=== PATIENT | male | born 1960 | race Caucasian/White ===

== ENCOUNTER 2020-10-27 13:10 | Emergency (ER) | payer MEDICARE, MEDICAID, SELFPAY ==
[2020-10-27] VITALS (7 sets, daily range): BP systolic 107–154; BP diastolic 59–86; PULSE 113–128; RESP 12–21; TEMP 36.8–36.9; O2SAT 94–100; BMI 19.8
--- NOTE | 2020-10-27 | ECG_ITS ---
Test Reason : TACHY Blood Pressure : / mmHG Vent. Rate : 118 BPM Atrial Rate : 131 BPM P-R Int : 000 ms QRS Dur : 072 ms QT Int : 348 ms P-R-T Axes : 000 048 054 degrees QTc Int : 487 ms Atrial fibrillation with rapid ventricular response Abnormal ECG When compared with ECG of 25-AUG-2018 20:55, Atrial fibrillation has replaced Sinus rhythm Referred By: Ebenezer Pierce Electronically Signed By:JEROD ALLISON
--- NOTE | ~2020-10-27 | XR_ITS ---
EXAMINATION: XR HUMERUS, RIGHT CLINICAL INFORMATION: Fall COMPARISON: None TECHNIQUE: AP and lateral views of the right humerus. FINDINGS: The bones and soft tissues are normal. No fracture. Imaged portions of the shoulder and elbow are unremarkable. XR/XR humerus RT IMPRESSION: Unremarkable right humerus.
--- NOTE | ~2020-10-27 | CT_ITS ---
EXAMINATION: CT BRAIN, CT FACIAL BONES AND CT CERVICAL SPINE WITHOUT CONTRAST. CLINICAL INFORMATION: Fall. COMPARISON: Cervical spine 08/25/2018 TECHNIQUE: Axial 5 mm thin and reformatted 2 mm thin sagittal and coronal images of brain were obtained. Axial 3 mm thin and reformatted 1.5 mm thin sagittal and coronal images of facial bones were obtained. Lastly axial 3 mm thin and reformatted 2 mm thin sagittal and coronal images of cervical spine were obtained. DLP [id number]. FINDINGS: Brain: There is no acute intra-axial, extra-axial bleed, masses, collection or midline shift. There is no acute infarction evolution. Both lateral ventricles are symmetrical in size and configuration with mild enlargement. There is diffuse periarticular hypodensity suggestive of chronic small vessel ischemic changes without mass effect. Bone windows reveal no calvarial abnormality. Facial bones: There is mild displaced left nasal bone fracture with soft tissue swelling. Visualized bilateral maxillofacial bones are normal. Bilateral TM joints are normal. The mandible is intact. The bony orbits are intact. Bilateral optic globe, optic nerves and periorbital soft tissues are normal. The nasal septum is slightly deviated to the left with a small bony spur. The turbinates are asymmetrical. The bony sinus sánchez are intact. There is mild mucoperiosteal thickening left frontal sinus. Bilateral ostiomeatal complex and frontoethmoidal recesses are widely patent. The anterior maxillary spine is intact. The mastoid sinuses are clear. The prevertebral and paravertebral soft tissues are normal. Cervical spine: There is maintained cervical lordosis. The vertebral heights and alignment is normal. There is loss of C5-C6 and C6-C7 disc heights. There is an impacted C2 comminuted fracture which appear stable to previous study. Also visualized is a small posterior inferior oblique C3 vertebral body fracture. There is healed C3 nondisplaced fracture involving the left intra-articular facets, lamina and the spinous process. There are no new fractures. The prevertebral and paravertebral soft tissues are normal. The craniovertebral junction and the C1-C2 alignment is normal. The prevertebral and paravertebral soft tissues are normal. There is atherosclerotic calcification of bilateral carotid arteries. The lung apices are clear except for mild centrilobular emphysema . CT/CT cervical spine wo con IMPRESSION: No acute intracranial process seen. Mildly displaced left nasal bone fracture with minimal soft tissue swelling. Chronic left frontal sinus inflammatory changes. No additional fractures seen in the maxillofacial bones. Old healed left C2 vertebral body, left healed C3 posterior body, lamina and spinous process fractures extending to the facet joint Healed left C4 facet joint fracture. There is no acute fracture seen in the cervical spine. Centrilobular emphysema without acute process.
--- NOTE | ~2020-10-27 | XR_ITS ---
EXAMINATION: XR HIP, RIGHT CLINICAL INFORMATION: Hip pain after fall COMPARISON: Left femur and hip 09/18/2017 TECHNIQUE: Single view pelvis with 2 additional views of the right hip. FINDINGS: Alignment is normal at the hips, pubic symphysis and sacroiliac joints. No acute fractures in the pelvis or proximal femurs. Joint space of each hip is maintained. Old, healed fractures of right pubic rami. The 2 views of the right hip show the femoral head to be well positioned within the acetabulum. The partially visualized left femoral intramedullary nail and femoral neck screw are intact. No hardware loosening (within the examined [id number]). There is coxa profunda of the left hip (with chronic acetabular overcoverage of the femoral head). Atherosclerotic calcification of the aorta and iliofemoral arteries. XR/XR hip RT w [id number] IMPRESSION: No evidence of acute osseous injury. Old, healed fractures of right pubic rami.
--- NOTE | 2020-10-27 13:19 | ED.FALL ---
HPI - Fall General Chief Complaint: Fall Stated Complaint: FALL T-1ARM AND BACK PAIN Time Seen by Provider: 10/27/20 13:19 Source: patient and EMS Mode of arrival: EMS Limitations: no limitations History of Present Illness MD complaint: fall Onset (ago): hour(s) (2am in the morning) Fall from: standing Fall witnessed: no Place fall occurred: home Loss of consciousness: none Prolonged down time: no Symptoms prior to fall: none Context: tripped/slipped Location of injury: head and face Location of injury - extremities: right: arm Severity: moderate Quality: dull Associated symptoms (after fall): denies Related Data Previous Rx's Medication Instructions Recorded morphine 15 mg immediate release 15 mg PO Q6H PRN 3 Days #12 tab 10/27/20 tablet Allergies Allergy/AdvReac Type Severity Reaction Status Date / Time acetaminophen [From TYLENOL] Allergy Unknown NAUSEA Verified 10/27/20 13:33 ibuprofen [From MOTRIN] Allergy Unknown GI Verified 10/27/20 13:33 BLEEDING, stomach bleed Review of Systems Review of Systems: Constitutional : No Fever, No Chills ENT/Mouth : No Ear Pain, No Hoarseness, No sore throat Eyes: No Eye Pain, No Swelling, No Redness, No Foreign Body Cardiovascular : No Chest Pain, No SOB Respiratory : No Cough, No Dyspnea Gastrointestinal : No Nausea, No Vomiting, No Diarrhea, No abdominal Pain Genitourinary : No Dysuria, No Hematuria Musculoskeletal : positive joint pain, No Myalgias, No Joint Swelling Skin : pos Skin lacerations, No rash Neuro : No Weakness, No Numbness, No Loss of Consciousness, No Dizziness, No Headache Psych : No Anxiety/Panic, No Depression Heme/Lymph: no easy bruising, no Lymphadenopathy Endocrine : No Polyuria, No Polydipsia All other systems reviewed and are negative PMFSH Past Medical History Attestation statement: The following information was validated with the patient. Medical History (Updated 10/27/20 @ 16:31 by Cydney Dodge DO) Asbestosis Atrial fibrillation COPD (chronic obstructive pulmonary disease) Falls Social History Social History (Updated 10/27/20 @ 13:55 by Cydney Dodge DO) Alcohol intake: current Alcohol intake frequency: a few times a week Patient Tobacco Use Status: Current everyday Tobacco user Use of substances other than those prescribed or required for medical reasons: No Advance Directives: No Advance Directives Information Provided: No Physical Exam Vital Signs: Vital Signs: Last Vital Signs Temp 98.3 F 10/27/20 15:46 Pulse 117 H 10/27/20 15:46 Resp 20 10/27/20 15:46 BP 123/71 10/27/20 15:46 Pulse Ox 94 10/27/20 15:46 Body Mass Index 19.8 Appearance: Alert. Oriented X3. No acute distress. Eyes: Pupils equal, round and reactive to light. ENT: Pharynx normal. contusion to bridge of nose, abrasion and ecchymosis to left cheek EOMi, no nasal septal hematoma Neck: Normal inspection. Neck supple. CVS: Normal heart rate and rhythm. Pulses normal. Respiratory: No respiratory distress. Breath sounds normal. Abdomen: Soft and nontender. Skin: Skin warm and dry. Normal skin color. Normal skin turgor. Extremities: No lower extremity edema. no pain with movement of hips, R upper inner bicep area full ROM but superficial 6cm laceration, distal NV intact Neuro: Oriented X 3. No motor deficit. No sensory deficit. Course Course Course Narrative: patient reports that HR is normally 110 after review of images radiology states all fractures from 2019 not new no new fractures but his neck did not heal no neuro deficits will instruct him to follow up with his spine doctor Procedures Laceration Laceration 1: Site: upper extremity Side (If applicable): right Size (cm): 6 Description: linear and flap Depth: simple, single layer Local Anesthetic: other anesthetic (LET ) Amount of anesthesia used (mL): 3 Pre-repair: wound explored, irrigated extensively and deep structures intact Skin layer closed with: other (6 jesse) MDM - Fall MDM Narrative Medical decision making narrative: 60 yo male no AC therapy, hx of pain issues here with mechanical fall due to fridge door getting stuck - at this time CT head/facial bones/cervical spine, R humerus - PO pain medications will need wound closure, discussed possible rehab for falls but he was vague with wanting that Discharge Plan Discharge Clinical Impression: Laceration, At high risk for falls Contusion Qualifiers: Encounter type: initial encounter Contusion area: head Contusion of head detail: orbital tissues Laterality: left Qualified Code(s): S05.12XA - Contusion of eyeball and orbital tissues, left eye, initial encounter Closed fracture nasal bone Qualifiers: Encounter type: initial encounter Qualified Code(s): S02.2XXA - Fracture of nasal bones, initial encounter for closed fracture Patient Disposition: Home, Self-Care Instructions: Nasal Fracture (ED), Laceration (ED), Fall Prevention (ED) Additional Instructions: return to ED for any worsening symptoms or concerns some of your neck fractures never healed - you need to follow up with your spine doctor okay to shower with jesse, keep clean and dry afterwards do not get wet for 48 hours monitor for redness, fevers, yellow drainage jesse come out in 10 days Prescriptions: New morphine 15 mg tablet 15 mg PO Q6H PRN (Reason: pain) 3 Days Qty: 12 RF: 0
[2020-10-27] MEDS: Morphine Sulfate Immed Release 15 MG TABLET PO (13:51)
[2020-10-27] MEDS: Lidocaine/Epineph/Tetracaine 3 ML GEL.PF.APP TOPICAL (13:51)
--- NOTE | 2020-10-27 18:21 | PC.NURSE ---
Pt c/o of increasing right hip pain, attempted to ambulate pt and pt unable to bear weight. Plan for xray of hip
--- NOTE | 2020-10-27 20:12 | PC.NURSE ---
This RN at bedside, pt aaox4, resting on stretcher c/o R arm pain and L hip pain. Pt requesting PO. While this RN at bedside, this rn notes pt to be in what appears to be afib with rvr on bedside monitor. This rn obtains EKG with HR in 120s, EKG presented to Dr Pierce who was made aware of rate up to 160. Pt does not take any meds for his afib at home stating I don't know what to tell you, I'm against it. 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 Per Dr Pierce, pt OK for PO. PO provided to pt. Stretcher remains in low locked position, rails raised, call shaffer within reach. Pt with red fall prevention socks and red wrist band. Pt awaiting dispo pending XR results.
== END 2020-10-27 22:19 | disposition home or self-care (01) ==
PROVIDERS: Emergency Provider Emergency Medicine Emergency Medical Services; PCP Family Medicine
DX: S41.111A Laceration without foreign body of right upper arm, initial encounter (principal); S02.2XXA Fracture of nasal bones, initial encounter for closed fracture; G44.309 Post-traumatic headache, unspecified, not intractable; M54.2 Cervicalgia; M25.551 Pain in right hip; W01.0XXA Fall on same level from slipping, tripping and stumbling without subsequent striking against object, initial encounter; Y93.9 Activity, unspecified; Y92.009 Unspecified place in unspecified non-institutional (private) residence as the place of occurrence of the external cause; Y99.9 Unspecified external cause status; Z79.899 Other long term (current) drug therapy; F17.200 Nicotine dependence, unspecified, uncomplicated; Z71.6 Tobacco abuse counseling
CPT/HCPCS: 70450; 70486; 72125; 73060; 73502; 93005; 99284; 99285

== ENCOUNTER 2021-05-21 14:03 | Inpatient (IN) | payer MEDICARE, MEDICAID, SELFPAY ==
[2021-05-21] VITALS (9 sets, daily range): BP systolic 93–130; BP diastolic 59–78; PULSE 106–179; RESP 14–20; TEMP 36.8–37.1; O2SAT 95–100; BMI 18.8
--- NOTE | 2021-05-21 | ECG_ITS ---
Test Reason : tachycardia Blood Pressure : / mmHG Vent. Rate : 110 BPM Atrial Rate : 110 BPM P-R Int : 156 ms QRS Dur : 078 ms QT Int : 356 ms P-R-T Axes : 069 008 047 degrees QTc Int : 481 ms Sinus tachycardia Otherwise normal ECG When compared with ECG of 21-MAY-2021 15:38, Sinus rhythm has replaced Atrial fibrillation Referred By: Wilberto Liao Electronically Signed By:Mina Morales
--- NOTE | 2021-05-21 | ECG_ITS ---
Test Reason : irregular heartrate Blood Pressure : / mmHG Vent. Rate : 114 BPM Atrial Rate : 114 BPM P-R Int : 148 ms QRS Dur : 076 ms QT Int : 340 ms P-R-T Axes : 071 018 061 degrees QTc Int : 468 ms Sinus tachycardia Low voltage QRS Septal infarct , age undetermined Abnormal ECG When compared with ECG of 21-MAY-2021 18:27, Septal infarct is now Present Referred By: Christian Gr Electronically Signed By:Mina Morales
--- NOTE | ~2021-05-21 | XR_ITS ---
EXAMINATION: XR KNEE, RIGHT CLINICAL INFORMATION: Pain COMPARISON: None TECHNIQUE: Frontal and lateral of the right knee. FINDINGS: Bones and soft tissues are normal. No fracture or joint effusion. Alignment is anatomic. Joint spaces are well maintained. No abnormal soft tissue calcification. There are vascular calcification. XR/XR knee RT 2V IMPRESSION: No acute osseous changes to explain patient's pain symptoms. There are vascular calcifications.
--- NOTE | ~2021-05-21 | CT_ITS ---
EXAMINATION: CT KNEE WITHOUT CONTRAST, RIGHT CLINICAL INFORMATION: Evaluate knee effusion. Septic knee versus bursitis. COMPARISON: X-ray 05/21/2021 TECHNIQUE: Axial imaging. Sagittal and coronal reconstructions. This CT examination was performed using dose optimization techniques as appropriate, variously including the following: *Automated exposure control *Adjustment of mA and/or kV according to patient size (this includes techniques or standardized protocols for targeted exams where dose is matched to indication/reason for exam; i.e. extremities or head) *Use of iterative reconstruction technique DLP: 269 mGy-cm FINDINGS: There is a prominent soft tissue swelling in the anterior and lateral aspect of the knee, including overlying the patella and the proximal patellar tendon, and to a lesser degree along the medial side, with subcutaneous edema/fluid. Low-attenuation subcutaneous tissues suggestive of edema/fluid. Evaluation for loculated or organized fluid collections is limited in the absence of intravenous contrast. Bones are diffusely osteopenic, limiting sensitivity. No acute fracture is seen of the distal femur and proximal tibia.. There is a subtle linear lucency in the proximal fibular head, for example image 6:49, which could represent a subtle undisplaced fracture of indeterminate age. Mild medial and lateral compartment degenerative changes. There is small joint fluid. There are fatty changes in the medial gastrocnemius muscle. CT/CT knee RT wo con IMPRESSION: Prominent soft tissue swelling along the anterior aspect of the knee, more prominent anteriorly and laterally, overlying the patella and the patellar tendon. There is subcutaneous edema/fluid present. Evaluation for organized fluid collection is limited in the absence of intravenous contrast. Follow-up contrast study or MRI could be obtained for further evaluation as clinically warranted. Osteopenia limits evaluation of the osseous structures. Question subtle undisplaced fracture of the proximal fibula, of indeterminate age. No other discrete fracture is identified. Small joint effusion.
--- NOTE | 2021-05-21 14:12 | ECG_ITS ---
Test Reason : TACARDIA Blood Pressure : / mmHG Vent. Rate : 130 BPM Atrial Rate : 000 BPM P-R Int : 000 ms QRS Dur : 072 ms QT Int : 320 ms P-R-T Axes : 000 004 057 degrees QTc Int : 470 ms Atrial fibrillation with rapid ventricular response Abnormal ECG When compared with ECG of 27-OCT-2020 20:05, No significant change was found Referred By: Leanna Lowery Electronically Signed By:Mina Morales
--- NOTE | 2021-05-21 14:22 | ED.GENADULT ---
HPI - General Adult General Chief complaint: General Medical Stated complaint: R KNEE PAIN/SWELLING SINCE SATURDAY, NO INJURY Time Seen by Provider: 05/21/21 14:07 Source: patient and EMS Mode of arrival: EMS Limitations: no limitations History of Present Illness HPI narrative: 60 yo male with history of afib not on AC or ASA, COPD here with complaints of right knee swelling, redness, warmth since Saturday. Patient denies injury or trauma. No chills, fever. Related Data Home Medications Medication Instructions Recorded Confirmed albuterol sulfate 90 mcg/actuation 2 puff PO Q4H PRN 05/21/21 05/21/21 aerosol inhaler (Ventolin HFA) cyclobenzaprine 10 mg tablet 1 tab PO TID PRN 05/21/21 05/21/21 digoxin 250 mcg (0.25 mg) tablet 1 tab PO DAILY 05/21/21 05/21/21 metoprolol tartrate 25 mg tablet 1 tab PO BID 05/21/21 05/21/21 nicotine (polacrilex) 4 mg gum 1 - 2 ea PO Q2H PRN 05/21/21 05/21/21 Allergies Allergy/AdvReac Type Severity Reaction Status Date / Time acetaminophen [From TYLENOL] Allergy Unknown NAUSEA Verified 10/27/20 13:33 ibuprofen [From MOTRIN] Allergy Unknown GI Verified 10/27/20 13:33 BLEEDING, stomach bleed Review of Systems Review of Systems: Yes all other systems are reviewed and are negative Constitutional: Constitutional: Reports no additional constitutional complaints, Denies body ache(s), Denies chills, Denies fever(s), Denies headache(s) and Denies weakness Eyes: Eyes: Reports no additional eye complaints and Denies change in vision ENT: Reports system reviewed and no additional complaints, except as documented, Denies dizziness, Denies headache(s), Denies nasal congestion, Denies nasal discharge and Denies neck pain Cardiovascular: Cardiovascular: Reports no additional cardiovascular complaints, Denies chest pain, Denies leg edema and Denies dyspnea Respiratory: Respiratory: Reports no additional respiratory complaints, Denies cough and Denies dyspnea Gastrointestinal: Gastrointestinal: Reports no additional gastrointestinal complaints, Denies abdominal pain, Denies diarrhea, Denies nausea and Denies vomiting Genitourinary: Genitourinary: Denies urinary incontinence Musculoskeletal: Musculoskeletal: Reports no additional musculoskeletal complaints, Denies back pain, Reports arthralgias, Reports joint swelling, Denies neck pain, Denies numbness and Denies tingling Integumentary/Breasts: Skin/Breast: Reports system reviewed and no additional complaints, except as docu, Reports swelling, Reports erythema and Denies rash Neurologic: Reports system reviewed and no additional complaints, except as documented, Denies dizziness, Denies headache(s), Denies numbness, Denies tingling and Denies weakness [facility] Past Medical History Attestation statement: The following information was validated with the patient. Source: old records reviewed and nursing notes reviewed Medical History Anxiety Asbestosis Atrial fibrillation COPD (chronic obstructive pulmonary disease) Depression Falls Multiple sclerosis Social History Social History Alcohol intake: current Alcohol intake frequency: 0-2 drinks per day Alcohol type: wine Patient Tobacco Use Status: Former Tobacco user Use of substances other than those prescribed or required for medical reasons: Yes Substance Use Type: Marijuana Advance Directives: No Advance Directives Information Provided: No Physical Exam ED Vital Signs: Vital Signs - 24 hr 05/21/21 14:10 05/21/21 15:49 05/21/21 16:11 Temperature 98.8 F 98.4 F 98.3 F Pulse Rate 122 H 112 H 174 H Respiratory Rate 17 16 18 Blood Pressure 116/70 130/71 103/72 Pulse Oximetry 100 96 98 05/21/21 17:05 Temperature Pulse Rate 106 H Respiratory Rate 14 Blood Pressure 121/71 Pulse Oximetry 95 BMI result Body Mass Index 18.8 Const General: cooperative Orientation/consciousness: patient oriented x3 Limitations: no limitations [facility] Head: Yes normal to inspection Ears: hearing grossly normal bilaterally General nose exam: Normal external nose present Face and sinus: Yes normal facial exam Mouth: Normal oral and palatal mucosa present Teeth and gingiva: dentition normal Throat: Yes posterior oropharynx normal, Yes tonsils normal and Yes uvula midline Eyes General: appearance normal, both eyes and all related structures Pupils: Equal, round and reactive pupils present Neck Neck: Yes normal visual inspection, Yes full ROM and Yes no lymphadenopathy Chest Chest palpation & inspection: normal inspection of the chest Resp Effort & Inspection: normal respiratory effort Auscultation: clear to auscultation bilaterally Cardio Rate: tachycardic Rhythm: regular rhythm Peripheral pulses: Peripheral pulses 2+ throughout GI Inspection: Yes normal to inspection Palpation (GI): Soft to palpation and nontender General: Yes no CVA tenderness Back/Spine/Pelvis Back: no CVA tenderness Thoracic/Lumbar Spine: thoracic and lumbar spine normal to inspection Skin General skin exam: no rashes or lesions noted Neuro General: patient oriented x3 and moves all extremities Cranial nerves: Yes Equal, round and reactive pupils present Extrem Other: Patient has his leg held in partial flexion and is unable to extend the leg due to pain. There is streaking up the right thigh. The anterior knee is fluctuant with tenderness. Course Course Course Narrative: 60-year-old male here with right knee swelling, tenderness, warmth, redness since Saturday with no known injury or trauma. On exam the patient has what looks like a cellulitis with concern for septic joint. Anticipate patient will require an arthrocentesis, IV antibiotics and admission to the hospital. The patient is mildly tachycardic and per EMS the patient has underlying history of AFib not on anticoagulation with heart rate variable 110-150 during transport. Will obtain EKG, troponin. No chest pain or shortness of breath. Reevaluation(s) Reevaluation #1: Patient HR 130-180 afib. Patient did not take his morning medications of metoprolol, digoxin. Nor has he taken them for a few days. Ordered morning doses of his medications. Will give 5mg metoprolol IV. BP 103 systolic. Will give 500ml NS. Time: 16:00 Reevaluation #2: Heart rate now 106. On exam the patient has what appears to be an infected bursa which was aspirated by Dr Casiano at the bedside. Wound culture sent. X-ray shows no joint effusion. Discussed the patient with mounika Casiano who saw him at the bedside. Decision made not to perform arthrocentesis due to concern of further infection into the joint space with introduction of needle. I did discuss the patient with Marily from orthopedics. Will see as consult. Antibiotics are infusing. Plan to admit to medicine. Time: 17:00 Reevaluation #3: D/w with Dr Liao who accepted admission Time: 17:30 Medical Decision Making Medical Records Medical records reviewed: Yes I reviewed the patient's medical records. Lab Data Lab results reviewed: Yes I reviewed the patient's lab results. Result diagrams: 05/21/21 14:46 05/21/21 14:46 Labs: Lab Results 05/21/21 05/21/21 05/21/21 Range/Units 14:46 14:46 14:46 WBC 11.5 H (4.8-10.8) X10*3/uL RBC 3.18 L (4.60-5.80) X10*6/uL Hgb 10.9 L (14.0-18.0) g/dl Hct 32.1 L (42.0-52.0) % MCV 100.9 H (80.0-98.0) fL MCH 34.3 H (27.0-33.0) pg MCHC 34.0 (31.0-36.0) g/dl RDW 20.2 H (11.0-16.0) % Plt Count 132 L (160-400) X10*3/uL MPV 11.1 (9.4-12.4) fL Immature Gran % (Auto) 1.0 H (0.0-0.4) % Neut % (Auto) 82.5 H (45-73) % Lymph % (Auto) 12.0 L (20-40) % [place] % (Auto) 4.1 (2-11) % Eos % (Auto) 0.2 (0-4) % Baso % (Auto) 0.2 (0-2) % Lymph # (Auto) 1.4 (1.2-4.9) X10*3/uL [place] # (Auto) 0.5 (0.1-1.2) X10*3/uL Eos # (Auto) 0.0 (0.0-0.4) X10*3/uL Baso # (Auto) 0.0 (0.0-0.2) X10*3/uL Abs Immat Gran (auto) 0.11 H (0.00-0.03) X10*3/uL Absolute Neuts (auto) 9.5 H (2.0-8.3) x10*3/uL Absolute Nucleated RBC 0.000 (0.0-0.012) X10*3/uL Nucleated RBC % (auto) 0.0 (0.0-0.2) /100WBC PT 11.2 (9.9-13.0) SEC INR 1.0 (0.9-1.1) Sodium 134 L (135-145) mmol/L Potassium 3.5 (3.3-5.1) mmol/L Chloride 93 L (96-108) mmol/L Carbon Dioxide 28 (22-29) mmol/L Anion Gap 17 (12-20) BUN 11 (9-16) mg/dL Creatinine 0.80 (0.5-1.4) mg/dL Estim Creat Clear Calc 82.9 Estimated GFR > 60 Random Glucose 134 H (60-115) mg/dL Lactic Acid (0.5-2.0) mmol/L Calcium 9.3 (8.4-10.2) mg/dL Magnesium 1.8 (1.6-2.6) mg/dL Total Bilirubin 1.8 H (0.0-1.0) mg/dL Direct Bilirubin 0.9 H (0.0-0.5) mg/dL AST 21 (5-37) U/L ALT 15 (0-40) U/L Alkaline Phosphatase 96 (39-117) U/L Troponin I High Sens (<3.5-35.0) ng/L Total Protein 7.4 (6.5-8.0) g/dL Albumin 4.1 (3.5-5.0) g/dL COVID-19 (HEYDI) (Negative) COVID-19 Clin Com 05/21/21 05/21/21 05/21/21 Range/Units 14:46 14:46 14:46 WBC (4.8-10.8) X10*3/uL RBC (4.60-5.80) X10*6/uL Hgb (14.0-18.0) g/dl Hct (42.0-52.0) % MCV (80.0-98.0) fL MCH (27.0-33.0) pg MCHC (31.0-36.0) g/dl RDW (11.0-16.0) % Plt Count (160-400) X10*3/uL MPV (9.4-12.4) fL Immature Gran % (Auto) (0.0-0.4) % Neut % (Auto) (45-73) % Lymph % (Auto) (20-40) % [place] % (Auto) (2-11) % Eos % (Auto) (0-4) % Baso % (Auto) (0-2) % Lymph # (Auto) (1.2-4.9) X10*3/uL [place] # (Auto) (0.1-1.2) X10*3/uL Eos # (Auto) (0.0-0.4) X10*3/uL Baso # (Auto) (0.0-0.2) X10*3/uL Abs Immat Gran (auto) (0.00-0.03) X10*3/uL Absolute Neuts (auto) (2.0-8.3) x10*3/uL Absolute Nucleated RBC (0.0-0.012) X10*3/uL Nucleated RBC % (auto) (0.0-0.2) /100WBC PT (9.9-13.0) SEC INR (0.9-1.1) Sodium (135-145) mmol/L Potassium (3.3-5.1) mmol/L Chloride (96-108) mmol/L Carbon Dioxide (22-29) mmol/L Anion Gap (12-20) BUN (9-16) mg/dL Creatinine (0.5-1.4) mg/dL Estim Creat Clear Calc Estimated GFR Random Glucose (60-115) mg/dL Lactic Acid 1.4 (0.5-2.0) mmol/L Calcium (8.4-10.2) mg/dL Magnesium (1.6-2.6) mg/dL Total Bilirubin (0.0-1.0) mg/dL Direct Bilirubin (0.0-0.5) mg/dL AST (5-37) U/L ALT (0-40) U/L Alkaline Phosphatase (39-117) U/L Troponin I High Sens 4.2 (<3.5-35.0) ng/L Total Protein (6.5-8.0) g/dL Albumin (3.5-5.0) g/dL COVID-19 (HEYDI) Negative (Negative) COVID-19 Clin Com See Note Imaging Data knee xray: Attestation: I personally reviewed and interpreted this imaging study as follows: Radiologist's impression: FINDINGS: Bones and soft tissues are normal. No fracture or joint effusion. Alignment is anatomic. Joint spaces are well maintained. No abnormal soft tissue calcification. There are vascular calcification. XR/XR knee RT 2V IMPRESSION: No acute osseous changes to explain patient's pain symptoms. ? There are vascular calcifications. ECG Data Attestation: I personally reviewed and interpreted this ECG as follows: Interpretation: AFIB with RVR with rate 130, normal qrs, normal qt Discharge Plan Discharge Clinical Impression: Cellulitis of knee, right, A-fib Patient Disposition: Admitted As Inpatient
[2021-05-21] MEDS: 0.9 % Sodium Chloride 1,000 ML 999 ML IV (14:52)
[2021-05-21] MEDS: Morphine Sulfate 4 MG/ML CARTRIDGE IVPUSH ×2 (14:52→20:46)
[2021-05-21 14:54] LABS: MANUAL DIFF FLAG NO
[2021-05-21 14:55] LABS: Basophils Percent Auto 0.2 % (0-2); Eosinophils Percent Auto 0.2 % (0-4); Hematocrit 32.1 % (42.0-52.0); Hemoglobin 10.9 g/dl (14.0-18.0); Imm Gran Abs Auto 0.11 X10*3/uL (0.00-0.03); Lymphocytes Absolute Auto 1.4 X10*3/uL (1.2-4.9); Mean Corpuscular Hemoglobin 34.3 pg (27.0-33.0); Mean Corpuscular Volume 100.9 fL (80.0-98.0); Mean Platelet Volume 11.1 fL (9.4-12.4); Monocytes Absolute Auto 0.5 X10*3/uL (0.1-1.2); Monocytes Percent Auto 4.1 % (2-11); Neutrophils Absolute Auto 9.5 x10*3/uL (2.0-8.3); Neutrophils Percent Auto 82.5 % (45-73); Platelet Count 132 X10*3/uL (160-400); Red Blood Count 3.18 X10*6/uL (4.60-5.80); Red Cell Distribution Width 20.2 % (11.0-16.0); White Blood Count 11.5 X10*3/uL (4.8-10.8)
[2021-05-21 15:00] LABS: Prothrombin Time 11.2 SEC (9.9-13.0)
[2021-05-21 15:08] LABS: Lactic Acid 1.4 mmol/L (0.5-2.0)
[2021-05-21 15:12] LABS: Alanine Aminotransferase 15 U/L (0-40); Albumin Level 4.1 g/dL (3.5-5.0); Alkaline Phosphatase 96 U/L (39-117); Anion Gap 17 (12-20); Aspartate Amino Transferase 21 U/L (5-37); Bilirubin Direct 0.9 mg/dL (0.0-0.5); Bilirubin Total 1.8 mg/dL (0.0-1.0); Blood Urea Nitrogen 11 mg/dL (9-16); COVID-19 Test Negative (Negative); Calcium 9.3 mg/dL (8.4-10.2); Carbon Dioxide 28 mmol/L (22-29); Chloride 93 mmol/L (96-108); Creatinine Clr Calc Pharmacy 82.9; Estimated Glomerular Filt Rate > 60; Glucose Random 134 mg/dL (60-115); Magnesium 1.8 mg/dL (1.6-2.6); Potassium 3.5 mmol/L (3.3-5.1); Sodium 134 mmol/L (135-145); Total Protein 7.4 g/dL (6.5-8.0)
[2021-05-21 15:14] LABS: Troponin-I High Sensitivity 4.2 ng/L (<3.5-35.0)
--- NOTE | 2021-05-21 15:18 | PHA.MEDREC ---
Pharmacy Consult ? Medication Reconciliation Pharmacy has completed the medication reconciliation. Patient not sure what medications he takes, he seems noncompliant as he stated he takes medications sometimes and some medications cause hallucinations.
[2021-05-21] MEDS: Metoprolol Tartrate 5 MG/5 ML VIAL IVPUSH ×2 (16:03→23:09)
[2021-05-21] MEDS: Metoprolol Tartrate 25 MG TABLET PO ×2 (16:04→21:01)
[2021-05-21] MEDS: Piperacillin Sodium/Tazobactam 3.375 GM in 0.9 % Sodium Chloride 50 ML IV ×2 (16:07→22:01)
[2021-05-21] MEDS: 0.9 % Sodium Chloride 500 ML 999 ML IV (16:07)
[2021-05-21] MEDS: Digoxin 0.25 MG TABLET PO (16:09)
--- NOTE | 2021-05-21 16:10 | PC.NURSE ---
pt hr increased to 160s-180s, afib on monitor, ekg performed, pt stated he didnt take his normal medications this morning, pt also admitted to drinking ETOH this morning- a couple nips, pt speaking in full sentences, denies chest pain/sob, call shaffer within reach, will continue to monitor.
[2021-05-21] MEDS: Lidocaine HCl 1 % 20 ML VIAL 10 ML SUBCUT (16:41)
--- NOTE | 2021-05-21 16:42 | PC.NURSE ---
providers at bedside performing aspiration of rt knee
[2021-05-21] MEDS: Morphine Sulfate 2 MG/ML CARTRIDGE IVPUSH (17:05)
[2021-05-21] MEDS: vancomycin HCL 1,000 MG in 0.9 % Sodium Chloride 250 ML 270 MG IV (17:39)
--- NOTE | 2021-05-21 17:51 | PC.NURSE ---
patient a&ox3, iv antibiotics running per order, pt rn cardiac intact, call shaffer within reach, will continue to monitor.
--- NOTE | 2021-05-21 18:00 | PM.IMHP ---
History of Present Illness Date of Service: 05/21/21 Chief Complaint: Knee pain, leg swelling A 60 years old male with PMH of AFib not on AC, COPD who presents to the hospital complaining of right knee swelling, pain and redness for the last 4 days. The patient denies any injury to the knee but reporting noticed a small bump on Saturday morning that swollen quickly and became painful she was unable to move around or even take his pills. He reports palpitation as well and was noted to have AFib with RVR at time of presentation to the emergency. Reporting chills and subjective fever but no chest pain, shortness of breath, change in bowel habit or urinary symptoms. An x-ray of the knee did not show any fusion. Are thoracentesis was done in the emergency to the bursa area removing what looked like pus. Sent for culture. Atrial fibrillation was treated with oral medications and a dose of IV metoprolol with good response as the patient converted back to sinus rhythm. Admitted for further evaluation and treatment. Review of Systems Review of Systems: Reporting fever, chills and weakness No chest pain, palpitation No shortness of breath or coughing No abdominal pain, nausea or vomiting No urinary symptoms Complaining of right knee swelling, pain and erythema PMFSH Medical History Anxiety Asbestosis Atrial fibrillation COPD (chronic obstructive pulmonary disease) Depression Falls Multiple sclerosis Social History Alcohol intake: current Alcohol intake frequency: 0-2 drinks per day Alcohol type: wine Patient Tobacco Use Status: Former Tobacco user Use of substances other than those prescribed or required for medical reasons: Yes Substance Use Type: Marijuana Advance Directives: No Advance Directives Information Provided: No Meds Allergies Allergy/AdvReac Type Severity Reaction Status Date / Time acetaminophen [From TYLENOL] Allergy Unknown NAUSEA Verified 10/27/20 13:33 ibuprofen [From MOTRIN] Allergy Unknown GI Verified 10/27/20 13:33 BLEEDING, stomach bleed Active Medications: Current Medications Vancomycin HCl 1,000 mg/ (Sodium Chloride) 270 mls @ 270 mls/hr IV ONCE ONE Stop: 05/21/21 18:08 Last Admin: 05/21/21 17:39 Dose: 270 mls/hr Documented by: Pharmacy Consult (Consult Rx Perform Med Rec) 1 each MISCELLANE ONCE PRN PRN Reason: Consult order Pharmacy Consult (Consult Rx Vancomycin Dosing) 1 each MISCELLANE DAILY PRN PRN Reason: Consult order Home Medications Medication Instructions Recorded Confirmed Last Taken Type albuterol sulfate 90 mcg/actuation 2 puff PO Q4H PRN 05/21/21 05/21/21 Unknown History aerosol inhaler (Ventolin HFA) cyclobenzaprine 10 mg tablet 1 tab PO TID PRN 05/21/21 05/21/21 05/21/21 History digoxin 250 mcg (0.25 mg) tablet 1 tab PO DAILY 05/21/21 05/21/21 Unknown History metoprolol tartrate 25 mg tablet 1 tab PO BID 05/21/21 05/21/21 Unknown History nicotine (polacrilex) 4 mg gum 1 - 2 ea PO Q2H PRN 05/21/21 05/21/21 05/21/21 History Physical Exam Vital Signs and Narrative: Vital Signs: Last Vital Signs Temp 98.3 F 05/21/21 16:11 Pulse 106 H 05/21/21 17:05 Resp 14 05/21/21 17:05 BP 121/71 05/21/21 17:05 Pulse Ox 95 05/21/21 17:05 BMI result Body Mass Index 18.8 Const: Other: Constitutional : Alert, oriented, not in distress Neck : Normal inspection, Supple Cardiovascular : RRR, no JVP, no lower extremity edema Respiratory : fair bilateral air entry, no crackles, wheezes or rhonchi Gastrointestinal: soft, lax, Normal bowel sounds, Non tender Skin : Warm, Dry Neurological : Alert & oriented x3, No focal deficit , CN 2-12 within normal Results Labs CBC and Chem 7: 05/21/21 14:46 05/21/21 14:46 Labs: Laboratory Results - last 24 hr 05/21/21 05/21/21 05/21/21 14:46 14:46 14:46 MCV 100.9 H MCH 34.3 H MCHC 34.0 RDW 20.2 H Plt Count 132 L MPV 11.1 Immature Gran % (Auto) 1.0 H Neut % (Auto) 82.5 H Lymph % (Auto) 12.0 L [place] % (Auto) 4.1 Eos % (Auto) 0.2 Baso % (Auto) 0.2 Lymph # (Auto) 1.4 [place] # (Auto) 0.5 Eos # (Auto) 0.0 Baso # (Auto) 0.0 Abs Immat Gran (auto) 0.11 H Absolute Neuts (auto) 9.5 H Absolute Nucleated RBC 0.000 Nucleated RBC % (auto) 0.0 PT 11.2 INR 1.0 Anion Gap 17 Estim Creat Clear Calc 82.9 Estimated GFR > 60 Random Glucose 134 H Lactic Acid Calcium 9.3 Magnesium 1.8 Total Bilirubin 1.8 H Direct Bilirubin 0.9 H AST 21 ALT 15 Alkaline Phosphatase 96 Troponin I High Sens Total Protein 7.4 Albumin 4.1 COVID-19 (HEYDI) COVID-19 Clin Com 05/21/21 05/21/21 05/21/21 14:46 14:46 14:46 MCV MCH MCHC RDW Plt Count MPV Immature Gran % (Auto) Neut % (Auto) Lymph % (Auto) [place] % (Auto) Eos % (Auto) Baso % (Auto) Lymph # (Auto) [place] # (Auto) Eos # (Auto) Baso # (Auto) Abs Immat Gran (auto) Absolute Neuts (auto) Absolute Nucleated RBC Nucleated RBC % (auto) PT INR Anion Gap Estim Creat Clear Calc Estimated GFR Random Glucose Lactic Acid 1.4 Calcium Magnesium Total Bilirubin Direct Bilirubin AST ALT Alkaline Phosphatase Troponin I High Sens 4.2 Total Protein Albumin COVID-19 (HEYDI) Negative COVID-19 Clin Com See Note Imaging Radiologist's Impressions: Impressions Knee X-Ray 05/21/21 14:30 IMPRESSION: No acute osseous changes to explain patient's pain symptoms. There are vascular calcifications. Assessment and Plan (1) Cellulitis of knee, right: Status: Acute (2) Atrial fibrillation with rapid ventricular response: Status: Acute (3) Bursitis: Status: Acute Plan A 60 years old male with PMH of AFib not on AC, COPD who presents to the hospital complaining of right knee swelling, pain and redness for the last 4 days. Sepsis 2/2 Right lower extremity cellulitis 2/2 Right knee swelling from possible bursitis, or joint infection To do a CT scan to rule out any joint involvement Arthrocentesis done with removal of 10 cc Of pus from likely infected bursa Pending drainage and blood culture Start vancomycin and Zosyn Get orthopedic evaluation Atrial fibrillation with RVR Converted back to sinus rhythm with IV metoprolol Not on anticoagulation continue home medication of metoprolol and digoxin Check digoxin level DVT PPX Lovenox Quality Stroke Does the patient have a stroke diagnosis?: No VTE Prior VTE?: No VTE Risk Level:: Medical - moderate - high VTE Device Contraindication: Treatment Not Indicated VTE Drug Contraindication: N/A - Med Ordered
--- NOTE | 2021-05-21 18:33 | PC.NURSE ---
lab called about pts digoxin level- they stated that the provider needs to order the level as a new lab not add on, Dr. Liao was notified via tiger text to order the level. will obtain level when available.
[2021-05-21] MEDS: Heparin Sodium,Porcine 5,000 UNIT/ML VIAL 5000 UNIT SUBCUT (18:39)
[2021-05-21 19:59] LABS: Digoxin < 0.3 ng/mL (0.8-2.0)
--- NOTE | 2021-05-21 21:18 | PC.NURSE ---
patient a&ox3, school bus monitor intact- pt currently sinus tach low 100s, pts bp was running 115/57, contacted Dr. jenkins due to BP med ordered to see if she would like it held since he had gotten two doses in the ED due to the patients rapid HR, per hospitalist pt was medicated as ordered. pt also medicated for o10/10 rt knee pain, awaiting flexeral from pharmacy to medicate the patient with that as well, call shaffer within reach, pt to be NPO afer midnight, will continue to monitor.
--- NOTE | 2021-05-21 22:13 | PC.NURSE ---
it was noted on the security monitor that the patients hr [id number], upon entering the patients room patient was watching tv, denied chest pain/sob or discomfort, pt did however have hiccups, this nurse felt his pulse which was rapid and irregular, performed a vagal maneuver with the patient and broke the rapid hr, pt continues to be irregular in the low 100s, Dr. Gr was notified, ekg being performed, will continue to monitor.
[2021-05-21] MEDS: Cyclobenzaprine HCl 10 MG TABLET PO (22:22)
--- NOTE | 2021-05-21 22:37 | PC.NURSE ---
ETOH as previously mentioned in this nurses earlier note the patient had admitted to drinking ETOH prior to coming to the ED, at that time the provider was notified. This evening the patient now admits to drinking daily and stated when asked It depends on my day some days I drink more than others
--- NOTE | 2021-05-21 23:22 | PC.NURSE ---
patients hr again went to 170s, vagal maneuvers attempted without relief, Dr. Gr was notified, pt medicated with lopressor ivp per order, pt hr then decreased to 93/59 pts hr is now 111 sinus tach.
--- NOTE | 2021-05-21 23:39 | PC.NURSE ---
patient brought back to ed due to meds pt needs to be given, that the overflow nurses on nights are unable to administer if needed.
--- NOTE | 2021-05-21 23:42 | PC.NURSE ---
Assumed care of pt Pt states that drinks daily for pain control of RT knee. Per pt, when pain gets like this, I drink a few shots a day. Per pt, drank only 1 small shot today. Denies any n/v/headache No tremors noted
[2021-05-22] VITALS (18 sets, daily range): BP systolic 92–136; BP diastolic 48–80; PULSE 95–178; RESP 12–22; TEMP 36.7–37.6; O2SAT 94–99
--- NOTE | 2021-05-22 | ECG_ITS ---
Test Reason : rhythm changes Blood Pressure : / mmHG Vent. Rate : 101 BPM Atrial Rate : 101 BPM P-R Int : 148 ms QRS Dur : 080 ms QT Int : 364 ms P-R-T Axes : 051 012 066 degrees QTc Int : 471 ms Sinus tachycardia Possible Left atrial enlargement Low voltage QRS Septal infarct (cited on or before 21-MAY-2021) Abnormal ECG When compared with ECG of 21-MAY-2021 22:11, No significant change was found Referred By: Wilberto Liao Electronically Signed By:Mina Morales
[2021-05-22] MEDS: Morphine Sulfate 4 MG/ML CARTRIDGE IVPUSH ×4 (00:37→21:58)
[2021-05-22] MEDS: 0.9 % Sodium Chloride Flush 3 ML SYRINGE IVFLUSH ×4 (00:38→19:31)
[2021-05-22] MEDS: Metoprolol Tartrate 5 MG/5 ML VIAL IVPUSH ×3 (02:54→11:07)
--- NOTE | 2021-05-22 03:00 | PC.NURSE ---
Pt's HR up to 150s and 170s. Dr. Gr made aware Pt medicated per order Pt tolerated Lopressor Will continue to monitor
--- NOTE | 2021-05-22 03:32 | PC.NURSE ---
PATIENT WAS INCONTINENT OF URINE ,CARE WAS GIVEN PATIENT REQUESTED A PULLUP BRIEF ,PATIENT REPOSITION WITH PILLOWS IN BED .
[2021-05-22] MEDS: Heparin Sodium,Porcine 5,000 UNIT/ML VIAL 5000 UNIT SUBCUT ×2 (04:25→11:14)
[2021-05-22] MEDS: vancomycin HCL 750 MG in 0.9 % Sodium Chloride 250 ML 265 MG IV (05:42)
--- NOTE | 2021-05-22 06:52 | PM.EVENT ---
Event Note Date of Service: 05/22/21 Event Note: patient had multiple runs of tachycardia with heart rate reaching 180. sinus versus AFib although last few minutes and resolves. At some point patient did require IV pushes of Lopressor. Patient also admitted to daily drinking, started home on Ativan protocol but patient refused Ativan given his history of reaction to the medication. Spoke to pharmacy will start him on phenobarb pills for possible alcohol withdrawal
[2021-05-22 07:09] LABS: Hematocrit 26.6 % (42.0-52.0); Hemoglobin 8.9 g/dl (14.0-18.0); Mean Corpuscular HGB Conc 33.5 g/dl (31.0-36.0); Mean Corpuscular Hemoglobin 34.2 pg (27.0-33.0); Mean Corpuscular Volume 102.3 fL (80.0-98.0); Mean Platelet Volume 11.8 fL (9.4-12.4); NRBC Pct Auto 0.2 /100WBC (0.0-0.2); Platelet Count 122 X10*3/uL (160-400); Red Cell Distribution Width 20.6 % (11.0-16.0); White Blood Count 9.2 X10*3/uL (4.8-10.8)
[2021-05-22 07:40] LABS: Anion Gap 14 (12-20); Blood Urea Nitrogen 9 mg/dL (9-16); Calcium 8.3 mg/dL (8.4-10.2); Carbon Dioxide 26 mmol/L (22-29); Chloride 100 mmol/L (96-108); Creatinine Clr Calc Pharmacy 100.5; Estimated Glomerular Filt Rate > 60; Glucose Random 114 mg/dL (60-115); Potassium 2.7 mmol/L (3.3-5.1); Sodium 135 mmol/L (135-145)
--- NOTE | 2021-05-22 08:39 | P.CDIC_ITS ---
CDI Concurrent Query Documentation Clarification: PHYSICIAN'S DOCUMENTATION REQUEST Date of Query: 05/22/21 0839 Patient Name: Cheko Baltazar Admit Date: 05/21/21 Dear Doctor, A review of the medical record indicates additional documentation may be needed. Please review below and update the documentation accordingly. Clinical Indicators: The following diagnoses or signs and symptoms were noted in the patient record: Lab Tests: Risk Factors/Clinical Indicators/Treatments LAB FINDINGS: potassium 2.7 L Based on the above, could you clarify in the Progress Notes the appropriate diagnosis, if significant, that supports the above abnormalities and additional evaluation, monitoring, and/or treatment rendered: * Hypokalemia or other etiology of lab findings * Labs indicate a diagnosis of (please specify) * Other (please specify) * Unable to determine Use of terms such as suspected, likely, concern for, or probable (associated with a specific diagnosis that is being evaluated, monitored, or treated as if it exists) are acceptable and can be coded in the inpatient setting, when documented at the time of discharge. Thank you, Jojo Simon [facility], CDIS Extension: [phone] Please use your independent medical judgment in providing your response. THIS QUERY IS PART OF THE PERMANENT MEDICAL RECORD Provider Response: Other Other Diagnosis: Hypokalemia
--- NOTE | 2021-05-22 08:58 | PHA.PROG ---
Admission Date/Time: May 21, 2021 17:56 Indication: Weight in k.235 kg Adjusted body weight in Kg: Reading body weight in Kg: Obesity Dosing Indication % IBW: Serum Creatinine - Last 168 Hours 05/21/21 05/22/21 14:46 06:50 Creatinine 0.80 0.66 Estimated CrCl and GFR - Last 168 Hours 05/21/21 05/22/21 14:46 06:50 Estim Creat Clear Calc 82.9 100.5 Estimated GFR > 60 > 60 Vancomycin Loading Dose: 1000 MG X1 Current Vancomycin Dosing Regimen: INCREASING DOSE TO 1000 MG Q12H Vancomycin Monitoring using AUC goal of 400 - 600 range with trough as surrogate marker: MODEL PREDICTS A AUC OF 510 AND A TROUGH OF 15.1. Date and Time for next Vancomycin Level to be drawn: 05/23 @ 0500. Pharmacist Comments on Vancomycin Plan: Vancomycin dosing will take advantage of [employer] as a clinical decision support tool that uses Bayesian modeling to calculate individual patient's pharmacokinetic parameters and forecast the patient's drug concentration time course with the target goal AUC 24 range of 400 - 600 mg/L/hr.
[2021-05-22] MEDS: Metoprolol Tartrate 25 MG TABLET PO ×2 (09:15→19:31)
[2021-05-22] MEDS: Digoxin 0.25 MG TABLET PO (11:04)
--- NOTE | 2021-05-22 12:25 | PM.EVENT ---
Event Note Date of Service: 05/22/21 Event Note: Right knee septic prepatellar bursitis Does not appear to be any joint involvement He can initiate range of motion of the right knee although it is uncomfortable. There is no effusion in the knee. Recommend continue IV antibiotics and compression. No surgical intervention at this time.
[2021-05-22] MEDS: Potassium Chloride Packet 20 MEQ PACKET 40 MEQ PO ×2 (12:34→17:46)
[2021-05-22] MEDS: Magnesium Sulfate/H2O 2 GM/50 ML PIGGYBACK IV (12:35)
[2021-05-22 12:37] LABS: Magnesium 1.4 mg/dL (1.6-2.6)
[2021-05-22] MEDS: Potassium Chloride/H20 10 MEQ/100 ML PIGGYBACK 100 MEQ IV (12:47)
--- NOTE | 2021-05-22 12:59 | P.PNIM_ITS ---
Subjective Subjective Date of Service: 05/22/21 Interval History: the patient was seen and evaluated this morning Laying in bed, feels mild improvement but still in severe pain in his right knee Still having episodes of tachycardia responding to IV medications Potassium dropped to 2.7 Denies any fever, chills or shortness of breath No reported other overnight events. Review of Systems Reporting fever, chills and weakness No chest pain, palpitation No shortness of breath or coughing No abdominal pain, nausea or vomiting No urinary symptoms Complaining of right knee swelling, pain and erythema Physical Exam Vital Signs: Vital Signs: Last Vital Signs Temp 98.5 F 05/22/21 08:37 Pulse 104 H 05/22/21 12:29 Resp 14 05/22/21 12:29 BP 99/52 L 05/22/21 12:29 Pulse Ox 97 05/22/21 12:29 BMI result Body Mass Index 18.8 Const: Other: Constitutional : Alert, oriented, not in distress Neck : Normal inspection, Supple Cardiovascular : RRR, no JVP, no lower extremity edema Respiratory : fair bilateral air entry, no crackles, wheezes or rhonchi Gastrointestinal: soft, lax, Normal bowel sounds, Non tender Skin : Warm, Dry, right knee swelling improved overnight with Ramon wrap in place and no drainage noted. Neurological : Alert & oriented x3, No focal deficit , CN 2-12 within normal Objective Data Active Medications Acetaminophen (Acetaminophen 325 Mg Tablet) 650 mg PO Q6H PRN PRN Reason: Pain, Mild (Pain Scale 1-3) Albuterol Sulfate (Albuterol Sulfate 90 Mcg 8 Gm Inhaler) 2 puff INHALE Q4H PRN PRN Reason: wheezing Cyclobenzaprine HCl (Cyclobenzaprine Hcl 10 Mg Tablet) 10 mg PO TID PRN PRN Reason: muscle spasm Last Admin: 05/21/21 22:22 Dose: 10 mg Documented by: DAYANA Digoxin (Digoxin 0.25 Mg Tablet) 0.25 mg PO DAILY [facility] Last Admin: 05/22/21 11:04 Dose: 0.25 mg Documented by: DEWAYNE Comments: Medication was not available earlier Heparin Sodium (Porcine) (Heparin Sodium,Porcine 5,000 Unit/Ml Vial) 5,000 unit SUBCUT Q8H [facility] Stop: 05/22/21 18:59 Last Admin: 05/22/21 11:14 Dose: 5,000 unit Documented by: DEWAYNE Vancomycin HCl 1,000 mg/ (Sodium Chloride) 270 mls @ 270 mls/hr IV Q12H [facility] Magnesium Sulfate (Magnesium Sulfate/H2o) 2 gm in 50 mls @ 25 mls/hr IV ONCE ONE Stop: 05/22/21 13:47 Metoprolol Tartrate (Metoprolol Tartrate 25 Mg Tablet) 25 mg PO QID OLAF; Protocol Morphine Sulfate (Morphine Sulfate 4 Mg/Ml Cartridge) 4 mg IVPUSH Q4H PRN; Protocol PRN Reason: Pain, Severe (Pain Scale 7-10) Last Admin: 05/22/21 09:17 Dose: 4 mg Documented by: DEWAYNE Ondansetron HCl (Ondansetron Hcl 4 Mg/2 Ml Vial) 4 mg IVPUSH Q8H PRN PRN Reason: Nausea and Vomiting Pharmacy Consult (Consult Rx Perform Med Rec) 1 each MISCELLANE ONCE PRN PRN Reason: Consult order Pharmacy Consult (Consult Rx Vancomycin Dosing) 1 each MISCELLANE DAILY PRN PRN Reason: Consult order Pharmacy Consult (Consult Rx Etoh Phenob Po Dose) 1 each MISCELLANE ONCE PRN; P rotocol PRN Reason: Consult order Phenobarbital 100 mg/Phenobarbital 60 mg/Phenobarbital 15 mg 175 mg PO 1100,1400 [facility] Stop: 05/22/21 14:01 Phenobarbital (Phenobarbital 15 Mg Tablet) 45 mg PO BID [facility] Stop: 05/24/21 09:01 Phenobarbital (Phenobarbital 15 Mg Tablet) 15 mg PO BID [facility] Stop: 05/26/21 09:01 Phenobarbital (Phenobarbital 15 Mg Tablet) 15 mg PO DAILY [facility] Stop: 05/28/21 09:01 Potassium Chloride (Potassium Chloride Packet 20 Meq Packet) 40 meq PO Q4H [facility] Stop: 05/22/21 16:01 Sodium Chloride (0.9 % Sodium Chloride Flush 3 Ml Syringe) 3 ml IVFLUSH QSHIFT [facility] Last Admin: 05/22/21 09:18 Dose: 3 ml Documented by: DEWAYNE Labs CBC & Chem 7: 05/22/21 06:50 05/22/21 06:50 Labs: Laboratory Results - last 24 hr 05/21/21 05/21/21 05/21/21 14:46 14:46 14:46 MCV 100.9 H MCH 34.3 H MCHC 34.0 RDW 20.2 H Plt Count 132 L MPV 11.1 Immature Gran % (Auto) 1.0 H Neut % (Auto) 82.5 H Lymph % (Auto) 12.0 L [place] % (Auto) 4.1 Eos % (Auto) 0.2 Baso % (Auto) 0.2 Lymph # (Auto) 1.4 [place] # (Auto) 0.5 Eos # (Auto) 0.0 Baso # (Auto) 0.0 Abs Immat Gran (auto) 0.11 H Absolute Neuts (auto) 9.5 H Absolute Nucleated RBC 0.000 Nucleated RBC % (auto) 0.0 PT 11.2 INR 1.0 Anion Gap 17 Estim Creat Clear Calc 82.9 Estimated GFR > 60 Random Glucose 134 H Lactic Acid Calcium 9.3 Magnesium 1.8 Total Bilirubin 1.8 H Direct Bilirubin 0.9 H AST 21 ALT 15 Alkaline Phosphatase 96 Troponin I High Sens Total Protein 7.4 Albumin 4.1 Digoxin COVID-19 ([facility]YDI) COVID-Adknowledge 05/21/21 05/21/21 05/21/21 14:46 14:46 14:46 MCV MCH MCHC RDW Plt Count MPV Immature Gran % (Auto) Neut % (Auto) Lymph % (Auto) [place] % (Auto) Eos % (Auto) Baso % (Auto) Lymph # (Auto) [place] # (Auto) Eos # (Auto) Baso # (Auto) Abs Immat Gran (auto) Absolute Neuts (auto) Absolute Nucleated RBC Nucleated RBC % (auto) PT INR Anion Gap Estim Creat Clear Calc Estimated GFR Random Glucose Lactic Acid 1.4 Calcium Magnesium Total Bilirubin Direct Bilirubin AST ALT Alkaline Phosphatase Troponin I High Sens 4.2 Total Protein Albumin Digoxin COVID-19 (HEYDI) Negative COVID-Adknowledge See Note 05/21/21 05/22/21 05/22/21 19:10 06:50 06:50 MCV 102.3 H MCH 34.2 H MCHC 33.5 RDW 20.6 H Plt Count 122 L MPV 11.8 Immature Gran % (Auto) Neut % (Auto) Lymph % (Auto) [place] % (Auto) Eos % (Auto) Baso % (Auto) Lymph # (Auto) [place] # (Auto) Eos # (Auto) Baso # (Auto) Abs Immat Gran (auto) Absolute Neuts (auto) Absolute Nucleated RBC 0.020 H Nucleated RBC % (auto) 0.2 PT INR Anion Gap 14 Estim Creat Clear Calc 100.5 Estimated GFR > 60 Random Glucose 114 Lactic Acid Calcium 8.3 L D Magnesium 1.4 L* Total Bilirubin Direct Bilirubin AST ALT Alkaline Phosphatase Troponin I High Sens Total Protein Albumin Digoxin < 0.3 L COVID-19 (HEYDI) COVID-19 Clin Com Microbiology Microbiology Results: Microbiology 05/21/21 16:50 Gram Stain - Final Knee - Right Routine Culture - Preliminary Gram negative bere Assessment and Plan (1) Bursitis: Status: Acute (2) Atrial fibrillation with rapid ventricular response: Status: Acute (3) Cellulitis of knee, right: Status: Acute Plan A 60 years old male with PMH of AFib not on AC, COPD who presents to the hospital complaining of right knee swelling, pain and redness for the last 4 days. Sepsis 2/2 Right lower extremity cellulitis 2/2 Right knee swelling from possible bursitis, or joint infection CT scan t did not show any joint involvement Pending blood culture Wound culture growing gram-negative rods Continue vancomycin and Zosyn orthopedic evaluation appreciated, no intervention needs at this point Atrial fibrillation with RVR Converted back to sinus rhythm with IV metoprolol Not on anticoagulation continue home medication of metoprolol and digoxin Check digoxin level Sinus tachycardia Likely related to pain, infection Control underlying infection and use as needed metoprolol to control the rate Hypokalemia Potassium of 2.7 Replacement given Repeat BMP Hypomagnesemia Magnesium of 1.4 to give replacement and repeat DVT PPX Lovenox Quality Stroke Does the patient have a stroke diagnosis?: No VTE Prior VTE?: No VTE Risk Level:: Medical - moderate - high VTE Device Contraindication: Treatment Not Indicated VTE Drug Contraindication: N/A - Med Ordered
--- NOTE | 2021-05-22 13:16 | PC.NURSE ---
Patient's blood pressure 92/57, Dr Liao aware, ok to hold Phenobarbital at this time. Will monitor.
--- NOTE | 2021-05-22 14:24 | MHC.CM.PN ---
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
--- NOTE | 2021-05-22 14:37 | PC.NURSE ---
Attempted to call report to [facility] [place], will try again.
--- NOTE | 2021-05-22 15:05 | PC.NURSE ---
Phenobarbital and Metoprolol 25 mg PO held as per Dr Liao due to low blood pressure, 94/48. CIWA 0. Will monitor.
--- NOTE | 2021-05-22 15:16 | PC.NURSE ---
Report given to BRITTNEY Yang on [facility]
[2021-05-22] MEDS: Lactated Ringers 1,000 ML 999 ML IV (15:20)
--- NOTE | 2021-05-22 15:42 | PC.NURSE ---
Patient en route to [facility], portable tele monitor in place. Belongings at bedside.
[2021-05-22] MEDS: Metoprolol Tartrate 5 MG in 0.9 % Sodium Chloride 50 ML 220 MG IV (17:44)
[2021-05-22] MEDS: vancomycin HCL 1,000 MG in 0.9 % Sodium Chloride 250 ML 270 MG IV (19:30)
[2021-05-23] VITALS (11 sets, daily range): BP systolic 100–139; BP diastolic 65–90; PULSE 89–150; RESP 18–20; TEMP 36.2–37.5; O2SAT 92–99; BMI 18.8
--- NOTE | 2021-05-23 00:45 | PM.EVENT ---
Event Note Date of Service: 05/23/21 Event Note: Afib with RVR: pt asymptomatic; BP stable. c/w Home Metoprolol 25mg BID; IV metoprolol 5mg IV q4h prn
[2021-05-23] MEDS: Metoprolol Tartrate 5 MG/5 ML VIAL IVPUSH ×2 (01:04→06:12)
[2021-05-23] MEDS: Cyclobenzaprine HCl 10 MG TABLET PO ×2 (01:06→16:33)
[2021-05-23] MEDS: Morphine Sulfate 4 MG/ML CARTRIDGE IVPUSH ×4 (05:05→20:35)
[2021-05-23 06:50] LABS: Hematocrit 27.8 % (42.0-52.0); Hemoglobin 9.2 g/dl (14.0-18.0); Mean Corpuscular HGB Conc 33.1 g/dl (31.0-36.0); Mean Corpuscular Hemoglobin 33.9 pg (27.0-33.0); Mean Corpuscular Volume 102.6 fL (80.0-98.0); Mean Platelet Volume 10.9 fL (9.4-12.4); NRBC Pct Auto 0.3 /100WBC (0.0-0.2); Platelet Count 164 X10*3/uL (160-400); Red Blood Count 2.71 X10*6/uL (4.60-5.80); Red Cell Distribution Width 20.5 % (11.0-16.0); White Blood Count 7.4 X10*3/uL (4.8-10.8)
[2021-05-23 07:10] LABS: Vancomycin Trough 9.3 mcg/mL (10.0-20.0)
[2021-05-23 07:18] LABS: Anion Gap 11 (12-20); Blood Urea Nitrogen 7 mg/dL (9-16); Calcium 8.7 mg/dL (8.4-10.2); Carbon Dioxide 25 mmol/L (22-29); Chloride 101 mmol/L (96-108); Creatinine Clr Calc Pharmacy 96.1; Estimated Glomerular Filt Rate > 60; Glucose Random 184 mg/dL (60-115); Magnesium 1.8 mg/dL (1.6-2.6); Potassium 3.6 mmol/L (3.3-5.1); Sodium 134 mmol/L (135-145)
[2021-05-23] MEDS: Metoprolol Tartrate 25 MG TABLET PO ×4 (08:47→19:56)
[2021-05-23] MEDS: PHENobarbitaL 15 MG TABLET 45 MG PO ×2 (08:48→19:57)
[2021-05-23] MEDS: Digoxin 0.25 MG TABLET PO (08:48)
[2021-05-23] MEDS: 0.9 % Sodium Chloride Flush 3 ML SYRINGE IVFLUSH ×3 (08:49→19:57)
[2021-05-23] MEDS: levoFLOXacin/D5W 750 MG/150 ML PIGGYBACK 100 MG IV (08:50)
[2021-05-23] MEDS: vancomycin HCL 1,000 MG in 0.9 % Sodium Chloride 250 ML 270 MG IV ×2 (10:45→16:35)
--- NOTE | 2021-05-23 11:03 | HE.PHANOTE ---
RE VANCOMYCIN BRITTNEY MUELLER HAD COMPUTER ISSUES. GAVE VANCO DOSE AT 0730 ON 05/23 BUT WAS NOT ABLE TO DOCUMENT UNTIL 1045. CONTACTED IT TO RESOLVE ISSUE Thanks Nayan
--- NOTE | 2021-05-23 11:04 | HE.PHANOTE ---
RE Tamara Last trough was 9.3. Per insight, 1g q12 h still will provide auc 482, trough 13.8 once steady state. Next trough scheduled for 05/24 @1600
--- NOTE | 2021-05-23 11:49 | MHC.CLN ---
PT TRIGGERED FOR WT LOSS 24-33# ON NURSING ADMISSION ASSESSMENT PREVIOUS WT HX REVEALS 64.4KG (10/27/20) 5% NONSIGNIFICANT LOSS X 7 MONTHS PT ALSO NOTED 135# (08/2018) WT REMAINS WITHIN UBW RANGE AT THIS TIME PT IS UNDER WT FOR HT WITHOUT S/S MALNUTRITION SEE CLINICAL NUTRITION RISK ASSESSMENT
--- NOTE | 2021-05-23 13:28 | HO.PM.IMPN ---
Subjective Subjective Date of Service: 05/23/21 Interval History: the patient was seen and evaluated this morning Laying in bed, feels mild improvement but still in severe pain in his right knee Improved episodes of tachycardia Potassium improved Denies any fever, chills or shortness of breath No reported other overnight events. Review of Systems Reporting fever, chills and weakness No chest pain, palpitation No shortness of breath or coughing No abdominal pain, nausea or vomiting No urinary symptoms Complaining of right knee swelling, pain and erythema Physical Exam Vital Signs: Vital Signs: Last Vital Signs Temp 97.2 F 05/23/21 11:28 Pulse 106 H 05/23/21 11:28 Resp 20 05/23/21 11:28 BP 136/90 H 05/23/21 11:28 Pulse Ox 97 05/23/21 11:28 BMI result Body Mass Index 18.8 Const: Other: Constitutional : Alert, oriented, not in distress Neck : Normal inspection, Supple Cardiovascular : RRR, no JVP, no lower extremity edema Respiratory : fair bilateral air entry, no crackles, wheezes or rhonchi Gastrointestinal: soft, lax, Normal bowel sounds, Non tender Skin : Warm, Dry, right knee swelling improved overnight with Ramon wrap in place and no drainage noted. Neurological : Alert & oriented x3, No focal deficit , CN 2-12 within normal Objective Data Active Medications Acetaminophen (Acetaminophen 325 Mg Tablet) 650 mg PO Q6H PRN PRN Reason: Pain, Mild (Pain Scale 1-3) Albuterol Sulfate (Albuterol Sulfate 90 Mcg 8 Gm Inhaler) 2 puff INHALE Q4H PRN PRN Reason: wheezing Cyclobenzaprine HCl (Cyclobenzaprine Hcl 10 Mg Tablet) 10 mg PO TID PRN PRN Reason: muscle spasm Last Admin: 05/23/21 01:06 Dose: 10 mg Documented by: CORNELIUS Digoxin (Digoxin 0.25 Mg Tablet) 0.25 mg PO DAILY [facility] Last Admin: 05/23/21 08:48 Dose: 0.25 mg Documented by: LANA Vancomycin HCl 1,000 mg/ (Sodium Chloride) 270 mls @ 270 mls/hr IV Q12H [facility] Last Infusion: 05/23/21 11:48 Dose: 0 mls/hr Documented by: LANA Levofloxacin (Levaquin) 750 mg in 150 mls @ 100 mls/hr IV Q24H [facility] Last Infusion: 05/23/21 10:47 Dose: 0 mls/hr Documented by: LANA Metoprolol Tartrate (Metoprolol Tartrate 25 Mg Tablet) 25 mg PO QID [facility]; Protocol Last Admin: 05/23/21 08:47 Dose: 25 mg Documented by: LANA Metoprolol Tartrate (Metoprolol Tartrate 5 Mg/5 Ml Vial) 5 mg IVPUSH Q4H PRN PRN Reason: HR>125 Last Admin: 05/23/21 06:12 Dose: 5 mg Documented by: CORNELIUS Morphine Sulfate (Morphine Sulfate 4 Mg/Ml Cartridge) 4 mg IVPUSH Q4H PRN; Protocol PRN Reason: Pain, Severe (Pain Scale 7-10) Last Admin: 05/23/21 10:56 Dose: 4 mg Documented by: LANA Ondansetron HCl (Ondansetron Hcl 4 Mg/2 Ml Vial) 4 mg IVPUSH Q8H PRN PRN Reason: Nausea and Vomiting Pharmacy Consult (Consult Rx Perform Med Rec) 1 each MISCELLANE ONCE PRN PRN Reason: Consult order Pharmacy Consult (Consult Rx Vancomycin Dosing) 1 each MISCELLANE DAILY PRN PRN Reason: Consult order Pharmacy Consult (Consult Rx Etoh Phenob Po Dose) 1 each MISCELLANE ONCE PRN; Protocol PRN Reason: Consult order Phenobarbital (Phenobarbital 15 Mg Tablet) 45 mg PO BID [facility] Stop: 05/24/21 09:01 Last Admin: 05/23/21 08:48 Dose: 45 mg Documented by: LANA Phenobarbital (Phenobarbital 15 Mg Tablet) 15 mg PO BID [facility] Stop: 05/26/21 09:01 Phenobarbital (Phenobarbital 15 Mg Tablet) 15 mg PO DAILY [facility] Stop: 05/28/21 09:01 Sodium Chloride (0.9 % Sodium Chloride Flush 3 Ml Syringe) 3 ml IVFLUSH QSHIFT [facility] Last Admin: 05/23/21 08:49 Dose: 3 ml Documented by: LANA Labs CBC & Chem 7: 05/23/21 06:32 05/23/21 06:32 Labs: Laboratory Results - last 24 hr 05/23/21 05/23/21 05/23/21 06:32 06:32 06:32 MCV 102.6 H MCH 33.9 H MCHC 33.1 RDW 20.5 H Plt Count 164 D MPV 10.9 Absolute Nucleated RBC 0.020 H Nucleated RBC % (auto) 0.3 H Anion Gap Estim Creat Clear Calc Estimated GFR Random Glucose Calcium Magnesium Cancelled Vancomycin Trough 9.3 L 05/23/21 06:32 MCV MCH MCHC RDW Plt Count MPV Absolute Nucleated RBC Nucleated RBC % (auto) Anion Gap 11 L Estim Creat Clear Calc 96.1 Estimated GFR > 60 Random Glucose 184 H D Calcium 8.7 Magnesium 1.8 Vancomycin Trough Microbiology Microbiology Results: Microbiology 05/21/21 16:50 Gram Stain - Final Knee - Right Routine Culture - Final Klebsiella pneumoniae 05/21/21 15:31 Blood Culture - Preliminary Blood - Venous No growth after 24 hours. 05/21/21 14:46 Blood Culture - Preliminary Blood - Venous No growth after 24 hours. Assessment and Plan (1) Atrial fibrillation with rapid ventricular response: Status: Acute (2) Infection of prepatellar bursa: Status: Acute (3) Cellulitis of knee, right: Status: Acute Plan A 60 years old male with PMH of AFib not on AC, COPD who presents to the hospital complaining of right knee swelling, pain and redness for the last 4 days. Sepsis , resolved 2/2 Right lower extremity cellulitis, prepatellar bursa infection CT scan t did not show any joint involvement Negative blood culture Wound culture growing Klebsiella Discontinue Zosyn Continue with vancomycin and Levaquin orthopedic evaluation appreciated, no intervention needs at this point Atrial fibrillation with RVR Converted back to sinus rhythm with IV metoprolol but keeps flaring between sinus and AFib Not on anticoagulation continue home medication of metoprolol and digoxin Low digoxin level Sinus tachycardia Likely related to pain, infection Control underlying infection and use as needed metoprolol to control the rate Hypokalemia Potassium improved after replacement Repeat BMP Hypomagnesemia Magnesium improved to 1.8 To give extra dose to Keep mg above 2 DVT PPX Lovenox Quality Stroke Does the patient have a stroke diagnosis?: No VTE Prior VTE?: No VTE Risk Level:: Medical - moderate - high VTE Device Contraindication: Treatment Not Indicated VTE Drug Contraindication: N/A - Med Ordered
[2021-05-23] MEDS: Magnesium Sulfate/H2O 2 GM/50 ML PIGGYBACK IV (13:45)
[2021-05-24] VITALS (7 sets, daily range): BP systolic 96–145; BP diastolic 53–104; PULSE 85–148; RESP 16–22; TEMP 36.1–37.9; O2SAT 94–98
--- NOTE | 2021-05-24 | ECG_ITS ---
Test Reason : RHYTHM CHECK Blood Pressure : / mmHG Vent. Rate : 145 BPM Atrial Rate : 000 BPM P-R Int : 000 ms QRS Dur : 070 ms QT Int : 288 ms P-R-T Axes : 000 013 015 degrees QTc Int : 447 ms Atrial fibrillation with rapid ventricular response with premature ventricular or aberrantly conducted complexes Abnormal ECG When compared with ECG of 22-MAY-2021 12:01, Atrial fibrillation has replaced Sinus rhythm Criteria for Septal infarct are no longer Present Nonspecific T wave abnormality now evident in Inferior leads Referred By: Wilberto Liao Electronically Signed By:Mina Morales
[2021-05-24] MEDS: vancomycin HCL 1,000 MG in 0.9 % Sodium Chloride 250 ML 270 MG IV (05:14)
[2021-05-24 06:33] LABS: Hematocrit 26.6 % (42.0-52.0); Mean Corpuscular HGB Conc 33.8 g/dl (31.0-36.0); Mean Corpuscular Hemoglobin 34.2 pg (27.0-33.0); Mean Corpuscular Volume 101.1 fL (80.0-98.0); Mean Platelet Volume 11.1 fL (9.4-12.4); Platelet Count 205 X10*3/uL (160-400); Red Blood Count 2.63 X10*6/uL (4.60-5.80); Red Cell Distribution Width 20.1 % (11.0-16.0); White Blood Count 7.6 X10*3/uL (4.8-10.8)
[2021-05-24 06:48] LABS: Anion Gap 11 (12-20); Blood Urea Nitrogen 8 mg/dL (9-16); Calcium 8.6 mg/dL (8.4-10.2); Carbon Dioxide 25 mmol/L (22-29); Chloride 99 mmol/L (96-108); Creatinine Clr Calc Pharmacy 94.7; Estimated Glomerular Filt Rate > 60; Glucose Random 136 mg/dL (60-115); Potassium 3.8 mmol/L (3.3-5.1); Sodium 131 mmol/L (135-145)
--- NOTE | 2021-05-24 07:42 | HE.PHANOTE ---
Addendum entered by Maranda Maharaj RPh 05/25/21 07:51: SCr Today was 0.74. Continue current regimen. Next trough scheduled 05/25 @0500 Addendum entered by Elif Pierre RP 05/24/21 16:58: Trough came back at 18.6. Decreased regimen to 750 mg Q12H. The model predicts a AUC of 414 and a trough of 12.8. Next trough scheduled for 05/26 @ 0500. Original Note: RE EMMANUEL Continue current regimen. SCR stable, next trough 05/24@1600
[2021-05-24 08:44] LABS: Osmolality, Serum 269 mosm/kg (281-305)
[2021-05-24] MEDS: 0.9 % Sodium Chloride Flush 3 ML SYRINGE IVFLUSH ×3 (08:55→22:32)
[2021-05-24] MEDS: Morphine Sulfate 4 MG/ML CARTRIDGE IVPUSH ×4 (08:55→21:18)
[2021-05-24] MEDS: Digoxin 0.25 MG TABLET PO (08:56)
[2021-05-24] MEDS: Metoprolol Tartrate 25 MG TABLET PO ×4 (08:56→21:19)
[2021-05-24] MEDS: PHENobarbitaL 15 MG TABLET 45 MG PO (08:56)
[2021-05-24] MEDS: levoFLOXacin/D5W 750 MG/150 ML PIGGYBACK 100 MG IV (09:00)
[2021-05-24] MEDS: dilTIAZem HCL 125 MG in 0.9 % Sodium Chloride 100 ML 10 MG IVCONT (11:48)
[2021-05-24] MEDS: Cyclobenzaprine HCl 10 MG TABLET PO ×2 (12:50→17:07)
--- NOTE | 2021-05-24 13:44 | MHC.CM.PN ---
EMR REVIEWED, PT CONT'S TO C/O SEVER KNEE PAIN, AFIB INTERMITTENTLY AND ELEVATED HR, NO PLAN FOR D/C TODAY, ANTIC D/C 1-2 DAYS HOME W/POSSIBLE NEW VNA.
--- NOTE | 2021-05-24 13:58 | P.PNIM_ITS ---
Subjective Subjective Date of Service: 05/24/21 Interval History: the patient was seen and evaluated this morning Setting in bed, feels mild improvement but still in severe pain in his right knee In AFib with RVR since last night Denies any fever, chills or shortness of breath No reported other overnight events. Review of Systems Reporting fever, chills and weakness No chest pain, denies feeling palpitation No shortness of breath or coughing No abdominal pain, nausea or vomiting No urinary symptoms Complaining of right knee swelling, pain and erythema Physical Exam Vital Signs: Vital Signs: Last Vital Signs Temp 97.8 F 05/24/21 11:06 Pulse 123 H 05/24/21 11:06 Resp 22 H 05/24/21 11:06 BP 120/63 05/24/21 11:06 Pulse Ox 98 05/24/21 11:06 BMI result Body Mass Index 18.8 Const: Other: Constitutional : Alert, oriented, not in distress Neck : Normal inspection, Supple Cardiovascular : Irregular irregular, tachycardia, no JVP, no lower extremity edema Respiratory : fair bilateral air entry, no crackles, wheezes or rhonchi Gastrointestinal: soft, lax, Normal bowel sounds, Non tender Skin : Warm, Dry, right knee swelling improved overnight with Ramon wrap in place and no drainage noted. Neurological : Alert & oriented x3, No focal deficit , CN 2-12 within normal Objective Data Active Medications Acetaminophen (Acetaminophen 325 Mg Tablet) 650 mg PO Q6H PRN PRN Reason: Pain, Mild (Pain Scale 1-3) Albuterol Sulfate (Albuterol Sulfate 90 Mcg 8 Gm Inhaler) 2 puff INHALE Q4H PRN PRN Reason: wheezing Cyclobenzaprine HCl (Cyclobenzaprine Hcl 10 Mg Tablet) 10 mg PO TID PRN PRN Reason: muscle spasm Last Admin: 05/24/21 12:50 Dose: 10 mg Documented by: COLIN Digoxin (Digoxin 0.25 Mg Tablet) 0.25 mg PO DAILY [facility] Last Admin: 05/24/21 08:56 Dose: 0.25 mg Documented by: COLIN Vancomycin HCl 1,000 mg/ (Sodium Chloride) 270 mls @ 270 mls/hr IV Q12H [facility] Last Infusion: 05/24/21 07:16 Dose: 0 mls/hr Documented by: CORNELIUS Levofloxacin (Levaquin) 750 mg in 150 mls @ 100 mls/hr IV Q24H [facility] Last Infusion: 05/24/21 11:00 Dose: 0 mls/hr Documented by: COLIN Diltiazem HCl 125 mg/ Sodium (Chloride) 125 mls @ 0 mls/hr IVCONT .Q0M [facility]; Protocol Last Titration: 05/24/21 12:47 Dose: 15 mg/hr, 15 mls/hr Documented by: COLIN Metoprolol Tartrate (Metoprolol Tartrate 25 Mg Tablet) 25 mg PO QID [facility]; Protocol Last Admin: 05/24/21 12:46 Dose: 25 mg Documented by: COLIN Metoprolol Tartrate (Metoprolol Tartrate 5 Mg/5 Ml Vial) 5 mg IVPUSH Q4H PRN PRN Reason: HR>125 Last Admin: 05/23/21 06:12 Dose: 5 mg Documented by: CORNELIUS Morphine Sulfate (Morphine Sulfate 4 Mg/Ml Cartridge) 4 mg IVPUSH Q4H PRN; Protocol PRN Reason: Pain, Severe (Pain Scale 7-10) Last Admin: 05/24/21 12:50 Dose: 4 mg Documented by: COLIN Ondansetron HCl (Ondansetron Hcl 4 Mg/2 Ml Vial) 4 mg IVPUSH Q8H PRN PRN Reason: Nausea and Vomiting Pharmacy Consult (Consult Rx Perform Med Rec) 1 each MISCELLANE ONCE PRN PRN Reason: Consult order Pharmacy Consult (Consult Rx Vancomycin Dosing) 1 each MISCELLANE DAILY PRN PRN Reason: Consult order Pharmacy Consult (Consult Rx Etoh Phenob Po Dose) 1 each MISCELLANE ONCE PRN; Protocol PRN Reason: Consult order Phenobarbital (Phenobarbital 15 Mg Tablet) 15 mg PO BID [facility] Stop: 05/26/21 09:01 Phenobarbital (Phenobarbital 15 Mg Tablet) 15 mg PO DAILY [facility] Stop: 05/28/21 09:01 Sodium Chloride (0.9 % Sodium Chloride Flush 3 Ml Syringe) 3 ml IVFLUSH QSHIFT [facility] Last Admin: 05/24/21 08:55 Dose: 3 ml Documented by: COLIN Labs CBC & Chem 7: 05/24/21 06:06 05/24/21 06:06 Labs: Laboratory Results - last 24 hr 05/24/21 05/24/21 05/24/21 06:06 06:06 06:06 MCV 101.1 H MCH 34.2 H MCHC 33.8 RDW 20.1 H Plt Count 205 MPV 11.1 Absolute Nucleated RBC 0.000 Nucleated RBC % (auto) 0.0 Anion Gap 11 L Estim Creat Clear Calc 94.7 Estimated GFR > 60 Random Glucose 136 H Osmolality 269 L Calcium 8.6 Microbiology Microbiology Results: Microbiology 05/21/21 15:31 Blood Culture - Preliminary Blood - Venous No growth after 48 hours. 05/21/21 14:46 Blood Culture - Preliminary Blood - Venous No growth after 48 hours. Assessment and Plan (1) Infection of prepatellar bursa: Status: Acute (2) Sepsis: Status: Acute (3) Atrial fibrillation with rapid ventricular response: Status: Acute (4) Hyponatremia: Status: Acute Plan A 60 years old male with PMH of AFib not on AC, COPD who presents to the hospital complaining of right knee swelling, pain and redness for the last 4 days. Sepsis , resolved 2/2 Right lower extremity cellulitis, prepatellar bursa infection CT scan t did not show any joint involvement Negative blood culture Wound culture growing Klebsiella Discontinue Zosyn Continue with vancomycin and Levaquin orthopedic evaluation appreciated, no intervention needs at this point Atrial fibrillation with RVR Converted more than once but keep going back to AFib with RVR Not on anticoagulation Low digoxin level as he reports noncompliance continue home medication of metoprolol and digoxin To start Cardizem drip today and monitor Hyponatremia Sodium dropped to 131 this morning Secondary decreased oral intake Serum osmolarity low, pending urine studies Encouraged to add more salt to the diet and will monitor response Hypokalemia Potassium improved after replacement Repeat BMP Hypomagnesemia Magnesium improved after 2 doses of IV DVT PPX Lovenox Quality Stroke Does the patient have a stroke diagnosis?: No VTE Prior VTE?: No VTE Risk Level:: Medical - moderate - high VTE Device Contraindication: Treatment Not Indicated VTE Drug Contraindication: N/A - Med Ordered
[2021-05-24 16:33] LABS: Vancomycin Trough 18.6 mcg/mL (10.0-20.0)
[2021-05-24] MEDS: Nicotine Polacrilex 2 MG GUM BUCCAL ×3 (17:05→22:30)
[2021-05-24] MEDS: vancomycin HCL 750 MG in 0.9 % Sodium Chloride 250 ML 265 MG IV (17:55)
[2021-05-24] MEDS: PHENobarbitaL 15 MG TABLET PO (19:58)
[2021-05-25] VITALS (10 sets, daily range): BP systolic 90–118; BP diastolic 49–71; PULSE 78–133; RESP 16–20; TEMP 36–37.4; O2SAT 90–97
--- NOTE | 2021-05-25 02:37 | PC.NURSE ---
Pt was on SR on the 80s at start of the shift, at 2018 pt went to AF on the 90s to low 100s, pt is asymptomatic, SBP on the 90s, encouraged pt increased po fluids as tolerated, needs attended, pain med given as needed, Dr. Castillo was updated, later around 2200 pt was going back and forth AF and SR , then later went to SR on the 90s around 2300, slept fairly after.
[2021-05-25] MEDS: Morphine Sulfate 4 MG/ML CARTRIDGE IVPUSH ×4 (04:00→18:32)
[2021-05-25] MEDS: Nicotine Polacrilex 2 MG GUM BUCCAL ×6 (04:00→22:50)
[2021-05-25] MEDS: Cyclobenzaprine HCl 10 MG TABLET PO ×2 (04:04→22:50)
[2021-05-25] MEDS: Metoprolol Tartrate 5 MG/5 ML VIAL IVPUSH (04:24)
--- NOTE | 2021-05-25 05:06 | PC.NURSE ---
Pt seen at 1926, on going Vancomycin to the left FA ivline was beeping as done, so was about to flush the Ivline when noted a tourniquet still wrap around the upper arm, left arm was felt slightly cold and slightly sharri, +PP, tourniquet removed, arm to be monitored and reassured pt. the first hour of the shift pt was on SR on the 80s, around 2018 pt went to AF from 90s-low 100s, BP 96/53, pt is asymptomatic, due meds given, at 2300 pt went back to SR, slept fairly, had burst oF RVR to the 160s at 0230 for few sec while asleep and abated back to SR. At 0420 pt woke up and HR went to RVR as high as 150s, prn pain med given but no effect on the HR, prn Metoprolol given by [facility] RN, HR only went down to 120s-130s, Sr, Jonathan was updated at 0459 and said to give another dose of Metoprolol 5 mg IV, was about to go and give med when noted pt converted back to SR on the 90s, pt cont to be asymptomatic, will cont to monitor.
[2021-05-25] MEDS: vancomycin HCL 750 MG in 0.9 % Sodium Chloride 250 ML 265 MG IV ×2 (05:30→18:23)
[2021-05-25 06:22] LABS: Hematocrit 27.4 % (42.0-52.0); Hemoglobin 8.9 g/dl (14.0-18.0); Mean Corpuscular HGB Conc 32.5 g/dl (31.0-36.0); Mean Corpuscular Hemoglobin 33.3 pg (27.0-33.0); Mean Corpuscular Volume 102.6 fL (80.0-98.0); Mean Platelet Volume 10.4 fL (9.4-12.4); Platelet Count 273 X10*3/uL (160-400); Red Blood Count 2.67 X10*6/uL (4.60-5.80); Red Cell Distribution Width 20.2 % (11.0-16.0); White Blood Count 6.6 X10*3/uL (4.8-10.8)
[2021-05-25 06:37] LABS: Anion Gap 12 (12-20); Blood Urea Nitrogen 10 mg/dL (9-16); Calcium 8.6 mg/dL (8.4-10.2); Carbon Dioxide 27 mmol/L (22-29); Chloride 99 mmol/L (96-108); Creatinine Clr Calc Pharmacy 89.6; Estimated Glomerular Filt Rate > 60; Glucose Random 126 mg/dL (60-115); Potassium 4.1 mmol/L (3.3-5.1); Sodium 134 mmol/L (135-145)
[2021-05-25 06:40] LABS: Magnesium 1.6 mg/dL (1.6-2.6)
[2021-05-25] MEDS: levoFLOXacin/D5W 750 MG/150 ML PIGGYBACK 150 MG IV (09:08)
[2021-05-25] MEDS: 0.9 % Sodium Chloride Flush 3 ML SYRINGE IVFLUSH ×2 (09:08→20:47)
[2021-05-25] MEDS: Metoprolol Tartrate 25 MG TABLET PO ×4 (09:08→20:44)
[2021-05-25] MEDS: Digoxin 0.25 MG TABLET PO (09:08)
[2021-05-25] MEDS: PHENobarbitaL 15 MG TABLET PO (09:09)
[2021-05-25] MEDS: dilTIAZem HCL 125 MG in 0.9 % Sodium Chloride 100 ML 10 MG IVCONT ×2 (09:56→22:31)
--- NOTE | 2021-05-25 11:21 | PM.CNCAR ---
History of Present Illness History of Present Illness Date of Service: 05/25/21 Requesting physician: Wilberto Liao Chief complaint: Afib with RVR Narrative: 60-year-old gentleman with background history of atrial fibrillation for which she has been on chronic digoxin who is presenting for infection of prepatellar bursa. He had drainage of pus which has led to some improvement. He was noted to be in AFib with RVR. He is saying that he had AFib for long time. He does not get palpitations. Has not had any cardiomyopathy in the past. He does drink alcohol and is saying that due to pain in his knee he has been drinking heavily. He is on Cardizem drip right now. Heart rates are well controlled. No other issues right now. [facility] Past Medical History Medical History Anxiety Asbestosis Atrial fibrillation COPD (chronic obstructive pulmonary disease) Depression Falls Multiple sclerosis Social History Social History Household Members: None Housing: Apartment Do you presently have visiting nurse or other home services: Yes Alcohol intake: current Alcohol intake frequency: 0-2 drinks per day Alcohol type: wine Patient Tobacco Use Status: Former Tobacco user Substance Use Type: Marijuana service: No Current occupational status: disabled Meds Allergies Allergy/AdvReac Type Severity Reaction Status Date / Time acetaminophen [From TYLENOL] Allergy Unknown NAUSEA Verified 10/27/20 13:33 ibuprofen [From MOTRIN] Allergy Unknown GI Verified 10/27/20 13:33 BLEEDING, stomach bleed Active Medications: Current Medications Acetaminophen (Acetaminophen 325 Mg Tablet) 650 mg PO Q6H PRN PRN Reason: Pain, Mild (Pain Scale 1-3) Albuterol Sulfate (Albuterol Sulfate 90 Mcg 8 Gm Inhaler) 2 puff INHALE Q4H PRN PRN Reason: wheezing Cyclobenzaprine HCl (Cyclobenzaprine Hcl 10 Mg Tablet) 10 mg PO TID PRN PRN Reason: muscle spasm Last Admin: 05/25/21 04:04 Dose: 10 mg Documented by: Digoxin (Digoxin 0.25 Mg Tablet) 0.25 mg PO DAILY [facility] Last Admin: 05/25/21 09:08 Dose: 0.25 mg Documented by: Levofloxacin (Levaquin) 750 mg in 150 mls @ 100 mls/hr IV Q24H [facility] Last Admin: 05/25/21 09:08 Dose: 150 mls/hr Documented by: Diltiazem HCl 125 mg/ Sodium (Chloride) 125 mls @ 0 mls/hr IVCONT .Q0M [facility]; Protocol Last Admin: 05/25/21 09:56 Dose: 10 mg/hr, 10 mls/hr Documented by: Vancomycin HCl 750 mg/ Sodium (Chloride) 265 mls @ 265 mls/hr IV Q12H [facility] Last Infusion: 05/25/21 06:44 Dose: Infused Documented by: Metoprolol Tartrate (Metoprolol Tartrate 25 Mg Tablet) 25 mg PO QID [facility]; Protocol Last Admin: 05/25/21 09:08 Dose: 25 mg Documented by: Metoprolol Tartrate (Metoprolol Tartrate 5 Mg/5 Ml Vial) 5 mg IVPUSH Q4H PRN PRN Reason: HR>125 Last Admin: 05/25/21 04:24 Dose: 5 mg Documented by: Morphine Sulfate (Morphine Sulfate 4 Mg/Ml Cartridge) 4 mg IVPUSH Q4H PRN; Protocol PRN Reason: Pain, Severe (Pain Scale 7-10) Last Admin: 05/25/21 09:09 Dose: 4 mg Documented by: Nicotine Polacrilex (Nicotine Polacrilex 2 Mg Gum) 2 mg BUCCAL Q2H PRN PRN Reason: Nicotine Cravings Last Admin: 05/25/21 09:09 Dose: 2 mg Documented by: Ondansetron HCl (Ondansetron Hcl 4 Mg/2 Ml Vial) 4 mg IVPUSH Q8H PRN PRN Reason: Nausea and Vomiting Pharmacy Consult (Consult Rx Perform Med Rec) 1 each MISCELLANE ONCE PRN PRN Reason: Consult order Pharmacy Consult (Consult Rx Vancomycin Dosing) 1 each MISCELLANE DAILY PRN PRN Reason: Consult order Pharmacy Consult (Consult Rx Etoh Phenob Po Dose) 1 each MISCELLANE ONCE PRN; Protocol PRN Reason: Consult order Phenobarbital (Phenobarbital 15 Mg Tablet) 15 mg PO BID [facility] Stop: 05/26/21 09:01 Last Admin: 05/25/21 09:09 Dose: 15 mg Documented by: Phenobarbital (Phenobarbital 15 Mg Tablet) 15 mg PO DAILY [facility] Stop: 05/28/21 09:01 Sodium Chloride (0.9 % Sodium Chloride Flush 3 Ml Syringe) 3 ml IVFLUSH QSHIFT [facility] Last Admin: 05/25/21 09:08 Dose: 3 ml Documented by: Home Medications Medication Instructions Recorded Confirmed Last Taken Type albuterol sulfate 90 mcg/actuation 2 puff PO Q4H PRN 05/21/21 05/21/21 Unknown History aerosol inhaler (Ventolin HFA) cyclobenzaprine 10 mg tablet 1 tab PO TID PRN 05/21/21 05/21/21 05/21/21 History digoxin 250 mcg (0.25 mg) tablet 1 tab PO DAILY 05/21/21 05/21/21 Unknown History metoprolol tartrate 25 mg tablet 1 tab PO BID 05/21/21 05/21/21 Unknown History nicotine (polacrilex) 4 mg gum 1 - 2 ea PO Q2H PRN 05/21/21 05/21/21 05/21/21 History Physical Exam Vital Signs: Vital Signs: Last Vital Signs Temp 98.7 F 05/25/21 07:20 Pulse 97 05/25/21 07:20 Resp 20 05/25/21 07:20 BP 107/55 L 05/25/21 07:20 Pulse Ox 94 05/25/21 07:20 BMI result Body Mass Index 18.8 GENERAL APPEARANCE: in no acute distress, pleasant. NECK: no carotid bruit, no jugular venous distention. SKIN: no suspicious lesions, warm and dry. HEART: no murmurs, irregular rate and rhythm. LUNGS: clear to auscultation bilaterally. ABDOMEN: soft, nontender. EXTREMITIES: Right knee is dressed currently. PERIPHERAL PULSES: equal. NEUROLOGIC: No gross deficits, AAO X 3 Objective Labs and Meds Result diagrams: 05/25/21 06:07 05/25/21 06:07 Lab results: Laboratory Results - last 24 hr 05/24/21 05/25/21 05/25/21 16:02 06:07 06:07 WBC 6.6 RBC 2.67 L Hgb 8.9 L Hct 27.4 L MCV 102.6 H MCH 33.3 H MCHC 32.5 RDW 20.2 H Plt Count 273 D MPV 10.4 Absolute Nucleated RBC 0.000 Nucleated RBC % (auto) 0.0 Sodium 134 L Potassium 4.1 Chloride 99 Carbon Dioxide 27 Anion Gap 12 BUN 10 Creatinine 0.74 Estim Creat Clear Calc 89.6 Estimated GFR > 60 Random Glucose 126 H Calcium 8.6 Magnesium Vancomycin Trough 18.6 05/25/21 06:07 WBC RBC Hgb Hct MCV MCH MCHC RDW Plt Count MPV Absolute Nucleated RBC Nucleated RBC % (auto) Sodium Potassium Chloride Carbon Dioxide Anion Gap BUN Creatinine Estim Creat Clear Calc Estimated GFR Random Glucose Calcium Magnesium 1.6 Vancomycin Trough Assessment and Plan (1) Atrial fibrillation with rapid ventricular response: Status: Acute Plan 60-year-old gentleman who is presenting for prepatellar bursitis and AFib with RVR. He has had atrial fibrillation by his report for long time and has been on digoxin. Currently rate controlled with diltiazem drip. Not in heart failure. Does not have any palpitations. He does not need anticoagulation currently. I think he can be transitioned to oral Cardizem starting at 120 mg of Cardizem CD along with his digoxin. Please check a digoxin level before continuing digoxin and if his digoxin level is more than 1 then it should be discontinued. Thank you for allowing me to participate in the care of your patient. Please feel free to contact me if you have any questions. Procedures Date of Service Date of Service: 05/25/21
[2021-05-25] MEDS: Sennosides/Docusate Sodium TABLET 1 TAB PO (14:43)
--- NOTE | 2021-05-25 14:47 | P.PNIM_ITS ---
Subjective Subjective Date of Service: 05/26/21 Interval History: seen and examined this morning denies sob, palpitations, chest pain reports that pain and redness and ROM of right knee is improving slowly shortly after seeing, pt went into rapid afib Review of Systems Review of Systems: Yes all other systems are reviewed and are negative Constitutional Constitutional: Denies chills and Denies fever(s) Cardiovascular Cardiovascular: Denies chest pain, Denies palpitations and Denies dyspnea Respiratory Respiratory: Denies cough and Denies dyspnea Gastrointestinal Gastrointestinal: Denies abdominal pain Endocrine Endocrine: Denies palpitations Physical Exam Vital Signs: Vital Signs: Last Vital Signs Temp 98.1 F 05/25/21 11:30 Pulse 85 05/25/21 13:42 Resp 20 05/25/21 11:30 BP 104/56 L 05/25/21 13:42 Pulse Ox 96 05/25/21 11:30 BMI result Body Mass Index 18.8 Const: General: cooperative, comfortable, alert and awake Nutritional Appearance: thin Orientation/consciousness: patient oriented x3 Resp: Effort & Inspection: normal respiratory effort and able to speak in complete sentences Cardio: Rhythm: abnormal rhythm (irregular) GI: Palpation (GI): Soft to palpation and nontender Neuro: General: patient oriented x3 Extrem: Other: Objective Data Active Medications Acetaminophen (Acetaminophen 325 Mg Tablet) 650 mg PO Q6H PRN PRN Reason: Pain, Mild (Pain Scale 1-3) Albuterol Sulfate (Albuterol Sulfate 90 Mcg 8 Gm Inhaler) 2 puff INHALE Q4H PRN PRN Reason: wheezing Cyclobenzaprine HCl (Cyclobenzaprine Hcl 10 Mg Tablet) 10 mg PO TID PRN PRN Reason: muscle spasm Last Admin: 05/25/21 04:04 Dose: 10 mg Documented by: CASTILGovind Digoxin (Digoxin 0.25 Mg Tablet) 0.25 mg PO DAILY [facility] Last Admin: 05/25/21 09:08 Dose: 0.25 mg Documented by: KEVIN Levofloxacin (Levaquin) 750 mg in 150 mls @ 100 mls/hr IV Q24H [facility] Last Infusion: 05/25/21 10:30 Dose: 0 mls/hr Documented by: KEVIN Diltiazem HCl 125 mg/ Sodium (Chloride) 125 mls @ 0 mls/hr IVCONT .Q0M [facility]; Protocol Last Admin: 05/25/21 09:56 Dose: 10 mg/hr, 10 mls/hr Documented by: KEVIN Vancomycin HCl 750 mg/ Sodium (Chloride) 265 mls @ 265 mls/hr IV Q12H [facility] Last Infusion: 05/25/21 06:44 Dose: 0 mls/hr Documented by: CASTILM Metoprolol Tartrate (Metoprolol Tartrate 25 Mg Tablet) 25 mg PO QID [facility]; Protocol Last Admin: 05/25/21 13:43 Dose: 25 mg Documented by: KEVIN Metoprolol Tartrate (Metoprolol Tartrate 5 Mg/5 Ml Vial) 5 mg IVPUSH Q4H PRN PRN Reason: HR>125 Last Admin: 05/25/21 04:24 Dose: 5 mg Documented by: ANTONIO Morphine Sulfate (Morphine Sulfate 4 Mg/Ml Cartridge) 4 mg IVPUSH Q4H PRN; Protocol PRN Reason: Pain, Severe (Pain Scale 7-10) Last Admin: 05/25/21 13:43 Dose: 4 mg Documented by: KEVIN Nicotine Polacrilex (Nicotine Polacrilex 2 Mg Gum) 2 mg BUCCAL Q2H PRN PRN Reason: Nicotine Cravings Last Admin: 05/25/21 13:51 Dose: 2 mg Documented by: KEVIN Ondansetron HCl (Ondansetron Hcl 4 Mg/2 Ml Vial) 4 mg IVPUSH Q8H PRN PRN Reason: Nausea and Vomiting Pharmacy Consult (Consult Rx Perform Med Rec) 1 each MISCELLANE ONCE PRN PRN Reason: Consult order Pharmacy Consult (Consult Rx Vancomycin Dosing) 1 each MISCELLANE DAILY PRN PRN Reason: Consult order Pharmacy Consult (Consult Rx Etoh Phenob Po Dose) 1 each MISCELLANE ONCE PRN; Protocol PRN Reason: Consult order Phenobarbital (Phenobarbital 15 Mg Tablet) 15 mg PO BID [facility] Stop: 05/26/21 09:01 Last Admin: 05/25/21 09:09 Dose: 15 mg Documented by: KEVIN Phenobarbital (Phenobarbital 15 Mg Tablet) 15 mg PO DAILY [facility] Stop: 05/28/21 09:01 Polyethylene Glycol (Polyethylene Glycol 3350 17 Gm Powd.Pack) 17 gm PO DAILY PRN PRN Reason: Constipation Senna/Docusate Sodium (Sennosides/Docusate Sodium Tablet) 1 tab PO DAILY [facility] Last Admin: 05/25/21 14:43 Dose: 1 tab Documented by: KEVIN Sodium Chloride (0.9 % Sodium Chloride Flush 3 Ml Syringe) 3 ml IVFLUSH QSHIFT [facility] Last Admin: 05/25/21 09:08 Dose: 3 ml Documented by: KEVIN Labs CBC & Chem 7: 05/25/21 06:07 05/26/21 05:52 Labs: Laboratory Results - last 24 hr 05/24/21 05/25/21 05/25/21 16:02 06:07 06:07 MCV 102.6 H MCH 33.3 H MCHC 32.5 RDW 20.2 H Plt Count 273 D MPV 10.4 Absolute Nucleated RBC 0.000 Nucleated RBC % (auto) 0.0 Anion Gap 12 Estim Creat Clear Calc 89.6 Estimated GFR > 60 Random Glucose 126 H Calcium 8.6 Magnesium Vancomycin Trough 18.6 05/25/21 06:07 MCV MCH MCHC RDW Plt Count MPV Absolute Nucleated RBC Nucleated RBC % (auto) Anion Gap Estim Creat Clear Calc Estimated GFR Random Glucose Calcium Magnesium 1.6 Vancomycin Trough Assessment and Plan (1) Infection of prepatellar bursa: Status: Acute Plan A 60 years old male with PMH of AFib not on AC, COPD who presents to the hospital complaining of right knee swelling, pain and redness for the last 4 days. Sepsis, resolved 2/2 Right lower extremity cellulitis, septic prepatellar bursitis CT scan did not show any joint involvement Negative blood culture Wound culture growing Klebsiella Discontinue Zosyn Continue with vancomycin and Levaquin orthopedic evaluation appreciated, no intervention needs at this point pain control ID consult pending Atrial fibrillation with RVR Converted more than once but keep going back to AFib with RVR Not on anticoagulation Low digoxin level as he reports noncompliance continue home medication of metoprolol and digoxin Resume Cardizem drip today and monitor seen by cardiology, resc appreciated Acute macrocytic anemia no evidence of blood loss check b12, folate Hyponatremia Sodium 134 this morning Serum osmolarity low, pending urine studies Encouraged to add more salt to the diet and will monitor response Hypokalemia Potassium improved after replacement Repeat BMP Hypomagnesemia Magnesium improved after 2 doses of IV DVT PPX - lovenox attending: dr. mcfadden needs ongoing hospitalization due to afib rvr and prepatellar bursitis requiring iv abx Quality Stroke Does the patient have a stroke diagnosis?: No VTE Prior VTE?: No VTE Risk Level:: Medical - moderate - high VTE Device Contraindication: Treatment Not Indicated VTE Drug Contraindication: N/A - Med Ordered
[2021-05-25] MEDS: Enoxaparin Sodium 40 MG/0.4 ML SYRINGE SUBCUT (15:38)
[2021-05-26] MEDS: Morphine Sulfate 4 MG/ML CARTRIDGE IVPUSH ×3 (02:44→15:27)
[2021-05-26] MEDS: Nicotine Polacrilex 2 MG GUM BUCCAL ×6 (02:47→21:54)
[2021-05-26 03:26] VITALS: BP 119/63; PULSE 83; RESP 16; TEMP 36.9; O2SAT 95
[2021-05-26] MEDS: vancomycin HCL 750 MG in 0.9 % Sodium Chloride 250 ML 265 MG IV ×2 (06:06→19:08)
[2021-05-26 06:30] LABS: Anion Gap 13 (12-20); Blood Urea Nitrogen 10 mg/dL (9-16); Calcium 8.8 mg/dL (8.4-10.2); Carbon Dioxide 25 mmol/L (22-29); Chloride 100 mmol/L (96-108); Creatinine Clr Calc Pharmacy 86.1; Estimated Glomerular Filt Rate > 60; Glucose Random 112 mg/dL (60-115); Magnesium 1.7 mg/dL (1.6-2.6); Potassium 4.6 mmol/L (3.3-5.1); Sodium 133 mmol/L (135-145)
[2021-05-26 06:35] LABS: Vancomycin Trough 11.9 mcg/mL (10.0-20.0)
[2021-05-26 06:43] LABS: Digoxin 0.9 ng/mL (0.8-2.0)
[2021-05-26 07:16] VITALS: BP 130/68; PULSE 94; RESP 20; TEMP 36.2; O2SAT 96
[2021-05-26 08:06] LABS: Folate 7.6 ng/mL (> or = 4.0); Vitamin B12 237 pg/mL (200-900)
[2021-05-26] MEDS: levoFLOXacin/D5W 750 MG/150 ML PIGGYBACK 150 MG IV (09:46)
[2021-05-26] MEDS: PHENobarbitaL 15 MG TABLET PO (09:55)
[2021-05-26] MEDS: Digoxin 0.25 MG TABLET PO (09:55)
[2021-05-26] MEDS: Metoprolol Tartrate 25 MG TABLET PO ×4 (09:56→21:54)
[2021-05-26] MEDS: Sennosides/Docusate Sodium TABLET 1 TAB PO (09:56)
[2021-05-26] MEDS: 0.9 % Sodium Chloride Flush 3 ML SYRINGE IVFLUSH ×2 (09:56→15:34)
[2021-05-26] MEDS: dilTIAZem HCL CD 120 MG CAP.ER.DEG PO (10:02)
[2021-05-26 11:24] VITALS: BP 119/50; PULSE 81; RESP 20; TEMP 36.6; O2SAT 94
--- NOTE | 2021-05-26 12:48 | HO.PM.IMPN ---
Subjective Subjective Date of Service: 05/26/21 Interval History: seen and examined this morning Follow-up for right septic prepatellar bursitis, atrial fibrillation with rapid ventricular response has continued to go in and out of rapid AFib- no chest pain, sob, dizziness; some still having right knee pain Review of Systems Review of Systems: Yes all other systems are reviewed and are negative Constitutional Constitutional: Denies chills and Denies fever(s) Cardiovascular Cardiovascular: Denies chest pain, Denies palpitations and Denies dyspnea Respiratory Respiratory: Denies cough and Denies dyspnea Gastrointestinal Gastrointestinal: Denies abdominal pain, Reports constipation, Denies nausea and Denies vomiting Endocrine Endocrine: Denies palpitations Physical Exam Vital Signs: Vital Signs: Last Vital Signs Temp 97.8 F 05/26/21 11:24 Pulse 81 05/26/21 11:24 Resp 20 05/26/21 11:24 BP 119/50 L 05/26/21 11:24 Pulse Ox 94 05/26/21 11:24 BMI result Body Mass Index 18.8 Const: General: cooperative, comfortable, alert and awake Nutritional Appearance: thin Orientation/consciousness: patient oriented x3 Resp: Effort & Inspection: normal respiratory effort and able to speak in complete sentences Cardio: Rhythm: abnormal rhythm (irregular) GI: Palpation (GI): Soft to palpation and nontender Neuro: General: patient oriented x3 Extrem: Other: right knee with decreased swelling and erythema, slight improvement in ROM Objective Data Active Medications Acetaminophen (Acetaminophen 325 Mg Tablet) 650 mg PO Q6H PRN PRN Reason: Pain, Mild (Pain Scale 1-3) Albuterol Sulfate (Albuterol Sulfate 90 Mcg 8 Gm Inhaler) 2 puff INHALE Q4H PRN PRN Reason: wheezing Cyclobenzaprine HCl (Cyclobenzaprine Hcl 10 Mg Tablet) 10 mg PO TID PRN PRN Reason: muscle spasm Last Admin: 05/25/21 22:50 Dose: 10 mg Documented by: ANTONIO Digoxin (Digoxin 0.25 Mg Tablet) 0.25 mg PO DAILY [facility] Last Admin: 05/26/21 09:55 Dose: 0.25 mg Documented by: COLIN Diltiazem HCl (Diltiazem Hcl Cd 120 Mg Cap.Er.Deg) 120 mg PO DAILY [facility]; Protocol Last Admin: 05/26/21 10:02 Dose: 120 mg Documented by: COLIN Enoxaparin Sodium (Enoxaparin Sodium 40 Mg/0.4 Ml Syringe) 40 mg SUBCUT Q24H [facility] Last Admin: 05/25/21 15:38 Dose: 40 mg Documented by: KEVIN Levofloxacin (Levaquin) 750 mg in 150 mls @ 100 mls/hr IV Q24H [facility] Last Infusion: 05/26/21 10:51 Dose: 0 mls/hr Documented by: COLIN Diltiazem HCl 125 mg/ Sodium (Chloride) 125 mls @ 0 mls/hr IVCONT .Q0M [facility]; Protocol Last Titration: 05/26/21 02:54 Dose: 0 mg/hr, 0 mls/hr Documented by: ANTONIO Vancomycin HCl 750 mg/ Sodium (Chloride) 265 mls @ 265 mls/hr IV Q12H [facility] Last Infusion: 05/26/21 07:41 Dose: 0 mls/hr Documented by: COLIN Metoprolol Tartrate (Metoprolol Tartrate 25 Mg Tablet) 25 mg PO QID [facility]; Protocol Last Admin: 05/26/21 09:56 Dose: 25 mg Documented by: COLIN Morphine Sulfate (Morphine Sulfate 4 Mg/Ml Cartridge) 4 mg IVPUSH Q4H PRN; Protocol PRN Reason: Pain, Severe (Pain Scale 7-10) Last Admin: 05/26/21 09:56 Dose: 4 mg Documented by: COLIN Nicotine Polacrilex (Nicotine Polacrilex 2 Mg Gum) 2 mg BUCCAL Q2H PRN PRN Reason: Nicotine Cravings Last Admin: 05/26/21 09:55 Dose: 2 mg Documented by: COLIN Ondansetron HCl (Ondansetron Hcl 4 Mg/2 Ml Vial) 4 mg IVPUSH Q8H PRN PRN Reason: Nausea and Vomiting Pharmacy Consult (Consult Rx Perform Med Rec) 1 each MISCELLANE ONCE PRN PRN Reason: Consult order Pharmacy Consult (Consult Rx Vancomycin Dosing) 1 each MISCELLANE DAILY PRN PRN Reason: Consult order Pharmacy Consult (Consult Rx Etoh Phenob Po Dose) 1 each MISCELLANE ONCE PRN; Protocol PRN Reason: Consult order Phenobarbital (Phenobarbital 15 Mg Tablet) 15 mg PO DAILY [facility] Stop: 05/28/21 09:01 Polyethylene Glycol (Polyethylene Glycol 3350 17 Gm Powd.Pack) 17 gm PO DAILY PRN PRN Reason: Constipation Senna/Docusate Sodium (Sennosides/Docusate Sodium Tablet) 1 tab PO DAILY [facility] Last Admin: 05/26/21 09:56 Dose: 1 tab Documented by: COLIN Sodium Chloride (0.9 % Sodium Chloride Flush 3 Ml Syringe) 3 ml IVFLUSH QSHIFT [facility] Last Admin: 05/26/21 09:56 Dose: 3 ml Documented by: COLIN Labs CBC & Chem 7: 05/25/21 06:07 05/26/21 05:52 Labs: Laboratory Results - last 24 hr 05/26/21 05/26/21 05/26/21 05:52 05:52 05:52 Anion Gap 13 Estim Creat Clear Calc 86.1 Estimated GFR > 60 Random Glucose 112 Calcium 8.8 Magnesium 1.7 Vitamin B12 237 Folate 7.6 Vancomycin Trough 11.9 Digoxin 05/26/21 05:52 Anion Gap Estim Creat Clear Calc Estimated GFR Random Glucose Calcium Magnesium Vitamin B12 Folate Vancomycin Trough Digoxin 0.9 Assessment and Plan (1) Sepsis: Status: Acute (2) Infection of prepatellar bursa: Status: Acute (3) Atrial fibrillation with rapid ventricular response: Status: Acute Plan A 60 years old male with PMH of AFib not on AC, COPD who presents to the hospital complaining of right knee swelling, pain and redness for the last 4 days. Atrial fibrillation with RVR Converted more than once but keeps going back to AFib with RVR Not on anticoagulation Initially low digoxin level as he reports noncompliance continue home medication of metoprolol and digoxin, repeat digoxin level 0.9 treated with cardizem drip, will transition to po cardizem seen by cardiology, recs appreciated Sepsis, resolved 2/2 Right lower extremity cellulitis, septic prepatellar bursitis CT scan did not show any joint involvement Negative blood culture Wound culture growing Klebsiella Discontinue Zosyn; Continue with vancomycin and Levaquin for now orthopedic evaluation appreciated, no intervention required at this point (re-eval again today 05/26 and still agrees with no intervention) pain control ID consult pending Will need PT eval when HR under better control Alcohol withdrawal currently scoring 0 on CIWA continue phenobarbitol protocol thiamine, folate supplementation care team eval prior to d/c Acute macrocytic anemia no evidence of acute blood loss b12, folate wnl will check iron studies Hyponatremia Sodium 134 this morning Follow BNP Hypokalemia Potassium improved after replacement Repeat BMP Hypomagnesemia Magnesium improved after 2 doses of IV DVT PPX - lovenox attending: dr. Montoya needs ongoing hospitalization due to afib rvr and prepatellar bursitis requiring iv abx Quality Stroke Does the patient have a stroke diagnosis?: No VTE Prior VTE?: No VTE Risk Level:: Medical - moderate - high VTE Device Contraindication: Treatment Not Indicated VTE Drug Contraindication: N/A - Med Ordered
--- NOTE | 2021-05-26 14:48 | MHC.CM.PN ---
EMR REVIEWED, PT CONT'S TO HAVE MULTIPLE EPISODES OF AFIB W/RVR, PT REMAINS ON CARDIZEM DRIP SINCE 05/25/21. ANTIC PT WILL NEED PT EVAL TO DETERMINE DISPO, CM WILL CONT TO FOLLOW D/C NEEDS.
[2021-05-26] MEDS: Lactulose 20 GM/30 ML SOLUTION PO (15:27)
[2021-05-26] MEDS: Enoxaparin Sodium 40 MG/0.4 ML SYRINGE SUBCUT (15:27)
[2021-05-26] MEDS: Cyclobenzaprine HCl 10 MG TABLET PO (15:28)
[2021-05-26] MEDS: polyethylene glycoL 3350 17 GM POWD.PACK PO (15:28)
[2021-05-26 15:38] VITALS: BP 111/62; PULSE 84; RESP 19; TEMP 36.4; O2SAT 96
[2021-05-26 19:46] VITALS: BP 129/68; PULSE 116; RESP 18; TEMP 37; O2SAT 97
[2021-05-26] MEDS: oxyCODONE HCl Immed Release 5 MG TABLET PO (21:54)
[2021-05-26 23:25] VITALS: BP 119/70; PULSE 94; RESP 19; TEMP 36.9; O2SAT 97
[2021-05-27] VITALS (9 sets, daily range): BP systolic 92–129; BP diastolic 44–68; PULSE 75–110; RESP 16–19; TEMP 36.2–36.9; O2SAT 95–98
[2021-05-27] MEDS: Nicotine Polacrilex 2 MG GUM BUCCAL ×5 (00:06→21:11)
[2021-05-27] MEDS: 0.9 % Sodium Chloride Flush 3 ML SYRINGE IVFLUSH ×3 (02:36→17:52)
[2021-05-27] MEDS: vancomycin HCL 750 MG in 0.9 % Sodium Chloride 250 ML 265 MG IV ×2 (06:32→17:46)
[2021-05-27 06:51] LABS: Anion Gap 15 (12-20); Blood Urea Nitrogen 9 mg/dL (9-16); Calcium 9.1 mg/dL (8.4-10.2); Carbon Dioxide 24 mmol/L (22-29); Chloride 99 mmol/L (96-108); Creatinine Clr Calc Pharmacy 87.2; Estimated Glomerular Filt Rate > 60; Glucose Random 120 mg/dL (60-115); Iron 13 mcg/dL (45-160); Magnesium 1.5 mg/dL (1.6-2.6); Percent Iron Saturation 6 % (15-50); Potassium 4.7 mmol/L (3.3-5.1); Sodium 133 mmol/L (135-145); Total Iron Binding Capacity 217 mcg/dL (228-428); Unsaturated Iron Binding 204 ug/dL
[2021-05-27] MEDS: Folic Acid 1 MG TABLET PO (09:18)
[2021-05-27] MEDS: PHENobarbitaL 15 MG TABLET PO (09:18)
[2021-05-27] MEDS: levoFLOXacin/D5W 750 MG/150 ML PIGGYBACK 150 MG IV (09:18)
[2021-05-27] MEDS: Sennosides/Docusate Sodium TABLET 1 TAB PO (09:19)
[2021-05-27] MEDS: Ferrous Sulfate 324 MG TABLET.DR 325 MG PO (09:20)
[2021-05-27] MEDS: Digoxin 0.25 MG TABLET PO (09:20)
[2021-05-27] MEDS: Metoprolol Tartrate 25 MG TABLET PO ×3 (09:21→17:46)
[2021-05-27] MEDS: Thiamine HCL 100 MG TABLET PO (09:21)
[2021-05-27] MEDS: dilTIAZem HCL CD 120 MG CAP.ER.DEG PO (09:21)
[2021-05-27] MEDS: Cyclobenzaprine HCl 10 MG TABLET PO (09:28)
--- NOTE | 2021-05-27 10:22 | P.PNIM_ITS ---
Subjective Subjective Date of Service: 05/27/21 <Bri Caal NP - Last Filed: 05/27/21 10:32> 07/06/21 <Merrill Haynes MD - Last Filed: 07/06/21 15:16> Review of Systems Follow up afib rvr, prepatellar bursitis Sleeping denied pain <Bri Caal NP - Last Filed: 05/27/21 10:32> Physical Exam Vital Signs: Vital Signs: Last Vital Signs Temp 98.1 F 05/27/21 07:38 Pulse 110 H 05/27/21 07:38 Resp 18 05/27/21 07:38 BP 127/67 05/27/21 07:38 Pulse Ox 95 05/27/21 07:38 BMI result Body Mass Index 18.8 <Bri Caal NP - Last Filed: 05/27/21 10:32> Appearing in no acute distress lung sounds are clear to auscultation heart regular rate rhythm, clear S1, S2 positive bowel sounds, abdomen is soft, nontender neuro patient is alert x3, no focal deficits <Bri Caal NP - Last Filed: 05/27/21 10:32> Objective Data Active Medications Acetaminophen (Acetaminophen 325 Mg Tablet) 650 mg PO Q6H PRN PRN Reason: Pain, Mild (Pain Scale 1-3) Albuterol Sulfate (Albuterol Sulfate 90 Mcg 8 Gm Inhaler) 2 puff INHALE Q4H PRN PRN Reason: wheezing Cyclobenzaprine HCl (Cyclobenzaprine Hcl 10 Mg Tablet) 10 mg PO TID PRN PRN Reason: muscle spasm Last Admin: 05/27/21 09:28 Dose: 10 mg Documented by: JOSE Digoxin (Digoxin 0.25 Mg Tablet) 0.25 mg PO DAILY [facility] Last Admin: 05/27/21 09:20 Dose: 0.25 mg Documented by: JOSE Diltiazem HCl (Diltiazem Hcl Cd 120 Mg Cap.Er.Deg) 120 mg PO DAILY [facility]; Protocol Last Admin: 05/27/21 09:21 Dose: 120 mg Documented by: JOSE Enoxaparin Sodium (Enoxaparin Sodium 40 Mg/0.4 Ml Syringe) 40 mg SUBCUT Q24H [facility] Last Admin: 05/26/21 15:27 Dose: 40 mg Documented by: COLIN Ferrous Sulfate (Ferrous Sulfate 324 Mg Tablet.Dr) 325 mg PO DAILY [facility] Last Admin: 05/27/21 09:20 Dose: 325 mg Documented by: JOSE Folic Acid (Folic Acid 1 Mg Tablet) 1 mg PO DAILY [facility] Last Admin: 05/27/21 09:18 Dose: 1 mg Documented by: JOSE Levofloxacin (Levaquin) 750 mg in 150 mls @ 100 mls/hr IV Q24H [facility] Last Admin: 05/27/21 09:18 Dose: 150 mls/hr Documented by: JOSE Diltiazem HCl 125 mg/ Sodium (Chloride) 125 mls @ 0 mls/hr IVCONT .Q0M [facility]; Protocol Last Titration: 05/26/21 02:54 Dose: 0 mg/hr, 0 mls/hr Documented by: ANTONIO Vancomycin HCl 750 mg/ Sodium (Chloride) 265 mls @ 265 mls/hr IV Q12H [facility] Last Infusion: 05/27/21 09:46 Dose: 0 mls/hr Documented by: JOSE Magnesium Sulfate (Magnesium Sulfate/H2o) 2 gm in 50 mls @ 25 mls/hr IV ONCE ONE Stop: 05/27/21 10:23 Last Admin: 05/27/21 09:18 Dose: Not Given Documented by: JOSE Non-Admin Reason: not given Metoprolol Tartrate (Metoprolol Tartrate 25 Mg Tablet) 25 mg PO QID [facility]; Protocol Last Admin: 05/27/21 09:21 Dose: 25 mg Documented by: JOSE Nicotine Polacrilex (Nicotine Polacrilex 2 Mg Gum) 2 mg BUCCAL Q2H PRN PRN Reason: Nicotine Cravings Last Admin: 05/27/21 09:28 Dose: 2 mg Documented by: JOSE Ondansetron HCl (Ondansetron Hcl 4 Mg/2 Ml Vial) 4 mg IVPUSH Q8H PRN PRN Reason: Nausea and Vomiting Pharmacy Consult (Consult Rx Perform Med Rec) 1 each MISCELLANE ONCE PRN PRN Reason: Consult order Pharmacy Consult (Consult Rx Vancomycin Dosing) 1 each MISCELLANE DAILY PRN PRN Reason: Consult order Pharmacy Consult (Consult Rx Etoh Phenob Po Dose) 1 each MISCELLANE ONCE PRN; Protocol PRN Reason: Consult order Phenobarbital (Phenobarbital 15 Mg Tablet) 15 mg PO DAILY [facility] Stop: 05/28/21 09:01 Last Admin: 05/27/21 09:18 Dose: 15 mg Documented by: JOSE Polyethylene Glycol (Polyethylene Glycol 3350 17 Gm Powd.Pack) 17 gm PO DAILY PRN PRN Reason: Constipation Last Admin: 05/26/21 15:28 Dose: 17 gm Documented by: COLIN Senna/Docusate Sodium (Sennosides/Docusate Sodium Tablet) 1 tab PO DAILY [facility] Last Admin: 05/27/21 09:19 Dose: 1 tab Documented by: JOSE Sodium Chloride (0.9 % Sodium Chloride Flush 3 Ml Syringe) 3 ml IVFLUSH QSHIFT [facility] Last Admin: 05/27/21 09:17 Dose: 3 ml Documented by: JOSE Thiamine HCl (Thiamine Hcl 100 Mg Tablet) 100 mg PO DAILY [facility] Last Admin: 05/27/21 09:21 Dose: 100 mg Documented by: JOSE <Bri Caal NP - Last Filed: 05/27/21 10:32> Labs CBC & Chem 7: : 05/25/21 06:07 05/28/21 04:55 <Bri Caal NP - Last Filed: 05/27/21 10:32> Labs: Laboratory Results - last 24 hr 05/27/21 06:08 Anion Gap 15 Estim Creat Clear Calc 87.2 Estimated GFR > 60 Random Glucose 120 H Calcium 9.1 Magnesium 1.5 L Iron 13 L TIBC 217 L % Saturation 6 L Unsat Iron Binding 204 <Bri Caal NP - Last Filed: 05/27/21 10:32> Microbiology Microbiology Results: Microbiology 05/21/21 15:31 Blood Culture - Final Blood - Venous No growth after 5 days. 05/21/21 14:46 Blood Culture - Final Blood - Venous No growth after 5 days. <Bri Caal NP - Last Filed: 05/27/21 10:32> Assessment and Plan (1) Sepsis: Status: Resolved <Bri Caal NP - Last Filed: 05/27/21 10:32> (2) Infection of prepatellar bursa: (3) Atrial fibrillation with rapid ventricular response: Status: Resolved <Bri Caal NP - Last Filed: 05/27/21 10:32> Plan A 60 years old male with PMH of AFib not on AC, COPD who presents to the hospital complaining of right knee swelling, pain and redness for the last 4 days. Atrial fibrillation with RVR Converted more than once but keeps going back to AFib with RVR Not on anticoagulation Initially low digoxin level as he reports noncompliance continue home medication of metoprolol and digoxin, repeat digoxin level 0.9 treated with cardizem drip, will transition to po cardizem seen by cardiology, recs appreciated Sepsis, resolved 2/2 Right lower extremity cellulitis, septic prepatellar bursitis CT scan did not show any joint involvement Negative blood culture Wound culture growing Klebsiella Discontinue Zosyn; Continue with vancomycin and Levaquin for now orthopedic evaluation appreciated, no intervention required at this point (re- eval again today 05/26 and still agrees with no intervention) pain control ID consult pending Will need PT eval when HR under better control Alcohol withdrawal currently scoring 0 on CIWA continue phenobarbitol protocol thiamine, folate supplementation care team eval prior to d/c Acute macrocytic anemia no evidence of acute blood loss b12, folate wnl iron 13/TIBC 217 add iron supplement Hyponatremia stable follow BMP Hypokalemia Potassium improved after replacement Repeat BMP Hypomagnesemia repleted DVT PPX - lovenox attending: Dr. Haynes needs ongoing hospitalization due to afib rvr and prepatellar bursitis requiring iv abx <Bri Caal NP - Last Filed: 05/27/21 10:32> Quality Stroke Does the patient have a stroke diagnosis?: No <Bri Caal NP - Last Filed: 05/27/21 10:32> VTE Prior VTE?: No <Bri Caal NP - Last Filed: 05/27/21 10:32> VTE Risk Level:: Medical - moderate - high <Bri Caal NP - Last Filed: 05/27/21 10:32> VTE Device Contraindication: Treatment Not Indicated <Bri Caal NP - Last Filed: 05/27/21 10:32> VTE Drug Contraindication: N/A - Med Ordered <Bri Caal NP - Last Filed: 05/27/21 10:32>
[2021-05-27] MEDS: oxyCODONE HCl Immed Release 5 MG TABLET PO ×2 (14:11→17:53)
[2021-05-27] MEDS: Enoxaparin Sodium 40 MG/0.4 ML SYRINGE SUBCUT (14:13)
--- NOTE | 2021-05-27 14:58 | MHC.RECOVSUP ---
Recovery Support note: Patient is a 60 year old Belarusian speaking male who presented to [facility] ED due to knee swelling. This process description writer met with patient in to discuss his alcohol use and recovery supports. Patient reports he does not drink alcohol regularly and that a nasty rumor has been started about him. Patient reports occasionally having a drink or two once a week or so however would not specify exact use. Patient stated I don't have enough money to drink every day. Patient became agitated and expressed frustration, stating that his primary care doctor has been spreading lies about him and misdiagnosed him. Patient reports he did not fall and continues to express that he does not have a drinking problem yet he feels he is being treated like an outcast. Reassured patient that myself and hospital staff just want to provide the best care we can and that we appreciate him being honest with us. Encouraged patient to inform staff if he needs anything. This process description writer available as needed.
[2021-05-27] MEDS: Morphine Sulfate 2 MG/ML CARTRIDGE IVPUSH ×2 (19:01→23:59)
--- NOTE | 2021-05-27 22:44 | W.PM.IDCN ---
History of Present Illness Data of Consult Service Date: 05/26/21 Requesting physician: Maria Isabel Anthony Primary Care Provider: Unknown Physician HPI Reason for consult: right septic prepatella bursitis He presents with one week swelling and pain right bursal area. He has some chills and fever. He has culture area plus 4 polys, gram negative rods and Klebsiella. Per surgery no further intervention. COUNTS INCLUDE 234 BEDS AT THE [facility] Past Medical History Medical History Anxiety Asbestosis Atrial fibrillation COPD (chronic obstructive pulmonary disease) Depression Falls Multiple sclerosis Family History Family history: reviewed and not pertinent Social History Social History Household Members: None Housing: Apartment Do you presently have visiting nurse or other home services: Yes Alcohol intake: current Alcohol intake frequency: 0-2 drinks per day Alcohol type: wine Patient Tobacco Use Status: Former Tobacco user Substance Use Type: Marijuana service: No Current occupational status: disabled Meds Allergies Allergy/AdvReac Type Severity Reaction Status Date / Time acetaminophen [From TYLENOL] Allergy Unknown NAUSEA Verified 10/27/20 13:33 ibuprofen [From MOTRIN] Allergy Unknown GI Verified 10/27/20 13:33 BLEEDING, stomach bleed Active Medications: Current Medications Acetaminophen (Acetaminophen 325 Mg Tablet) 650 mg PO Q6H PRN PRN Reason: Pain, Mild (Pain Scale 1-3) Albuterol Sulfate (Albuterol Sulfate 90 Mcg 8 Gm Inhaler) 2 puff INHALE Q4H PRN PRN Reason: wheezing Cyclobenzaprine HCl (Cyclobenzaprine Hcl 10 Mg Tablet) 10 mg PO TID PRN PRN Reason: muscle spasm Last Admin: 05/27/21 09:28 Dose: 10 mg Documented by: Digoxin (Digoxin 0.25 Mg Tablet) 0.25 mg PO DAILY [facility] Last Admin: 05/27/21 09:20 Dose: 0.25 mg Documented by: Diltiazem HCl (Diltiazem Hcl Cd 120 Mg Cap.Er.Deg) 120 mg PO DAILY [facility]; Protocol Last Admin: 05/27/21 09:21 Dose: 120 mg Documented by: Enoxaparin Sodium (Enoxaparin Sodium 40 Mg/0.4 Ml Syringe) 40 mg SUBCUT Q24H [facility] Last Admin: 05/27/21 14:13 Dose: 40 mg Documented by: Ferrous Sulfate (Ferrous Sulfate 324 Mg Tablet.Dr) 325 mg PO DAILY [facility] Last Admin: 05/27/21 09:20 Dose: 325 mg Documented by: Folic Acid (Folic Acid 1 Mg Tablet) 1 mg PO DAILY [facility] Last Admin: 05/27/21 09:18 Dose: 1 mg Documented by: Levofloxacin (Levaquin) 750 mg in 150 mls @ 100 mls/hr IV Q24H [facility] Last Infusion: 05/27/21 10:24 Dose: Infused Documented by: Diltiazem HCl 125 mg/ Sodium (Chloride) 125 mls @ 0 mls/hr IVCONT .Q0M [facility]; Protocol Last Titration: 05/26/21 02:54 Dose: 0 mg/hr, 0 mls/hr Documented by: Metoprolol Tartrate (Metoprolol Tartrate 25 Mg Tablet) 25 mg PO QID [facility]; Protocol Last Admin: 05/27/21 21:13 Dose: Not Given Documented by: Morphine Sulfate (Morphine Sulfate 2 Mg/Ml Cartridge) 2 mg IVPUSH Q4H PRN; Protocol PRN Reason: Pain, Severe (Pain Scale 7-10) Last Admin: 05/27/21 19:01 Dose: 2 mg Documented by: Nicotine Polacrilex (Nicotine Polacrilex 2 Mg Gum) 2 mg BUCCAL Q2H PRN PRN Reason: Nicotine Cravings Last Admin: 05/27/21 21:11 Dose: 2 mg Documented by: Ondansetron HCl (Ondansetron Hcl 4 Mg/2 Ml Vial) 4 mg IVPUSH Q8H PRN PRN Reason: Nausea and Vomiting Oxycodone HCl (Oxycodone Hcl Immed Release 5 Mg Tablet) 5 mg PO Q4H PRN PRN Reason: Pain, Mild (Pain Scale 1-3) Last Admin: 05/27/21 17:53 Dose: 5 mg Documented by: Pharmacy Consult (Consult Rx Perform Med Rec) 1 each MISCELLANE ONCE PRN PRN Reason: Consult order Pharmacy Consult (Consult Rx Vancomycin Dosing) 1 each MISCELLANE DAILY PRN PRN Reason: Consult order Pharmacy Consult (Consult Rx Etoh Phenob Po Dose) 1 each MISCELLANE ONCE PRN; Protocol PRN Reason: Consult order Phenobarbital (Phenobarbital 15 Mg Tablet) 15 mg PO DAILY [facility] Stop: 05/28/21 09:01 Last Admin: 05/27/21 09:18 Dose: 15 mg Documented by: Polyethylene Glycol (Polyethylene Glycol 3350 17 Gm Powd.Pack) 17 gm PO DAILY PRN PRN Reason: Constipation Last Admin: 05/26/21 15:28 Dose: 17 gm Documented by: Senna/Docusate Sodium (Sennosides/Docusate Sodium Tablet) 1 tab PO DAILY [facility] Last Admin: 05/27/21 09:19 Dose: 1 tab Documented by: Sodium Chloride (0.9 % Sodium Chloride Flush 3 Ml Syringe) 3 ml IVFLUSH QSHIFT [facility] Last Admin: 05/27/21 17:52 Dose: 3 ml Documented by: Thiamine HCl (Thiamine Hcl 100 Mg Tablet) 100 mg PO DAILY [facility] Last Admin: 05/27/21 09:21 Dose: 100 mg Documented by: Home Medications Medication Instructions Recorded Confirmed Last Taken Type albuterol sulfate 90 mcg/actuation 2 puff PO Q4H PRN 05/21/21 05/21/21 Unknown History aerosol inhaler (Ventolin HFA) cyclobenzaprine 10 mg tablet 1 tab PO TID PRN 05/21/21 05/21/21 05/21/21 History nicotine (polacrilex) 4 mg gum 1 - 2 ea PO Q2H PRN 05/21/21 05/21/21 05/21/21 History Physical Exam Vital Signs: Vital Signs: Last Vital Signs Temp 97.4 F 05/27/21 19:27 Pulse 87 05/27/21 21:04 Resp 17 05/27/21 19:27 BP 92/44 L 05/27/21 21:04 Pulse Ox 97 05/27/21 19:27 BMI result Body Mass Index 18.8 Const: General: cooperative HEENT: Head: Yes normal to inspection Mouth: Normal oral and palatal mucosa present Resp: Effort & Inspection: normal respiratory effort Cardio: Palpation: normal PMI Rate: regular rate Rhythm: regular rhythm GI: Palpation (GI): Soft to palpation and nontender Extrem: Other: right knee superficialsweling,no purulence Results Labs CBC & Chem 7: 05/25/21 06:07 05/28/21 04:55 Labs: BMP 05/27/21 06:08 Sodium 133 L Potassium 4.7 Chloride 99 Carbon Dioxide 24 BUN 9 Creatinine 0.76 Calcium 9.1 Microbiology Microbiology Results: Microbiology 05/21/21 15:31 Blood - Venous Blood Culture - Final No growth after 5 days. 05/21/21 14:46 Blood - Venous Blood Culture - Final No growth after 5 days. 05/21/21 16:50 Knee - Right Gram Stain - Final 05/21/21 16:50 Knee - Right Routine Culture - Final Klebsiella pneumoniae Assessment and Plan (1) Infection of prepatellar bursa: He has Klebsiella prepatellar bursitis Plan 14 d Levaquin,can change to po on discharge. Stop Vancomycin ,can give po.
[2021-05-28] VITALS (8 sets, daily range): BP systolic 94–124; BP diastolic 47–65; PULSE 68–89; RESP 16–22; TEMP 36.4–37; O2SAT 92–95
[2021-05-28] MEDS: Nicotine Polacrilex 2 MG GUM BUCCAL ×7 (00:06→21:52)
[2021-05-28] MEDS: Morphine Sulfate 2 MG/ML CARTRIDGE IVPUSH ×5 (04:22→23:13)
[2021-05-28 06:21] LABS: Magnesium 2.1 mg/dL (1.6-2.6)
[2021-05-28 06:27] LABS: Anion Gap 14 (12-20); Blood Urea Nitrogen 12 mg/dL (9-16); Calcium 8.9 mg/dL (8.4-10.2); Carbon Dioxide 24 mmol/L (22-29); Chloride 99 mmol/L (96-108); Estimated Glomerular Filt Rate > 60; Glucose Random 131 mg/dL (60-115); Potassium 4.3 mmol/L (3.3-5.1); Sodium 133 mmol/L (135-145)
[2021-05-28] MEDS: Thiamine HCL 100 MG TABLET PO (08:28)
[2021-05-28] MEDS: Metoprolol Tartrate 25 MG TABLET PO ×4 (08:28→21:52)
[2021-05-28] MEDS: dilTIAZem HCL CD 120 MG CAP.ER.DEG PO (08:28)
[2021-05-28] MEDS: Folic Acid 1 MG TABLET PO (08:29)
[2021-05-28] MEDS: 0.9 % Sodium Chloride Flush 3 ML SYRINGE IVFLUSH ×2 (08:29→16:04)
[2021-05-28] MEDS: Sennosides/Docusate Sodium TABLET 1 TAB PO (08:29)
[2021-05-28] MEDS: Digoxin 0.25 MG TABLET PO (08:29)
[2021-05-28] MEDS: PHENobarbitaL 15 MG TABLET PO (08:29)
[2021-05-28] MEDS: Ferrous Sulfate 324 MG TABLET.DR PO (08:29)
[2021-05-28] MEDS: levoFLOXacin/D5W 750 MG/150 ML PIGGYBACK 150 MG IV (08:30)
--- NOTE | 2021-05-28 10:16 | P.PNIM_ITS ---
Subjective Subjective Date of Service: 05/28/21 Review of Systems Follow up afib rvr Knee pain is better appetite good Physical Exam Vital Signs: Vital Signs: Last Vital Signs Temp 97.5 F 05/28/21 07:38 Pulse 88 05/28/21 07:38 Resp 17 05/28/21 07:38 BP 106/65 05/28/21 07:38 Pulse Ox 92 05/28/21 07:38 BMI result Body Mass Index 18.8 Appearing in no acute distress lung sounds are clear to auscultation heart regular rate rhythm, clear S1, S2 positive bowel sounds, abdomen is soft, nontender neuro patient is alert x3, no focal deficits Right knee erythema and edema, no drainage Objective Data Active Medications Acetaminophen (Acetaminophen 325 Mg Tablet) 650 mg PO Q6H PRN PRN Reason: Pain, Mild (Pain Scale 1-3) Albuterol Sulfate (Albuterol Sulfate 90 Mcg 8 Gm Inhaler) 2 puff INHALE Q4H PRN PRN Reason: wheezing Cyclobenzaprine HCl (Cyclobenzaprine Hcl 10 Mg Tablet) 10 mg PO TID PRN PRN Reason: muscle spasm Last Admin: 05/27/21 09:28 Dose: 10 mg Documented by: JOSE Digoxin (Digoxin 0.25 Mg Tablet) 0.25 mg PO DAILY [facility] Last Admin: 05/28/21 08:29 Dose: 0.25 mg Documented by: LANA Diltiazem HCl (Diltiazem Hcl Cd 120 Mg Cap.Er.Deg) 120 mg PO DAILY [facility]; Protocol Last Admin: 05/28/21 08:28 Dose: 120 mg Documented by: LANA Enoxaparin Sodium (Enoxaparin Sodium 40 Mg/0.4 Ml Syringe) 40 mg SUBCUT Q24H [facility] Last Admin: 05/27/21 14:13 Dose: 40 mg Documented by: JOSE Ferrous Sulfate (Ferrous Sulfate 324 Mg Tablet.Dr) 324 mg PO DAILY [facility] Last Admin: 05/28/21 08:29 Dose: 324 mg Documented by: LANA Folic Acid (Folic Acid 1 Mg Tablet) 1 mg PO DAILY [facility] Last Admin: 05/28/21 08:29 Dose: 1 mg Documented by: LANA Levofloxacin (Levaquin) 750 mg in 150 mls @ 100 mls/hr IV Q24H [facility] Last Infusion: 05/28/21 10:09 Dose: 0 mls/hr Documented by: LANA Diltiazem HCl 125 mg/ Sodium (Chloride) 125 mls @ 0 mls/hr IVCONT .Q0M [facility]; Protocol Last Titration: 05/26/21 02:54 Dose: 0 mg/hr, 0 mls/hr Documented by: ANTONIO Metoprolol Tartrate (Metoprolol Tartrate 25 Mg Tablet) 25 mg PO QID [facility]; Protocol Last Admin: 05/28/21 08:28 Dose: 25 mg Documented by: LANA Morphine Sulfate (Morphine Sulfate 2 Mg/Ml Cartridge) 2 mg IVPUSH Q4H PRN; Pro tocol PRN Reason: Pain, Severe (Pain Scale 7-10) Last Admin: 05/28/21 08:47 Dose: 2 mg Documented by: LANA Nicotine Polacrilex (Nicotine Polacrilex 2 Mg Gum) 2 mg BUCCAL Q2H PRN PRN Reason: Nicotine Cravings Last Admin: 05/28/21 08:48 Dose: 2 mg Documented by: LANA Ondansetron HCl (Ondansetron Hcl 4 Mg/2 Ml Vial) 4 mg IVPUSH Q8H PRN PRN Reason: Nausea and Vomiting Oxycodone HCl (Oxycodone Hcl Immed Release 5 Mg Tablet) 5 mg PO Q4H PRN PRN Reason: Pain, Mild (Pain Scale 1-3) Last Admin: 05/27/21 17:53 Dose: 5 mg Documented by: ASHLEY Pharmacy Consult (Consult Rx Perform Med Rec) 1 each MISCELLANE ONCE PRN PRN Reason: Consult order Pharmacy Consult (Consult Rx Vancomycin Dosing) 1 each MISCELLANE DAILY PRN PRN Reason: Consult order Pharmacy Consult (Consult Rx Etoh Phenob Po Dose) 1 each MISCELLANE ONCE PRN; Protocol PRN Reason: Consult order Polyethylene Glycol (Polyethylene Glycol 3350 17 Gm Powd.Pack) 17 gm PO DAILY PRN PRN Reason: Constipation Last Admin: 05/26/21 15:28 Dose: 17 gm Documented by: COLIN Senna/Docusate Sodium (Sennosides/Docusate Sodium Tablet) 1 tab PO DAILY [facility] Last Admin: 05/28/21 08:29 Dose: 1 tab Documented by: LANA Sodium Chloride (0.9 % Sodium Chloride Flush 3 Ml Syringe) 3 ml IVFLUSH QSHIFT [facility] Last Admin: 05/28/21 08:29 Dose: 3 ml Documented by: LANA Thiamine HCl (Thiamine Hcl 100 Mg Tablet) 100 mg PO DAILY [facility] Last Admin: 05/28/21 08:28 Dose: 100 mg Documented by: LANA Labs CBC & Chem 7: 05/25/21 06:07 05/28/21 04:55 Labs: Laboratory Results - last 24 hr 05/27/21 05/28/21 05/28/21 16:07 04:55 04:55 Anion Gap 14 Estim Creat Clear Calc 78.0 Estimated GFR > 60 Random Glucose 131 H Calcium 8.9 Magnesium 2.1 Vancomycin Trough 13.0 Assessment and Plan (1) Sepsis: Status: Acute (2) Infection of prepatellar bursa: Status: Acute (3) Atrial fibrillation with rapid ventricular response: Status: Acute Plan A 60 years old male with PMH of AFib not on AC, COPD who presents to the hospital complaining of right knee swelling, pain and redness for the last 4 days. Atrial fibrillation with RVR. Better control Converted more than once but keeps going back to AFib with RVR Not on anticoagulation Initially low digoxin level as he reports noncompliance continue home medication of metoprolol and digoxin, repeat digoxin level 0.9 treated with cardizem drip, transitioned to po cardizem seen by cardiology Sepsis, resolved 2/2 Right lower extremity cellulitis, septic prepatellar bursitis CT scan did not show any joint involvement Negative blood culture Wound culture growing Klebsiella Discontinued Zosyn and vancomyci. continue Levaquin for 14 days as per ID orthopedic evaluation appreciated, no intervention required at this point (re- eval again today 05/26 and still agrees with no intervention) pain control PT evaluation Alcohol withdrawal currently scoring 0 on CIWA continue phenobarbitol protocol thiamine, folate supplementation care team eval prior to d/c Acute macrocytic anemia no evidence of acute blood loss b12, folate wnl iron 13/TIBC 217 add iron supplement Hyponatremia stable follow BMP Hypokalemia Potassium improved after replacement Repeat BMP Hypomagnesemia repleted DVT PPX - lovenox attending: Dr. Haynes needs ongoing hospitalization due to afib rvr and prepatellar bursitis requiring iv abx and pending physical therapy evaluation Quality Stroke Does the patient have a stroke diagnosis?: No VTE Prior VTE?: No VTE Risk Level:: Medical - moderate - high VTE Device Contraindication: Treatment Not Indicated VTE Drug Contraindication: N/A - Med Ordered
--- NOTE | 2021-05-28 11:42 | P.PNCA_ITS ---
Subjective Subjective Date of Service: 05/28/21 Interval history: Doing better. Was able to walk today. AFib control is good. He was started on digoxin 250 mcg and is disc level is 0.9. Physical Exam Vital Signs: Last Vital Signs Temp 97.5 F 05/28/21 07:38 Pulse 88 05/28/21 07:38 Resp 17 05/28/21 07:38 BP 106/65 05/28/21 07:38 Pulse Ox 92 05/28/21 07:38 BMI result Body Mass Index 18.8 GENERAL APPEARANCE: in no acute distress, pleasant. NECK: no carotid bruit, no jugular venous distention. SKIN: no suspicious lesions, warm and dry. HEART: no murmurs, irregular rate and rhythm. LUNGS: clear to auscultation bilaterally. ABDOMEN: soft, nontender. EXTREMITIES: no edema. PERIPHERAL PULSES: equal. NEUROLOGIC: No gross deficits, AAO X 3 Objective Labs and Meds Result diagrams: 05/25/21 06:07 05/28/21 04:55 Lab results: Laboratory Results - last 24 hr 05/27/21 05/28/21 05/28/21 16:07 04:55 04:55 Sodium 133 L Potassium 4.3 Chloride 99 Carbon Dioxide 24 Anion Gap 14 BUN 12 Creatinine 0.85 Estim Creat Clear Calc 78.0 Estimated GFR > 60 Random Glucose 131 H Calcium 8.9 Magnesium 2.1 Vancomycin Trough 13.0 Progress Note: A&P Assessment and plan (1) PAF (paroxysmal atrial fibrillation): Status: Acute Plan Pleasant 60-year-old gentleman who presented with prepatellar bursitis and AFib with RVR. His infection is improving. He has been in and out of atrial fibrillation. He was on digoxin at home. Digoxin is not the best drug to use in sinus rhythm because it has Pro rhythmic tendency specially atrial tachycardia. Also his dig level is 0.9 which is high and for same at risk of arrhythmia. I have decided to stop the digoxin. Continue Cardizem 120 mg and change the metoprolol to Toprol-XL 75 mg once a day. Does not need anticoagulation right now. Thank you for allowing me to participate in the care of your patient. Please feel free to contact me if you have any questions. Fall Risk Details Current Medications: Current Medications Acetaminophen (Acetaminophen 325 Mg Tablet) 650 mg PO Q6H PRN PRN Reason: Pain, Mild (Pain Scale 1-3) Albuterol Sulfate (Albuterol Sulfate 90 Mcg 8 Gm Inhaler) 2 puff INHALE Q4H PRN PRN Reason: wheezing Cyclobenzaprine HCl (Cyclobenzaprine Hcl 10 Mg Tablet) 10 mg PO TID PRN PRN Reason: muscle spasm Last Admin: 05/27/21 09:28 Dose: 10 mg Documented by: Diltiazem HCl (Diltiazem Hcl Cd 120 Mg Cap.Er.Deg) 120 mg PO DAILY [facility]; Protocol Last Admin: 05/28/21 08:28 Dose: 120 mg Documented by: Enoxaparin Sodium (Enoxaparin Sodium 40 Mg/0.4 Ml Syringe) 40 mg SUBCUT Q24H [facility] Last Admin: 05/27/21 14:13 Dose: 40 mg Documented by: Ferrous Sulfate (Ferrous Sulfate 324 Mg Tablet.Dr) 324 mg PO DAILY [facility] Last Admin: 05/28/21 08:29 Dose: 324 mg Documented by: Folic Acid (Folic Acid 1 Mg Tablet) 1 mg PO DAILY [facility] Last Admin: 05/28/21 08:29 Dose: 1 mg Documented by: Levofloxacin (Levaquin) 750 mg in 150 mls @ 100 mls/hr IV Q24H [facility] Last Infusion: 05/28/21 10:09 Dose: Infused Documented by: Metoprolol Tartrate (Metoprolol Tartrate 25 Mg Tablet) 25 mg PO QID [facility]; Protocol Last Admin: 05/28/21 08:28 Dose: 25 mg Documented by: Morphine Sulfate (Morphine Sulfate 2 Mg/Ml Cartridge) 2 mg IVPUSH Q4H PRN; P rotocol PRN Reason: Pain, Severe (Pain Scale 7-10) Last Admin: 05/28/21 08:47 Dose: 2 mg Documented by: Nicotine Polacrilex (Nicotine Polacrilex 2 Mg Gum) 2 mg BUCCAL Q2H PRN PRN Reason: Nicotine Cravings Last Admin: 05/28/21 11:34 Dose: 2 mg Documented by: Ondansetron HCl (Ondansetron Hcl 4 Mg/2 Ml Vial) 4 mg IVPUSH Q8H PRN PRN Reason: Nausea and Vomiting Oxycodone HCl (Oxycodone Hcl Immed Release 5 Mg Tablet) 5 mg PO Q4H PRN PRN Reason: Pain, Mild (Pain Scale 1-3) Last Admin: 05/27/21 17:53 Dose: 5 mg Documented by: Pharmacy Consult (Consult Rx Perform Med Rec) 1 each MISCELLANE ONCE PRN PRN Reason: Consult order Pharmacy Consult (Consult Rx Vancomycin Dosing) 1 each MISCELLANE DAILY PRN PRN Reason: Consult order Pharmacy Consult (Consult Rx Etoh Phenob Po Dose) 1 each MISCELLANE ONCE PRN; Protocol PRN Reason: Consult order Polyethylene Glycol (Polyethylene Glycol 3350 17 Gm Powd.Pack) 17 gm PO DAILY PRN PRN Reason: Constipation Last Admin: 05/26/21 15:28 Dose: 17 gm Documented by: Senna/Docusate Sodium (Sennosides/Docusate Sodium Tablet) 1 tab PO DAILY [facility] Last Admin: 05/28/21 08:29 Dose: 1 tab Documented by: Sodium Chloride (0.9 % Sodium Chloride Flush 3 Ml [facility]) [facility] Admin: 05/28/21 08:29 Dose: 3 ml Documented by: Thiamine HCl (Thiamine Hcl 100 Mg Tablet) 100 mg PO DAILY [facility] Last Admin: 05/28/21 08:28 Dose: 100 mg Documented by: Time Spent With Patient Time: Total time spent is greater than 50% in coordination of care (as documented) at patient's floor/unit and/or counseling patient: Progress Note: Quality Stroke Does the patient have a stroke diagnosis?: No Procedures Date of Service Date of Service: 05/28/21
[2021-05-28] MEDS: Enoxaparin Sodium 40 MG/0.4 ML SYRINGE SUBCUT (16:04)
[2021-05-29] VITALS: BP 136/48; PULSE 71; RESP 18; TEMP 36.4; O2SAT 98
[2021-05-29] MEDS: Nicotine Polacrilex 2 MG GUM BUCCAL ×3 (00:12→08:17)
[2021-05-29 02:52] LABS: Vancomycin Trough 4.9 mcg/mL (10.0-20.0)
[2021-05-29 03:34] VITALS: RESP 18
[2021-05-29] MEDS: Morphine Sulfate 2 MG/ML CARTRIDGE IVPUSH ×2 (03:34→08:04)
[2021-05-29] MEDS: 0.9 % Sodium Chloride Flush 3 ML SYRINGE IVFLUSH ×2 (03:35→08:04)
[2021-05-29 04:00] VITALS: BP 119/65; PULSE 80; RESP 15; TEMP 36.2; O2SAT 98
[2021-05-29 07:26] VITALS: BP 132/59; PULSE 85; RESP 16; TEMP 37; O2SAT 93
[2021-05-29] MEDS: levoFLOXacin/D5W 750 MG/150 ML PIGGYBACK 150 MG IV (08:03)
[2021-05-29 08:04] VITALS: RESP 18
[2021-05-29] MEDS: Thiamine HCL 100 MG TABLET PO (08:04)
[2021-05-29] MEDS: Ferrous Sulfate 324 MG TABLET.DR PO (08:04)
[2021-05-29] MEDS: Folic Acid 1 MG TABLET PO (08:04)
[2021-05-29] MEDS: polyethylene glycoL 3350 17 GM POWD.PACK PO (08:04)
[2021-05-29] MEDS: dilTIAZem HCL CD 120 MG CAP.ER.DEG PO (08:04)
[2021-05-29] MEDS: Sennosides/Docusate Sodium TABLET 1 TAB PO (08:04)
[2021-05-29] MEDS: Metoprolol Tartrate 25 MG TABLET PO ×2 (08:04→12:44)
--- NOTE | 2021-05-29 10:12 | P.DS_ITS ---
DS: Providers Provider Date of Service: 05/29/21 Date of admission: 05/21/21 17:56 Primary care physician: Unknown Physician Consults: 05/21/21 17:32 Consult to Orthopedics Stat Consulting Provider: Marily Soares Reason for consultation: right knee infection 05/25/21 08:16 Consult to Cardiology Routine Consulting Provider: Mina Morales Reason for consultation: afib rvr Has provider been notified: No 05/25/21 15:05 Consult to Infectious Diseases Routine Consulting Provider: Twyla Montano Reason for consultation: cellulitis, septic prepaellar bursitis Has provider been notified: No 05/26/21 14:09 Consult to Care Team Routine Comment: Reason for consultation: etoh use Attending physician on discharge: [facility] Discharging clinician: Bri Caal DS: Diagnosis Discharge Diagnosis (1) PAF (paroxysmal atrial fibrillation): Status: Acute DS: Summary Hospital Course Hospital Course: HP as per admitting provider 60 years old male with PMH of AFib not on AC, COPD who presents to the hospital complaining of right knee swelling, pain and redness for the last 4 days.? The patient denies any injury to the knee but reporting noticed a small bump on Saturday morning that swollen quickly and became painful she was unable to move around or even take his pills.? He reports palpitation as well and was noted to have AFib with RVR at time of presentation to the emergency.? Reporting chills and subjective fever but no chest pain, shortness of breath, change in bowel habit or urinary symptoms.?An x-ray of the knee did not show any fusion.? Are thoracentesis was done in the emergency to the bursa area removing what looked like pus.? Sent for culture.?Atrial fibrillation was treated with oral medications and a dose of IV metoprolol with good response as the patient converted back to sinus rhythm.?Admitted for [facility] er evaluation and treatment . Atrial fibrillation with RVR. Better control treated with cardizem drip, started on metoprolol and cardizem po which he will continue at home had been on digoxin but cardio rec to stop Not on anticoagulation Sepsis, resolved secondary to Right lower extremity cellulitis, septic prepatellar bursitis CT scan did not show any joint involvement Negative blood culture Wound culture growing Klebsiella Discontinued Zosyn and vancomycin. continue Levaquin for 14 days as per ID orthopedic evaluation appreciated, no intervention required at this point (re- eval again today 05/26 and still agrees with no intervention) Alcohol withdrawal currently scoring 0 on CIWA continue phenobarbitol protocol thiamine, folate supplementation Acute macrocytic anemia no evidence of acute blood loss b12, folate wnl iron 13/TIBC 217 iron supplement Hyponatremia. Resolved Hypokalemia Hypomagnesemia Time Spent with Patient Time attestation: Total time spent providing and/or coordinating discharge services: Discharge coordination time: Greater than 30 minutes Quality: Safe Use of Opioids Does Pt have an Active Cancer Diagnosis on the Problem List?: No Quality: Stroke Does the patient have a stroke diagnosis?: No Physical Exam 2 Vital Signs: Vital Signs: Last Vital Signs Temp 98.6 F 05/29/21 07:26 Pulse 85 05/29/21 07:26 Resp 18 05/29/21 08:04 BP 132/59 L 05/29/21 07:26 Pulse Ox 93 05/29/21 07:26 BMI result Body Mass Index 18.8 Appearing in no acute distress head is normocephalic atraumatic eyes pupils are PERRLA sclera is anicteric mouth throat mucous membranes are intact and moist neck is supple no lymphadenopathy, no JVD noted lung sounds are clear to auscultation heart regular rate rhythm, clear S1, S2 positive bowel sounds, abdomen is soft, nontender neuro patient is alert x3, no focal deficits Right knee, some erythema, no drainage DS: Data Data Completed and Pending Labs on day of discharge: Laboratory Results - last 24 hr 05/29/21 02:10 Vancomycin Trough 4.9 L Discharge Plan Discharge Anticipated Discharge Date/Time: 05/29/21 09:56 Patient Disposition: Home, Self-Care Discharge Diagnosis: Afib RVR Septic prepatellar bursitis Alcohol withdrawal Discharge Medications: New diltiazem HCl [Cardizem CD] 120 mg Capsule,Extended Release 24hr 120 mg PO DAILY Qty: 30 0RF Protocol: Hold for SBP/HR < HOLD for SBP < : 90 HOLD for HR < : 60 levofloxacin 500 mg tablet 500 mg PO DAILY Qty: 7 0RF metoprolol succinate 50 mg tablet extended release 24 hr 75 mg PO DAILY Qty: 60 0RF Continued cyclobenzaprine 10 mg tablet 1 tab PO TID PRN (Reason: muscle spasm) 0RF albuterol sulfate [Ventolin HFA] 90 mcg/actuation HFA aerosol inhaler 2 puff PO Q4H PRN (Reason: wheezing) 0RF nicotine (polacrilex) 4 mg gum 1 - 2 ea PO Q2H PRN (Reason: Nicotine Cravings) 0RF Discontinued digoxin 250 mcg (0.25 mg) tablet 1 tab PO DAILY 0RF metoprolol tartrate 25 mg tablet 1 tab PO BID 0RF Diet: advance to usual diet Activity on Discharge: As tolerated Stand Alone Forms: Patient Portal Discharge page Care Plan Goals: Resolution of symptoms Health Concerns: Afib RVR Septic prepatellar bursitis Alcohol withdrawal Plan of Treatment: Follow up with your primary care provider as needed Take all medications as prescribed Assessment: See discharged summary
[2021-05-29 11:50] VITALS: BP 107/58; PULSE 85; RESP 16; TEMP 36.4; O2SAT 96
--- NOTE | 2021-05-29 16:10 | MHC.CM.PN ---
Met with pt to review d/c plans: Pt has been accepted by [facility] for skilled RN and PT visits. MD aware and will complete a F2F which will be uploaded with the D/C summary as soon as they are ready. Pt states he will call his friend for transportation home via his personal cell. CM to follow
--- NOTE | 2021-05-29 16:25 | P.F2F_ITS ---
Service Date Service Date: 05/29/21 Encounter Date of encounter: 05/29/21 Reasons for Services Signs and symptoms assessed: knee bursitis Reason for physical therapy: home safety and mobility and therapeutic exercises Homebound: Leaving the home is medically contraindicated at this time without the asist of a device and/or another person due th the listed conditions above and below. Reason homebound: unsteady gait / fall risk and pain with transfers Certification: Based on the above findings, I certify that this patient is confined to the home and needs intermittent residential care, physical therapy and/or speech therapy, or continues to need occupational therapy. The patient is under my care, and I have initiated the establishment of the plan of care. The patient will be followed by a physician who will periodically review the plan of care.
== END 2021-05-29 16:15 | disposition home or self-care (01) | DRG 872 ==
LOC: HO.ED 17:21 → HO.EDOVER 18:41 → HO.IMC 05-22 14:06
PROVIDERS: Nurse Practitioner Family; Physician Assistant Medical; Admitting Provider Student in an Organized Health Care Education/Training Program; Emergency Provider Emergency Medicine; PCP Internal Medicine; Visit Provider Nurse Practitioner Acute Care
DX: A41.9 Sepsis, unspecified organism (principal); L03.115 Cellulitis of right lower limb; E87.1 Hypo-osmolality and hyponatremia; F10.939 Alcohol use, unspecified with withdrawal, unspecified; G35 Multiple sclerosis; E87.6 Hypokalemia; B96.1 Klebsiella pneumoniae [K. pneumoniae] as the cause of diseases classified elsewhere; M71.161 Other infective bursitis, right knee; I48.0 Paroxysmal atrial fibrillation; R00.0 Tachycardia, unspecified; E83.42 Hypomagnesemia; Z91.14 Patient's other noncompliance with medication regimen; F32.A Depression, unspecified; Z20.822 Contact with and (suspected) exposure to COVID-19; Z87.891 Personal history of nicotine dependence; Z88.6 Allergy status to analgesic agent; Z79.899 Other long term (current) drug therapy
CPT/HCPCS: 36415; 73560; 73700; 80048; 80076; 80162; 80202; 82607; 82746; 83540; 83605; 83735; 83930; 84484; 85025; 85027; 85610; 87040; 87071; 87077; 87186; 87205; 87635; 93005; 96361; 96365; 96375; 96376; 99285; J1650; J1956; J2270; J2543; J3370; J3475

== ENCOUNTER 2022-10-30 19:01 | Inpatient (IN) | payer MEDICARE, MEDICAID, SELFPAY ==
[2022-10-30] VITALS (11 sets, daily range): BP systolic 84–156; BP diastolic 46–92; PULSE 88–135; RESP 18–22; TEMP 36–36.3; O2SAT 98–100; BMI 23.3
--- NOTE | 2022-10-30 | ECG_ITS ---
Test Reason : TACHYCARDIA Blood Pressure : / mmHG Vent. Rate : 111 BPM Atrial Rate : 111 BPM P-R Int : 156 ms QRS Dur : 078 ms QT Int : 352 ms P-R-T Axes : 069 017 056 degrees QTc Int : 478 ms Sinus tachycardia Possible Left atrial enlargement Borderline ECG When compared with ECG of 24-MAY-2021 10:41, Sinus rhythm has replaced Atrial fibrillation Nonspecific T wave abnormality no longer evident in Inferior leads Referred By: Omar Zayas Electronically Signed By:JEROD ALLISON
--- NOTE | ~2022-10-30 | XR_ITS ---
EXAMINATION: XR CHEST CLINICAL INFORMATION: Weakness. COMPARISON: 07/11/2017. TECHNIQUE: Frontal view of the chest was obtained. FINDINGS: The lung volumes are low. The cardiomediastinal silhouette is stable. There appears to be atelectatic change or scarring at the lung bases. The lungs are otherwise clear. The bony structures and soft tissues are unremarkable. XR/XR chest 1V IMPRESSION: Low lung volume limits evaluation. There does appear to be minimal atelectatic change or scarring at the lung bases. No other significant abnormality seen.
--- NOTE | ~2022-10-30 | CT_ITS ---
EXAMINATION: CT HEAD WITHOUT CONTRAST CLINICAL INFORMATION: Seizure. COMPARISON: 10/27/2020 TECHNIQUE: Contiguous axial imaging was performed from the skull base to vertex without intravenous administration of contrast. This CT examination was performed using dose optimization techniques as appropriate, variously including the following: *Automated exposure control *Adjustment of mA and/or kV according to patient size (this includes techniques or standardized protocols for targeted exams where dose is matched to indication/reason for exam; i.e. extremities or head) *Use of iterative reconstruction technique DLP: 691 mGy-cm FINDINGS: Patient motion limits evaluation. There is mild cerebral volume loss with prominence of the lateral and the third ventricles. The cortical sulci are widened appropriately. The fourth ventricle and basal cisterns are normally outlined. There is mild to moderate bilateral periventricular and central white matter image attenuation. There is no acute territorial defect, hemorrhage or midline shift. The extra-axial spaces are unremarkable. Calvarium: Intact. Maxillofacial sinuses and mastoids: Clear as visualized. CT/CT head/brain wo IV con IMPRESSION: Motion degraded images limits evaluation. No evidence for acute intracranial pathology.
--- NOTE | ~2022-10-30 | XR_ITS ---
EXAMINATION: XR RIBS, RIGHT CLINICAL INFORMATION: Constant pain, evaluate for rib fracture COMPARISON: Chest film dated 10/30/2022, also 07/12/2027 TECHNIQUE: 3 views of the right ribs were obtained. FINDINGS: Bilateral basilar opacities. Findings suggest effusions and adjacent atelectasis or infiltrate. There are rib fractures on left. Summary old and some are age indeterminate. Some probable rib fractures on right. Age-indeterminate lower. The mid-upper lung zones are grossly clear. The cardiac silhouette is within normal limits. The hilar regions are comparable. Detailed imaging of the right ribs demonstrates again some rib deformities of the lower ribs with the palpable marker is placed. Acute fracture superimposed on chronic injury cannot be excluded. XR/XR ribs RT min 3V w [id number] IMPRESSION: Bilateral lower lobe opacities most consistent with small effusions and/or adjacent atelectasis or infiltrate. Rib fractures on the left which may be chronic but several are age indeterminate here. There are also some fractures on the right lower which again may be chronic but superimposed acute fracture cannot be excluded. No pneumothorax
[2022-10-30] MEDS: levETIRAcetam in NaCl (iso-os) 1,500 MG/100 ML PIGGYBACK 400 MG IV (19:14)
--- NOTE | 2022-10-30 19:17 | ED_ITS ---
HPI - General Adult General Chief complaint: Seizure Stated complaint: SEIZURE HOUR AGO Time Seen by Provider: 10/30/22 19:03 Source: patient, EMS, RN notes reviewed and old records reviewed Mode of arrival: EMS Limitations: altered mental status History of Present Illness HPI narrative: 62-year-old male past medical history significant for atrial fibrillation, alcohol abuse presents for evaluation of seizures EMS was called by the patient's girlfriend reported the patient had a seizure Per EMS the patient was postictal on their arrival He was somewhat agitated and was refusing transport However he then had a 2nd seizure witnessed by EMS that lasted about 1 minute and was described as ?tensing up and a little bit of shaking. ? The for the patient was brought to the hospital for evaluation. EN route to the hospital the patient had a 3rd seizure lasted about 30 seconds This seizure psis and about 5 minutes prior to arrival Per EMS, they were about to give Versed 2 mg but withheld as the patient is seizing stop. He has not received any antiepileptic medications. Family does not have any known history of seizures Related Data Home Medications Medication Instructions Recorded Confirmed albuterol sulfate 90 mcg/actuation 2 puff PO Q4H PRN wheezing 05/21/21 05/21/21 aerosol inhaler (Ventolin HFA) cyclobenzaprine 10 mg tablet 1 tab PO TID PRN muscle spasm 05/21/21 05/21/21 nicotine (polacrilex) 4 mg gum 1 - 2 ea PO Q2H PRN Nicotine 05/21/21 05/21/21 Cravings Previous Rx's Medication Instructions Recorded diltiazem HCl 120 mg 120 mg PO DAILY #30 caps 05/29/21 capsule,extended release 24 hr (Cardizem CD) metoprolol succinate 50 mg 75 mg (1.5 x 50 mg) PO DAILY #60 05/29/21 tablet,extended release 24 hr tabs Allergies Allergy/AdvReac Type Severity Reaction Status Date / Time acetaminophen [From TYLENOL] Allergy Unknown NAUSEA Verified 10/27/20 13:33 ibuprofen [From MOTRIN] Allergy Unknown GI Verified 10/27/20 13:33 BLEEDING, stomach bleed Review of Systems 2 Review of Systems: Limited secondary to the patient's altered mental status Constitutional: Constitutional: Denies chills and Denies fever(s) Neurologic: Reports convulsions and Reports seizure-like activity [facility] Past Medical History Medical History PAF (paroxysmal atrial fibrillation) Infection of prepatellar bursa Bursitis A-fib Anxiety Depression Multiple sclerosis Falls Asbestosis COPD (chronic obstructive pulmonary disease) Atrial fibrillation Social History Social History Household Members: None Housing: Apartment Do you presently have visiting nurse or other home services: Yes Alcohol intake: current Alcohol intake frequency: 0-2 drinks per day Alcohol type: wine Patient Tobacco Use Status: Former Tobacco user Substance Use Type: Marijuana Advance Directives: No Advance Directives Information Provided: No service: No Current occupational status: disabled Physical Exam ED Vital Signs: Vital Signs - 24 hr 10/30/22 19:17 10/30/22 21:56 Temperature 96.8 F 97.3 F Pulse Rate 124 H 113 H Respiratory Rate 18 22 H Blood Pressure 156/88 H 125/65 Pulse Oximetry 98 100 Oxygen Delivery Method Room Air Room Air BMI result Body Mass Index 23.3 Const General: healthy appearing, comfortable and no acute distress Nutritional Appearance: well nourished [facility] Head: Yes normocephalic and Yes atraumatic Throat: Yes posterior oropharynx normal Eyes Eyelids: Yes eyelids normal Conjunctivae: conjunctivae normal Sclerae: sclerae normal Corneas: corneas normal Pupils: Equal, round and reactive pupils present EOM: EOMs intact bilaterally Resp Effort & Inspection: normal respiratory effort, able to speak in complete sentences and not labored Cardio Rate: regular rate Rhythm: regular rhythm GI Inspection: No distended Palpation (GI): Soft to palpation, not firm, nontender, no guarding and not rigid Auscultation: normoactive bowel sounds Skin General skin exam: no rashes or lesions noted and elasticity normal Neuro Cranial nerves: Yes Equal, round and reactive pupils present and Yes Bilaterally intact EOM present Extrem Other: Moving all extremities well without any obvious deformities Course Reevaluation(s) Reevaluation #1: Patient had a a 4th seizure that was witnessed by ER staff. This was a tonic- clonic seizure, lasted between 30 and 60 seconds. Patient was given Ativan 2 mg Time: 19:27 Reevaluation #2: Patient's lactic acid came back elevated to 15.9 any has an anion gap of 31. Will get an ABG, draw blood cultures. The patient given IV fluids as his sodium was 134. I was holding aggressive IV fluid hydration as the patient has a history of alcohol abuse and hyponatremia. There is some concern for volatile of consumption given the elevated anion gap. I attempted to call the patient's home phone to see if I could speak to anybody for more information or the patient's significantly, to reset and both numbers listed in chart were not answered. Time: 20:42 Reevaluation #3: Patient's ABG shows a compensated respiratory acidosis. Given the pH is normal is less likely to be a volatile consumption and what looks to be alcohol withdrawal. The patient was able time that he drinks daily but was unable to tell me when his last drink was. Patient significant other, Janina called and I was able to speak with her, but she did not have much more history to give. She denies will only consumed any involved Tylenol but also was unaware that he was drinking alcohol which he admits to. Her call back number is [phone] Time: 22:05 Medications Administered Discontinued Medications Generic Name Dose Route Start Last Admin Trade Name Carloq PRN Reason Stop Dose Admin Levetiracetam 1,500 mg in 100 mls @ 400 mls/hr 10/30/22 19:07 10/30/22 19:35 Keppra IV 10/30/22 19:21 Infused ONCE ONE Infusion Sodium Chloride 1,000 mls @ 999 mls/hr 10/30/22 20:45 10/30/22 21:00 Ns IV 10/30/22 21:45 999 mls/hr .Q1H1M OLAF Administration Sodium Chloride 1,000 mls @ 999 mls/hr 10/30/22 20:45 10/30/22 21:00 Ns IV 10/30/22 21:45 999 mls/hr .Q1H1M OLAF Administration Thiamine HCl 100 mg/ Sodium 101 mls @ 202 mls/hr 10/30/22 21:30 10/30/22 22:11 Chloride IV 10/30/22 21:59 202 mls/hr ONCE ONE Administration Lorazepam 2 mg 10/30/22 20:01 10/30/22 20:07 Lorazepam 2 Mg/Ml Vial IVPUSH 10/30/22 20:02 2 mg STAT STA Administration Olanzapine 10 mg 10/30/22 21:14 10/30/22 21:20 Olanzapine 10 Mg Vial IM 10/30/22 21:15 10 mg STAT STA Administration Phenobarbital Sodium 256.1 mg 10/30/22 21:30 10/30/22 22:17 Phenobarbital Sodium 130 Mg/Ml Im Once IM 10/30/22 21:31 256.1 mg ONCE ONE Administration Protocol Medical Decision Making Medical Decision Making [facility] Narrative: 62-year-old male presents for evaluation of seizure-like activity. He had 3 witnessed seizures prior to arrival to the ER. At the time of my evaluation, the patient is somnolent. Reportedly has no history of seizures but based on his history of alcohol abuse, alcoholic draws 5 differential. Plan for workup including EKG, labs, drug screen brain. Patient will be given a dose of Keppra 1500 mg as a bolus. There are no signs of trauma the patient Differential Diagnosis Differential Diagnoses: The differential diagnosis associated with the presentation includes Epileptic seizure Pseudo-seizure Alcohol withdrawal seizure Metabolic derangement Brain mass Admission/Observation Consideration of admission/observation: Escalation of care including admission/observation considered Consult Healthcare Provider Management of the patient was discussed with: Hospitalist Lab Data [facility] Lab Attestation statement: I reviewed the patient's lab results. (Patient has a mild anemia which is actually improved his baseline but may be related to some degree of dehydration. Will mild electrolyte abnormalities with a sodium of 134 just below normal for potassium of 3.2. Patient's chloride was low at 95, CO2 of 11. Normal renal function.) High anion gap acidosis with a lactate of 15.9 10/30/22 19:56 10/30/22 19:56 Labs: Lab Results 10/30/22 10/30/22 10/30/22 Range/Units 19:55 19:56 20:47 WBC 6.9 (4.8-10.8) X10*3/uL RBC 3.16 L (4.60-5.80) X10*6/uL Hgb 12.0 L D (14.0-18.0) g/dl Hct 34.5 L D (42.0-52.0) % MCV 109.2 H (80.0-98.0) fL MCH 38.0 H (27.0-33.0) pg MCHC 34.8 (31.0-36.0) g/dl RDW 13.4 (11.0-16.0) % Plt Count 222 (160-400) X10*3/uL MPV 10.5 (9.4-12.4) fL Immature Gran % (Auto) 0.4 (0.0-0.4) % Neut % (Auto) 69.6 (45-73) % Lymph % (Auto) 19.4 L (20-40) % [place] % (Auto) 7.7 (2-11) % Eos % (Auto) 2.2 (0-4) % Baso % (Auto) 0.7 (0-2) % Lymph # (Auto) 1.3 (1.2-4.9) X10*3/uL [place] # (Auto) 0.5 (0.1-1.2) X10*3/uL Eos # (Auto) 0.2 (0.0-0.4) X10*3/uL Baso # (Auto) 0.1 (0.0-0.2) X10*3/uL Abs Immat Gran (auto) 0.03 (0.00-0.03) X10*3/uL Absolute Neuts (auto) 4.8 (2.0-8.3) x10*3/uL Absolute Nucleated RBC 0.000 (0.0-0.012) X10*3/uL Nucleated RBC % (auto) 0.0 (0.0-0.2) /100WBC PT 10.4 L (11.1-13.3) SEC INR 0.9 (0.9-1.1) APTT 22.2 L (26.0-36.4) SEC O2 Saturation % ABG pH at Pt Temp (7.35-7.45) ABG pCO2 at Pt Temp (32-45) mmHg ABG pO2 at Pt Temp (83-108) mmHg ABG HCO3 (22-26) mmol/L ABG Base Excess (Actual) mmol/L Sodium 134 L (135-145) mmol/L Potassium 3.2 L D (3.3-5.1) mmol/L Chloride 95 L (96-108) mmol/L Carbon Dioxide 11 L (22-29) mmol/L Anion Gap 31 H (12-20) BUN 11 (9-16) mg/dL Creatinine 0.97 (0.5-1.4) mg/dL Estim Creat Clear Calc 69.4 Estimated GFR > 60 Random Glucose 141 H (60-115) mg/dL Lactic Acid 15.9 H* (0.5-2.0) mmol/L Calcium 9.1 (8.4-10.2) mg/dL Magnesium 1.6 (1.6-2.6) mg/dL Total Bilirubin 0.4 (0.0-1.0) mg/dL AST 47 H (5-37) U/L ALT 21 (0-40) U/L Alkaline Phosphatase 90 (39-117) U/L Troponin I High Sens < 2.7 (<3.5-35.0) ng/L Total Protein 6.9 (6.5-8.0) g/dL Albumin 4.1 (3.5-5.0) g/dL Lipase 54 (8-78) U/L Urine Color Urine Appearance Urine pH (5.0-9.0) Ur Specific [place] (1.005-1.025) Urine Protein (Neg-Trace) mg/dL Urine Glucose (UA) (Negative) mg/dL Urine Ketones (Negative) mg/dL Urine Blood (Negative) Urine Nitrite (Negative) Ur Leukocyte Esterase (Negative) Urine RBC (0-2) /HPF Urine WBC (0-5) /HPF Urine WBC Clumps Ur Squamous Epith Cells (0-2) /HPF Ur Transition Epith Cell Ur Renal Epithelial Cell Calcium Oxalate Crystal Leucine Crystals Cystine Crystals Tyrosine Crystals Other Crystals Urine Bacteria (None Seen) Urine Parasites Bilirubin Casts Epithelial Casts Fatty Casts Hyaline Casts (0-2) /LPF Granular Casts Waxy Casts Broad Casts RBC Casts WBC Casts Other Casts Urine Trichomonas Urine Yeast Urine Opiates Screen (Not Detect) Urine Fentanyl Screen (Not Detect) Ur Barbiturates Screen (Not Detect) Ur Phencyclidine Scrn (Not Detect) Ur Amphetamines Screen (Not Detect) U Benzodiazepines Scrn (Not Detect) Urine Cocaine Screen (Not Detect) U Marijuana (THC) Screen (Not Detect) Ethyl Alcohol < 10 mg/dL 10/30/22 10/30/22 10/30/22 Range/Units 20:57 21:13 21:13 WBC (4.8-10.8) X10*3/uL RBC (4.60-5.80) X10*6/uL Hgb (14.0-18.0) g/dl Hct (42.0-52.0) % MCV (80.0-98.0) fL MCH (27.0-33.0) pg MCHC (31.0-36.0) g/dl RDW (11.0-16.0) % Plt Count (160-400) X10*3/uL MPV (9.4-12.4) fL Immature Gran % (Auto) (0.0-0.4) % Neut % (Auto) (45-73) % Lymph % (Auto) (20-40) % [place] % (Auto) (2-11) % Eos % (Auto) (0-4) % Baso % (Auto) (0-2) % Lymph # (Auto) (1.2-4.9) X10*3/uL [place] # (Auto) (0.1-1.2) X10*3/uL Eos # (Auto) (0.0-0.4) X10*3/uL Baso # (Auto) (0.0-0.2) X10*3/uL Abs Immat Gran (auto) (0.00-0.03) X10*3/uL Absolute Neuts (auto) (2.0-8.3) x10*3/uL Absolute Nucleated RBC (0.0-0.012) X10*3/uL Nucleated RBC % (auto) (0.0-0.2) /100WBC PT (11.1-13.3) SEC INR (0.9-1.1) APTT (26.0-36.4) SEC O2 Saturation 93.0 % ABG pH at Pt Temp 7.42 (7.35-7.45) ABG pCO2 at Pt Temp 23 L (32-45) mmHg ABG pO2 at Pt Temp 65 L (83-108) mmHg ABG HCO3 15 L (22-26) mmol/L ABG Base Excess (Actual) -7.4 mmol/L Sodium (135-145) mmol/L Potassium (3.3-5.1) mmol/L Chloride (96-108) mmol/L Carbon Dioxide (22-29) mmol/L Anion Gap (12-20) BUN (9-16) mg/dL Creatinine (0.5-1.4) mg/dL Estim Creat Clear Calc Estimated GFR Random Glucose (60-115) mg/dL Lactic Acid (0.5-2.0) mmol/L Calcium (8.4-10.2) mg/dL Magnesium (1.6-2.6) mg/dL Total Bilirubin (0.0-1.0) mg/dL AST (5-37) U/L ALT (0-40) U/L Alkaline Phosphatase (39-117) U/L Troponin I High Sens (<3.5-35.0) ng/L Total Protein (6.5-8.0) g/dL Albumin (3.5-5.0) g/dL Lipase (8-78) U/L Urine Color Yellow Cancelled Urine Appearance Clear Urine pH (5.0-9.0) Ur Specific [place] (1.005-1.025) Urine Protein (Neg-Trace) mg/dL Urine Glucose (UA) (Negative) mg/dL Urine Ketones (Negative) mg/dL Urine Blood (Negative) Urine Nitrite (Negative) Ur Leukocyte Esterase (Negative) Urine RBC (0-2) /HPF Urine WBC (0-5) /HPF Urine WBC Clumps Ur Squamous Epith Cells (0-2) /HPF Ur Transition Epith Cell Ur Renal Epithelial Cell Calcium Oxalate Crystal Leucine Crystals Cystine Crystals Tyrosine Crystals Other Crystals Urine Bacteria (None Seen) Urine Parasites Bilirubin Casts Epithelial Casts Fatty Casts Hyaline Casts (0-2) /LPF Granular Casts Waxy Casts Broad Casts RBC Casts WBC Casts Other Casts Urine Trichomonas Urine Yeast Urine Opiates Screen (Not Detect) Urine Fentanyl Screen (Not Detect) Ur Barbiturates Screen (Not Detect) Ur Phencyclidine Scrn (Not Detect) Ur Amphetamines Screen (Not Detect) U Benzodiazepines Scrn (Not Detect) Urine Cocaine Screen (Not Detect) U Marijuana (THC) Screen (Not Detect) Ethyl Alcohol mg/dL 10/30/22 10/30/22 10/30/22 Range/Units 21:13 21:13 21:13 WBC (4.8-10.8) X10*3/uL RBC (4.60-5.80) X10*6/uL Hgb (14.0-18.0) g/dl Hct (42.0-52.0) % MCV (80.0-98.0) fL MCH (27.0-33.0) pg MCHC (31.0-36.0) g/dl RDW (11.0-16.0) % Plt Count (160-400) X10*3/uL MPV (9.4-12.4) fL Immature Gran % (Auto) (0.0-0.4) % Neut % (Auto) (45-73) % Lymph % (Auto) (20-40) % [place] % (Auto) (2-11) % Eos % (Auto) (0-4) % Baso % (Auto) (0-2) % Lymph # (Auto) (1.2-4.9) X10*3/uL [place] # (Auto) (0.1-1.2) X10*3/uL Eos # (Auto) (0.0-0.4) X10*3/uL Baso # (Auto) (0.0-0.2) X10*3/uL Abs Immat Gran (auto) (0.00-0.03) X10*3/uL Absolute Neuts (auto) (2.0-8.3) x10*3/uL Absolute Nucleated RBC (0.0-0.012) X10*3/uL Nucleated RBC % (auto) (0.0-0.2) /100WBC PT (11.1-13.3) SEC INR (0.9-1.1) APTT (26.0-36.4) SEC O2 Saturation % ABG pH at Pt Temp (7.35-7.45) ABG pCO2 at Pt Temp (32-45) mmHg ABG pO2 at Pt Temp (83-108) mmHg ABG HCO3 (22-26) mmol/L ABG Base Excess (Actual) mmol/L Sodium (135-145) mmol/L Potassium (3.3-5.1) mmol/L Chloride (96-108) mmol/L Carbon Dioxide (22-29) mmol/L Anion Gap (12-20) BUN (9-16) mg/dL Creatinine (0.5-1.4) mg/dL Estim Creat Clear Calc Estimated GFR Random Glucose (60-115) mg/dL Lactic Acid (0.5-2.0) mmol/L Calcium (8.4-10.2) mg/dL Magnesium (1.6-2.6) mg/dL Total Bilirubin (0.0-1.0) mg/dL AST (5-37) U/L ALT (0-40) U/L Alkaline Phosphatase (39-117) U/L Troponin I High Sens (<3.5-35.0) ng/L Total Protein (6.5-8.0) g/dL Albumin (3.5-5.0) g/dL Lipase (8-78) U/L Urine Color Urine Appearance Cancelled Urine pH 5.5 Cancelled (5.0-9.0) Ur Specific [place] 1.020 Cancelled (1.005-1.025) Urine Protein 30 (1+) H (Neg-Trace) mg/dL Urine Glucose (UA) (Negative) mg/dL Urine Ketones (Negative) mg/dL Urine Blood (Negative) Urine Nitrite (Negative) Ur Leukocyte Esterase (Negative) Urine RBC (0-2) /HPF Urine WBC (0-5) /HPF Urine WBC Clumps Ur Squamous Epith Cells (0-2) /HPF Ur Transition Epith Cell Ur Renal Epithelial Cell Calcium Oxalate Crystal Leucine Crystals Cystine Crystals Tyrosine Crystals Other Crystals Urine Bacteria (None Seen) Urine Parasites Bilirubin Casts Epithelial Casts Fatty Casts Hyaline Casts (0-2) /LPF Granular Casts Waxy Casts Broad Casts RBC Casts WBC Casts Other Casts Urine Trichomonas Urine Yeast Urine Opiates Screen (Not Detect) Urine Fentanyl Screen (Not Detect) Ur Barbiturates Screen (Not Detect) Ur Phencyclidine Scrn (Not Detect) Ur Amphetamines Screen (Not Detect) U Benzodiazepines Scrn (Not Detect) Urine Cocaine Screen (Not Detect) U Marijuana (THC) Screen (Not Detect) Ethyl Alcohol mg/dL 10/30/22 10/30/22 10/30/22 Range/Units 21:13 21:13 21:13 WBC (4.8-10.8) X10*3/uL RBC (4.60-5.80) X10*6/uL Hgb (14.0-18.0) g/dl Hct (42.0-52.0) % MCV (80.0-98.0) fL MCH (27.0-33.0) pg MCHC (31.0-36.0) g/dl RDW (11.0-16.0) % Plt Count (160-400) X10*3/uL MPV (9.4-12.4) fL Immature Gran % (Auto) (0.0-0.4) % Neut % (Auto) (45-73) % Lymph % (Auto) (20-40) % [place] % (Auto) (2-11) % Eos % (Auto) (0-4) % Baso % (Auto) (0-2) % Lymph # (Auto) (1.2-4.9) X10*3/uL [place] # (Auto) (0.1-1.2) X10*3/uL Eos # (Auto) (0.0-0.4) X10*3/uL Baso # (Auto) (0.0-0.2) X10*3/uL Abs Immat Gran (auto) (0.00-0.03) X10*3/uL Absolute Neuts (auto) (2.0-8.3) x10*3/uL Absolute Nucleated RBC (0.0-0.012) X10*3/uL Nucleated RBC % (auto) (0.0-0.2) /100WBC PT (11.1-13.3) SEC INR (0.9-1.1) APTT (26.0-36.4) SEC O2 Saturation % ABG pH at Pt Temp (7.35-7.45) ABG pCO2 at Pt Temp (32-45) mmHg ABG pO2 at Pt Temp (83-108) mmHg ABG HCO3 (22-26) mmol/L ABG Base Excess (Actual) mmol/L Sodium (135-145) mmol/L Potassium (3.3-5.1) mmol/L Chloride (96-108) mmol/L Carbon Dioxide (22-29) mmol/L Anion Gap (12-20) BUN (9-16) mg/dL Creatinine (0.5-1.4) mg/dL Estim Creat Clear Calc Estimated GFR Random Glucose (60-115) mg/dL Lactic Acid (0.5-2.0) mmol/L Calcium (8.4-10.2) mg/dL Magnesium (1.6-2.6) mg/dL Total Bilirubin (0.0-1.0) mg/dL AST (5-37) U/L ALT (0-40) U/L Alkaline Phosphatase (39-117) U/L Troponin I High Sens (<3.5-35.0) ng/L Total Protein (6.5-8.0) g/dL Albumin (3.5-5.0) g/dL Lipase (8-78) U/L Urine Color Urine Appearance Urine pH (5.0-9.0) Ur Specific [place] (1.005-1.025) Urine Protein Cancelled (Neg-Trace) mg/dL Urine Glucose (UA) Negative Cancelled (Negative) mg/dL Urine Ketones 15 Cancelled (Negative) mg/dL Urine Blood Trace H (Negative) Urine Nitrite (Negative) Ur Leukocyte Esterase (Negative) Urine RBC (0-2) /HPF Urine WBC (0-5) /HPF Urine WBC Clumps Ur Squamous Epith Cells (0-2) /HPF Ur Transition Epith Cell Ur Renal Epithelial Cell Calcium Oxalate Crystal Leucine Crystals Cystine Crystals Tyrosine Crystals Other Crystals Urine Bacteria (None Seen) Urine Parasites Bilirubin Casts Epithelial Casts Fatty Casts Hyaline Casts (0-2) /LPF Granular Casts Waxy Casts Broad Casts RBC Casts WBC Casts Other Casts Urine Trichomonas Urine Yeast Urine Opiates Screen (Not Detect) Urine Fentanyl Screen (Not Detect) Ur Barbiturates Screen (Not Detect) Ur Phencyclidine Scrn (Not Detect) Ur Amphetamines Screen (Not Detect) U Benzodiazepines Scrn (Not Detect) Urine Cocaine Screen (Not Detect) U Marijuana (THC) Screen (Not Detect) Ethyl Alcohol mg/dL 10/30/22 10/30/22 10/30/22 Range/Units 21:13 21:13 21:13 WBC (4.8-10.8) X10*3/uL RBC (4.60-5.80) X10*6/uL Hgb (14.0-18.0) g/dl Hct (42.0-52.0) % MCV (80.0-98.0) fL MCH (27.0-33.0) pg MCHC (31.0-36.0) g/dl RDW (11.0-16.0) % Plt Count (160-400) X10*3/uL MPV (9.4-12.4) fL Immature Gran % (Auto) (0.0-0.4) % Neut % (Auto) (45-73) % Lymph % (Auto) (20-40) % [place] % (Auto) (2-11) % Eos % (Auto) (0-4) % Baso % (Auto) (0-2) % Lymph # (Auto) (1.2-4.9) X10*3/uL [place] # (Auto) (0.1-1.2) X10*3/uL Eos # (Auto) (0.0-0.4) X10*3/uL Baso # (Auto) (0.0-0.2) X10*3/uL Abs Immat Gran (auto) (0.00-0.03) X10*3/uL Absolute Neuts (auto) (2.0-8.3) x10*3/uL Absolute Nucleated RBC (0.0-0.012) X10*3/uL Nucleated RBC % (auto) (0.0-0.2) /100WBC PT (11.1-13.3) SEC INR (0.9-1.1) APTT (26.0-36.4) SEC O2 Saturation % ABG pH at Pt Temp (7.35-7.45) ABG pCO2 at Pt Temp (32-45) mmHg ABG pO2 at Pt Temp (83-108) mmHg ABG HCO3 (22-26) mmol/L ABG Base Excess (Actual) mmol/L Sodium (135-145) mmol/L Potassium (3.3-5.1) mmol/L Chloride (96-108) mmol/L Carbon Dioxide (22-29) mmol/L Anion Gap (12-20) BUN (9-16) mg/dL Creatinine (0.5-1.4) mg/dL Estim Creat Clear Calc Estimated GFR Random Glucose (60-115) mg/dL Lactic Acid (0.5-2.0) mmol/L Calcium (8.4-10.2) mg/dL Magnesium (1.6-2.6) mg/dL Total Bilirubin (0.0-1.0) mg/dL AST (5-37) U/L ALT (0-40) U/L Alkaline Phosphatase (39-117) U/L Troponin I High Sens (<3.5-35.0) ng/L Total Protein (6.5-8.0) g/dL Albumin (3.5-5.0) g/dL Lipase (8-78) U/L Urine Color Urine Appearance Urine pH (5.0-9.0) Ur Specific [place] (1.005-1.025) Urine Protein (Neg-Trace) mg/dL Urine Glucose (UA) (Negative) mg/dL Urine Ketones (Negative) mg/dL Urine Blood Cancelled (Negative) Urine Nitrite Negative Cancelled (Negative) Ur Leukocyte Esterase Negative Cancelled (Negative) Urine RBC 0-2 (0-2) /HPF Urine WBC (0-5) /HPF Urine WBC Clumps Ur Squamous Epith Cells (0-2) /HPF Ur Transition Epith Cell Ur Renal Epithelial Cell Calcium Oxalate Crystal Leucine Crystals Cystine Crystals Tyrosine Crystals Other Crystals Urine Bacteria (None Seen) Urine Parasites Bilirubin Casts Epithelial Casts Fatty Casts Hyaline Casts (0-2) /LPF Granular Casts Waxy Casts Broad Casts RBC Casts WBC Casts Other Casts Urine Trichomonas Urine Yeast Urine Opiates Screen (Not Detect) Urine Fentanyl Screen (Not Detect) Ur Barbiturates Screen (Not Detect) Ur Phencyclidine Scrn (Not Detect) Ur Amphetamines Screen (Not Detect) U Benzodiazepines Scrn (Not Detect) Urine Cocaine Screen (Not Detect) U Marijuana (THC) Screen (Not Detect) Ethyl Alcohol mg/dL 10/30/22 10/30/22 10/30/22 Range/Units 21:13 21:13 21:13 WBC (4.8-10.8) X10*3/uL RBC (4.60-5.80) X10*6/uL Hgb (14.0-18.0) g/dl Hct (42.0-52.0) % MCV (80.0-98.0) fL MCH (27.0-33.0) pg MCHC (31.0-36.0) g/dl RDW (11.0-16.0) % Plt Count (160-400) X10*3/uL MPV (9.4-12.4) fL Immature Gran % (Auto) (0.0-0.4) % Neut % (Auto) (45-73) % Lymph % (Auto) (20-40) % [place] % (Auto) (2-11) % Eos % (Auto) (0-4) % Baso % (Auto) (0-2) % Lymph # (Auto) (1.2-4.9) X10*3/uL [place] # (Auto) (0.1-1.2) X10*3/uL Eos # (Auto) (0.0-0.4) X10*3/uL Baso # (Auto) (0.0-0.2) X10*3/uL Abs Immat Gran (auto) (0.00-0.03) X10*3/uL Absolute Neuts (auto) (2.0-8.3) x10*3/uL Absolute Nucleated RBC (0.0-0.012) X10*3/uL Nucleated RBC % (auto) (0.0-0.2) /100WBC PT (11.1-13.3) SEC INR (0.9-1.1) APTT (26.0-36.4) SEC O2 Saturation % ABG pH at Pt Temp (7.35-7.45) ABG pCO2 at Pt Temp (32-45) mmHg ABG pO2 at Pt Temp (83-108) mmHg ABG HCO3 (22-26) mmol/L ABG Base Excess (Actual) mmol/L Sodium (135-145) mmol/L Potassium (3.3-5.1) mmol/L Chloride (96-108) mmol/L Carbon Dioxide (22-29) mmol/L Anion Gap (12-20) BUN (9-16) mg/dL Creatinine (0.5-1.4) mg/dL Estim Creat Clear Calc Estimated GFR Random Glucose (60-115) mg/dL Lactic Acid (0.5-2.0) mmol/L Calcium (8.4-10.2) mg/dL Magnesium (1.6-2.6) mg/dL Total Bilirubin (0.0-1.0) mg/dL AST (5-37) U/L ALT (0-40) U/L Alkaline Phosphatase (39-117) U/L Troponin I High Sens (<3.5-35.0) ng/L Total Protein (6.5-8.0) g/dL Albumin (3.5-5.0) g/dL Lipase (8-78) U/L Urine Color Urine Appearance Urine pH (5.0-9.0) Ur Specific [place] (1.005-1.025) Urine Protein (Neg-Trace) mg/dL Urine Glucose (UA) (Negative) mg/dL Urine Ketones (Negative) mg/dL Urine Blood (Negative) Urine Nitrite (Negative) Ur Leukocyte Esterase (Negative) Urine RBC Cancelled (0-2) /HPF Urine WBC 6-10 H Cancelled (0-5) /HPF Urine WBC Clumps Cancelled Ur Squamous Epith Cells 0-2 Cancelled (0-2) /HPF Ur Transition Epith Cell Cancelled Ur Renal Epithelial Cell Cancelled Calcium Oxalate Crystal Cancelled Leucine Crystals Cancelled Cystine Crystals Cancelled Tyrosine Crystals Cancelled Other Crystals Cancelled Urine Bacteria None Seen (None Seen) Urine Parasites Bilirubin Casts Epithelial Casts Fatty Casts Hyaline Casts (0-2) /LPF Granular Casts Waxy Casts Broad Casts RBC Casts WBC Casts Other Casts Urine Trichomonas Urine Yeast Urine Opiates Screen (Not Detect) Urine Fentanyl Screen (Not Detect) Ur Barbiturates Screen (Not Detect) Ur Phencyclidine Scrn (Not Detect) Ur Amphetamines Screen (Not Detect) U Benzodiazepines Scrn (Not Detect) Urine Cocaine Screen (Not Detect) U Marijuana (THC) Screen (Not Detect) Ethyl Alcohol mg/dL 10/30/22 10/30/22 Range/Units 21:13 21:13 WBC (4.8-10.8) X10*3/uL RBC (4.60-5.80) X10*6/uL Hgb (14.0-18.0) g/dl Hct (42.0-52.0) % MCV (80.0-98.0) fL MCH (27.0-33.0) pg MCHC (31.0-36.0) g/dl RDW (11.0-16.0) % Plt Count (160-400) X10*3/uL MPV (9.4-12.4) fL Immature Gran % (Auto) (0.0-0.4) % Neut % (Auto) (45-73) % Lymph % (Auto) (20-40) % [place] % (Auto) (2-11) % Eos % (Auto) (0-4) % Baso % (Auto) (0-2) % Lymph # (Auto) (1.2-4.9) X10*3/uL [place] # (Auto) (0.1-1.2) X10*3/uL Eos # (Auto) (0.0-0.4) X10*3/uL Baso # (Auto) (0.0-0.2) X10*3/uL Abs Immat Gran (auto) (0.00-0.03) X10*3/uL Absolute Neuts (auto) (2.0-8.3) x10*3/uL Absolute Nucleated RBC (0.0-0.012) X10*3/uL Nucleated RBC % (auto) (0.0-0.2) /100WBC PT (11.1-13.3) SEC INR (0.9-1.1) APTT (26.0-36.4) SEC O2 Saturation % ABG pH at Pt Temp (7.35-7.45) ABG pCO2 at Pt Temp (32-45) mmHg ABG pO2 at Pt Temp (83-108) mmHg ABG HCO3 (22-26) mmol/L ABG Base Excess (Actual) mmol/L Sodium (135-145) mmol/L Potassium (3.3-5.1) mmol/L Chloride (96-108) mmol/L Carbon Dioxide (22-29) mmol/L Anion Gap (12-20) BUN (9-16) mg/dL Creatinine (0.5-1.4) mg/dL Estim Creat Clear Calc Estimated GFR Random Glucose (60-115) mg/dL Lactic Acid (0.5-2.0) mmol/L Calcium (8.4-10.2) mg/dL Magnesium (1.6-2.6) mg/dL Total Bilirubin (0.0-1.0) mg/dL AST (5-37) U/L ALT (0-40) U/L Alkaline Phosphatase (39-117) U/L Troponin I High Sens (<3.5-35.0) ng/L Total Protein (6.5-8.0) g/dL Albumin (3.5-5.0) g/dL Lipase (8-78) U/L Urine Color Urine Appearance Urine pH (5.0-9.0) Ur Specific [place] (1.005-1.025) Urine Protein (Neg-Trace) mg/dL Urine Glucose (UA) (Negative) mg/dL Urine Ketones (Negative) mg/dL Urine Blood (Negative) Urine Nitrite (Negative) Ur Leukocyte Esterase (Negative) Urine RBC (0-2) /HPF Urine WBC (0-5) /HPF Urine WBC Clumps Ur Squamous Epith Cells (0-2) /HPF Ur Transition Epith Cell Ur Renal Epithelial Cell Calcium Oxalate Crystal Leucine Crystals Cystine Crystals Tyrosine Crystals Other Crystals Urine Bacteria Cancelled (None Seen) Urine Parasites Cancelled Bilirubin Casts Cancelled Epithelial Casts Cancelled Fatty Casts Cancelled Hyaline Casts 3-5 Cancelled (0-2) /LPF Granular Casts Cancelled Waxy Casts Cancelled Broad Casts Cancelled RBC Casts Cancelled WBC Casts Cancelled Other Casts Cancelled Urine Trichomonas Cancelled Urine Yeast Cancelled Urine Opiates Screen Not Detected (Not Detect) Urine Fentanyl Screen Not Detected (Not Detect) Ur Barbiturates Screen Not Detected (Not Detect) Ur Phencyclidine Scrn Not Detected (Not Detect) Ur Amphetamines Screen Not Detected (Not Detect) U Benzodiazepines Scrn Not Detected (Not Detect) Urine Cocaine Screen Not Detected (Not Detect) U Marijuana (THC) Screen Not Detected (Not Detect) Ethyl Alcohol mg/dL ABG Data Attestation ABG: I personally reviewed and interpreted this ABG as follows: Interpretation: ABG is consistent with metabolic acidosis with respiratory compensation. Independent Interpretation I performed an independent interpretation of an: EKG (Sinus tachycardia with a rate of 111 beats per minute.), Plain X-Ray (Low lung volumes but no focal infiltrate) and CT Scan (Motion artifact without obvious intracranial hemorrhage) Radiology Impression Discussion of test interpretation with radiology: I have reviewed the radiologist's reading. Radiologist Impression: For acute intracranial pathology Independent Historian Clinical information obtained from an independent historian. History obtained from or confirmed by: EMS and Other (Significant other, Janina) External Record Review External record reviewed: Inpatient record Critical Care Time Critical Care Time Critical Care Time: Yes Total Critical Care Time: 40 Attestation: Hypotensive, altered with multiple seizures high anion gap acidosis, concern for severe and potentially life-threatening causes. Significant workup was ordered. Multiple calls were made to attempt to discuss with family Discharge Plan Discharge Clinical Impression: Seizure Patient Disposition: Admitted As Inpatient Prescriptions: No Action cyclobenzaprine 10 mg tablet 1 tab PO TID PRN (Reason: muscle spasm) albuterol sulfate [Ventolin HFA] 90 mcg/actuation HFA aerosol inhaler 2 puff PO Q4H PRN (Reason: wheezing) nicotine (polacrilex) 4 mg gum 1 - 2 ea PO Q2H PRN (Reason: Nicotine Cravings) diltiazem HCl [Cardizem CD] 120 mg Capsule,Extended Release 24hr 120 mg PO DAILY Qty: 30 0RF Protocol: Hold for SBP/HR < HOLD for SBP < : 90 HOLD for HR < : 60 metoprolol succinate 50 mg tablet extended release 24 hr 75 mg PO DAILY Qty: 60 0RF
--- NOTE | 2022-10-30 19:43 | PC.NURSE ---
pt arrived to ED postictal per EMS 3 seizures, last seizure on arrival to ED lasting ~ 30 sec, EKG done by silvia, sofy started per APR, seizure precautions initiated. pt had a 4th seizure lasting ~ 45 sec w tonic clonic movement. 2mg ativan given IV per provider verbal order. pt incontinent of urine, changed over and repositioned in bed, condom cath applied. tech at bedside obtaining labs.
[2022-10-30 20:00] LABS: MANUAL DIFF FLAG NO
[2022-10-30 20:02] LABS: Basophils Absolute Auto 0.1 X10*3/uL (0.0-0.2); Basophils Percent Auto 0.7 % (0-2); Eosinophils Absolute Auto 0.2 X10*3/uL (0.0-0.4); Eosinophils Percent Auto 2.2 % (0-4); Hematocrit 34.5 % (42.0-52.0); Imm Gran Abs Auto 0.03 X10*3/uL (0.00-0.03); Imm Gran Pct Auto 0.4 % (0.0-0.4); Lymphocytes Absolute Auto 1.3 X10*3/uL (1.2-4.9); Lymphocytes Percent Auto 19.4 % (20-40); Mean Corpuscular HGB Conc 34.8 g/dl (31.0-36.0); Mean Corpuscular Volume 109.2 fL (80.0-98.0); Mean Platelet Volume 10.5 fL (9.4-12.4); Monocytes Absolute Auto 0.5 X10*3/uL (0.1-1.2); Monocytes Percent Auto 7.7 % (2-11); Neutrophils Absolute Auto 4.8 x10*3/uL (2.0-8.3); Neutrophils Percent Auto 69.6 % (45-73); Platelet Count 222 X10*3/uL (160-400); Red Blood Count 3.16 X10*6/uL (4.60-5.80); Red Cell Distribution Width 13.4 % (11.0-16.0); White Blood Count 6.9 X10*3/uL (4.8-10.8)
[2022-10-30] MEDS: LORazepam 2 MG/ML VIAL IVPUSH (20:07)
[2022-10-30 20:29] LABS: Alanine Aminotransferase 21 U/L (0-40); Albumin Level 4.1 g/dL (3.5-5.0); Alkaline Phosphatase 90 U/L (39-117); Anion Gap 31 (12-20); Aspartate Amino Transferase 47 U/L (5-37); Bilirubin Total 0.4 mg/dL (0.0-1.0); Blood Urea Nitrogen 11 mg/dL (9-16); Calcium 9.1 mg/dL (8.4-10.2); Carbon Dioxide 11 mmol/L (22-29); Chloride 95 mmol/L (96-108); Creatinine Clr Calc Pharmacy 69.4; Estimated Glomerular Filt Rate > 60; Ethanol < 10 mg/dL; Glucose Random 141 mg/dL (60-115); Lipase 54 U/L (8-78); Magnesium 1.6 mg/dL (1.6-2.6); Potassium 3.2 mmol/L (3.3-5.1); Sodium 134 mmol/L (135-145); Total Protein 6.9 g/dL (6.5-8.0)
[2022-10-30 20:31] LABS: Lactic Acid 15.9 mmol/L (0.5-2.0)
[2022-10-30 20:33] LABS: Troponin-I High Sensitivity < 2.7 ng/L (<3.5-35.0)
[2022-10-30] MEDS: 0.9 % Sodium Chloride 1,000 ML 999 ML IV ×3 (21:00→23:15)
[2022-10-30 21:03] LABS: INTERNATIONAL NORM RATIO 0.9 (0.9-1.1); Prothrombin Time 10.4 SEC (11.1-13.3)
[2022-10-30 21:03] LABS: ABG Base Excess -7.4 mmol/L; ABG HCO3 15 mmol/L (22-26); ABG pCO2 23 mmHg (32-45); ABG pH 7.42 (7.35-7.45); ABG pO2 65 mmHg (83-108)
[2022-10-30 21:07] LABS: ABG Refer to POC result
[2022-10-30 21:07] LABS: Partial Thromboplastin Time 22.2 SEC (26.0-36.4)
[2022-10-30] MEDS: OLANZapine 10 MG VIAL IM (21:20)
[2022-10-30 21:22] LABS: Appearance Urine Clear; Color Urine Yellow; Glucose Urine UA Negative (Negative); Leukocyte Esterase Urine Negative (Negative); Nitrite Urine Negative (Negative); PH 5.5 (5.0-9.0); UMIC TRIGGER UACC YES; Urine Blood Trace (Negative); Urine Ketones 15 mg/dL (Negative); Urine Protein 30 (1+) mg/dL (Neg-Trace)
[2022-10-30 21:25] LABS: Bacteria Urine None Seen (None Seen); RBC Urine 0-2 /HPF (0-2); Squamous Epithelial Cell Urine 0-2 /HPF (0-2); UACC Culture Trigger YES
[2022-10-30 21:49] LABS: Amphetamine Screen Urine Not Detected (Not Detect); Barbiturates, Urine Not Detected (Not Detect); Benzodiazepines Screen Urine Not Detected (Not Detect); Cannabinoid Screen Urine Not Detected (Not Detect); Cocaine Screen Urine Not Detected (Not Detect); Fentanyl, urine Not Detected (Not Detect); Opiate Screen Urine Not Detected (Not Detect); Phencyclidine Screen Urine Not Detected (Not Detect)
--- NOTE | 2022-10-30 21:55 | P.HPHOSP_ITS ---
History of Present Illness Date of Service: 10/30/22 Attending physician on admission: Tricia Correa Chief Complaint: seizure 62-year-old male with history of paroxysmal atrial fibrillation on anticoagulation, anxiety depression, multiple sclerosis, asbestosis, COPD, and alcohol dependence with history of multiple falls presented to the ED via EMS for evaluation of seizures. The patient has no known seizure history or family history of seizures per ED provider. The patient is not able to give history secondary to postictal state as well as Zyprexa administration due to agitation. Per ED provider, the patient's girlfriend reported the patient had a seizure was subsequently confused and EMS was called. He then had a 2nd witnessed seizure by EMS lasting about 1 minute described as tensing and some shaking. EN route to the hospital, patient had a 3rd seizure lasting about 30 seconds about 5 minutes prior to arrival. Once in the ED, patient had a 4th seizure noted to be tonic-clonic lasting between 30-60 seconds while Keppra 1500 mg IV was being hung and the patient was given 2 mg of IV Ativan. In the ED, patient tachycardic to 124, vitals otherwise stable. Hematology studies unremarkable. Renal function normal. Mild hyponatremia 134, hypokalemia 3.2, chloride 95, CO2 11, anion gap 31. Initial lactic acid 15.9, repeat pending. ABG showed pH 7.42, pCO2 23, PO2 65, bicarb 15. Troponin below detectable limits. Urinalysis unremarkable. Urine tox screen negative, ethyl alcohol level below detectable limits. CXR and head CT are pending. While patient is unable to give much history, he does endorse regular alcohol consumption raising concern for alcohol withdrawal seizure. In addition to the Keppra, he was also started on phenobarbital per protocol. Review of Systems 2 Review of Systems: Yes Unobtainable due to mental status [facility] Medical History PAF (paroxysmal atrial fibrillation) Infection of prepatellar bursa Bursitis A-fib Anxiety Depression Multiple sclerosis Falls Asbestosis COPD (chronic obstructive pulmonary disease) Atrial fibrillation Social History Household Members: None Housing: Apartment Do you presently have visiting nurse or other home services: Yes Alcohol intake: current Alcohol intake frequency: 0-2 drinks per day Alcohol type: wine Patient Tobacco Use Status: Former Tobacco user Substance Use Type: Marijuana service: No Current occupational status: disabled Meds Allergies Allergy/AdvReac Type Severity Reaction Status Date / Time acetaminophen [From TYLENOL] Allergy Unknown NAUSEA Verified 10/27/20 13:33 ibuprofen [From MOTRIN] Allergy Unknown GI Verified 10/27/20 13:33 BLEEDING, stomach bleed Active Medications: Current Medications Acetaminophen (Acetaminophen 325 Mg Tablet) 650 mg PO Q6H PRN PRN Reason: Pain, Mild (Pain Scale 1-3) Folic Acid (Folic Acid 1 Mg Tablet) 1 mg PO DAILY [facility] Thiamine HCl 100 mg/ Sodium (Chloride) 101 mls @ 202 mls/hr IV ONCE ONE Stop: 10/30/22 21:59 Potassium Chloride (Potassium Chloride/H20) 10 meq in 100 mls @ 100 mls/hr IV Q1H OLA[facility] Stop: 10/31/22 01:29 Melatonin (Melatonin 3 Mg Tablet) 6 mg PO BEDTIME PRN PRN Reason: Insomnia Ondansetron HCl (Ondansetron Hcl 4 Mg/2 Ml Vial) 4 mg IVPUSH Q8H PRN PRN Reason: Nausea and Vomiting Pharmacy Consult (Consult Rx Etoh Phenob Im/Po) 0 each MISCELLANE ONCE PRN; Protocol PRN Reason: Consult order Phenobarbital (Phenobarbital 15 Mg Tablet) 45 mg PO BID [facility]; Protocol Stop: 11/01/22 21:01 Phenobarbital (Phenobarbital 15 Mg Tablet) 15 mg PO BID OLA[facility]; Protocol Stop: 11/03/22 21:01 Phenobarbital (Phenobarbital 15 Mg Tablet) 15 mg PO DAILY [facility]; Protocol Stop: 11/05/22 09:01 Phenobarbital Sodium (Phenobarbital Sodium 130 Mg/Ml Vial Im Q3hx2) 191.1 mg IM Q3H OLA[facility]; Protocol Stop: 10/31/22 03:31 Sodium Chloride (0.9 % Sodium Chloride Flush 3 Ml Syringe) 3 ml IVFLUSH QSHIFT [facility] Thiamine HCl (Thiamine Hcl 100 Mg Tablet) 100 mg PO DAILY [facility] Home Medications Medication Instructions Recorded Confirmed Last Taken Type albuterol sulfate 90 mcg/actuation 2 puff PO Q4H PRN wheezing 05/21/21 05/21/21 Unknown History aerosol inhaler (Ventolin HFA) cyclobenzaprine 10 mg tablet 1 tab PO TID PRN muscle spasm 05/21/21 05/21/21 05/21/21 History nicotine (polacrilex) 4 mg gum 1 - 2 ea PO Q2H PRN Nicotine 05/21/21 05/21/21 05/21/21 History Cravings Physical Exam 2 Vital Signs and Narrative: Vital Signs: Last Vital Signs Temp 96.8 F 10/30/22 19:17 Pulse 124 H 10/30/22 19:17 Resp 18 10/30/22 19:17 BP 156/88 H 10/30/22 19:17 Pulse Ox 98 10/30/22 19:17 O2 Del Method Room Air 10/30/22 19:17 BMI result Body Mass Index 23.3 Constitutional - somnolent but arousable, No apparent distress Eyes - PERRLA, EOMI Cardiovascular - S1S2, RRR, No edema Respiratory - Normal lung expansion, Normal respiratory effort, No respiratory distress, CTA bilaterally Gastrointestinal - NT / ND; +BS; No rebound or guarding Extremities - no calf tenderness bilaterally, no swelling Skin - Warm/Dry. Venous stasis dermatitis bilateral lower legs Neurological - somnolent but arousable, mumbling nonsensically when asked questions. PERRLA, unable to participate in further neuro exam Results Labs 10/30/22 19:56 10/30/22 19:56 Labs: Laboratory Results - last 24 hr 10/30/22 10/30/22 10/30/22 19:55 19:56 20:47 MCV 109.2 H MCH 38.0 H MCHC 34.8 RDW 13.4 Plt Count 222 MPV 10.5 Immature Gran % (Auto) 0.4 Neut % (Auto) 69.6 Lymph % (Auto) 19.4 L [place] % (Auto) 7.7 Eos % (Auto) 2.2 Baso % (Auto) 0.7 Lymph # (Auto) 1.3 [place] # (Auto) 0.5 Eos # (Auto) 0.2 Baso # (Auto) 0.1 Abs Immat Gran (auto) 0.03 Absolute Neuts (auto) 4.8 Absolute Nucleated RBC 0.000 Nucleated RBC % (auto) 0.0 PT 10.4 L INR 0.9 APTT 22.2 L O2 Saturation ABG pH at Pt Temp ABG pCO2 at Pt Temp ABG pO2 at Pt Temp ABG HCO3 ABG Base Excess (Actual) Anion Gap 31 H Estim Creat Clear Calc 69.4 Estimated GFR > 60 Random Glucose 141 H Lactic Acid 15.9 H* Calcium 9.1 Magnesium 1.6 Total Bilirubin 0.4 AST 47 H ALT 21 Alkaline Phosphatase 90 Total Protein 6.9 Albumin 4.1 Lipase 54 Urine Color Urine Appearance Urine pH Ur Specific [place] Urine Protein Urine Glucose (UA) Urine Ketones Urine Blood Urine Nitrite Ur Leukocyte Esterase Urine RBC Urine WBC Urine WBC Clumps Ur Squamous Epith Cells Ur Transition Epith Cell Ur Renal Epithelial Cell Calcium Oxalate Crystal Leucine Crystals Cystine Crystals Tyrosine Crystals Other Crystals Urine Bacteria Urine Parasites Bilirubin Casts Epithelial Casts Fatty Casts Hyaline Casts Granular Casts Waxy Casts Broad Casts RBC Casts WBC Casts Other Casts Urine Trichomonas Urine Yeast Urine Opiates Screen Urine Fentanyl Screen Ur Barbiturates Screen Ur Phencyclidine Scrn Ur Amphetamines Screen U Benzodiazepines Scrn Urine Cocaine Screen U Marijuana (THC) Screen Ethyl Alcohol < 10 10/30/22 10/30/22 10/30/22 20:57 21:13 21:13 MCV MCH MCHC RDW Plt Count MPV Immature Gran % (Auto) Neut % (Auto) Lymph % (Auto) [place] % (Auto) Eos % (Auto) Baso % (Auto) Lymph # (Auto) [place] # (Auto) Eos # (Auto) Baso # (Auto) Abs Immat Gran (auto) Absolute Neuts (auto) Absolute Nucleated RBC Nucleated RBC % (auto) PT INR APTT O2 Saturation 93.0 ABG pH at Pt Temp 7.42 ABG pCO2 at Pt Temp 23 L ABG pO2 at Pt Temp 65 L ABG HCO3 15 L ABG Base Excess (Actual) -7.4 Anion Gap Estim Creat Clear Calc Estimated GFR Random Glucose Lactic Acid Calcium Magnesium Total Bilirubin AST ALT Alkaline Phosphatase Total Protein Albumin Lipase Urine Color Yellow Cancelled Urine Appearance Clear Urine pH Ur Specific [place] Urine Protein Urine Glucose (UA) Urine Ketones Urine Blood Urine Nitrite Ur Leukocyte Esterase Urine RBC Urine WBC Urine WBC Clumps Ur Squamous Epith Cells Ur Transition Epith Cell Ur Renal Epithelial Cell Calcium Oxalate Crystal Leucine Crystals Cystine Crystals Tyrosine Crystals Other Crystals Urine Bacteria Urine Parasites Bilirubin Casts Epithelial Casts Fatty Casts Hyaline Casts Granular Casts Waxy Casts Broad Casts RBC Casts WBC Casts Other Casts Urine Trichomonas Urine Yeast Urine Opiates Screen Urine Fentanyl Screen Ur Barbiturates Screen Ur Phencyclidine Scrn Ur Amphetamines Screen U Benzodiazepines Scrn Urine Cocaine Screen U Marijuana (THC) Screen Ethyl Alcohol 10/30/22 10/30/22 10/30/22 21:13 21:13 21:13 MCV MCH MCHC RDW Plt Count MPV Immature Gran % (Auto) Neut % (Auto) Lymph % (Auto) [place] % (Auto) Eos % (Auto) Baso % (Auto) Lymph # (Auto) [place] # (Auto) Eos # (Auto) Baso # (Auto) Abs Immat Gran (auto) Absolute Neuts (auto) Absolute Nucleated RBC Nucleated RBC % (auto) PT INR APTT O2 Saturation ABG pH at Pt Temp ABG pCO2 at Pt Temp ABG pO2 at Pt Temp ABG HCO3 ABG Base Excess (Actual) Anion Gap Estim Creat Clear Calc Estimated GFR Random Glucose Lactic Acid Calcium Magnesium Total Bilirubin AST ALT Alkaline Phosphatase Total Protein Albumin Lipase Urine Color Urine Appearance Cancelled Urine pH 5.5 Cancelled Ur Specific [place] 1.020 Cancelled Urine Protein 30 (1+) H Urine Glucose (UA) Urine Ketones Urine Blood Urine Nitrite Ur Leukocyte Esterase Urine RBC Urine WBC Urine WBC Clumps Ur Squamous Epith Cells Ur Transition Epith Cell Ur Renal Epithelial Cell Calcium Oxalate Crystal Leucine Crystals Cystine Crystals Tyrosine Crystals Other Crystals Urine Bacteria Urine Parasites Bilirubin Casts Epithelial Casts Fatty Casts Hyaline Casts Granular Casts Waxy Casts Broad Casts RBC Casts WBC Casts Other Casts Urine Trichomonas Urine Yeast Urine Opiates Screen Urine Fentanyl Screen Ur Barbiturates Screen Ur Phencyclidine Scrn Ur Amphetamines Screen U Benzodiazepines Scrn Urine Cocaine Screen U Marijuana (THC) Screen Ethyl Alcohol 10/30/22 10/30/22 10/30/22 21:13 21:13 21:13 MCV MCH MCHC RDW Plt Count MPV Immature Gran % (Auto) Neut % (Auto) Lymph % (Auto) [place] % (Auto) Eos % (Auto) Baso % (Auto) Lymph # (Auto) [place] # (Auto) Eos # (Auto) Baso # (Auto) Abs Immat Gran (auto) Absolute Neuts (auto) Absolute Nucleated RBC Nucleated RBC % (auto) PT INR APTT O2 Saturation ABG pH at Pt Temp ABG pCO2 at Pt Temp ABG pO2 at Pt Temp ABG HCO3 ABG Base Excess (Actual) Anion Gap Estim Creat Clear Calc Estimated GFR Random Glucose Lactic Acid Calcium Magnesium Total Bilirubin AST ALT Alkaline Phosphatase Total Protein Albumin Lipase Urine Color Urine Appearance Urine pH Ur Specific [place] Urine Protein Cancelled Urine Glucose (UA) Negative Cancelled Urine Ketones 15 Cancelled Urine Blood Trace H Urine Nitrite Ur Leukocyte Esterase Urine RBC Urine WBC Urine WBC Clumps Ur Squamous Epith Cells Ur Transition Epith Cell Ur Renal Epithelial Cell Calcium Oxalate Crystal Leucine Crystals Cystine Crystals Tyrosine Crystals Other Crystals Urine Bacteria Urine Parasites Bilirubin Casts Epithelial Casts Fatty Casts Hyaline Casts Granular Casts Waxy Casts Broad Casts RBC Casts WBC Casts Other Casts Urine Trichomonas Urine Yeast Urine Opiates Screen Urine Fentanyl Screen Ur Barbiturates Screen Ur Phencyclidine Scrn Ur Amphetamines Screen U Benzodiazepines Scrn Urine Cocaine Screen U Marijuana (THC) Screen Ethyl Alcohol 10/30/22 10/30/22 10/30/22 21:13 21:13 21:13 MCV MCH MCHC RDW Plt Count MPV Immature Gran % (Auto) Neut % (Auto) Lymph % (Auto) [place] % (Auto) Eos % (Auto) Baso % (Auto) Lymph # (Auto) [place] # (Auto) Eos # (Auto) Baso # (Auto) Abs Immat Gran (auto) Absolute Neuts (auto) Absolute Nucleated RBC Nucleated RBC % (auto) PT INR APTT O2 Saturation ABG pH at Pt Temp ABG pCO2 at Pt Temp ABG pO2 at Pt Temp ABG HCO3 ABG Base Excess (Actual) Anion Gap Estim Creat Clear Calc Estimated GFR Random Glucose Lactic Acid Calcium Magnesium Total Bilirubin AST ALT Alkaline Phosphatase Total Protein Albumin Lipase Urine Color Urine Appearance Urine pH Ur Specific [place] Urine Protein Urine Glucose (UA) Urine Ketones Urine Blood Cancelled Urine Nitrite Negative Cancelled Ur Leukocyte Esterase Negative Cancelled Urine RBC 0-2 Urine WBC Urine WBC Clumps Ur Squamous Epith Cells Ur Transition Epith Cell Ur Renal Epithelial Cell Calcium Oxalate Crystal Leucine Crystals Cystine Crystals Tyrosine Crystals Other Crystals Urine Bacteria Urine Parasites Bilirubin Casts Epithelial Casts Fatty Casts Hyaline Casts Granular Casts Waxy Casts Broad Casts RBC Casts WBC Casts Other Casts Urine Trichomonas Urine Yeast Urine Opiates Screen Urine Fentanyl Screen Ur Barbiturates Screen Ur Phencyclidine Scrn Ur Amphetamines Screen U Benzodiazepines Scrn Urine Cocaine Screen U Marijuana (THC) Screen Ethyl Alcohol 0910/30/22 10/30/22 21:13 21:13 21:13 MCV MCH MCHC RDW Plt Count MPV Immature Gran % (Auto) Neut % (Auto) Lymph % (Auto) [place] % (Auto) Eos % (Auto) Baso % (Auto) Lymph # (Auto) [place] # (Auto) Eos # (Auto) Baso # (Auto) Abs Immat Gran (auto) Absolute Neuts (auto) Absolute Nucleated RBC Nucleated RBC % (auto) PT INR APTT O2 Saturation ABG pH at Pt Temp ABG pCO2 at Pt Temp ABG pO2 at Pt Temp ABG HCO3 ABG Base Excess (Actual) Anion Gap Estim Creat Clear Calc Estimated GFR Random Glucose Lactic Acid Calcium Magnesium Total Bilirubin AST ALT Alkaline Phosphatase Total Protein Albumin Lipase Urine Color Urine Appearance Urine pH Ur Specific [place] Urine Protein Urine Glucose (UA) Urine Ketones Urine Blood Urine Nitrite Ur Leukocyte Esterase Urine RBC Cancelled Urine WBC 6-10 H Cancelled Urine WBC Clumps Cancelled Ur Squamous Epith Cells 0-2 Cancelled Ur Transition Epith Cell Cancelled Ur Renal Epithelial Cell Cancelled Calcium Oxalate Crystal Cancelled Leucine Crystals Cancelled Cystine Crystals Cancelled Tyrosine Crystals Cancelled Other Crystals Cancelled Urine Bacteria None Seen Urine Parasites Bilirubin Casts Epithelial Casts Fatty Casts Hyaline Casts Granular Casts Waxy Casts Broad Casts RBC Casts WBC Casts Other Casts Urine Trichomonas Urine Yeast Urine Opiates Screen Urine Fentanyl Screen Ur Barbiturates Screen Ur Phencyclidine Scrn Ur Amphetamines Screen U Benzodiazepines Scrn Urine Cocaine Screen U Marijuana (THC) Screen Ethyl Alcohol 10/30/22 10/30/22 21:13 21:13 MCV MCH MCHC RDW Plt Count MPV Immature Gran % (Auto) Neut % (Auto) Lymph % (Auto) [place] % (Auto) Eos % (Auto) Baso % (Auto) Lymph # (Auto) [place] # (Auto) Eos # (Auto) Baso # (Auto) Abs Immat Gran (auto) Absolute Neuts (auto) Absolute Nucleated RBC Nucleated RBC % (auto) PT INR APTT O2 Saturation ABG pH at Pt Temp ABG pCO2 at Pt Temp ABG pO2 at Pt Temp ABG HCO3 ABG Base Excess (Actual) Anion Gap Estim Creat Clear Calc Estimated GFR Random Glucose Lactic Acid Calcium Magnesium Total Bilirubin AST ALT Alkaline Phosphatase Total Protein Albumin Lipase Urine Color Urine Appearance Urine pH Ur Specific [place] Urine Protein Urine Glucose (UA) Urine Ketones Urine Blood Urine Nitrite Ur Leukocyte Esterase Urine RBC Urine WBC Urine WBC Clumps Ur Squamous Epith Cells Ur Transition Epith Cell Ur Renal Epithelial Cell Calcium Oxalate Crystal Leucine Crystals Cystine Crystals Tyrosine Crystals Other Crystals Urine Bacteria Cancelled Urine Parasites Cancelled Bilirubin Casts Cancelled Epithelial Casts Cancelled Fatty Casts Cancelled Hyaline Casts 3-5 Cancelled Granular Casts Cancelled Waxy Casts Cancelled Broad Casts Cancelled RBC Casts Cancelled WBC Casts Cancelled Other Casts Cancelled Urine Trichomonas Cancelled Urine Yeast Cancelled Urine Opiates Screen Not Detected Urine Fentanyl Screen Not Detected Ur Barbiturates Screen Not Detected Ur Phencyclidine Scrn Not Detected Ur Amphetamines Screen Not Detected U Benzodiazepines Scrn Not Detected Urine Cocaine Screen Not Detected U Marijuana (THC) Screen Not Detected Ethyl Alcohol Assessment and Plan (1) Seizure: Status: Acute (2) Alcohol dependence: Status: Acute Plan 62-year-old male with history of paroxysmal atrial fibrillation on anticoagulation, anxiety depression, multiple sclerosis, asbestosis, COPD, and alcohol dependence with history of multiple falls admitted for suspected alcohol withdrawal seizure. #New onset seizures- suspected to be related to alcohol withdrawal -patient with for witnessed seizures, a final noted to be tonic clonic in the ED -treated with 1500 mg IV Keppra, 2 mg IV Ativan -hold on further Keppra -seizure precautions, aspiration precautions -neurology consult -initiate phenobarbital per protocol -monitor on CIWA -IV thiamine, folic acid -addiction consult # mixed respiratory alkalosis and metabolic acidosis- secondary to seizure activity -compensating # lactic acidosis -due to above, repeat pending # hypokalemia -received 2 L IVF in ED -follow electrolytes # paroxysmal atrial fibrillation -not on anticoagulation -continue diltiazem and metoprolol for rate control # COPD -no acute exacerbation -albuterol p.r.n. # multiple sclerosis -Flexeril p.r.n. DVT prophylaxis- Lovenox Full code Patient requires inpatient stay at least 2 midnights for management of alcohol withdrawal seizures on phenobarbital per protocol Time Spent With Patient Time: Total time managing care of this patient today ____ minutes. Quality Stroke Does the patient have a stroke diagnosis?: No VTE Prior VTE?: No VTE Risk Level:: Medical - moderate - high VTE Device Contraindication: Treatment Not Indicated VTE Drug Contraindication: N/A - Med Ordered
[2022-10-30 21:58] LABS: Reflex Lactate? Lactic Acid Added
--- NOTE | 2022-10-30 22:04 | PC.NURSE ---
temp sensing conner placed at provider request, pt had fair tolerating of procedure. increasingly agitated, pulling at monitor lines, pt medicated per MAR for increased agitation to allow pt to tolerate CT scan.
[2022-10-30] MEDS: Thiamine HCL 100 MG in 0.9 % Sodium Chloride 100 ML 202 MG IV (22:11)
[2022-10-30] MEDS: PHENobarbitaL sodium 130 MG/ML IM ONCE 256.1 MG IM (22:17)
[2022-10-30 22:39] LABS: ~Lactic Acid-LAB USE ONLY 1.8 mmol/L (0.5-2.0)
[2022-10-30] MEDS: LORazepam 2 MG/ML VIAL 1 MG IVPUSH (23:55)
[2022-10-31] VITALS (20 sets, daily range): BP systolic 88–136; BP diastolic 48–88; PULSE 66–107; RESP 15–25; TEMP 35.9–37.3; O2SAT 96–100
--- NOTE | 2022-10-31 00:05 | PC.NURSE ---
This RN assumed care at 2300. Patient noted to be hypotensive, patient was given NS bolus, BP improved. Patient attempted to get out of bed, was verbally abusive and incoherent. Patient repositioned for comfort and medicated per MAR, currently sleeping.
[2022-10-31] MEDS: Potassium Chloride/H20 10 MEQ/100 ML PIGGYBACK 100 MEQ IV ×4 (00:40→04:21)
[2022-10-31] MEDS: Enoxaparin Sodium 40 MG/0.4 ML SYRINGE SUBCUT ×2 (00:41→22:00)
[2022-10-31 02:00] LABS: Acetone NONE DETECTED (NONE DETECTED); Analysis performed on: WHOLE BLOOD; Ethyl Alcohol g/dL (%) NONE DETECTED g/dL(%) (NONE DETECTED); Ethyl Alcohol mg/dL NONE DETECTED (NONE DETECTED); Isopropanol NONE DETECTED (NONE DETECTED)
[2022-10-31] MEDS: Albumin Human 25 % 100 ML IV ×3 (02:08→06:36)
--- NOTE | 2022-10-31 02:11 | PC.NURSE ---
Patient continues to wax and wane between being hypotensive and normotensive. Hospitalist (Dr. Correa) notified, Albumin ordered. Due to patient receiving multiple medications, another IV was placed and wrapped.
--- NOTE | 2022-10-31 02:36 | PC.NURSE ---
Patient continues to be restless despite multiple attempts to reposition to level of comfort. Patient reoriented to time and place when appropriate. Patient continues to try and get up to use the bathroom despite Castañeda. at bedside, will give phenobarb
[2022-10-31] MEDS: PHENobarbitaL sodium 130 MG/ML VIAL IM Q3Hx2 191.1 MG IM (02:59)
--- NOTE | 2022-10-31 02:59 | PC.NURSE ---
Per Dr. Correa, IV Phenobarbital given now, next dose to be given at 06:30.
--- NOTE | 2022-10-31 06:23 | PC.NURSE ---
Patient continues to be hypotensive, charge lpn aware. Dean caldwell applied, hospitalist aware of patient condition.
--- NOTE | 2022-10-31 06:29 | MHC.EDTECH ---
Pt placed on bear hugger by this tech and RN after a low internal core temp. Maddy emptied 1500cc's. RN aware
[2022-10-31 06:38] LABS: MANUAL DIFF FLAG NO
[2022-10-31 06:40] LABS: Basophils Percent Auto 0.4 % (0-2); Eosinophils Absolute Auto 0.1 X10*3/uL (0.0-0.4); Eosinophils Percent Auto 1.6 % (0-4); Hematocrit 26.1 % (42.0-52.0); Hemoglobin 9.3 g/dl (14.0-18.0); Imm Gran Abs Auto 0.01 X10*3/uL (0.00-0.03); Imm Gran Pct Auto 0.1 % (0.0-0.4); Lymphocytes Absolute Auto 1.6 X10*3/uL (1.2-4.9); Mean Corpuscular HGB Conc 35.6 g/dl (31.0-36.0); Mean Corpuscular Hemoglobin 38.6 pg (27.0-33.0); Mean Corpuscular Volume 108.3 fL (80.0-98.0); Mean Platelet Volume 9.8 fL (9.4-12.4); Monocytes Absolute Auto 0.5 X10*3/uL (0.1-1.2); Neutrophils Absolute Auto 4.5 x10*3/uL (2.0-8.3); Neutrophils Percent Auto 66.9 % (45-73); Platelet Count 148 X10*3/uL (160-400); Red Blood Count 2.41 X10*6/uL (4.60-5.80); Red Cell Distribution Width 13.3 % (11.0-16.0); White Blood Count 6.7 X10*3/uL (4.8-10.8)
[2022-10-31 07:23] LABS: Anion Gap 13 (12-20); Blood Urea Nitrogen 7 mg/dL (9-16); Calcium 7.9 mg/dL (8.4-10.2); Carbon Dioxide 21 mmol/L (22-29); Chloride 111 mmol/L (96-108); Estimated Glomerular Filt Rate > 60; Glucose Random 76 mg/dL (60-115); Potassium 3.7 mmol/L (3.3-5.1); Sodium 141 mmol/L (135-145)
--- NOTE | 2022-10-31 07:54 | PC.NURSE ---
assumed care of pt at 0700. received report from BRITTNEY Gibson. albumin drip finished as documented per apr. pt on bear hugger and core temperature 98.6 via temp sensing conner. pt blood pressures soft, most recent , Dr. Santoyo notified and aware. all other vitals stable. IV access to left wrist/arm patent. IV access to right arm difficult to flush. both wrapped by previous shift RN. pt currently sleeping soundly on stretcher, in no apparent distress. rr even/unlabored. all pt needs met kati. awaiting bed assignment.
[2022-10-31 08:01] LABS: Methyl Alcohol NONE DETECTED
--- NOTE | 2022-10-31 09:13 | PHA.MEDREC ---
Pharmacy Consult ? Medication Reconciliation Pharmacy has completed the medication reconciliation. Called [facility], stated patient's last fill with them was for nicotine in July of 2021. Attempted patient's contact [facility] but number was disconnected. Also attempted patient's home phone number and line was also unavailable. No claim history. Noted medications unobtainable.
--- NOTE | 2022-10-31 09:17 | MHC.RECOVRN ---
Attempt to make contact with pt for recovery consult, pt sleeping at this time. Allowed to sleep, will re-attempt later.
[2022-10-31] MEDS: Lactated Ringers 1,000 ML 999 ML IV ×2 (09:36→10:38)
--- NOTE | 2022-10-31 09:43 | HO.PM.IMPN ---
Subjective Subjective Date of Service: 10/31/22 Review of Systems Review of Systems: Yes Unobtainable due to mental condition Physical Exam Vital Signs: Vital Signs: Last Vital Signs Temp 98.8 F 10/31/22 09:37 Pulse 72 10/31/22 09:37 Resp 23 H 10/31/22 09:37 BP 88/49 L 10/31/22 09:37 Pulse Ox 100 10/31/22 09:37 O2 Del Method Nasal Cannula 10/31/22 09:37 O2 Flow Rate 2 10/31/22 09:37 BMI result Body Mass Index 23.3 obtunded, frail appearing Objective Data Active Medications Acetaminophen (Acetaminophen 325 Mg Tablet) 650 mg PO Q6H PRN PRN Reason: Pain, Mild (Pain Scale 1-3) Enoxaparin Sodium (Enoxaparin Sodium 40 Mg/0.4 Ml Syringe) 40 mg SUBCUT Q24H [facility] Last Admin: 10/31/22 00:41 Dose: 40 mg Documented By: GAY Folic Acid (Folic Acid 1 Mg Tablet) 1 mg PO DAILY [facility] Last Admin: 10/31/22 09:27 Dose: Not Given Documented By: ALFREDO Non-Admin Reason: Patient Asleep Lactated Ringer's (Lr) 1,000 mls @ 999 mls/hr IV .Q1H1M [facility] Stop: 10/31/22 11:15 Last Admin: 10/31/22 09:36 Dose: 999 mls/hr Documented By: ALFREDO Melatonin (Melatonin 3 Mg Tablet) 6 mg PO BEDTIME PRN PRN Reason: Insomnia Ondansetron HCl (Ondansetron Hcl 4 Mg/2 Ml Vial) 4 mg IVPUSH Q8H PRN PRN Reason: Nausea and Vomiting Pharmacy Consult (Consult Rx Etoh Phenob Im/Po) 0 each MISCELLANE ONCE PRN; Protocol PRN Reason: Consult order Phenobarbital (Phenobarbital 15 Mg Tablet) 45 mg PO BID [facility]; Protocol Stop: 11/01/22 21:01 Last Admin: 10/31/22 09:27 Dose: Not Given Documented By: ALFREDO Non-Admin Reason: Patient Asleep Phenobarbital (Phenobarbital 15 Mg Tablet) 15 mg PO BID [facility]; Protocol Stop: 11/03/22 21:01 Phenobarbital (Phenobarbital 15 Mg Tablet) 15 mg PO DAILY [facility]; Protocol Stop: 11/05/22 09:01 Sodium Chloride (0.9 % Sodium Chloride Flush 3 Ml Syringe) 3 ml IVFLUSH QSHIFT [facility] Last Admin: 10/31/22 07:31 Dose: Not Given Documented By: ALFREDO Non-Admin Reason: Med Not Available Thiamine HCl (Thiamine Hcl 100 Mg Tablet) 100 mg PO DAILY [facility] Last Admin: 10/31/22 09:27 Dose: Not Given Documented By: ALFREDO Non-Admin Reason: Patient Asleep Labs 10/31/22 06:35 10/31/22 06:35 Labs: Laboratory Results - last 24 hr 10/30/22 10/30/22 10/30/22 19:55 19:56 20:47 MCV 109.2 H MCH 38.0 H MCHC 34.8 RDW 13.4 Plt Count 222 MPV 10.5 Immature Gran % (Auto) 0.4 Neut % (Auto) 69.6 Lymph % (Auto) 19.4 L [place] % (Auto) 7.7 Eos % (Auto) 2.2 Baso % (Auto) 0.7 Lymph # (Auto) 1.3 [place] # (Auto) 0.5 Eos # (Auto) 0.2 Baso # (Auto) 0.1 Abs Immat Gran (auto) 0.03 Absolute Neuts (auto) 4.8 Absolute Nucleated RBC 0.000 Nucleated RBC % (auto) 0.0 PT 10.4 L INR 0.9 APTT 22.2 L O2 Saturation ABG pH at Pt Temp ABG pCO2 at Pt Temp ABG pO2 at Pt Temp ABG HCO3 ABG Base Excess (Actual) Anion Gap 31 H Estim Creat Clear Calc 69.4 Estimated GFR > 60 Random Glucose 141 H Lactic Acid 15.9 H* Lactic Acid F/U @ 2Hr Calcium 9.1 Magnesium 1.6 Total Bilirubin 0.4 AST 47 H ALT 21 Alkaline Phosphatase 90 Total Protein 6.9 Albumin 4.1 Lipase 54 Urine Color Urine Appearance Urine pH Ur Specific [place] Urine Protein Urine Glucose (UA) Urine Ketones Urine Blood Urine Nitrite Ur Leukocyte Esterase Urine RBC Urine WBC Urine WBC Clumps Ur Squamous Epith Cells Ur Transition Epith Cell Ur Renal Epithelial Cell Calcium Oxalate Crystal Leucine Crystals Cystine Crystals Tyrosine Crystals Other Crystals Urine Bacteria Urine Parasites Bilirubin Casts Epithelial Casts Fatty Casts Hyaline Casts Granular Casts Waxy Casts Broad Casts RBC Casts WBC Casts Other Casts Urine Trichomonas Urine Yeast Urine Opiates Screen Urine Fentanyl Screen Ur Barbiturates Screen Ur Phencyclidine Scrn Ur Amphetamines Screen U Benzodiazepines Scrn Urine Cocaine Screen U Marijuana (THC) Screen Volat Analys Perform On WHOLE BLOOD Ethyl Alcohol < 10 Ethyl Alcohol mg/dL NONE DETECTED Ethyl Alcohol g/dL NONE DETECTED Methyl Alcohol Level NONE DETECTED Isopropyl Alc, Quant NONE DETECTED Acetone Level NONE DETECTED 10/30/22 10/30/22 10/30/22 20:57 21:13 21:13 MCV MCH MCHC RDW Plt Count MPV Immature Gran % (Auto) Neut % (Auto) Lymph % (Auto) [place] % (Auto) Eos % (Auto) Baso % (Auto) Lymph # (Auto) [place] # (Auto) Eos # (Auto) Baso # (Auto) Abs Immat Gran (auto) Absolute Neuts (auto) Absolute Nucleated RBC Nucleated RBC % (auto) PT INR APTT O2 Saturation 93.0 ABG pH at Pt Temp 7.42 ABG pCO2 at Pt Temp 23 L ABG pO2 at Pt Temp 65 L ABG HCO3 15 L ABG Base Excess (Actual) -7.4 Anion Gap Estim Creat Clear Calc Estimated GFR Random Glucose Lactic Acid Lactic Acid F/U @ 2Hr Calcium Magnesium Total Bilirubin AST ALT Alkaline Phosphatase Total Protein Albumin Lipase Urine Color Yellow Cancelled Urine Appearance Clear Urine pH Ur Specific [place] Urine Protein Urine Glucose (UA) Urine Ketones Urine Blood Urine Nitrite Ur Leukocyte Esterase Urine RBC Urine WBC Urine WBC Clumps Ur Squamous Epith Cells Ur Transition Epith Cell Ur Renal Epithelial Cell Calcium Oxalate Crystal Leucine Crystals Cystine Crystals Tyrosine Crystals Other Crystals Urine Bacteria Urine Parasites Bilirubin Casts Epithelial Casts Fatty Casts Hyaline Casts Granular Casts Waxy Casts Broad Casts RBC Casts WBC Casts Other Casts Urine Trichomonas Urine Yeast Urine Opiates Screen Urine Fentanyl Screen Ur Barbiturates Screen Ur Phencyclidine Scrn Ur Amphetamines Screen U Benzodiazepines Scrn Urine Cocaine Screen U Marijuana (THC) Screen Volat Analys Perform On Ethyl Alcohol Ethyl Alcohol mg/dL Ethyl Alcohol g/dL Methyl Alcohol Level Isopropyl Alc, Quant Acetone Level 10/30/22 10/30/22 10/30/22 21:13 21:13 21:13 MCV MCH MCHC RDW Plt Count MPV Immature Gran % (Auto) Neut % (Auto) Lymph % (Auto) [place] % (Auto) Eos % (Auto) Baso % (Auto) Lymph # (Auto) [place] # (Auto) Eos # (Auto) Baso # (Auto) Abs Immat Gran (auto) Absolute Neuts (auto) Absolute Nucleated RBC Nucleated RBC % (auto) PT INR APTT O2 Saturation ABG pH at Pt Temp ABG pCO2 at Pt Temp ABG pO2 at Pt Temp ABG HCO3 ABG Base Excess (Actual) Anion Gap Estim Creat Clear Calc Estimated GFR Random Glucose Lactic Acid Lactic Acid F/U @ 2Hr Calcium Magnesium Total Bilirubin AST ALT Alkaline Phosphatase Total Protein Albumin Lipase Urine Color Urine Appearance Cancelled Urine pH 5.5 Cancelled Ur Specific [place] 1.020 Cancelled Urine Protein 30 (1+) H Urine Glucose (UA) Urine Ketones Urine Blood Urine Nitrite Ur Leukocyte Esterase Urine RBC Urine WBC Urine WBC Clumps Ur Squamous Epith Cells Ur Transition Epith Cell Ur Renal Epithelial Cell Calcium Oxalate Crystal Leucine Crystals Cystine Crystals Tyrosine Crystals Other Crystals Urine Bacteria Urine Parasites Bilirubin Casts Epithelial Casts Fatty Casts Hyaline Casts Granular Casts Waxy Casts Broad Casts RBC Casts WBC Casts Other Casts Urine Trichomonas Urine Yeast Urine Opiates Screen Urine Fentanyl Screen Ur Barbiturates Screen Ur Phencyclidine Scrn Ur Amphetamines Screen U Benzodiazepines Scrn Urine Cocaine Screen U Marijuana (THC) Screen Volat Analys Perform On Ethyl Alcohol Ethyl Alcohol mg/dL Ethyl Alcohol g/dL Methyl Alcohol Level Isopropyl Alc, Quant Acetone Level 10/30/22 10/30/22 10/30/22 21:13 21:13 21:13 MCV MCH MCHC RDW Plt Count MPV Immature Gran % (Auto) Neut % (Auto) Lymph % (Auto) [place] % (Auto) Eos % (Auto) Baso % (Auto) Lymph # (Auto) [place] # (Auto) Eos # (Auto) Baso # (Auto) Abs Immat Gran (auto) Absolute Neuts (auto) Absolute Nucleated RBC Nucleated RBC % (auto) PT INR APTT O2 Saturation ABG pH at Pt Temp ABG pCO2 at Pt Temp ABG pO2 at Pt Temp ABG HCO3 ABG Base Excess (Actual) Anion Gap Estim Creat Clear Calc Estimated GFR Random Glucose Lactic Acid Lactic Acid F/U @ 2Hr Calcium Magnesium Total Bilirubin AST ALT Alkaline Phosphatase Total Protein Albumin Lipase Urine Color Urine Appearance Urine pH Ur Specific [place] Urine Protein Cancelled Urine Glucose (UA) Negative Cancelled Urine Ketones 15 Cancelled Urine Blood Trace H Urine Nitrite Ur Leukocyte Esterase Urine RBC Urine WBC Urine WBC Clumps Ur Squamous Epith Cells Ur Transition Epith Cell Ur Renal Epithelial Cell Calcium Oxalate Crystal Leucine Crystals Cystine Crystals Tyrosine Crystals Other Crystals Urine Bacteria Urine Parasites Bilirubin Casts Epithelial Casts Fatty Casts Hyaline Casts Granular Casts Waxy Casts Broad Casts RBC Casts WBC Casts Other Casts Urine Trichomonas Urine Yeast Urine Opiates Screen Urine Fentanyl Screen Ur Barbiturates Screen Ur Phencyclidine Scrn Ur Amphetamines Screen U Benzodiazepines Scrn Urine Cocaine Screen U Marijuana (THC) Screen Volat Analys Perform On Ethyl Alcohol Ethyl Alcohol mg/dL Ethyl Alcohol g/dL Methyl Alcohol Level Isopropyl Alc, Quant Acetone Level 10/30/22 10/30/22 10/30/22 21:13 21:13 21:13 MCV MCH MCHC RDW Plt Count MPV Immature Gran % (Auto) Neut % (Auto) Lymph % (Auto) [place] % (Auto) Eos % (Auto) Baso % (Auto) Lymph # (Auto) [place] # (Auto) Eos # (Auto) Baso # (Auto) Abs Immat Gran (auto) Absolute Neuts (auto) Absolute Nucleated RBC Nucleated RBC % (auto) PT INR APTT O2 Saturation ABG pH at Pt Temp ABG pCO2 at Pt Temp ABG pO2 at Pt Temp ABG HCO3 ABG Base Excess (Actual) Anion Gap Estim Creat Clear Calc Estimated GFR Random Glucose Lactic Acid Lactic Acid F/U @ 2Hr Calcium Magnesium Total Bilirubin AST ALT Alkaline Phosphatase Total Protein Albumin Lipase Urine Color Urine Appearance Urine pH Ur Specific [place] Urine Protein Urine Glucose (UA) Urine Ketones Urine Blood Cancelled Urine Nitrite Negative Cancelled Ur Leukocyte Esterase Negative Cancelled Urine RBC 0-2 Urine WBC Urine WBC Clumps Ur Squamous Epith Cells Ur Transition Epith Cell Ur Renal Epithelial Cell Calcium Oxalate Crystal Leucine Crystals Cystine Crystals Tyrosine Crystals Other Crystals Urine Bacteria Urine Parasites Bilirubin Casts Epithelial Casts Fatty Casts Hyaline Casts Granular Casts Waxy Casts Broad Casts RBC Casts WBC Casts Other Casts Urine Trichomonas Urine Yeast Urine Opiates Screen Urine Fentanyl Screen Ur Barbiturates Screen Ur Phencyclidine Scrn Ur Amphetamines Screen U Benzodiazepines Scrn Urine Cocaine Screen U Marijuana (THC) Screen Volat Analys Perform On Ethyl Alcohol Ethyl Alcohol mg/dL Ethyl Alcohol g/dL Methyl Alcohol Level Isopropyl Alc, Quant Acetone Level 10/30/22 10/30/22 10/30/22 21:13 21:13 21:13 MCV MCH MCHC RDW Plt Count MPV Immature Gran % (Auto) Neut % (Auto) Lymph % (Auto) [place] % (Auto) Eos % (Auto) Baso % (Auto) Lymph # (Auto) [place] # (Auto) Eos # (Auto) Baso # (Auto) Abs Immat Gran (auto) Absolute Neuts (auto) Absolute Nucleated RBC Nucleated RBC % (auto) PT INR APTT O2 Saturation ABG pH at Pt Temp ABG pCO2 at Pt Temp ABG pO2 at Pt Temp ABG HCO3 ABG Base Excess (Actual) Anion Gap Estim Creat Clear Calc Estimated GFR Random Glucose Lactic Acid Lactic Acid F/U @ 2Hr Calcium Magnesium Total Bilirubin AST ALT Alkaline Phosphatase Total Protein Albumin Lipase Urine Color Urine Appearance Urine pH Ur Specific [place] Urine Protein Urine Glucose (UA) Urine Ketones Urine Blood Urine Nitrite Ur Leukocyte Esterase Urine RBC Cancelled Urine WBC 6-10 H Cancelled Urine WBC Clumps Cancelled Ur Squamous Epith Cells 0-2 Cancelled Ur Transition Epith Cell Cancelled Ur Renal Epithelial Cell Cancelled Calcium Oxalate Crystal Cancelled Leucine Crystals Cancelled Cystine Crystals Cancelled Tyrosine Crystals Cancelled Other Crystals Cancelled Urine Bacteria None Seen Urine Parasites Bilirubin Casts Epithelial Casts Fatty Casts Hyaline Casts Granular Casts Waxy Casts Broad Casts RBC Casts WBC Casts Other Casts Urine Trichomonas Urine Yeast Urine Opiates Screen Urine Fentanyl Screen Ur Barbiturates Screen Ur Phencyclidine Scrn Ur Amphetamines Screen U Benzodiazepines Scrn Urine Cocaine Screen U Marijuana (THC) Screen Volat Analys Perform On Ethyl Alcohol Ethyl Alcohol mg/dL Ethyl Alcohol g/dL Methyl Alcohol Level Isopropyl Alc, Quant Acetone Level 10/30/22 10/30/22 10/30/22 21:13 21:13 22:24 MCV MCH MCHC RDW Plt Count MPV Immature Gran % (Auto) Neut % (Auto) Lymph % (Auto) [place] % (Auto) Eos % (Auto) Baso % (Auto) Lymph # (Auto) [place] # (Auto) Eos # (Auto) Baso # (Auto) Abs Immat Gran (auto) Absolute Neuts (auto) Absolute Nucleated RBC Nucleated RBC % (auto) PT INR APTT O2 Saturation ABG pH at Pt Temp ABG pCO2 at Pt Temp ABG pO2 at Pt Temp ABG HCO3 ABG Base Excess (Actual) Anion Gap Estim Creat Clear Calc Estimated GFR Random Glucose Lactic Acid Lactic Acid F/U @ 2Hr 1.8 Calcium Magnesium Total Bilirubin AST ALT Alkaline Phosphatase Total Protein Albumin Lipase Urine Color Urine Appearance Urine pH Ur Specific [place] Urine Protein Urine Glucose (UA) Urine Ketones Urine Blood Urine Nitrite Ur Leukocyte Esterase Urine RBC Urine WBC Urine WBC Clumps Ur Squamous Epith Cells Ur Transition Epith Cell Ur Renal Epithelial Cell Calcium Oxalate Crystal Leucine Crystals Cystine Crystals Tyrosine Crystals Other Crystals Urine Bacteria Cancelled Urine Parasites Cancelled Bilirubin Casts Cancelled Epithelial Casts Cancelled Fatty Casts Cancelled Hyaline Casts 3-5 Cancelled Granular Casts Cancelled Waxy Casts Cancelled Broad Casts Cancelled RBC Casts Cancelled WBC Casts Cancelled Other Casts Cancelled Urine Trichomonas Cancelled Urine Yeast Cancelled Urine Opiates Screen Not Detected Urine Fentanyl Screen Not Detected Ur Barbiturates Screen Not Detected Ur Phencyclidine Scrn Not Detected Ur Amphetamines Screen Not Detected U Benzodiazepines Scrn Not Detected Urine Cocaine Screen Not Detected U Marijuana (THC) Screen Not Detected Volat Analys Perform On Ethyl Alcohol Ethyl Alcohol mg/dL Ethyl Alcohol g/dL Methyl Alcohol Level Isopropyl Alc, Quant Acetone Level 10/31/22 06:35 MCV 108.3 H MCH 38.6 H MCHC 35.6 RDW 13.3 Plt Count 148 L D MPV 9.8 Immature Gran % (Auto) 0.1 Neut % (Auto) 66.9 Lymph % (Auto) 24.0 [place] % (Auto) 7.0 Eos % (Auto) 1.6 Baso % (Auto) 0.4 Lymph # (Auto) 1.6 [place] # (Auto) 0.5 Eos # (Auto) 0.1 Baso # (Auto) 0.0 Abs Immat Gran (auto) 0.01 Absolute Neuts (auto) 4.5 Absolute Nucleated RBC 0.000 Nucleated RBC % (auto) 0.0 PT INR APTT O2 Saturation ABG pH at Pt Temp ABG pCO2 at Pt Temp ABG pO2 at Pt Temp ABG HCO3 ABG Base Excess (Actual) Anion Gap 13 Estim Creat Clear Calc 102.0 Estimated GFR > 60 Random Glucose 76 Lactic Acid Lactic Acid F/U @ 2Hr Calcium 7.9 L D Magnesium Total Bilirubin AST ALT Alkaline Phosphatase Total Protein Albumin Lipase Urine Color Urine Appearance Urine pH Ur Specific [place] Urine Protein Urine Glucose (UA) Urine Ketones Urine Blood Urine Nitrite Ur Leukocyte Esterase Urine RBC Urine WBC Urine WBC Clumps Ur Squamous Epith Cells Ur Transition Epith Cell Ur Renal Epithelial Cell Calcium Oxalate Crystal Leucine Crystals Cystine Crystals Tyrosine Crystals Other Crystals Urine Bacteria Urine Parasites Bilirubin Casts Epithelial Casts Fatty Casts Hyaline Casts Granular Casts Waxy Casts Broad Casts RBC Casts WBC Casts Other Casts Urine Trichomonas Urine Yeast Urine Opiates Screen Urine Fentanyl Screen Ur Barbiturates Screen Ur Phencyclidine Scrn Ur Amphetamines Screen U Benzodiazepines Scrn Urine Cocaine Screen U Marijuana (THC) Screen Volat Analys Perform On Ethyl Alcohol Ethyl Alcohol mg/dL Ethyl Alcohol g/dL Methyl Alcohol Level Isopropyl Alc, Quant Acetone Level Assessment and Plan (1) Alcohol dependence: Status: Acute Plan 62-year-old male with a past medical history of paroxysmal atrial fibrillation, mood disorder, multiple sclerosis, asbestosis, COPD, alcohol dependence presented with seizure Alcohol dependence with withdrawal seizure complicated by acute metabolic encephalopathy Phenobarbital CIWA Lactic acidosis-acute Due to seizure not sepsis Hypotension Due to medications not sepsis Acute hypokalemia Replaced Paroxysmal atrial fibrillation Not on anticoagulation due to fall risk Monitor for now COPD, asbestosis Stable Multiple sclerosis Uses Flexeril p.r.n. DVT prophylaxis with Lovenox Full code Reason for continued hospitalization: Hypertension, altered mental status Time Spent With Patient Time: Total time managing care of this patient today ____ minutes. Quality Stroke Does the patient have a stroke diagnosis?: No VTE Prior VTE?: No VTE Risk Level:: Medical - moderate - high VTE Device Contraindication: Treatment Not Indicated VTE Drug Contraindication: N/A - Med Ordered
--- NOTE | 2022-10-31 12:09 | PC.NURSE ---
Spoke to Patient states its alright to speak to his daughters about him.
--- NOTE | 2022-10-31 12:17 | P.CNNE_ITS ---
History of Present Illness Data of Consult Service Date: 10/31/22 Primary Care Provider: Unknown Physician HPI Reason for consult: Seizure 62 years old man who probably has underlying history of alcohol abuse came to hospital after a seizure and apparently had another 1 in emergency room treated with medicines. He said that he never had seizures. There was no recent history of trauma fever or cold or flu-like illness. Review of Systems 2 Review of Systems: No recent cold or flu-like illness PMFSH Past Medical History Medical History PAF (paroxysmal atrial fibrillation) Infection of prepatellar bursa Bursitis A-fib Anxiety Depression Multiple sclerosis Falls Asbestosis COPD (chronic obstructive pulmonary disease) Atrial fibrillation Social History Social History Household Members: None Housing: Apartment Do you presently have visiting nurse or other home services: Yes Alcohol intake: current Alcohol intake frequency: 0-2 drinks per day Alcohol type: wine Patient Tobacco Use Status: Former Tobacco user Substance Use Type: Marijuana Advance Directives: No Advance Directives Information Provided: No service: No Current occupational status: disabled Meds Allergies Allergy/AdvReac Type Severity Reaction Status Date / Time acetaminophen [From TYLENOL] Allergy Unknown NAUSEA Verified 10/27/20 13:33 ibuprofen [From MOTRIN] Allergy Unknown GI Verified 10/27/20 13:33 BLEEDING, stomach bleed Active Medications: Current Medications Acetaminophen (Acetaminophen 325 Mg Tablet) 650 mg PO Q6H PRN PRN Reason: Pain, Mild (Pain Scale 1-3) Enoxaparin Sodium (Enoxaparin Sodium 40 Mg/0.4 Ml Syringe) 40 mg SUBCUT Q24H [facility] Last Admin: 10/31/22 00:41 Dose: 40 mg Folic Acid (Folic Acid 1 Mg Tablet) 1 mg PO DAILY [facility] Last Admin: 10/31/22 09:27 Dose: Not Given Melatonin (Melatonin 3 Mg Tablet) 6 mg PO BEDTIME PRN PRN Reason: Insomnia Ondansetron HCl (Ondansetron Hcl 4 Mg/2 Ml Vial) 4 mg IVPUSH Q8H PRN PRN Reason: Nausea and Vomiting Pharmacy Consult (Consult Rx Etoh Phenob Im/Po) 0 each MISCELLANE ONCE PRN; Protocol PRN Reason: Consult order Phenobarbital (Phenobarbital 15 Mg Tablet) 45 mg PO BID [facility]; Protocol Stop: 11/01/22 21:01 Last Admin: 10/31/22 09:27 Dose: Not Given Phenobarbital (Phenobarbital 15 Mg Tablet) 15 mg PO BID [facility]; Protocol Stop: 11/03/22 21:01 Phenobarbital (Phenobarbital 15 Mg Tablet) 15 mg PO DAILY [facility]; Protocol Stop: 11/05/22 09:01 Sodium Chloride (0.9 % Sodium Chloride Flush 3 Ml Syringe) 3 ml IVFLUSH QSHIFT [facility] Last Admin: 10/31/22 07:31 Dose: Not Given Thiamine HCl (Thiamine Hcl 100 Mg Tablet) 100 mg PO DAILY [facility] Last Admin: 10/31/22 09:27 Dose: Not Given Home Medications Medication Instructions Recorded Confirmed Last Taken Type Unobtainable 10/31/22 10/31/22 Unknown History Physical Exam 2 Vital Signs: Vital Signs: Last Vital Signs Temp 97.7 F 10/31/22 10:44 Pulse 94 10/31/22 10:44 Resp 15 10/31/22 10:44 BP 136/79 10/31/22 10:44 Pulse Ox 99 10/31/22 10:44 O2 Del Method Nasal Cannula 10/31/22 10:44 O2 Flow Rate 2 10/31/22 10:44 BMI result Body Mass Index 23.3 Neuro: Other: He is alert and awake with normal spontaneity of speech fluency comprehension and somewhat flat affect. Face is symmetrical. Visual leon are full. There is mild right-sided weakness especially in leg with flexor plantars and minimal were to none reflexes. Results Labs 10/31/22 06:35 10/31/22 06:35 Labs: Short CBC 10/30/22 10/31/22 Range/Units 19:56 06:35 WBC 6.9 6.7 (4.8-10.8) X10*3/uL Hgb 12.0 L D 9.3 L D (14.0-18.0) g/dl Hct 34.5 L D 26.1 L D (42.0-52.0) % Plt Count 222 148 L D (160-400) X10*3/uL BMP 10/30/22 10/31/22 19:56 06:35 Sodium 134 L 141 Potassium 3.2 L D 3.7 Chloride 95 L 111 H Carbon Dioxide 11 L 21 L BUN 11 7 L Creatinine 0.97 0.66 Calcium 9.1 7.9 L D Liver Function 10/30/22 Range/Units 19:56 Total Bilirubin 0.4 (0.0-1.0) mg/dL AST 47 H (5-37) U/L ALT 21 (0-40) U/L Alkaline Phosphatase 90 (39-117) U/L Albumin 4.1 (3.5-5.0) g/dL Urine 10/30/22 10/30/22 10/30/22 Range/Units 21:13 21:13 21:13 Urine Color Yellow Cancelled Urine Appearance Clear Cancelled Urine pH 5.5 (5.0-9.0) Ur Specific Belk (1.005-1.025) Urine Protein (Neg-Trace) mg/dL Urine Glucose (UA) (Negative) mg/dL 10/30/22 10/30/22 10/30/22 Range/Units 21:13 21:13 21:13 Urine Color Urine Appearance Urine pH Cancelled (5.0-9.0) Ur Specific Belk 1.020 Cancelled (1.005-1.025) Urine Protein 30 (1+) H Cancelled (Neg-Trace) mg/dL Urine Glucose (UA) Negative (Negative) mg/dL 10/30/22 Range/Units 21:13 Urine Color Urine Appearance Urine pH (5.0-9.0) Ur Specific Belk (1.005-1.025) Urine Protein (Neg-Trace) mg/dL Urine Glucose (UA) Cancelled (Negative) mg/dL Head CT revealed moderately severe diffuse cerebral and cerebellar atrophy. Tox screen is negative. Assessment and Plan (1) Seizure: Status: Acute 62 years old man with probably history of alcohol abuse in seizure disorder. Looking it is head CT and with his history of alcohol abuse his risk of seizure disorder is high. My recommendation is to continue levetiracetam 500 mg twice a day and also supplement with thiamine and folate. Time Spent With Patient Time: Total time managing care of this patient today ____ minutes. Procedures Date of Service Date of Service: 10/31/22
--- NOTE | 2022-10-31 13:18 | MHC.CM.PN ---
IMM DELIVERED PT LIVES WITH S/O. PER PT HE RECEIVES SERVICES FROM [facility]. USES [facility] FOR MOBILITY. +COVID [facility] +HCP ON FILE. PCP BETY ALCAZAR DP: HOME WITH RESUMPTION OF SERVICES, RETURN REFERRAL SENT TO [facility]. PT WILL NEED A RIDE HOME VIA [facility] SHUTTLE. CM WILL CONTINUE TO FOLLOW FOR CHANGE IN DC PLAN/NEEDS.
--- NOTE | 2022-10-31 13:35 | P.CDIM_ITS ---
PROVIDER RESPONSE TEXT: To clarify, the appropriate diagnosis supported by the clinical indicators: Other (explain): not significant QUERY TEXT: PHYSICIAN'S DOCUMENTATION REQUEST Date of Query: 10/31/2022 01:22 PM EDT Patient Name: Cheko Baltazar Admit Date: 10/31/2022 Dear Oziel Santoyo, A review of the medical record indicates additional documentation may be needed. Please review below and update the documentation accordingly. Clinical Indicators: H&H on 10/30/22: 12.0/34.5 H&H on 10/31/22: 9.3/26.1 Patient is on Lovenox 40 mg sq Q24H Based on the above, could you clarify the appropriate diagnosis, if significant, that supports the ab ove abnormalities and additional evaluation, monitoring, and/or treatment rendered: Acute blood loss anemia Anemia, please specify type of anemia Adverse effect of anti-coagulant Labs indicate a diagnosis of (please specify) Other (explain)Clinically unable to determine (explain)Thank you, Nina Lowe RN Use of terms such as suspected, likely, concern for, or probable (associated with a specific diagnosi s that is being evaluated, monitored, or treated as if it exists) are acceptable and can be coded in the inpatient se tting, when documented at the time of discharge. Please use your independent medical judgment in providing your response. THIS QUERY IS PART OF THE PERMANENT MEDICAL RECORD
--- NOTE | 2022-10-31 14:52 | MHC.SL.SWA ---
Dysphasia Diet Status: UPGRADE from NPO Liquid Consistency and Strategies for Safe Swallow: Liquid Intake Recommendation: Thin Liquid Intake Strategies: Small Sips Solid Food Consistency: Dietary Recommendations: Regular Oral Medication Intake: Whole with Liquid Please contact the pharmacy regarding appropriate crushable or liquid drug formulations that are available whenever modified delivery is recommended. Compensatory Strategies and Precautions to be Taken for Safe Swallow: Sitting Upright (90 deg) Small Bites and Sips Supervision While Eating and Drinking for Safe Swallow: Intermittent Supervision Recommendation for Speech: Inpatient Speech Therapy Comment: Recommend UPGRADE to REGULAR solids and THIN liquids. PILLS WHOLE in liquid or by patient preference. Recommend 1 f/u by TICKET SCHEDULER during hospitalization. Recommend patient monitor for s/s dysphagia d/t dx of neuromuscular disease (MS). Frequency/Duration: 1 f/u Recycling Worker Clinican/Clinical Fellow: No Supervisory Statement: I have reviewed and agree with the student/clinical fellow's documentation: No Speech Language Pathologist: Sofiya Olson M.A., CCC-TICKET SCHEDULER
[2022-10-31] MEDS: PHENobarbitaL 15 MG TABLET 45 MG PO (20:55)
[2022-10-31] MEDS: 0.9 % Sodium Chloride Flush 3 ML SYRINGE IVFLUSH (20:58)
[2022-10-31] MEDS: traMADoL HCL 50 MG TABLET PO (21:59)
[2022-11-01] VITALS: BP 104/57; PULSE 70; RESP 18; TEMP 36.3; O2SAT 97
[2022-11-01 04:00] VITALS: BP 107/66; PULSE 70; RESP 15; TEMP 36.3; O2SAT 98
[2022-11-01] MEDS: traMADoL HCL 50 MG TABLET PO (04:15)
[2022-11-01 07:04] LABS: Hematocrit 27.3 % (42.0-52.0); Hemoglobin 9.4 g/dl (14.0-18.0); Mean Corpuscular HGB Conc 34.4 g/dl (31.0-36.0); Mean Corpuscular Hemoglobin 37.6 pg (27.0-33.0); Mean Corpuscular Volume 109.2 fL (80.0-98.0); Mean Platelet Volume 11.5 fL (9.4-12.4); Platelet Count 180 X10*3/uL (160-400); Red Cell Distribution Width 13.8 % (11.0-16.0); White Blood Count 7.6 X10*3/uL (4.8-10.8)
--- NOTE | 2022-11-01 07:28 | HO.SKINPHOTO ---
Location: Left great toe Category: skin tear Stage: Partial thickness Length: 1 Width: 1 Depth: 0.1 cm Location: Category: Stage: Length: Width: Depth: cm Location: Category: Stage: Length: Width: Depth: cm Location: Category: Stage: Length: Width: Depth: cm Location: Category: Stage: Length: Width: Depth: cm Location: Category: Stage: Length: Width: Depth: cm
[2022-11-01 07:35] VITALS: BP 110/67; PULSE 78; RESP 20; TEMP 36.7; O2SAT 95
[2022-11-01 07:35] LABS: Alanine Aminotransferase 13 U/L (0-40); Albumin Level 3.3 g/dL (3.5-5.0); Alkaline Phosphatase 62 U/L (39-117); Anion Gap 11 (12-20); Aspartate Amino Transferase 28 U/L (5-37); Bilirubin Direct 0.3 mg/dL (0.0-0.5); Bilirubin Total 0.6 mg/dL (0.0-1.0); Blood Urea Nitrogen 6 mg/dL (9-16); Calcium 8.6 mg/dL (8.4-10.2); Carbon Dioxide 24 mmol/L (22-29); Chloride 111 mmol/L (96-108); Creatinine Clr Calc Pharmacy 103.6; Estimated Glomerular Filt Rate > 60; Glucose Fasting 159 mg/dL (60-99); Potassium 2.8 mmol/L (3.3-5.1); Sodium 143 mmol/L (135-145); Total Protein 5.2 g/dL (6.5-8.0)
[2022-11-01] MEDS: PHENobarbitaL 15 MG TABLET 45 MG PO ×2 (08:40→20:10)
[2022-11-01] MEDS: Folic Acid 1 MG TABLET PO (08:41)
[2022-11-01] MEDS: levETIRAcetam 500 MG TABLET PO ×2 (08:41→20:10)
[2022-11-01] MEDS: Thiamine HCL 100 MG TABLET PO (08:41)
[2022-11-01] MEDS: 0.9 % Sodium Chloride Flush 3 ML SYRINGE IVFLUSH ×2 (08:42→22:13)
[2022-11-01] MEDS: Cyanocobalamin (Vitamin B-12) 100 MCG TABLET PO (10:32)
[2022-11-01 11:16] VITALS: BP 114/64; PULSE 91; RESP 20; TEMP 36.9; O2SAT 96
--- NOTE | 2022-11-01 11:28 | MHC.RECOVRN ---
T/w met with pt to discuss recovery goals/needs. Pt lying in bed at this time, awake and alert. Pt does not appear diaphoretic, or tremulous, in no apparent distress at this time. Pt reports he does not have an alcohol problem nothing like this has ever happened before , referring to his hospitalization. Pt refusing TIM, or resources at this time. Reports he does not drink daily, and is able to go for long stretches not drinking. Denies hx of withdrawals. Reports he may have had too much to drink the other night, and that is unusual for him. Pt reports when he does drink- he drinks usually 3-4 beers.
[2022-11-01] MEDS: Potassium Chloride Packet 20 MEQ PACKET 40 MEQ PO ×2 (11:36→13:29)
--- NOTE | 2022-11-01 12:51 | MHC.SL.SWA ---
Speech Pathologist Impression: Risk of Aspiration Due to: Dysphasia Diet Status: Regular with Thin liquids, pills whole with liquid Liquid Consistency and Strategies for Safe Swallow: Liquid Intake Recommendation: Thin Liquid Intake Strategies: Small Sips Solid Food Consistency: Dietary Recommendations: Regular Additional Modifications to Solid Foods: Oral Medication Intake: Whole with Liquid Please contact the pharmacy regarding appropriate crushable or liquid drug formulations that are available whenever modified delivery is recommended. Compensatory Strategies and Precautions to be Taken for Safe Swallow: Sitting Upright (90 deg) Small Bites and Sips Supervision While Eating and Drinking for Safe Swallow: Intermittent Supervision Foods to Avoid: Swallowing Recommended Treatments: Recommendation for Speech: Inpatient Speech Therapy Comment: Patient seen during lunch for follow up/toleration of diet. Patient seen yesterday for swallow assessment with all WFL, on least restrictive, Regular/Thin diet. Patient's daughter was in room at time of assessment, with both patient and daughter reporting that he is having no difficulty with eating/swallowing. Patient was observed taking sips of coffee and evidencing no clinical signs of aspiration. Patient independently took bites of chicken pot pie, producing normal oral and pharyngeal phase of swallow, no clinical signs of aspiration. Patient is tolerating diet well. Recommend continue on Regular diet with thin liquids, pills whole with liquid. Recommend DC speech at this time. Please recontact if additional concerns arise. Frequency/Duration: Date Range for Service Req: Timeline to reassess: Glue Reel Operator Clinican/Clinical Fellow: No Supervisory Statement: I have reviewed and agree with the student/clinical fellow's documentation: No Speech Language Pathologist: Almaz Riley M.A., CCC-WAISTLINE JOINER
[2022-11-01] MEDS: Ibuprofen 400 MG TABLET PO (14:38)
[2022-11-01] MEDS: Omeprazole 40 MG CAPSULE.DR PO (14:38)
--- NOTE | 2022-11-01 15:05 | P.PNIM_ITS ---
Subjective Subjective Date of Service: 11/01/22 Interval History: Feels better today no recurrence of seizure no withdrawal symptoms reported low potassium having right sided lower chest pain Review of Systems Review of Systems: Yes all other systems are reviewed and are negative Physical Exam 2 Vital Signs: Vital Signs: Last Vital Signs Temp 98.4 F 11/01/22 11:16 Pulse 91 11/01/22 11:16 Resp 20 11/01/22 11:16 BP 114/64 11/01/22 11:16 Pulse Ox 96 11/01/22 11:16 O2 Del Method Room Air 11/01/22 11:16 O2 Flow Rate 2 11/01/22 00:00 BMI result Body Mass Index 23.3 Const: Other: Constitutional : Awake, interactive, not in distress Neck : Normal inspection, Supple Cardiovascular : RRR, no JVP, no lower extremity edema, Respiratory : good bilateral air entry, no crackles, wheezes or rhonchi Gastrointestinal: soft, lax, Normal bowel sounds, Non tender Skin : Warm, Dry skeletal: tenderness with Rt chest wall compression lower mid-axillary line Neurological : Alert & oriented x3, No focal deficit Objective Data Active Medications Acetaminophen (Acetaminophen 325 Mg Tablet) 650 mg PO Q6H PRN PRN Reason: Pain, Mild (Pain Scale 1-3) Cyanocobalamin (Cyanocobalamin (Vitamin B-12) 100 Mcg Tablet) 100 mcg PO DAILY [facility] Last Admin: 11/01/22 10:32 Dose: 100 mcg Documented By: OKSANA Enoxaparin Sodium (Enoxaparin Sodium 40 Mg/0.4 Ml Syringe) 40 mg SUBCUT Q24H [facility] Last Admin: 10/31/22 22:00 Dose: 40 mg Documented By: ANTONIO Folic Acid (Folic Acid 1 Mg Tablet) 1 mg PO DAILY [facility] Last Admin: 11/01/22 08:41 Dose: 1 mg Documented By: OKSANA Levetiracetam (Levetiracetam 500 Mg Tablet) 500 mg PO BID [facility] Last Admin: 11/01/22 08:41 Dose: 500 mg Documented By: OKSANA Melatonin (Melatonin 3 Mg Tablet) 6 mg PO BEDTIME PRN PRN Reason: Insomnia Omeprazole (Omeprazole 40 Mg Derek.) 40 mg PO DAILY@0630 [facility] Last Admin: 11/01/22 14:38 Dose: 40 mg Documented By: OKSANA Ondansetron HCl (Ondansetron Hcl 4 Mg/2 Ml Vial) 4 mg IVPUSH Q8H PRN PRN Reason: Nausea and Vomiting Pharmacy Consult (Consult Rx Etoh Phenob Im/Po) 0 each MISCELLANE ONCE PRN; Protocol PRN Reason: Consult order Phenobarbital (Phenobarbital 15 Mg Tablet) 45 mg PO BID [facility]; Protocol Stop: 11/01/22 21:01 Last Admin: 11/01/22 08:40 Dose: 45 mg Documented By: OKSANA Phenobarbital (Phenobarbital 15 Mg Tablet) 15 mg PO BID [facility]; Protocol Stop: 11/03/22 21:01 Phenobarbital (Phenobarbital 15 Mg Tablet) 15 mg PO DAILY [facility]; Protocol Stop: 11/05/22 09:01 Sodium Chloride (0.9 % Sodium Chloride Flush 3 Ml [facility]ringe) [facility] Admin: 11/01/22 08:42 Dose: 3 ml Documented By: OKSANA Thiamine HCl (Thiamine Hcl 100 Mg Tablet) 100 mg PO DAILY [facility] Last Admin: 11/01/22 08:41 Dose: 100 mg Documented By: OKSANA Tramadol HCl (Tramadol Hcl 50 Mg Tablet) 25 mg PO Q4H PRN PRN Reason: Pain, Severe (Pain Scale 7-10) Labs 11/01/22 06:06 11/01/22 06:06 Labs: Laboratory Results - last 24 hr 11/01/22 06:06 MCV 109.2 H MCH 37.6 H MCHC 34.4 RDW 13.8 Plt Count 180 MPV 11.5 Absolute Nucleated RBC 0.000 Nucleated RBC % (auto) 0.0 Anion Gap 11 L Estim Creat Clear Calc 103.6 Estimated GFR > 60 Fasting Glucose 159 H Calcium 8.6 D Total Bilirubin 0.6 Direct Bilirubin 0.3 AST 28 ALT 13 Alkaline Phosphatase 62 Total Protein 5.2 L Albumin 3.3 L Microbiology Microbiology Results: Microbiology 10/30/22 Unknown Urine Culture - Final Urine clean catch - Urine butt top No growth. 10/30/22 22:24 Blood Culture - Preliminary Blood - Venous No growth after 24 hours. 10/30/22 20:47 Blood Culture - Preliminary Blood - Venous No growth after 24 hours. Assessment and Plan (1) Alcohol dependence: Status: Acute (2) Seizure: Status: Acute Plan 62-year-old male with a past medical history of paroxysmal atrial fibrillation, mood disorder, multiple sclerosis, asbestosis, COPD, alcohol dependence presented with seizure Alcohol dependence w risk of withdrawal Patient report drinking alcohol when he developed the seizure advised complete abstinence from alcohol Folic and thiamin supplement continue Phenobarb protocol seizure complicated by acute metabolic encephalopathy Merna related to hx of alcoholism and cerebral volume loss Neurology input appreciated; continue Keppra 500 bid monitor for seizure activity Right sided chest pain Muscular\skeletal XR to r\o rib # Lactic acidosis-acute Due to seizure not sepsis Hypotension Due to medications not sepsis Acute hypokalemia Replacement given, follow BMP Paroxysmal atrial fibrillation Not on anticoagulation due to fall risk Monitor for now COPD, asbestosis Stable Multiple sclerosis Uses Flexeril p.r.n. DVT prophylaxis with Lovenox Full code Reason for continued hospitalization: seizure monitoring, alcohol withdrawal Time Spent With Patient Time: Total time managing care of this patient today ____ minutes. Quality Stroke Does the patient have a stroke diagnosis?: No VTE Prior VTE?: No VTE Risk Level:: Medical - moderate - high VTE Device Contraindication: Treatment Not Indicated VTE Drug Contraindication: N/A - Med Ordered
[2022-11-01 15:53] VITALS: BP 110/65; PULSE 75; RESP 18; TEMP 36.6; O2SAT 94
[2022-11-01 19:37] VITALS: BP 95/52; PULSE 83; RESP 18; TEMP 36.3; O2SAT 95
[2022-11-01] MEDS: traMADoL HCL 50 MG TABLET 25 MG PO (20:16)
[2022-11-01] MEDS: Enoxaparin Sodium 40 MG/0.4 ML SYRINGE SUBCUT (22:13)
[2022-11-02] VITALS: BP 92/60; PULSE 72; RESP 20; TEMP 36.1; O2SAT 97
[2022-11-02 03:31] VITALS: BP 98/59; PULSE 70; RESP 20; TEMP 36.1; O2SAT 96
[2022-11-02] MEDS: Omeprazole 40 MG CAPSULE.DR PO (06:02)
[2022-11-02 07:24] LABS: Hematocrit 28.3 % (42.0-52.0); Hemoglobin 9.5 g/dl (14.0-18.0); Mean Corpuscular HGB Conc 33.6 g/dl (31.0-36.0); Mean Corpuscular Hemoglobin 37.7 pg (27.0-33.0); Mean Platelet Volume 11.6 fL (9.4-12.4); Platelet Count 178 X10*3/uL (160-400); Red Blood Count 2.52 X10*6/uL (4.60-5.80); Red Cell Distribution Width 14.1 % (11.0-16.0); White Blood Count 7.9 X10*3/uL (4.8-10.8)
[2022-11-02 07:25] LABS: Mean Corpuscular Volume 112.3 fL (80.0-98.0)
[2022-11-02 07:48] LABS: Anion Gap 10 (12-20); Blood Urea Nitrogen 9 mg/dL (9-16); Calcium 8.7 mg/dL (8.4-10.2); Carbon Dioxide 25 mmol/L (22-29); Chloride 111 mmol/L (96-108); Estimated Glomerular Filt Rate > 60; Glucose Random 100 mg/dL (60-115); Potassium 3.6 mmol/L (3.3-5.1); Sodium 142 mmol/L (135-145)
[2022-11-02 08:00] VITALS: BP 126/66; PULSE 104; RESP 20; TEMP 37.1; O2SAT 94
[2022-11-02] MEDS: levETIRAcetam 500 MG TABLET PO (08:37)
[2022-11-02] MEDS: Folic Acid 1 MG TABLET PO (08:37)
[2022-11-02] MEDS: traMADoL HCL 50 MG TABLET 25 MG PO ×3 (08:37→17:05)
[2022-11-02] MEDS: PHENobarbitaL 15 MG TABLET PO (08:37)
[2022-11-02] MEDS: Thiamine HCL 100 MG TABLET PO (08:38)
[2022-11-02] MEDS: Cyanocobalamin (Vitamin B-12) 100 MCG TABLET PO (08:38)
[2022-11-02] MEDS: 0.9 % Sodium Chloride Flush 3 ML SYRINGE IVFLUSH (08:39)
[2022-11-02 11:38] VITALS: BP 102/67; PULSE 102; O2SAT 97
[2022-11-02 11:47] VITALS: BP 102/67; PULSE 102; RESP 16; TEMP 36.4; O2SAT 97
--- NOTE | 2022-11-02 13:52 | MHC.CM.PN ---
PT is recommending STR; referrals have been made and CM will follow.
--- NOTE | 2022-11-02 14:13 | P.PNIM_ITS ---
Subjective Subjective Date of Service: 11/02/22 Interval History: Feels better today Normal potassium level no recurrence of seizure no withdrawal symptoms reported Review of Systems Review of Systems: Yes all other systems are reviewed and are negative Physical Exam 2 Vital Signs: Vital Signs: Last Vital Signs Temp 97.5 F 11/02/22 11:47 Pulse 102 H 11/02/22 11:47 Resp 16 11/02/22 11:47 BP 102/67 11/02/22 11:47 Pulse Ox 97 11/02/22 11:47 O2 Del Method Room Air 11/02/22 11:47 O2 Flow Rate 2 11/01/22 00:00 BMI result Body Mass Index 23.3 Const: Other: Constitutional : Awake, interactive, not in distress Neck : Normal inspection, Supple Cardiovascular : RRR, no JVP, no lower extremity edema, Respiratory : good bilateral air entry, no crackles, wheezes or rhonchi Gastrointestinal: soft, lax, Normal bowel sounds, Non tender Skin : Warm, Dry skeletal: tenderness with Rt chest wall compression lower mid-axillary line Neurological : Alert & oriented x3, No focal deficit Objective Data Active Medications Acetaminophen (Acetaminophen 325 Mg Tablet) 650 mg PO Q6H PRN PRN Reason: Pain, Mild (Pain Scale 1-3) Cyanocobalamin (Cyanocobalamin (Vitamin B-12) 100 Mcg Tablet) 100 mcg PO DAILY [facility] Last Admin: 11/02/22 08:38 Dose: 100 mcg Documented By: PEREZ Enoxaparin Sodium (Enoxaparin Sodium 40 Mg/0.4 Ml Syringe) 40 mg SUBCUT Q24H [facility] Last Admin: 11/01/22 22:13 Dose: 40 mg Documented By: ELISE Folic Acid (Folic Acid 1 Mg Tablet) 1 mg PO DAILY [facility] Last Admin: 11/02/22 08:37 Dose: 1 mg Documented By: PEREZ Levetiracetam (Levetiracetam 500 Mg Tablet) 500 mg PO BID [facility] Last Admin: 11/02/22 08:37 Dose: 500 mg Documented By: PEREZ Melatonin (Melatonin 3 Mg Tablet) 6 mg PO BEDTIME PRN PRN Reason: Insomnia Omeprazole (Omeprazole 40 Mg Derek.) 40 mg PO DAILY@0630 [facility] Last Admin: 11/02/22 06:02 Dose: 40 mg Documented By: ELISE Ondansetron HCl (Ondansetron Hcl 4 Mg/2 Ml Vial) 4 mg IVPUSH Q8H PRN PRN Reason: Nausea and Vomiting Pharmacy Consult (Consult Rx Etoh Phenob Im/Po) 0 each MISCELLANE ONCE PRN; Protocol PRN Reason: Consult order Phenobarbital (Phenobarbital 15 Mg Tablet) 15 mg PO BID [facility]; Protocol Stop: 11/03/22 21:01 Last Admin: 11/02/22 08:37 Dose: 15 mg Documented By: PEREZ Phenobarbital (Phenobarbital 15 Mg Tablet) 15 mg PO DAILY [facility]; Protocol Stop: 11/05/22 09:01 Sodium Chloride (0.9 % Sodium Chloride Flush 3 Ml Syringe) 3 ml IVFLUSH QSHIFT [facility] Last Admin: 11/02/22 08:39 Dose: 3 ml Documented By: PEREZ Thiamine HCl (Thiamine Hcl 100 Mg Tablet) 100 mg PO DAILY [facility] Last Admin: 11/02/22 08:38 Dose: 100 mg Documented By: PEREZ Tramadol HCl (Tramadol Hcl 50 Mg Tablet) 25 mg PO Q4H PRN PRN Reason: Pain, Severe (Pain Scale 7-10) Last Admin: 11/02/22 12:37 Dose: 25 mg Documented By: PEREZ Labs 11/02/22 06:29 11/02/22 06:29 Labs: Laboratory Results - last 24 hr 11/02/22 06:29 MCV 112.3 H MCH 37.7 H MCHC 33.6 RDW 14.1 Plt Count 178 MPV 11.6 Absolute Nucleated RBC 0.000 Nucleated RBC % (auto) 0.0 Smear Path Review SEE NOTE Anion Gap 10 L Estim Creat Clear Calc 99.0 Estimated GFR > 60 Random Glucose 100 Calcium 8.7 Microbiology Microbiology Results: Microbiology 10/30/22 22:24 Blood Culture - Preliminary Blood - Venous No growth after 48 hours. 10/30/22 20:47 Blood Culture - Preliminary Blood - Venous No growth after 48 hours. 10/30/22 Unknown Urine Culture - Final Urine clean catch - Urine butt top No growth. Assessment and Plan (1) Alcohol dependence: Status: Acute (2) Seizure: Status: Acute (3) Rib fractures: Status: Acute (4) Lactic acidosis: Status: Acute (5) Acute hypokalemia: Status: Acute (6) Physical deconditioning: Status: Acute Plan 62-year-old male with a past medical history of paroxysmal atrial fibrillation, mood disorder, multiple sclerosis, asbestosis, COPD, alcohol dependence presented with seizure Alcohol dependence w risk of withdrawal Patient report drinking alcohol when he developed the seizure advised complete abstinence from alcohol Folic and thiamin supplement continue Phenobarb protocol seizure complicated by acute metabolic encephalopathy Merna related to hx of alcoholism and cerebral volume loss Neurology input appreciated; continue Keppra 500 bid monitor for seizure activity Right sided chest pain Muscular\skeletal XR showing multiple ribs # bilaterally w undetermined chronicity physical deconditioning PT rec STR Lactic acidosis-acute Due to seizure not sepsis Hypotension Due to medications not sepsis Acute hypokalemia Replacement given, follow BMP Paroxysmal atrial fibrillation Not on anticoagulation due to fall risk Monitor for now COPD, asbestosis Stable Multiple sclerosis Uses Flexeril p.r.n. DVT prophylaxis with Lovenox Full code Reason for continued hospitalization: seizure monitoring, alcohol withdrawal pending safe discharge plan Time Spent With Patient Time: Total time managing care of this patient today ____ minutes. Quality Stroke Does the patient have a stroke diagnosis?: No VTE Prior VTE?: No VTE Risk Level:: Medical - moderate - high VTE Device Contraindication: Treatment Not Indicated VTE Drug Contraindication: N/A - Med Ordered
--- NOTE | 2022-11-02 14:20 | MHC.CM.PN ---
Patient has been medically cleared for dc to SNF/STR today. Patient has accepted the bed offer from [facility] and will go there today at 6PM, via [facility]. Last IMM addressed on 10/31/2022. CM attempted to reach S.O./Janina @ [phone] and [phone], but was not able to connect vwith her.
--- NOTE | 2022-11-02 14:22 | P.DS_ITS ---
DS: Providers Provider Date of Service: 11/02/22 Date of admission: 10/30/22 21:31 Primary care physician: Serafin Basurto III, MD Consults: 10/30/22 21:31 Consult to Neurology Routine Consulting Provider: [facility] Reason for consultation: seizures 10/30/22 21:55 Addiction Medicine Routine Consulting Provider: Addiction Covering Reason for consultation: etoh dependence DS: Diagnosis Discharge Diagnosis (1) Alcohol dependence: Status: Acute (2) Seizure: Status: Acute (3) Rib fractures: Status: Acute (4) Lactic acidosis: Status: Acute (5) Acute hypokalemia: Status: Acute (6) Physical deconditioning: Status: Acute DS: Summary Hospital Course Hospital Course: Admission note HPI 62-year-old male with history of paroxysmal atrial fibrillation on anticoagu lation, anxiety depression, multiple sclerosis, asbestosis, COPD, and alcohol dependence with history of multiple falls presented to the ED via EMS for evaluation of seizures. The patient has no known seizure history or family history of seizures per ED provider. The patient is not able to give history secondary to postictal state as well as Zyprexa administration due to agitation. Per ED provider, the patient's girlfriend reported the patient had a seizure was subsequently confused and EMS was called. He then had a 2nd witnessed seizure by EMS lasting about 1 minute described as tensing and some shaking. EN route to the hospital, patient had a 3rd seizure lasting about 30 seconds about 5 minutes prior to arrival. Once in the ED, patient had a 4th seizure noted to be tonic-clonic lasting between 30-60 seconds while Keppra 1500 mg IV was being hung and the patient was given 2 mg of IV Ativan. In the ED, patient tachycardic to 124, vitals otherwise stable. Hematology studies unremarkable. Renal function normal. Mild hyponatremia 134, hypokalemia 3.2, chloride 95, CO2 11, anion gap 31. Initial lactic acid 15.9, repeat pending. ABG showed pH 7.42, pCO2 23, PO2 65, bicarb 15. Troponin below detectable limits. Urinalysis unremarkable. Urine tox screen negative, ethyl alcohol level below detectable limits. CXR and head CT are pending. While patient is unable to give much history, he does endorse regular alcohol consumption raising concern for alcohol withdrawal seizure. In addition to the Keppra, he was also started on phenobarbital per protocol. Hospital course # Alcohol dependence w risk of withdrawal Patient report drinking alcohol when he developed the seizure. advised complete abstinence from alcohol. Folic and thiamin supplement started. Started on Phen obarb protocol for concerns over withdrawal but his hospital stay was benign with no reported withdrawal symptoms and low CIWA score. # Seizure complicated by acute metabolic encephalopathy Merna related to hx of alcoholism and cerebral volume loss. Neurology input appreciated; continue Keppra 500 bid. no recurrence while in hospital. to follow with neurology as outpatient. # Right sided chest pain XR showing multiple ribs # bilaterally w undetermined chronicity. continue with Tylenol and Tramadol as needed # physical deconditioning PT recommended STR # Acute hypokalemia Replacement given, back to normal # chronic Paroxysmal atrial fibrillation Not on anticoagulation due to fall risk and alcoholism. rate controlled We advise you complete abstinence from Alcohol Start Folic acid and thaimin replacement Omeprazole for stomach symptoms Keppra for seizures To follow up with Neurology as outpatient THE PATIENT WILL LIKELY NEED LESS THAN 30 DAYS AT SNF Time Spent with Patient Time attestation: Total time managing care of this patient today ____ minutes. Discharge coordination time: Greater than 30 minutes Quality: Safe Use of Opioids Does Pt have an Active Cancer Diagnosis on the Problem List?: No Quality: Stroke Does the patient have a stroke diagnosis?: No Physical Exam Vital Signs: Vital Signs: Last Vital Signs Temp 97.5 F 11/02/22 11:47 Pulse 102 H 11/02/22 11:47 Resp 16 11/02/22 11:47 BP 102/67 11/02/22 11:47 Pulse Ox 97 11/02/22 11:47 O2 Del Method Room Air 11/02/22 11:47 O2 Flow Rate 2 11/01/22 00:00 BMI result Body Mass Index 23.3 Const: Other: Constitutional : Awake, interactive, not in distress Neck : Normal inspection, Supple Cardiovascular : RRR, no JVP, no lower extremity edema, Respiratory : good bilateral air entry, no crackles, wheezes or rhonchi Gastrointestinal: soft, lax, Normal bowel sounds, Non tender Skin : Warm, Dry skeletal: tenderness with Rt chest wall compression lower mid-axillary line Neurological : Alert & oriented x3, No focal deficit DS: Data Data Completed and Pending Completed studies during hospitalization [Text1]: Procedures Detoxification Services for Substance Abuse Treatment (05/21/21) Labs on day of discharge: Laboratory Results - last 24 hr 11/02/22 06:29 WBC 7.9 RBC 2.52 L Hgb 9.5 L Hct 28.3 L MCV 112.3 H MCH 37.7 H MCHC 33.6 RDW 14.1 Plt Count 178 MPV 11.6 Absolute Nucleated RBC 0.000 Nucleated RBC % (auto) 0.0 Smear Path Review SEE NOTE Sodium 142 Potassium 3.6 D Chloride 111 H Carbon Dioxide 25 Anion Gap 10 L BUN 9 Creatinine 0.68 Estim Creat Clear Calc 99.0 Estimated GFR > 60 Random Glucose 100 Calcium 8.7 Preliminary micro results at discharge 10/30/22 22:24 Blood Culture - Preliminary Blood - Venous No growth after 48 hours. 10/30/22 20:47 Blood Culture - Preliminary Blood - Venous No growth after 48 hours. Imaging Chest x-ray: Radiologist's impression: ITS Impressions Chest X-Ray 10/30/22 21:49 IMPRESSION: Low lung volume limits evaluation. There does appear to be minimal atelectatic change or scarring at the lung bases. No other significant abnormality seen. Head CT 10/30/22 22:01 IMPRESSION: Motion degraded images limits evaluation. No evidence for acute intracranial pathology. Ribs X-Ray 11/01/22 15:23 IMPRESSION: Bilateral lower lobe opacities most consistent with small effusions and/or adjacent atelectasis or infiltrate. Rib fractures on the left which may be chronic but several are age indeterminate here. There are also some fractures on the right lower which again may be chronic but superimposed acute fracture cannot be excluded. No pneumothorax Discharge Plan Discharge Anticipated Discharge Date/Time: 11/02/22 14:18 Patient Disposition: Xfer SNF Discharge Diagnosis: Seizures Physical deconditioning Alcohol dependence Referrals: [facility] [Outside] - 1 Week Serafin Basurto III, MD [Primary Care Provider] - 1 Week Discharge Medications: New levetiracetam 500 mg Tablet 500 mg PO BID Qty: 60 0RF omeprazole 40 mg Capsule,Delayed Release(Dr/Ec) 40 mg PO DAILY@0630 Qty: 30 0RF folic acid 1 mg Tablet 1 mg PO DAILY Qty: 30 0RF thiamine mononitrate (vit B1) 100 mg Tablet 100 mg PO DAILY Qty: 30 0RF tramadol 50 mg Tablet 25 mg PO Q4H PRN (Reason: Pain, Severe (Pain Scale 7-10)) Qty: 24 0RF Discharge Orders: Discharge Order (Routine); Ordered 11/02/22 Ordered By: Wilberto Liao Diet: Advance to usual diet Activity on Discharge: As tolerated Stand Alone Forms: Patient Portal Discharge page Care Plan Goals: Read below Health Concerns: Read below Plan of Treatment: Read below Assessment: We advise you complete abstinence from Alcohol Start Folic acid and thaimin replacement Omeprazole for stomach symptoms Keppra for seizures To follow up with Neurology as outpatient
[2022-11-02 15:44] VITALS: BP 117/65; PULSE 100; RESP 18; TEMP 36.3; O2SAT 96
--- NOTE | 2022-11-02 17:45 | PC.NURSE ---
Patient is alert and oriented x4 speech clear. FLORES to command 4/5 sensation intact, assist with walker to ambulate. LS dim occasional junky cough noted, NS on tele. BSX4 abdomen soft denies nausea/vomiting tolerating diet. Voiding without difficulty. c/o pain in ribs right greater than left medicated with tramadol 25mg prn with some effect. ICE packs utilized for comfort as well with effect. Plan for discharge to rehab at 1800 will continue to monitor and report changes
== END 2022-11-02 18:38 | disposition skilled nursing facility (03) | DRG 101 ==
LOC: HO.ED 22:37 → HO.EDOVER 22:47 → HO.IMC 10-31 12:46
PROVIDERS: Internal Medicine; Physician Assistant; Admitting Provider Student in an Organized Health Care Education/Training Program; Emergency Provider Internal Medicine; PCP Internal Medicine; Visit Provider Student in an Organized Health Care Education/Training Program
DX: G40.509 Epileptic seizures related to external causes, not intractable, without status epilepticus (principal); E87.4 Mixed disorder of acid-base balance; G31.2 Degeneration of nervous system due to alcohol; J61 Pneumoconiosis due to asbestos and other mineral fibers; F10.20 Alcohol dependence, uncomplicated; G35 Multiple sclerosis; I48.0 Paroxysmal atrial fibrillation; J44.9 Chronic obstructive pulmonary disease, unspecified; E87.6 Hypokalemia; I95.2 Hypotension due to drugs
CPT/HCPCS: 36415; 70450; 71045; 71101; 80048; 80053; 80076; 80307; 80320; 81001; 82803; 83605; 83690; 83735; 84484; 85025; 85027; 85610; 85730; 87040; 87086; 92507; 92610; 93005; 97162; 99285; C1758; J1650; J1953; J2060; J2560; J3411; P9047

== ENCOUNTER → 2022-10-30 21:31 | Outpatient (BNV) | payer MEDICARE, MEDICAID, SELFPAY | PROVIDERS: Admitting Provider Student in an Organized Health Care Education/Training Program; Emergency Provider Internal Medicine; Visit Provider Physician Assistant | DX: F10.20 Alcohol dependence, uncomplicated (principal); R56.9 Unspecified convulsions; S22.49XA Multiple fractures of ribs, unspecified side, initial encounter for closed fracture; E87.20 Acidosis, unspecified; E87.6 Hypokalemia; R53.81 Other malaise | CPT/HCPCS: 99223; 99232; 99233; 99239 ==

== ENCOUNTER 2023-03-11 12:46 | Emergency (ER) | payer MEDICARE, MEDICAID, SELFPAY ==
--- NOTE | ~2023-03-11 | XR_ITS ---
EXAMINATION: XR CLAVICLE, LEFT CLINICAL INFORMATION: Left clavicle fracture. Pain. COMPARISON: Previous chest CT from earlier the same day and chest x-ray most recent October 2022 TECHNIQUE: Two views of the left clavicle. FINDINGS: Fracture of the head of the left clavicle is not well seen by x-ray. There is fracture of the distal clavicle at the acromioclavicular joint, uncertain age. This appears new in the interval from October 2022 chest x-ray. There is soft tissue swelling over the medial clavicle. No acute rib fracture XR/XR clavicle LT IMPRESSION: Fracture of the head of the left clavicle not well seen by x-ray. Fracture of the distal clavicle at the acromioclavicular joint, uncertain age. This appears new in the interval from October 2022 chest x-ray.
--- NOTE | ~2023-03-11 | CT_ITS ---
EXAMINATION: CT CERVICAL SPINE WITHOUT CONTRAST CLINICAL INFORMATION: Head strike. Fall. COMPARISON: None available. TECHNIQUE: Noncontrast computed tomography of the cervical spine was performed. This CT examination was performed using dose optimization techniques as appropriate, variously including the following: *Automated exposure control *Adjustment of mA and/or kV according to patient size (this includes techniques or standardized protocols for targeted exams where dose is matched to indication/reason for exam; i.e. extremities or head) *Use of iterative reconstruction technique DLP: 1020 mGy-cm FINDINGS: There is unchanged, minimal retrolisthesis of C5 in relation to C6. Vertebral bodies demonstrate preserved stature. There is multilevel intervertebral disc space narrowing. There is an impacted C2 comminuted fracture which appears stable to previous study. Also visualized is a small posterior inferior oblique C3 vertebral body fracture. There is healed C3 nondisplaced fracture involving the left intra-articular facets, lamina and the spinous process. There are no new fractures. The posterior elements remain anatomically aligned. There is no prevertebral soft tissue swelling. Lung apices are clear. CT/CT cervical spine wo IV con IMPRESSION: No acute osseous cervical spine abnormality. Chronic fractures as described. Fleischner guidelines were followed.
--- NOTE | ~2023-03-11 | CT_ITS ---
EXAMINATION: CT CHEST, ABDOMEN AND PELVIS WITH CONTRAST. CLINICAL INFORMATION: Fall, left-sided chest pain, abdominal pain. COMPARISON: CTA chest 01/27/2017. TECHNIQUE: Multidetector volumetric imaging was performed from the thoracic inlet through the pubic symphysis following administration of 85 mL Omnipaque 350 intravenous contrast. Sagittal and coronal reformatted images were obtained on the technologist's workstation. This CT examination was performed using dose optimization techniques as appropriate, variously including the following: *Automated exposure control *Adjustment of mA and/or kV according to patient size (this includes techniques or standardized protocols for targeted exams where dose is matched to indication/reason for exam; i.e. extremities or head) *Use of iterative reconstruction technique DLP: 144 and 379 mGy-cm FINDINGS: CHEST: Lung: Mild emphysema and mild diffuse bronchial wall thickening. No focal consolidation or significant groundglass disease. Central airways are patent. No suspicious pulmonary nodule. Redemonstration of coarse calcifications along the anterior pleural surface of the right upper lobe (5:224 and 5:256), not significantly changed since 2017. Mediastinum: Normal heart size. No pericardial effusion. Multivessel coronary artery calcifications are seen. No mediastinal or hilar lymphadenopathy. Normal appearance of the thyroid gland. Pleura: No pleural effusion or pneumothorax. Chest Wall/Axilla: Comminuted fracture of the medial left clavicle. Age indeterminate left anterior second rib fracture, not visualized on the study from 2017. Chronic left posterolateral sixth through ninth rib fractures. Chronic right posterior 11 rib fracture with callus formation. Chronic fracture of the sternal manubrium. Stable compression fracture at T10. Slightly increased compression deformity at L1. New compression fracture at T12. Degenerative changes of the spine. Symmetric gynecomastia. ABDOMEN/PELVIS: Peritoneal Space: No free air or free fluid. Liver, Gallbladder, Biliary Tree: Decreased liver attenuation consistent with hepatic steatosis. A few too small to characterize hypodensities are seen for example right hepatic lobe images 12 and 22 series 3. Normal appearance of the gallbladder. Nonspecific dilatation of the common bile duct measuring up to 0.9 cm. No significant intrahepatic biliary ductal dilatation. Pancreas: Atrophic. Coarse calcifications in the uncinate process suggestive of chronic pancreatitis. A few subcentimeter low density foci in the pancreatic head for example measuring 0.4 cm (3:25). Spleen: Unremarkable. Adrenal Glands: Unremarkable. Kidneys and Ureters: The kidneys are normal in size, shape, and attenuation. No hydronephrosis, hydroureter, or calculi seen. No perinephric stranding. Bladder: Unremarkable. Gastrointestinal Tract: The stomach and the small bowel are nondilated. No evidence of bowel obstruction. Normal appendix. Colonic diverticulosis. Submucosal fatty deposition of the ascending colon and hepatic flexure with mild wall thickening. Abdominal Wall: Small fat-containing inguinal hernias. Lymphovascular Structures: Severe atherosclerotic disease. No lymphadenopathy. Pelvic Viscera: Unremarkable. Osseous Structures: Age indeterminate compression fracture at L4. Chronic fractures of the bilateral pubic rami and left acetabulum. Partially imaged left femoral hardware. Degenerative changes of the spine. CT/CT abdomen pelvis w IV con IMPRESSION: 1. Comminuted fracture of the medial left clavicle with surrounding stranding indicative of acuity. 2. Age indeterminate left anterior second rib fracture. 3. Age indeterminate compression fractures at T12 and L4. Increased compression deformity at L1. 4. Multiple chronic bilateral rib fractures. Chronic upper sternal fracture. Stable compression fracture at T10. 5. Hepatic steatosis. 6. Sequela of chronic pancreatitis. 7. A few subcentimeter low-density foci in the pancreatic head are too small to characterize. Nonspecific dilatation of the common bile duct. Recommend further evaluation with outpatient abdominal MRI pancreatic mass protocol/MRCP. 8. Submucosal fatty deposition in the ascending colon and hepatic flexure with mild wall thickening. Recommend clinical correlation for acute colitis.
--- NOTE | ~2023-03-11 | CT_ITS ---
EXAMINATION: CT HEAD WITHOUT CONTRAST CLINICAL INFORMATION: Head strike. Status post fall. COMPARISON: CT head dated 10/30/2022. TECHNIQUE: Contiguous axial imaging was performed from the skull base to vertex without intravenous administration of contrast. This CT examination was performed using dose optimization techniques as appropriate, variously including the following: *Automated exposure control *Adjustment of mA and/or kV according to patient size (this includes techniques or standardized protocols for targeted exams where dose is matched to indication/reason for exam; i.e. extremities or head) *Use of iterative reconstruction technique DLP: 1020 mGy-cm FINDINGS: There is no intracranial hemorrhage. There is no evidence of acute/subacute cerebral or cerebellar infarction. There is moderate microvascular ischemic change. There is no midline shift, mass effect, or extra-axial fluid collection. No hydrocephalus. The calvarium is intact. The mastoid air cells are well aerated. The paranasal sinuses are clear. The orbits are symmetric and within normal limits. CT/CT head/brain wo IV con IMPRESSION: No acute intracranial pathology.
[2023-03-11 12:57] VITALS: BP 123/85; BP 134/71; PULSE 116; PULSE 118; RESP 18; TEMP 36.3; O2SAT 100; O2SAT 97; BMI 17.9
--- NOTE | 2023-03-11 13:30 | ECG_ITS ---
Test Reason : fall/weakness Blood Pressure : / mmHG Vent. Rate : 101 BPM Atrial Rate : 101 BPM P-R Int : 148 ms QRS Dur : 076 ms QT Int : 354 ms P-R-T Axes : 063 004 046 degrees QTc Int : 459 ms Sinus tachycardia Otherwise normal ECG When compared with ECG of 30-OCT-2022 19:13, No significant change was found Referred By: Dali Sanchez Electronically Signed By:NOE WILSON MD
--- NOTE | 2023-03-11 13:39 | PC.NURSE ---
triage tech to do ekg and labs
[2023-03-11 13:53] VITALS: PULSE 116
[2023-03-11 14:04] LABS: Basophils Absolute Auto 0.1 X10*3/uL (0.0-0.2); Basophils Percent Auto 0.6 % (0-2); Hematocrit 30.9 % (42.0-52.0); Hemoglobin 10.9 g/dl (14.0-18.0); Imm Gran Abs Auto 0.03 X10*3/uL (0.00-0.03); Imm Gran Pct Auto 0.4 % (0.0-0.4); Lymphocytes Absolute Auto 2.4 X10*3/uL (1.2-4.9); Lymphocytes Percent Auto 28.4 % (20-40); MANUAL DIFF FLAG NO; Mean Corpuscular HGB Conc 35.3 g/dl (31.0-36.0); Mean Corpuscular Hemoglobin 38.1 pg (27.0-33.0); Mean Platelet Volume 10.4 fL (9.4-12.4); Monocytes Absolute Auto 0.6 X10*3/uL (0.1-1.2); Monocytes Percent Auto 6.8 % (2-11); Neutrophils Absolute Auto 5.5 x10*3/uL (2.0-8.3); Neutrophils Percent Auto 63.8 % (45-73); Platelet Count 219 X10*3/uL (160-400); Red Blood Count 2.86 X10*6/uL (4.60-5.80); Red Cell Distribution Width 12.8 % (11.0-16.0); White Blood Count 8.6 X10*3/uL (4.8-10.8)
--- NOTE | 2023-03-11 14:17 | ED_ITS ---
HPI - Fall General Chief Complaint: Fall Stated Complaint: FALL T-2 DAYS,DEFORMITY OF COLLAR BONE PER EMS Time Seen by Provider: 03/11/23 13:11 Source: patient, EMS and RN notes reviewed Mode of arrival: EMS Limitations: no limitations History of Present Illness HPI Narrative: This is a 62 year old male, with the past history of multiple sclerosis and a fib not anticoagulated,?presenting to the emergency department with complaints of left clavicular pain times two days. Patient states that during the night he got up from his bed and tripped on his feet landing onto his left side. He states that he hit his head, denies loss of consciousness however reports that he laid on the floor for about an hour or two. He states that he has had significant bruising to his chest however was unable to get to the hospital as he has visiting nurses who came to her his house this morning and noticed the bruising. He denies any headaches, dizziness, shortness of breath, abdominal pain, nausea, vomiting or diarrhea. MD complaint: fall Onset (ago): day(s) Fall from: out of bed Fall witnessed: no Place fall occurred: home Loss of consciousness: unsure Prolonged down time: yes and hour(s) Symptoms prior to fall: none Context: tripped/slipped Location of injury: chest Severity: severe Quality: stabbing Related Data Previous Rx's Medication Instructions Recorded folic acid 1 mg tablet 1 mg PO DAILY #30 tabs 11/02/22 levetiracetam 500 mg tablet 500 mg PO BID #60 tabs 11/02/22 omeprazole 40 mg capsule,delayed 40 mg PO DAILY@0630 #30 caps 11/02/22 release thiamine mononitrate (vit B1) 100 100 mg PO DAILY #30 tabs 11/02/22 mg tablet tramadol 50 mg tablet 25 mg (1/2 x 50 mg) PO Q4H PRN 11/02/22 Pain, Severe (Pain Scale 7-10) #24 tabs tramadol 50 mg tablet 50 mg PO Q6H PRN pain #20 tabs 03/11/23 Allergies Allergy/AdvReac Type Severity Reaction Status Date / Time acetaminophen [From TYLENOL] Allergy Unknown NAUSEA Verified 03/11/23 12:57 ibuprofen [From MOTRIN] Allergy Unknown GI Verified 03/11/23 12:57 BLEEDING, stomach bleed Review of Systems 2 Review of Systems: Yes all other systems are reviewed and are negative [facility] Past Medical History Medical History PAF (paroxysmal atrial fibrillation) Infection of prepatellar bursa Bursitis A-fib Anxiety Depression Multiple sclerosis Falls Asbestosis COPD (chronic obstructive pulmonary disease) Atrial fibrillation Social History Social History Household Members: Significant Other Household Members Other:: girlfriend Housing: Apartment Do you presently have visiting nurse or other home services: No Unable to assess alcohol history related to: Unable to respond Alcohol intake: current Alcohol intake frequency: holidays/special occasions only Alcohol type: wine Patient Tobacco Use Status: Former Tobacco user Substance Use Type: Marijuana service: No Current occupational status: disabled Physical Exam 2 Vital Signs: Vital Signs: Last Vital Signs Temp 97.4 F 03/11/23 20:55 Pulse 100 03/11/23 20:55 Resp 18 03/11/23 20:55 BP 121/74 03/11/23 20:55 Pulse Ox 96 03/11/23 20:55 O2 Del Method Room Air 03/11/23 20:55 BMI result Body Mass Index 17.9 Const: General: cooperative, comfortable and no acute distress O rientation/consciousness: patient oriented x3 Limitations: no limitations HEENT: Other: No c spine TTP Head: Yes normal to inspection, Yes normocephalic and Yes atraumatic E ars: hearing grossly normal bilaterally General nose exam: Normal external nose present Face and sinus: Yes normal facial exam Mouth: Normal oral and palatal mucosa present, oropharynx normal and moist mucous membranes Throat: Yes posterior oropharynx normal Eyes: General: appearance normal, both eyes and all related structures E yelids: Yes eyelids normal Conjunctivae: conjunctivae normal Sclerae: s clerae normal Pupils: Equal, round and reactive pupils present EOM: EOMs intact bilaterally Neck: Neck: Yes normal visual inspection, Yes full ROM and Yes no lymphadenopathy Lymphatic: no lymphadenopathy noted Chest: Other: Significant ecchymosis seen on left anterior chest wall with equiste TTP overlying the sternal end of the clavicle. No skin break down or skin tenting. Diffuse TTP overlying entire chest wall. Chest palpation & inspection: normal inspection of the chest Resp: Effort & Inspection: normal respiratory effort and able to speak in complete sentences Auscultation: clear to auscultation bilaterally, no crackles, no rales, no rhonchi and no wheezes Cardio: Rate: regular rate Rhythm: regular rhythm Heart sounds: S1 normal heart sound present and S2 normal heart sound present GI: Inspection: Yes normal to inspection Skin: General skin exam: no rashes or lesions noted Trauma: no lacerations or abrasions Wounds: no wounds Neuro: General: patient oriented x3 and moves all extremities Cranial nerves: Yes Equal, round and reactive pupils present Cognition (Neuro): n ormal cognition Gait exam (Neuro): Normal gait present Motor exam (neuro): 5/5 motor strength present throughout and Pronator motor function not present Coordination: [id number] test normal and [id number] test normal Romberg Test: Negative Extrem: General: Yes normal to inspection Right upper extremity: normal to inspection Left upper extremity: normal to inspection Right lower extremity: normal to inspection Left lower extremity: normal to inspection Course Reevaluation(s) Reevaluation #1: Spoke to my attending physician, Dr. Casiano. Pt with clavicular fracture, and old T12, L4 and L1 compression deformities. There are stable rib fractures. Pt has a history of compresssion fractures in his back. I discussed with pt at length that we can keep him overnight to see PT/CM in the morning to evaluate for any additional resources. Pt states that he would like to return home. Given he is steady on his feet, and is alert and oriented x 4 he is appropriate to make these medical decisions for himself. Given return precautions, placed in sling and given orthopedic follow up. He understands and agrees with plan. Stable for d/c. Time: 19:54 Medications Administered Discontinued Medications Generic Name Dose Route Start Last Admin Trade Name Freq PRN Reason Stop Dose Admin Fentanyl 50 mcg 03/11/23 14:17 03/11/23 14:24 Fentanyl Citrate/Pf 100 Mcg/2 Ml Vial IVPUSH 03/11/23 14:18 50 mcg ONCE ONE Administration Protocol Fentanyl 25 mcg 03/11/23 16:25 03/11/23 16:37 Fentanyl Citrate/Pf 100 Mcg/2 Ml Vial IVPUSH 03/11/23 16:26 25 mcg ONCE ONE Administration Protocol Iohexol 85 ml 03/11/23 16:40 03/11/23 16:41 Iohexol 350 Mg/Ml 75 Ml Infus..Btl IV 03/11/23 16:41 85 ml ONCE ONE Administration Morphine Sulfate 4 mg 03/11/23 18:56 03/11/23 19:13 Morphine Sulfate 4 Mg/Ml Cartridge IVPUSH 03/11/23 18:57 4 mg ONCE ONE Administration Protocol Potassium Chloride 40 meq 03/11/23 14:34 03/11/23 14:52 Potassium Chloride Er 20 Meq Tab.Er.Prt PO 03/11/23 14:35 40 meq ONCE ONE Administration Medical Decision Making Medical Decision Making [facility] Narrative: This is a 62 year old male, with the past history of multiple sclerosis and a fib not anticoagulated, presenting to the emergency department with complaints of left sided clavicular pain and chest wall pain status post fall out of bed two nights ago. On arrival, vital signs within normal limits. Patient has diffuse extensive ecchymosis noted to the left chest with edema noted overlying the sternal end of the clavicle with exquisite tenderness of palpation. Given extensiveness of the bruising overlying the chest wall, concern for our chest wall/multiple rib fractures/clavicular fracture. CT of the chest and abdomen was obtained as well as CT head and neck. Patient has communicated fracture of the left clavicle located on the sternal end. Patient also has multiple old rib fractures as well as cervical spine fractures, which appear to be old as well. I discussed this case with my attending physician, Dr Casiano, given the extensiveness of bruising as well as clavicle. Difficult to identify clavicular fracture on cat scan therefore a clavicle X-ray was obtained. There was a fracture identified on the clavicular X-ray. I discussed with patient that we can possibly admit him for uncontrolled pain as he required multiple doses of fentanyl in the department to manage his pain as well as have him evaluated by PT and case management as he only has services throughout the week. He declines. He is ambulatory and is able to make these own decisions. Given old fractures are seen on cat scan and these are not new, patient does not meet admission criteria or transfer for possible trauma console patient reports that he has known cervical spine fractures as well as rib fractures and these all appear to be chronic. Patient declines wanting to be evaluated by case management and physical therapy, therefore patient was discharged on tramadol. Given strict return precautions. He is hemodynamically stable. Patient stable for discharge. Differential Diagnosis Differential Diagnoses: The differential diagnosis associated with the presentation includes Pneumothorax, rib fracture, sternal fx Lab Data No leukocytosis, H&H revealing macrocytic anemia, K 2.9 > replenished 03/11/23 13:58 03/11/23 13:58 Labs: Lab Results 03/11/23 03/11/23 Range/Units 13:58 14:42 WBC 8.6 (4.8-10.8) X10*3/uL RBC 2.86 L (4.60-5.80) X10*6/uL Hgb 10.9 L (14.0-18.0) g/dl Hct 30.9 L (42.0-52.0) % MCV 108.0 H (80.0-98.0) fL MCH 38.1 H (27.0-33.0) pg MCHC 35.3 (31.0-36.0) g/dl RDW 12.8 (11.0-16.0) % Plt Count 219 (160-400) X10*3/uL MPV 10.4 (9.4-12.4) fL Immature Gran % (Auto) 0.4 (0.0-0.4) % Neut % (Auto) 63.8 (45-73) % Lymph % (Auto) 28.4 (20-40) % [place] % (Auto) 6.8 (2-11) % Eos % (Auto) 0.0 (0-4) % Baso % (Auto) 0.6 (0-2) % Lymph # (Auto) 2.4 (1.2-4.9) X10*3/uL [place] # (Auto) 0.6 (0.1-1.2) X10*3/uL Eos # (Auto) 0.0 (0.0-0.4) X10*3/uL Baso # (Auto) 0.1 (0.0-0.2) X10*3/uL Abs Immat Gran (auto) 0.03 (0.00-0.03) X10*3/uL Absolute Neuts (auto) 5.5 (2.0-8.3) x10*3/uL Absolute Nucleated RBC 0.000 (0.0-0.012) X10*3/uL Nucleated RBC % (auto) 0.0 (0.0-0.2) /100WBC PT Cancelled INR Cancelled APTT Cancelled Sodium 137 (135-145) mmol/L Potassium 2.9 L* (3.3-5.1) mmol/L Chloride 97 (96-108) mmol/L Carbon Dioxide 22 (22-29) mmol/L Anion Gap 21 H (12-20) BUN 11 (9-16) mg/dL Creatinine 0.62 (0.5-1.4) mg/dL Estim Creat Clear Calc 96.5 Estimated GFR > 60 Random Glucose 99 (60-115) mg/dL Calcium 8.9 (8.4-10.2) mg/dL Total Bilirubin 0.8 (0.0-1.0) mg/dL Direct Bilirubin 0.4 (0.0-0.5) mg/dL AST 43 H (5-37) U/L ALT 24 (0-40) U/L Alkaline Phosphatase 93 (39-117) U/L Total Creatine Kinase 24 L (38-174) U/L Troponin I High Sens < 2.7 (<3.5-35.0) ng/L Total Protein 6.2 L (6.5-8.0) g/dL Albumin 3.5 (3.5-5.0) g/dL Lipase 50 (8-78) U/L Blood Type O Positive Antibody Screen NEGATIVE Radiology Impression Discussion of test interpretation with radiology: I have reviewed the radiologist's reading. Radiologist Impression: EXAMINATION: CT CHEST, ABDOMEN AND PELVIS WITH CONTRAST. CLINICAL INFORMATION: Fall, left-sided chest pain, abdominal pain. COMPARISON: CTA chest 01/27/2017. TECHNIQUE: Multidetector volumetric imaging was performed from the thoracic inlet through the pubic symphysis following administration of 85 mL Omnipaque 350 intravenous contrast. Sagittal and coronal reformatted images were obtained on the technologist's workstation. This CT examination was performed using dose optimization techniques as appropriate, variously including the following: *Automated exposure control *Adjustment of mA and/or kV according to patient size (this includes techniques or standardized protocols for targeted exams where dose is matched to indication/reason for exam; i.e. extremities or head) *Use of iterative reconstruction technique DLP: 144 and 379 mGy-cm FINDINGS: CHEST: Lung: Mild emphysema and mild diffuse bronchial wall thickening. No focal consolidation or significant groundglass disease. Central airways are patent. No suspicious pulmonary nodule. Redemonstration of coarse calcifications along the anterior pleural surface of the right upper lobe (5:224 and 5:256), not significantly changed since 2017. Mediastinum: Normal heart size. No pericardial effusion. Multivessel coronary artery calcifications are seen. No mediastinal or hilar lymphadenopathy. Normal appearance of the thyroid gland. Pleura: No pleural effusion or pneumothorax. Chest Wall/Axilla: Comminuted fracture of the medial left clavicle. Age indeterminate left anterior second rib fracture, not visualized on the study from 2017. Chronic left posterolateral sixth through ninth rib fractures. Chronic right posterior 11 rib fracture with callus formation. Chronic fracture of the sternal manubrium. Stable compression fracture at T10. Slightly increased compression deformity at L1. New compression fracture at T12. Degenerative changes of the spine. Symmetric gynecomastia. ABDOMEN/PELVIS: Peritoneal Space: No free air or free fluid. Liver, Gallbladder, Biliary Tree: Decreased liver attenuation consistent with hepatic steatosis. A few too small to characterize hypodensities are seen for example right hepatic lobe images 12 and 22 series 3. Normal appearance of the gallbladder. Nonspecific dilatation of the common bile duct measuring up to 0.9 cm. No significant intrahepatic biliary ductal dilatation. Pancreas: Atrophic. Coarse calcifications in the uncinate process suggestive of chronic pancreatitis. A few subcentimeter low density foci in the pancreatic head for example measuring 0.4 cm (3:25). Spleen: Unremarkable. Adrenal Glands: Unremarkable. Kidneys and Ureters: The kidneys are normal in size, shape, and attenuation. No hydronephrosis, hydroureter, or calculi seen. No perinephric stranding. Bladder: Unremarkable. Gastrointestinal Tract: The stomach and the small bowel are nondilated. No evidence of bowel obstruction. Normal appendix. Colonic diverticulosis. Submucosal fatty deposition of the ascending colon and hepatic flexure with mild wall thickening. Abdominal Wall: Small fat-containing inguinal hernias. Lymphovascular Structures: Severe atherosclerotic disease. No lymphadenopathy. Pelvic Viscera: Unremarkable. Osseous Structures: Age indeterminate compression fracture at L4. Chronic fractures of the bilateral pubic rami and left acetabulum. Partially imaged left femoral hardware. Degenerative changes of the spine. CT/CT abdomen pelvis w IV con IMPRESSION: 1. Comminuted fracture of the medial left clavicle with surrounding stranding indicative of acuity. 2. Age indeterminate left anterior second rib fracture. 3. Age indeterminate compression fractures at T12 and L4. Increased compression deformity at L1. 4. Multiple chronic bilateral rib fractures. Chronic upper sternal fracture. Stable compression fracture at T10. 5. Hepatic steatosis. 6. Sequela of chronic pancreatitis. 7. A few subcentimeter low-density foci in the pancreatic head are too small to characterize. Nonspecific dilatation of the common bile duct. Recommend further evaluation with outpatient abdominal MRI pancreatic mass protocol/MRCP. 8. Submucosal fatty deposition in the ascending colon and hepatic flexure with mild wall thickening. Recommend clinical correlation for acute colitis. Dictated By: Tami Garcia Signed By: <Electronically signed by Tami Garcia in [place]> EXAMINATION: CT CERVICAL SPINE WITHOUT CONTRAST CLINICAL INFORMATION: Head strike. Fall. COMPARISON: None available. TECHNIQUE: Noncontrast computed tomography of the cervical spine was performed. This CT examination was performed using dose optimization techniques as appropriate, variously including the following: *Automated exposure control *Adjustment of mA and/or kV according to patient size (this includes techniques or standardized protocols for targeted exams where dose is matched to indication/reason for exam; i.e. extremities or head) *Use of iterative reconstruction technique DLP: 1020 mGy-cm FINDINGS: There is unchanged, minimal retrolisthesis of C5 in relation to C6. Vertebral bodies demonstrate preserved stature. There is multilevel intervertebral disc space narrowing. There is an impacted C2 comminuted fracture which appears stable to previous study. Also visualized is a small posterior inferior oblique C3 vertebral body fracture. There is healed C3 nondisplaced fracture involving the left intra-articular facets, lamina and the spinous process. There are no new fractures. The posterior elements remain anatomically aligned. There is no prevertebral soft tissue swelling. Lung apices are clear. CT/CT cervical spine wo IV con IMPRESSION: No acute osseous cervical spine abnormality. Chronic fractures as described. Fleischner guidelines were followed. Dictated By: Pete Hernandez Jr, DO EXAMINATION: CT HEAD WITHOUT CONTRAST CLINICAL INFORMATION: Head strike. Status post fall. COMPARISON: CT head dated 10/30/2022. TECHNIQUE: Contiguous axial imaging was performed from the skull base to vertex without intravenous administration of contrast. This CT examination was performed using dose optimization techniques as appropriate, variously including the following: *Automated exposure control *Adjustment of mA and/or kV according to patient size (this includes techniques or standardized protocols for targeted exams where dose is matched to indication/reason for exam; i.e. extremities or head) *Use of iterative reconstruction technique DLP: 1020 mGy-cm FINDINGS: There is no intracranial hemorrhage. There is no evidence of acute/subacute cerebral or cerebellar infarction. There is moderate microvascular ischemic change. There is no midline shift, mass effect, or extra-axial fluid collection. No hydrocephalus. The calvarium is intact. The mastoid air cells are well aerated. The paranasal sinuses are clear. The orbits are symmetric and within normal limits. CT/CT head/brain wo IV con IMPRESSION: No acute intracranial pathology. Dictated By: Pete Hernandez Jr [place] [id number] CT Scan Report Signed Patient: Cheko Baltazar MR#: [id number] : 1960 Acct:[id number] Age/Sex: 62 / M ADM Date: 03/11/23 Loc: HO.ED Attending Dr: Ordering Physician: Dali Sanchez Date of Service: 03/11/23 Procedure(s): CT chest w IV con Accession Number(s): [id number] cc: Dali Sanchez; Physician,Unknown ~ EXAMINATION: CT CHEST, ABDOMEN AND PELVIS WITH CONTRAST. CLINICAL INFORMATION: Fall, left-sided chest pain, abdominal pain. COMPARISON: CTA chest 01/27/2017. TECHNIQUE: Multidetector volumetric imaging was performed from the thoracic inlet through the pubic symphysis following administration of 85 mL Omnipaque 350 intravenous contrast. Sagittal and coronal reformatted images were obtained on the technologist's workstation. This CT examination was performed using dose optimization techniques as appropriate, variously including the following: *Automated exposure control *Adjustment of mA and/or kV according to patient size (this includes techniques or standardized protocols for targeted exams where dose is matched to indication/reason for exam; i.e. extremities or head) *Use of iterative reconstruction technique DLP: 144 and 379 mGy-cm FINDINGS: CHEST: Lung: Mild emphysema and mild diffuse bronchial wall thickening. No focal consolidation or significant groundglass disease. Central airways are patent. No suspicious pulmonary nodule. Redemonstration of coarse calcifications along the anterior pleural surface of the right upper lobe (5:224 and 5:256), not significantly changed since 2017. Mediastinum: Normal heart size. No pericardial effusion. Multivessel coronary artery calcifications are seen. No mediastinal or hilar lymphadenopathy. Normal appearance of the thyroid gland. Pleura: No pleural effusion or pneumothorax. Chest Wall/Axilla: Comminuted fracture of the medial left clavicle. Age indeterminate left anterior second rib fracture, not visualized on the study from 2017. Chronic left posterolateral sixth through ninth rib fractures. Chronic right posterior 11 rib fracture with callus formation. Chronic fracture of the sternal manubrium. Stable compression fracture at T10. Slightly increased compression deformity at L1. New compression fracture at T12. Degenerative changes of the spine. Symmetric gynecomastia. ABDOMEN/PELVIS: Peritoneal Space: No free air or free fluid. Liver, Gallbladder, Biliary Tree: Decreased liver attenuation consistent with hepatic steatosis. A few too small to characterize hypodensities are seen for example right hepatic lobe images 12 and 22 series 3. Normal appearance of the gallbladder. Nonspecific dilatation of the common bile duct measuring up to 0.9 cm. No significant intrahepatic biliary ductal dilatation. Pancreas: Atrophic. Coarse calcifications in the uncinate process suggestive of chronic pancreatitis. A few subcentimeter low density foci in the pancreatic head for example measuring 0.4 cm (3:25). Spleen: Unremarkable. Adrenal Glands: Unremarkable. Kidneys and Ureters: The kidneys are normal in size, shape, and attenuation. No hydronephrosis, hydroureter, or calculi seen. No perinephric stranding. Bladder: Unremarkable. Gastrointestinal Tract: The stomach and the small bowel are nondilated. No evidence of bowel obstruction. Normal appendix. Colonic diverticulosis. Submucosal fatty deposition of the ascending colon and hepatic flexure with mild wall thickening. Abdominal Wall: Small fat-containing inguinal hernias. Lymphovascular Structures: Severe atherosclerotic disease. No lymphadenopathy. Pelvic Viscera: Unremarkable. Osseous Structures: Age indeterminate compression fracture at L4. Chronic fractures of the bilateral pubic rami and left acetabulum. Partially imaged left femoral hardware. Degenerative changes of the spine. CT/CT chest w IV con IMPRESSION: 1. Comminuted fracture of the medial left clavicle with surrounding stranding indicative of acuity. 2. Age indeterminate left anterior second rib fracture. 3. Age indeterminate compression fractures at T12 and L4. Increased compression deformity at L1. 4. Multiple chronic bilateral rib fractures. Chronic upper sternal fracture. Stable compression fracture at T10. 5. Hepatic steatosis. 6. Sequela of chronic pancreatitis. 7. A few subcentimeter low-density foci in the pancreatic head are too small to characterize. Nonspecific dilatation of the common bile duct. Recommend further evaluation with outpatient abdominal MRI pancreatic mass protocol/MRCP. 8. Submucosal fatty deposition in the ascending colon and hepatic flexure with mild wall thickening. Recommend clinical correlation for acute colitis. Dictated By: Tami Garcia EXAMINATION: XR CLAVICLE, LEFT CLINICAL INFORMATION: Left clavicle fracture. Pain. COMPARISON: Previous chest CT from earlier the same day and chest x-ray most recent October 2022 TECHNIQUE: Two views of the left clavicle. FINDINGS: Fracture of the head of the left clavicle is not well seen by x-ray. There is fracture of the distal clavicle at the acromioclavicular joint, uncertain age. This appears new in the interval from October 2022 chest x-ray. There is soft tissue swelling over the medial clavicle. No acute rib fracture XR/XR clavicle LT IMPRESSION: Fracture of the head of the left clavicle not well seen by x-ray. Fracture of the distal clavicle at the acromioclavicular joint, uncertain age. This appears new in the interval from October 2022 chest x-ray. Dictated By: Meena Mendiola MD Discharge Plan Discharge Clinical Impression: Clavicle fracture, sternal end, Fall Patient Disposition: Home, Self-Care Instructions: Clavicle Fracture (ED) Additional Instructions: Your seen in the emergency department due to pain in your clavicle. You have a fracture in her clavicle. Please wear arm sling until you follow-up with Orthopedics, gentle range of motion of your shoulder will help with pain and symptoms. If you develop skin tenting or your bones starts to stick out of your skin, these are reasons for you to immediately return to the emergency room. I am also prescribing you tramadol, this is a strong pain medication, please take as needed for severe pain only. Drink plenty of fluids get plenty of rest. Icing the area can help with your pain and symptoms. You also have a 2nd rib fracture, you also have compression fractures at your T12, L4, and L1, these appear to be old. You also have multiple chronic bilateral rib fractures. You also have evidence of chronic pancreatitis. You also have low-density foci in the pancreatic head. Recommending outpatient abdominal MRI pancreatic mass protocol cyst MRCP. If any new or worsening symptoms occur including but not limited to chest pain, shortness of breath, headache, dizziness, please return for re-evaluation Prescriptions: New tramadol 50 mg tablet 50 mg PO Q6H PRN (Reason: pain) Qty: 20 0RF No Action levetiracetam 500 mg Tablet 500 mg PO BID Qty: 60 0RF omeprazole 40 mg Capsule,Delayed Release(Dr/Ec) 40 mg PO DAILY@0630 Qty: 30 0RF folic acid 1 mg Tablet 1 mg PO DAILY Qty: 30 0RF thiamine mononitrate (vit B1) 100 mg Tablet 100 mg PO DAILY Qty: 30 0RF tramadol 50 mg Tablet 25 mg PO Q4H PRN (Reason: Pain, Severe (Pain Scale 7-10)) Qty: 24 0RF Referrals: [facility] Gastroenterology Services [Provider Group] [facility] Orthopedic Surgeons [Provider Group] Interventions: ED Discharge Assessment Last Done: 03/11/23 20:57 Discharge Date/Time: 03/11/23 20:57
[2023-03-11 14:20] VITALS: BP 118/81; PULSE 103; RESP 18; TEMP 36.8; O2SAT 96
[2023-03-11] MEDS: fentaNYL citrate/PF 100 MCG/2 ML VIAL 50 MCG IVPUSH (14:24)
[2023-03-11 14:26] LABS: Alanine Aminotransferase 24 U/L (0-40); Albumin Level 3.5 g/dL (3.5-5.0); Alkaline Phosphatase 93 U/L (39-117); Anion Gap 21 (12-20); Aspartate Amino Transferase 43 U/L (5-37); Bilirubin Direct 0.4 mg/dL (0.0-0.5); Bilirubin Total 0.8 mg/dL (0.0-1.0); Blood Urea Nitrogen 11 mg/dL (9-16); Calcium 8.9 mg/dL (8.4-10.2); Carbon Dioxide 22 mmol/L (22-29); Chloride 97 mmol/L (96-108); Creatinine Clr Calc Pharmacy 96.5; Estimated Glomerular Filt Rate > 60; Glucose Random 99 mg/dL (60-115); Lipase 50 U/L (8-78); Potassium 2.9 mmol/L (3.3-5.1); Sodium 137 mmol/L (135-145); Total Protein 6.2 g/dL (6.5-8.0)
--- NOTE | 2023-03-11 14:27 | PC.NURSE ---
pt a&ox3, vss, color television console monitor applied, sinus tach on monitor, pt lungs clear- breathing equal non labored, speaking in full sentences, pt c/o 11/20 pain to lue/neck/chest area, ecchymosis noted to rt chest, call shaffer within reach, will continue to monitor
[2023-03-11 14:28] LABS: Troponin-I High Sensitivity < 2.7 ng/L (<3.5-35.0)
[2023-03-11] MEDS: Potassium Chloride ER 20 MEQ TAB.ER.PRT 40 MEQ PO (14:52)
--- NOTE | 2023-03-11 14:55 | PC.NURSE ---
pt medicated per order
--- NOTE | 2023-03-11 15:39 | PC.NURSE ---
pt to CT scan
[2023-03-11 16:37] VITALS: BP 136/77; PULSE 105; RESP 18; TEMP 36.1; O2SAT 95
[2023-03-11] MEDS: fentaNYL citrate/PF 100 MCG/2 ML VIAL 25 MCG IVPUSH (16:37)
--- NOTE | 2023-03-11 16:39 | PC.NURSE ---
patient a&ox3, vss, pt c/o 11/20 pain, ekg monitor tech intact, call shaffer within reach, will continue to monitor
[2023-03-11] MEDS: iohexoL 350 MG/ML 75 ML INFUS..BTL 85 ML IV (16:41)
[2023-03-11] MEDS: Morphine Sulfate 4 MG/ML CARTRIDGE IVPUSH (19:13)
[2023-03-11 19:14] VITALS: BP 119/71; PULSE 100; RESP 18; TEMP 36.4; O2SAT 96
--- NOTE | 2023-03-11 19:15 | PC.NURSE ---
patient a&ox3, vss, pt sinus tach on playground monitor, pt continues to c/o 11/20 pain, call shaffer within reach, will continue to monitor
[2023-03-11 20:55] VITALS: BP 121/74; PULSE 100; RESP 18; TEMP 36.3; O2SAT 96
== END 2023-03-11 20:57 | disposition home or self-care (01) ==
PROVIDERS: Physician Assistant Medical; Emergency Provider Emergency Medicine
DX: S09.90XA Unspecified injury of head, initial encounter (principal); W06.XXXA Fall from bed, initial encounter; Y93.9 Activity, unspecified; Y92.003 Bedroom of unspecified non-institutional (private) residence as the place of occurrence of the external cause; Y99.9 Unspecified external cause status; M25.512 Pain in left shoulder; G35 Multiple sclerosis; I48.0 Paroxysmal atrial fibrillation; R07.9 Chest pain, unspecified; R10.9 Unspecified abdominal pain
CPT/HCPCS: 36415; 70450; 71260; 72125; 73000; 74177; 80048; 80076; 82550; 83690; 84484; 85025; 85610; 85730; 86850; 86900; 86901; 93005; 96374; 96375; 96376; 99284; 99285; J2270; J3010; Q9967

== ENCOUNTER → 2023-03-11 13:30 | Outpatient (BNV) | payer MEDICARE, MEDICAID, SELFPAY | PROVIDERS: Emergency Provider Emergency Medicine; Visit Provider Internal Medicine Cardiovascular Disease | DX: R00.0 Tachycardia, unspecified (principal) | CPT/HCPCS: 93010 ==

== ENCOUNTER 2024-04-20 06:17 | Inpatient (IN) | payer MEDICARE, MEDICAID, SELFPAY ==
--- NOTE | ~2024-04-20 | CT_ITS ---
EXAMINATION: CT CERVICAL SPINE WITHOUT CONTRAST CLINICAL INFORMATION: Fall with head strike. COMPARISON: 03/11/2023. 10/27/2020. TECHNIQUE: Spiral CT imaging of the cervical spine performed in axial plane without contrast. Multiplanar reformatted images were constructed from the axial data set. This CT examination was performed using dose optimization techniques as appropriate, variously including the following: *Automated exposure control *Adjustment of mA and/or kV according to patient size (this includes techniques or standardized protocols for targeted exams where dose is matched to indication/reason for exam; i.e. extremities or head) *Use of iterative reconstruction technique FINDINGS: CORONAL ALIGNMENT: -Mild levoconvex scoliosis. SAGITTAL ALIGNMENT: -Normal lordosis. -2 mm retrolisthesis C2 on C3, and C3 on C4, as well as C5 on C6. Appear stable. No evidence of traumatic subluxation. C1-C2 AND CRANIOCERVICAL JUNCTION: -Intact and aligned. VERTEBRAL BODIES AND FACETS: -Old stable healed comminuted and mildly impacted fracture of the C2 vertebral body. -Old stable healed fracture of the inferoposterior C3 vertebral body, left facets, lamina and spinous process. -No acute fracture, compression deformity, or suspicious bone lesion. -Normal facet alignment without acute subluxation. DISCS: -Severe loss of disc height C3-4, and C5-6. -Mild to moderate loss of height C6-7. CENTRAL CANAL: -Mild chronic canal narrowing at the C2 level, related to prior trauma. Otherwise, no significant central canal narrowing identified allowing for modality limitation. PREVERTEBRAL AND PARAVERTEBRAL SOFT TISSUES: -Normal pre and paravertebral soft tissues. -Moderate to severe right greater than left carotid bulb calcifications. -Atrophy of the thyroid gland. LUNG APICES: -There is segmental consolidative opacity in the posterior right upper lobe. -There are centrilobular emphysema. -There is heavy atheromatous calcification of the proximal bilateral subclavian arteries. CT/CT cervical spine wo IV con IMPRESSION: 1. Sequela of old trauma cervical spine as discussed. No CT evidence of acute cervical spine fracture or injury. 2. Segmental consolidation in the posterior segment right upper lobe. Pneumonia suspected, although incompletely characterized on this exam. 3. Heavy atheromatous calcification of the carotid bulbs and proximal subclavian arteries. Electronically signed by: Pillo Lomeli MD 04/20/2024 08:29 AM EDT
--- NOTE | ~2024-04-20 | CT_ITS ---
EXAMINATION: CT HEAD WITHOUT IV CONTRAST HISTORY: fall with head strike. TECHNIQUE: Unenhanced helical CT of the head was performed per standard departmental protocol. Coronal and sagittal reformats of the head were also evaluated. One or more of the following techniques was used for dose reduction: Automated exposure control, adjustment of the mA and/or kV according to patient size, use of iterative reconstruction technique. DLP: 691.90 mGy-cm COMPARISON: Comparison is made with the prior examination dated 03/11/2023. FINDINGS: BRAIN: There is diffuse prominence of the ventricular system and cortical sulci, consistent with atrophy. Periventricular and subcortical white matter hypodensities are noted which are nonspecific, but often seen in the setting of small vessel ischemic disease. There is no mass effect or midline shift. No intra- or extra-axial fluid collections are identified. SINUSES: The visualized paranasal sinuses are clear. The mastoid air cells and middle ear cavities are well pneumatized. ORBITS: The visualized orbits are unremarkable. BONES/SOFT TISSUES: The extracranial soft tissues are unremarkable. The calvarium is intact. No suspicious lytic or sclerotic lesions. CT/CT head/brain wo IV con IMPRESSION: No acute intracranial abnormality. Electronically signed by: Charles Cornelius MD 04/20/2024 08:17 AM EDT
--- NOTE | ~2024-04-20 | XR_ITS ---
EXAMINATION: XR HAND/WRIST, RIGHT CLINICAL INFORMATION: fall, tenderness COMPARISON: None available. TECHNIQUE: PA, lateral, oblique, and scaphoid views of the right hand and wrist. FINDINGS: Acute mildly impacted distal radial metaphyseal fracture present, with approximately 5 mm of impaction, minimal dorsal angulation, and minimal displacement. Tiny ulnar styloid avulsion fracture. Old fractures of the distal radius and distal ulna, healed. 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 Mild arthritis at the first CMC joint. Radiocarpal joint space loss. Carpal bones otherwise intact. There is mild dorsal lunate tilt. There is mild soft tissue swelling about the wrist. XR/XR hand wrist RT IMPRESSION: 1. Acute appearing minimally impacted, mildly displaced, minimally dorsally angulated distal radial metaphyseal fracture. 2. Tiny ulnar styloid avulsion fracture. 3. Old healed fractures of the distal radial and ulnar metadiaphyses. 4. There is mild dorsal lunate tilt. No definite carpal fractures seen. 5. Arthritic changes as detailed. Electronically signed by: Pillo Lomeli MD 04/20/2024 08:16 AM EDT
--- NOTE | ~2024-04-20 | CT_ITS ---
EXAMINATION: CT CHEST WITHOUT IV CONTRAST INDICATION: ? pna COMPARISON: Comparison is made with the prior examination dated 03/11/2023. TECHNIQUE: Helical CT scan of the chest was performed without intravenous contrast. Coronal and sagittal reformatted images were generated and reviewed. This CT exam was performed with one or more of the following dose reduction techniques: automated exposure control, adjustment of the mA and/or kV according to patient size, use of iterative reconstruction technique. DLP: 171 mGy-cm CHEST: THYROID: The thyroid is unremarkable. LUNGS: There is mild emphysema. There are multifocal confluent airspace opacities in the right upper lobe and right middle lobe, consistent with pneumonia. Multiple tree-in-bud opacities are seen in the right lower lobe which are likely inflammatory in nature. There is confluent airspace opacity in the left upper lobe with an associated 2 cm cavity demonstrating an air/fluid level. This could represent necrotizing pneumonia or a cavitary mass. Additional confluent airspace opacity is seen in the left lower lobe, compatible with pneumonia. MEDIASTINUM: There is no mediastinal lymphadenopathy. ADRIAN: Evaluation of the hilar regions is limited by lack of intravenous contrast material. CARDIOVASCULATURE: The heart is normal in size. There is no pericardial effusion. The thoracic aorta is normal in caliber. There is severe atherosclerotic calcification of the left brachiocephalic artery. DEGREE OF CORONARY CALCIFICATION: severe PLEURA: There is no pleural effusion. No pneumothorax. MAIN AIRWAYS: The mainstem bronchi and proximal branches are patent. AXILLA: There is no axillary lymphadenopathy. BONES AND SOFT TISSUES: There are multiple compression deformities of lower thoracic vertebral bodies without change. UPPER ABDOMEN: The visualized portions of the liver, spleen, and adrenals have an unremarkable unenhanced appearance. CT/CT chest wo IV con IMPRESSION: Multifocal pneumonia in the right upper lobe, right middle lobe, left upper lobe, and left lower lobe. There is cavitation of the left upper lobe airspace opacity, which may represent cavitary pneumonia or mass. Follow-up is recommended after appropriate treatment to document resolution. Electronically signed by: Charles Cornelius MD 04/20/2024 11:09 AM EDT
[2024-04-20 06:19] VITALS: BP 121/71; BP 128/78; PULSE 102; PULSE 117; RESP 18; TEMP 36.7; O2SAT 96; BMI 17.3
--- OUTSIDE RECORDS SUMMARY | 2024-04-20 06:42 | XMS_ITS | Clinical Summary ---
Author Organization [facility] Address [address] [place] [address] Care Team Providers Care Circle Edger Name Role Phone Serafin Basurto MD Primary Care Provider Allergies Active Allergy Reactions Criticality Noted Date Comments Ibuprofen 02/20/2013 Stomach bleed Nsaids (Non-Steroidal Anti-Inflammatory Drug) GI intolerance 07/19/2014 Medications nicotine polacrilex (NICORETTE) 4 mg gum CHEW BY MOUTH 1 TO 2 PIECES EVERY 2 HOURS DE. MAXIMUM AMOUNT OF 24 PIECES A DAY 2 Active fluticasone propionate (FLONASE) 50 mcg/actuation nasal spray Administer 1 spray into each nostril 1 (one) time each day. 2 Active cyclobenzaprine (FLEXERIL) 10 mg tablet Take 1 tablet (10 mg total) by mouth 3 (three) times a day if needed. 2 Active fluticasone HFA (Flovent HFA) 220 mcg/actuation inhaler INHALE 2 PUFFS INTO THE LUNGS TWICE DAILY 2 Active albuterol HFA (Ventolin HFA) 90 mcg/actuation inhaler Take 2 Puffs by mouth every 4 hours as needed for Cough or Wheezing. 2 Active digoxin (LANOXIN) 250 mcg (0.25 mg) tablet Take 1 tablet (250 mcg total) by mouth 1 (one) time each day. 2 Active metoprolol tartrate (LOPRESSOR) 25 mg tablet Take 1 tablet (25 mg total) by mouth 2 (two) times a day. 2 Active sertraline (ZOLOFT) 100 mg tablet Take 1 tablet (100 mg total) by mouth 1 (one) time each day. 2 Active DULoxetine (CYMBALTA) [address] capsule Take 1 capsule (60 mg total) by mouth 1 (one) time each day. For 360 days 2 Active triamcinolone (KENALOG) 0.025 % cream APPLY EXTERNALLY TO THE AFFECTED AREA TWICE DAILY 1 Active methocarbamoL (ROBAXIN) 750 mg tablet Take 1 tablet (750 mg total) by mouth 4 (four) times a day. For 30 days 0 Active multivit-minerals /folic acid (ADULT MULTIVITAMIN EXTRA VITD3 ORAL) Take 1 tablet by mouth 1 (one) time each day. 0 Active L. acidophilus/Bifid . animalis (DAILY PROBIOTIC ORAL) Take 1 Cap by mouth daily. 0 Active pregabalin (LYRICA) 75 mg capsule Take 1 Cap by mouth 2 times daily. 0 Active polyethylene glycol (PEG) 17 gram/dose oral powder TAKE 17 GM BY MOUTH MIXED IN 8 OUNCES OF JUICE OR WATER AND DRINK EVERY DAY 0 Active aspirin 81 mg EC tablet Take 1 tablet (81 mg total) by mouth 1 (one) time each day. For 180 days 9 Active docusate sodium (COLACE) 100 mg capsule Take 1 capsule (100 mg total) by mouth 1 (one) time each day. 9 Active Active Problems Problem Noted Date Diagnosed Date Chronic obstructive pulmonary disease 02/03/2024 Subclinical hypothyroidism 08/15/2017 Lacunar infarction 01/10/2017 Overview (02/03/2024): Old lacunar infarcts noted on head CT 10/2016 at [facility] Atrial fibrillation 05/03/2013 Depression 07/10/2012 Foot drop 07/10/2012 Benign neoplasm of colon 02/06/2011 Overview (02/03/2024): 02/06/2011, 5 mm polyp proximal descending colon: Tubular adenoma. Next colonoscopy in 5 years. Pleural plaque without asbestos 12/20/2010 Pleuritic chest pain 11/28/2010 Peripheral neuropathy 10/14/2008 Lumbago 10/14/2008 Degenerative arthritis of lumbar spine 9 CTS (carpal tunnel syndrome) 04/15/2008 Overview (02/03/2024): bilateral Immunizations Name Administration Dates Next Due Pneumococcal polysaccharide 23 valent (Pneumovax 23) 2yo and older 06/10/2008 Surgical History Surgery Date Site/Laterality Comments HEMORRHOID SURGERY PROCEDURE: DESTRUCTION OF HEMORRHOIDS ESOPHAGOGASTRODUODENOSCOPY 01/12/2011 PROCEDURE: DE ESOPHAGOGASTRODUODENOSCOPY TRANSORAL DIAGNOSTIC; COMMENT: normal at [facility] for melena COLONOSCOPY W/ POLYPECTOMY 02/06/2011 PROCEDURE: DE COLSC FLX W/RMVL OF TUMOR POLYP LESION SNARE TQ; COMMENT: 5 mm polyp proximal descending colon: Tubular adenoma. Next colonoscopy in 5 years. HERNIA REPAIR PROCEDURE: HISTORICAL HERNIA REPAIR/ING; COMMENT: bilateral repair Medical History Medical History Date Comments CTS (carpal tunnel syndrome) DX: CTS (carpal tunnel syndrome) Benign neoplasm of colon 02/06/2011 DX:[facility] neoplasm of colon Depression 07/10/2012 DX:Depression Atrial fibrillation (CMS/HCC) 05/03/2013 DX :Atrial fibrillation (HCC) Peripheral neuropathy 10/14/2008 DX:Periphe ral neuropathy Family History Medical History Relation Name Comments Colon cancer Father IN Hypertension Mother Relation Name Status Comments Father Mother Social History Tobacco Use Types Packs/Day Years Used Date Smoking Tobacco: Former Cigarettes Q uit: 08/26/2018 Smokeless Tobacco: Never Alcohol Use Standard Drinks/Week Comments Yes 0 (1 standard drink = 0.6 oz pur e alcohol) Sex and Gender Information Value Date Recorded Sex Assigned at Not on file Legal Sex Male 8:17 PM EST Gender Identity Not on file Sexual Orientation Not on file Obstetrics History Plan of Treatment Health Maintenance Due Date Last Done Comments DTaP,Tdap,and Td Vaccines (1 - Tdap) 1977 Zoster Vaccines (1 of 2) 2008 Pneumococcal Vaccine: 50+ Ye ars (2 of 2 - PCV) 06/10/2009 06/10/2008 Pneumococcal Vaccine: Pediat rics (0 to 5 Years) and At-Risk Patients (6 to 64 Years) (2 of 2 - PCV) 06/10/2009 06/10/2008 RSV Immunization Patients 60 + Years Old (1 - Risk 60-74 years 1-dose series) 2018 Abdominal Aortic Aneurysm (A AA) Screen 01/13/2022 Colorectal Cancer Screening: Colonoscopy 01/13/2022 Depression Screening 01/13/2022 Social Influencers of Health Screening 01/13/2022 COVID-19 Vaccine (1 - 2023-2 5 season) 2023 Influenza Vaccine (#1) 2023 Falls Risk Assessment 10/17/2023 Cholesterol Screening (Lipid Panel) 04/21/2024 04/22/2019 Hepatitis C Screening Completed 06/28/2016 HIB Vaccines Aged Out No longer eligi ble based on patient's age to complete this topic HPV Vaccines Aged Out No longer eligi ble based on patient's age to complete this topic Hepatitis A Vaccines Aged Out No long er eligible based on patient's age to complete this topic Hepatitis B Vaccines Aged Out No long er eligible based on patient's age to complete this topic IPV Vaccines Aged Out No longer eligi ble based on patient's age to complete this topic MMR Vaccines Aged Out No longer eligi ble based on patient's age to complete this topic Meningococcal ACWY Vaccine Aged Out N o longer eligible based on patient's age to complete this topic Meningococcal B Vacine Aged Out No lo nger eligible based on patient's age to complete this topic RSV Immunization Patients Un kali 20 months Aged Out No longer eligible b ased on patient's age to complete this topic Varicella Vaccines Aged Out No longer eligible based on patient's age to complete this topic Procedures Procedure Name Priority Date/Time Associated Diagnosis Comments LIPID PANEL Routine 04/22/2019 HEPATITIS C SCREENING Routine 06/28/2016 from Last 3 Months or Most Recently Relevant to Health Maintenance Results * Lipid panel (04/22/2019) LDL/HDL Ratio 2 0 - 4 Triglycerides 141 0 - 150 mg/dL Cholesterol 195 0 - 200 mg/dL HDL 115 >=40 mg/dL LDL Cholesterol 52 0 - 100 mg/dL Blood Venous blood specimen / Unknown us Historical Provider LAB BLOOD ORDERABLES Thea l Result * Hepatitis C Screening (06/28/2016) Pathologist [facility] Hepatitis C Screening abstracted us Historical Provider HEALTH MAINTENANCE Final Result from Last 3 Months or Most Recently Relevant to Health Maintenance Care Teams Circle Edger Relationship Specialty Start Date End Date Serafin Basurto MD PCP - General 03/23/08
--- NOTE | 2024-04-20 06:46 | ED.GENADULT ---
HPI - General Adult General Chief complaint: Fall Stated complaint: Fall Pain all over, Hx of MS Time Seen by Provider: 04/20/24 06:45 Source: patient, EMS, RN notes reviewed and old records reviewed Mode of arrival: EMS Limitations: no limitations History of Present Illness ED Provider: Denita HPI narrative: Patient is a 63-year-old male with history of MS, COPD, afib, seizures, frequent falls, alcohol dependence presenting to the emergency department with complaint of right sided head and right wrist pain after a fall prior to arrival. Reports frequent falls which he attributes to his MS. Reports head strike on tile floor, denies loss of consciousness. States that he fell onto outstretched right hand. Denies chest pain, dyspnea, dizziness, lightheadedness. Denies vision changes. MD complaint: head and wrist pain Onset (ago): hour(s) Location: head, right and upper extremity Quality: aching Treatments prior to arrival: none Related Data Previous Rx's ?Medication ?Instructions ?Recorded folic acid 1 mg tablet 1 mg PO DAILY #30 tabs 11/02/22 levetiracetam 500 mg tablet 500 mg PO BID #60 tabs 11/02/22 omeprazole 40 mg capsule,delayed 40 mg PO DAILY@0630 #30 caps 11/02/22 release thiamine mononitrate (vit B1) 100 100 mg PO DAILY #30 tabs 11/02/22 mg tablet tramadol 50 mg tablet 25 mg (1/2 x 50 mg) PO Q4H PRN 11/02/22 Pain, Severe (Pain Scale 7-10) #24 tabs tramadol 50 mg tablet 50 mg PO Q6H PRN pain #20 tabs 03/11/23 Allergies Allergy/AdvReac Type Severity Reaction Status Date / Time acetaminophen [From TYLENOL] Allergy Unknown NAUSEA Verified 04/20/24 06:24 ibuprofen [From MOTRIN] Allergy Unknown GI Verified 04/20/24 06:24 BLEEDING, stomach bleed Review of Systems Review of Systems: As per HPI Yes all other systems are reviewed and are negative Constitutional: Constitutional: Reports as per HPI PMFSH Past Medical History Medical History PAF (paroxysmal atrial fibrillation) Infection of prepatellar bursa Bursitis A-fib Anxiety Depression Multiple sclerosis Falls Asbestosis COPD (chronic obstructive pulmonary disease) Atrial fibrillation Social History Social History Household Members: Significant Other Household Members Other:: girlfriend Housing: Apartment Do you presently have visiting nurse or other home services: No Unable to assess alcohol history related to: Unable to respond Alcohol intake: current Alcohol intake frequency: holidays/special occasions only Alcohol type: wine Patient Tobacco Use Status: Former Tobacco user Substance Use Type: Marijuana Advance Directives: No Advance Directives Information Provided: Yes Do you have a plan to hurt others: No Plan service: No Current occupational status: disabled Physical Exam ED Vital Signs: Vital Signs - 24 hr 04/20/24 06:19 Temperature 98.1 F Pulse Rate 117 H Respiratory Rate 18 Blood Pressure 121/71 Pulse Oximetry 96 Oxygen Delivery Method Room Air BMI result Body Mass Index 17.3 Vital signs have been reviewed and appear to be correct. Blood pressure normal. Heart rate tachycardic. Respiratory rate normal. Temperature normal. Oxygen saturation normal. Const General: cooperative and no acute distress Nutritional Appearance: thin Orientation/consciousness: oriented to person, oriented to place, oriented to time and patient oriented x3 Limitations: no limitations HENMT Head: Yes normocephalic Ears: external ears normal General nose exam: Normal external nose present Face and sinus: Yes face symmetric Mouth: oropharynx normal and moist mucous membranes Throat: Yes uvula midline Eyes Pupils: Equal, round and reactive pupils present Neck Neck: Yes normal visual inspection and Yes supple Resp Effort & Inspection: normal respiratory effort and able to speak in complete sentences Auscultation: clear to auscultation bilaterally Cardio Rate: regular rate Rhythm: regular rhythm Heart sounds: S1 normal heart sound present and S2 normal heart sound present GI Palpation (GI): Soft to palpation and nontender Auscultation: normoactive bowel sounds General: Yes no CVA tenderness Back/Spine/Pelvis Back: no CVA tenderness Skin General skin exam: elasticity normal and turgor normal Neuro General: oriented to person, oriented to place, oriented to time, patient oriented x3, moves all extremities, no focal motor deficits and CN's II-XI intact bilaterally Cranial nerves: Yes Equal, round and reactive pupils present Cognition (Neuro): normal cognition Extrem General: Yes full ROM, Yes no pedal edema and Yes no calf tenderness Right upper extremity: wrist Details: tenderness Location: of the distal radius, swelling Location: of the dorsal wrist, abnormal ROM Details: held in an abnormal fashion Details: with extension and normal vascular exam; no ecchymosis Psych Mental Status: mental status grossly normal Affect: normal affect Thought process: Normal thought process present NIH Stroke Scale Internal: Initial- Upon Arrival Time: 07:15 Level of Consciousness: Alert Level of Consciousness Questions: Answers both questions correctly Level of Consciousness Commands: Performs both tasks correctly Best Gaze: Normal Visual: No visual loss Facial Palsy: Normal Motor Arm (Right): No drift Motor Arm (Left): No drift Motor Leg (Right): No drift Motor Leg (Left): No drift Limb Ataxia: Absent Sensory: Normal Best Language: No aphasia Dysarthia: Normal Extinction and Inattention: No abnormality Score: 0 Medications Administered Generic Name Dose Route Start Last Admin Trade Name Freq PRN Reason Stop Dose Admin Azithromycin 500 mg/ Sodium 250 mls @ 125 mls/hr 04/20/24 11:31 04/20/24 12:35 Chloride IV 04/20/24 13:30 125 mls/hr ONCE ONE Administration Discontinued Medications Generic Name Dose Route Start Last Admin Trade Name Freq PRN Reason Stop Dose Admin Ceftriaxone Sodium 1 gm 04/20/24 11:31 04/20/24 12:33 Ceftriaxone Sodium 1 Gm Vial IVPUSH 04/20/24 11:32 1 gm ONCE ONE Administration Morphine Sulfate 15 mg 04/20/24 07:04 04/20/24 07:22 Morphine Sulfate Immed Release 15 Mg Tablet PO 04/20/24 07:05 15 mg ONCE ONE Administration Procedures Orthopedic Splinting/Casting Injury #1: Side: right Upper Extremity Injury Location: wrist Upper Extremity Immobilizer: sugar tong splint Medical Decision Making Medical Decision Making MDM Narrative: Patient is a 63-year-old male with history of MS, COPD, afib, seizures, frequent falls, alcohol dependence presenting to the emergency department with complaint of right sided head and right wrist pain after a fall prior to arrival. On exam patient is awake, A+Ox3, VS WNL, afebrile, normal neurological exam without focal deficits, physical exam findings as above. Given reported symptoms and physical exam findings, initial differential includes but is not limited to ICH, skull Or cervical vertebral fracture or subluxation, right wrist or hand fracture or dislocation. Labs notable for leukocytosis, anemia not an transfusable level, hypoalbuminemia. CT head and c-spine notable for no evidence of ICH, acute fracture or subluxation, however, concern for pneumonia on c-spine CT. CT chest obtained which shows multifocal pneumonia with cavitation of left upper lobe airspace opacity. X-ray wrist/hand notable for minimally impacted, minimally displaced distal radial fracture. My interpretation is in agreement with the radiologist's interpretation. When results discussed with patient, he admits to recent cough, denies fevers. Right wrist placed in sugar tong splint. Case discussed with Brenden from [facility]. Patient is afebrile, not tachycardic, normotensive, do not suspect sepsis at 12:00. IV antitbiotics ordered. Differential Diagnosis Differential Diagnoses: The differential diagnosis associated with the presentation includes As per [facility] Admission/Observation Consideration of admission/observation: Escalation of care including admission/observation considered Consult Healthcare Provider Management of the patient was discussed with: Hospitalist and Enrollment Services Dean ([facility]) Lab Data [facility] Lab Attestation statement: I reviewed the patient's lab results. As per [facility] 04/20/24 07:23 04/20/24 07:23 Labs: Lab Results 04/20/24 Range/Units 07:23 WBC 11.0 H (4.8-10.8) X10*3/uL RBC 2.80 L (4.60-5.80) X10*6/uL Hgb 10.6 L (14.0-18.0) g/dl Hct 29.5 L (42.0-52.0) % MCV 105.4 H (80.0-98.0) fL MCH 37.9 H (27.0-33.0) pg MCHC 35.9 (31.0-36.0) g/dl RDW 13.1 (11.0-16.0) % Plt Count 492 H D (160-400) X10*3/uL MPV 10.0 (9.4-12.4) fL Immature Gran % (Auto) 0.5 H (0.0-0.4) % Neut % (Auto) 64.7 (45-73) % Lymph % (Auto) 27.6 (20-40) % [place] % (Auto) 6.1 (2-11) % Eos % (Auto) 0.6 (0-4) % Baso % (Auto) 0.5 (0-2) % Lymph # (Auto) 3.0 (1.2-4.9) X10*3/uL [place] # (Auto) 0.7 (0.1-1.2) X10*3/uL Eos # (Auto) 0.1 (0.0-0.4) X10*3/uL Baso # (Auto) 0.1 (0.0-0.2) X10*3/uL Abs Immat Gran (auto) 0.06 H (0.00-0.03) X10*3/uL Absolute Neuts (auto) 7.1 (2.0-8.3) x10*3/uL Absolute Nucleated RBC 0.000 (0.0-0.012) X10*3/uL Nucleated RBC % (auto) 0.0 (0.0-0.2) /100WBC Sodium 138 (135-145) mmol/L Potassium 3.3 (3.3-5.1) mmol/L Chloride 100 (96-108) mmol/L Carbon Dioxide 30 H (22-29) mmol/L Anion Gap 11 L (12-20) BUN 7 L (9-16) mg/dL Creatinine 0.57 (0.5-1.4) mg/dL Estim Creat Clear Calc 100.1 Estimated GFR > 60 Random Glucose 101 (60-115) mg/dL Calcium 8.7 (8.4-10.2) mg/dL Total Bilirubin 0.5 (0.0-1.0) mg/dL AST 31 (5-37) U/L ALT 10 (0-40) U/L Alkaline Phosphatase 108 (39-117) U/L Total Creatine Kinase 9 L (38-174) U/L Total Protein 7.3 (6.5-8.0) g/dL Albumin 2.7 L (3.5-5.0) g/dL Ethyl Alcohol < 10 mg/dL Independent Interpretation I performed an independent interpretation of an: Plain X-Ray and CT Scan Interpretation: CT head and c-spine notable for no evidence of ICH, acute fracture or subluxation, however, concern for pneumonia on c-spine CT. CT chest obtained which shows multifocal pneumonia with cavitation of left upper lobe airspace opacity. X-ray wrist/hand notable for minimally impacted, minimally displaced distal radial fracture. Radiology Impression Discussion of test interpretation with radiology: I have reviewed the radiologist's reading. Radiologist Impression: CT/CT chest wo IV con IMPRESSION: Multifocal pneumonia in the right upper lobe, right middle lobe, left upper lobe, and left lower lobe. There is cavitation of the left upper lobe airspace opacity, which may represent cavitary pneumonia or mass. Follow-up is recommended after appropriate treatment to document resolution. CT/CT head/brain wo IV con IMPRESSION: No acute intracranial abnormality. CT/CT cervical spine wo IV con IMPRESSION: 1. Sequela of old trauma cervical spine as discussed. No CT evidence of acute cervical spine fracture or injury. 2. Segmental consolidation in the posterior segment right upper lobe. Pneumonia suspected, although incompletely characterized on this exam. 3. Heavy atheromatous calcification of the carotid bulbs and proximal subclavian arteries. XR/XR hand wrist RT IMPRESSION: 1. Acute appearing minimally impacted, mildly displaced, minimally dorsally angulated distal radial metaphyseal fracture. 2. Tiny ulnar styloid avulsion fracture. 3. Old healed fractures of the distal radial and ulnar metadiaphyses. 4. There is mild dorsal lunate tilt. No definite carpal fractures seen. 5. Arthritic changes as detailed. External Record Review External record reviewed: Inpatient record, Office record and Outpatient record Prescription Management I considered prescription management with: Pain Medication and Antibiotic Discharge Plan Discharge Clinical Impression: Multifocal pneumonia, Distal radius fracture, right, Fracture of ulnar styloid, Fall Patient Disposition: Admitted As Inpatient Print Language: Czech
[2024-04-20] MEDS: Morphine Sulfate Immed Release 15 MG TABLET PO (07:22)
[2024-04-20 07:28] LABS: MANUAL DIFF FLAG NO
[2024-04-20 07:36] LABS: Basophils Absolute Auto 0.1 X10*3/uL (0.0-0.2); Basophils Percent Auto 0.5 % (0-2); Eosinophils Absolute Auto 0.1 X10*3/uL (0.0-0.4); Eosinophils Percent Auto 0.6 % (0-4); Hematocrit 29.5 % (42.0-52.0); Hemoglobin 10.6 g/dl (14.0-18.0); Imm Gran Abs Auto 0.06 X10*3/uL (0.00-0.03); Imm Gran Pct Auto 0.5 % (0.0-0.4); Lymphocytes Percent Auto 27.6 % (20-40); Mean Corpuscular HGB Conc 35.9 g/dl (31.0-36.0); Mean Corpuscular Hemoglobin 37.9 pg (27.0-33.0); Mean Corpuscular Volume 105.4 fL (80.0-98.0); Monocytes Absolute Auto 0.7 X10*3/uL (0.1-1.2); Monocytes Percent Auto 6.1 % (2-11); Neutrophils Absolute Auto 7.1 x10*3/uL (2.0-8.3); Neutrophils Percent Auto 64.7 % (45-73); Platelet Count 492 X10*3/uL (160-400); Red Cell Distribution Width 13.1 % (11.0-16.0)
[2024-04-20 07:51] LABS: Alanine Aminotransferase 10 U/L (0-40); Albumin Level 2.7 g/dL (3.5-5.0); Alkaline Phosphatase 108 U/L (39-117); Anion Gap 11 (12-20); Aspartate Amino Transferase 31 U/L (5-37); Bilirubin Total 0.5 mg/dL (0.0-1.0); Blood Urea Nitrogen 7 mg/dL (9-16); Calcium 8.7 mg/dL (8.4-10.2); Carbon Dioxide 30 mmol/L (22-29); Chloride 100 mmol/L (96-108); Creatinine Clr Calc Pharmacy 100.1; Estimated Glomerular Filt Rate > 60; Ethanol < 10 mg/dL; Glucose Random 101 mg/dL (60-115); Potassium 3.3 mmol/L (3.3-5.1); Sodium 138 mmol/L (135-145); Total Protein 7.3 g/dL (6.5-8.0)
[2024-04-20] MEDS: cefTRIAXone sodium 1 GM VIAL IVPUSH (12:33)
[2024-04-20] MEDS: Azithromycin 500 MG in 0.9 % Sodium Chloride 250 ML 125 MG IV (12:35)
[2024-04-20 12:49] LABS: Appearance Urine Clear; Color Urine Dark Yellow; Glucose Urine UA Negative (Negative); Leukocyte Esterase Urine Trace (Negative); Nitrite Urine Negative (Negative); PH 8.5 (5.0-9.0); UMIC TRIGGER UACC YES; Urine Blood Negative (Negative); Urine Ketones Trace mg/dL (Negative); Urine Protein 30 (1+) mg/dL (Neg-Trace)
--- NOTE | 2024-04-20 12:50 | PHA.MEDREC ---
Pharmacy Consult ? Medication Reconciliation Pharmacy has completed the medication reconciliation. Spoke with patient to confirm he is on no meds. he fills at [facility] on [facility], but has not been on any medications for a long time.
[2024-04-20 12:54] LABS: Bacteria Urine None Seen (None Seen); Hyaline Casts Urine 0-2 /LPF (0-2); RBC Urine 0-2 /HPF (0-2); Squamous Epithelial Cell Urine 0-2 /HPF (0-2); WBC Urine 0-5 /HPF (0-5)
[2024-04-20 13:00] LABS: Amphetamine Screen Urine Not Detected (Not Detect); Barbiturates, Urine Not Detected (Not Detect); Benzodiazepines Screen Urine Not Detected (Not Detect); Buprenorphine Scr Not Detected (Not Detect); Cannabinoid Screen Urine Not Detected (Not Detect); Cocaine Screen Urine Not Detected (Not Detect); Fentanyl, urine Not Detected (Not Detect); Methadone Screen, Urine Not Detected (Not Detect); Opiate Screen Urine POSITIVE (Not Detect); Oxycodone Screen Urine Positive (Not Detect); Phencyclidine Screen Urine Not Detected (Not Detect)
[2024-04-20 13:20] VITALS: BP 116/71; PULSE 123; RESP 20; TEMP 36.3; O2SAT 94
--- NOTE | 2024-04-20 13:34 | PM.IMHP ---
History of Present Illness Date of Service: 04/20/24 Attending physician on admission: Alfredito Casanova Chief Complaint: fall with head strike 62-year-old male with history of paroxysmal atrial fibrillation on anticoagulation, anxiety depression, multiple sclerosis, asbestosis, COPD, and history of alcohol dependence with history of multiple falls presented to the ER earlier today for evaluation of right sided facial pain and right wrist pain after sustaining a fall prior to arrival. He reports he has poor balance secondary to his MS and ambulates with a cane. Despite this has had 20+ falls in the last year. He denies any prodrome including lightheadedness, visual changes, sob, chest pressure, palpitations. Reports he put his hand out to break his fall but still struck the right side of his head on the floor. No LOC. Upon further questioning patient has also had an aggressive productive cough x2 days. No known sick contacts. No h/a, sore throat, abd pain, n/v/d. He is reporting pleuritic chest pain. No recent travel. Denies drug abuse (though UDS is positive for oxycodone which is not on the [facility]). Reports only occassional etoh use. Smokes between 1/2 and 1 PPD. No homelessness. In the ED on arrival patient tachycardic to 123, vital signs otherwise stable. Mild leukocytosis of 11.0. Renal function baseline, electrolyte levels normal except for a mild hypercapnia with CO2 30. Hepatic function within normal limits. Urinalysis with trace leukocytes and 1+ protein, negative bacteria. Urine drug screen positive for opiates/oxycodone. Ethyl alcohol level undetectable. X-ray of the right hand/wrist showed minimally impacted, mildly displaced, minimally dorsally angulated distal radial metaphyseal fracture with a tiny ulnar styloid avulsion fracture. Head CT without any acute intracranial abnormality. CT of the cervical spine negative for any acute cervical fracture injury but shows sequela of old trauma of the cervical spine. Also seen on cervical spine CT was a segmental consolidation in the posterior segment right upper lobe suspicious for pneumonia. Subsequent CT of the chest shows multifocal pneumonia in the right upper lobe, right middle lobe, left upper lobe, and left lower lobe with a cavitation of the left upper lobe airspace possibly representing cavitary pneumonia or a mass. He will be admitted for further management of multifocal pneumonia with cavitary lesion. Review of Systems Review of Systems: Yes all other systems are reviewed and are negative [facility] Medical History Rib fractures Alcohol dependence Seizure PAF (paroxysmal atrial fibrillation) Infection of prepatellar bursa Bursitis A-fib Anxiety Depression Multiple sclerosis Falls Asbestosis COPD (chronic obstructive pulmonary disease) Atrial fibrillation Social History Household Members: Significant Other Household Members Other:: girlfriend Housing: Apartment Do you presently have visiting nurse or other home services: No Unable to assess alcohol history related to: Unable to respond Alcohol intake: current Alcohol intake frequency: holidays/special occasions only Alcohol type: wine Patient Tobacco Use Status: Former Tobacco user Substance Use Type: Marijuana Advance Directives: No Advance Directives Information Provided: Yes Do you have a plan to hurt others: No Plan service: No Current occupational status: disabled Meds Allergies Allergy/AdvReac Type Severity Reaction Status Date / Time acetaminophen [From TYLENOL] Allergy Unknown NAUSEA Verified 04/20/24 06:24 ibuprofen [From MOTRIN] Allergy Unknown GI Verified 04/20/24 06:24 BLEEDING, stomach bleed Active Medications: Current Medications Nicotine (Nicotine 14 Mg Patch.Td24) 14 mg TRANSDERMA DAILY OLAF Home Medications ?Medication ?Instructions ?Recorded ?Confirmed ?Last Taken ?Type No Known Home Meds 04/20/24 04/20/24 Unknown History Physical Exam Vital Signs and Narrative: Vital Signs: Last Vital Signs Temp 97.4 F 04/20/24 13:20 Pulse 123 H 04/20/24 13:20 Resp 20 04/20/24 13:20 BP 116/71 04/20/24 13:20 Pulse Ox 94 04/20/24 13:20 O2 Del Method Room Air 04/20/24 13:20 BMI result Body Mass Index 17.3 Constitutional - Awake and Alert, No apparent distress Eyes - PERRLA, EOMI Cardiovascular - S1S2, RRR, No edema Chest- ttp over the anterior chest Respiratory - Normal lung expansion, Normal respiratory effort, No respiratory distress, bilateral rhonchi and crackles diffusely with diminished lung sounds at the bases Gastrointestinal - ttp over the upper abdomen bilaterally, ND; +BS; No rebound or guarding Extremities - no calf tenderness bilaterally, no swelling Skin - Warm/Dry Neurological - Alert & oriented x3 Psychological - Appropriate affect Results Labs 04/20/24 07:23 04/20/24 07:23 Labs: Laboratory Results - last 24 hr 04/20/24 04/20/24 07:23 12:40 MCV 105.4 H MCH 37.9 H MCHC 35.9 RDW 13.1 Plt Count 492 H D MPV 10.0 Immature Gran % (Auto) 0.5 H Neut % (Auto) 64.7 Lymph % (Auto) 27.6 [place] % (Auto) 6.1 Eos % (Auto) 0.6 Baso % (Auto) 0.5 Lymph # (Auto) 3.0 [place] # (Auto) 0.7 Eos # (Auto) 0.1 Baso # (Auto) 0.1 Abs Immat Gran (auto) 0.06 H Absolute Neuts (auto) 7.1 Absolute Nucleated RBC 0.000 Nucleated RBC % (auto) 0.0 Anion Gap 11 L Estim Creat Clear Calc 100.1 Estimated GFR > 60 Random Glucose 101 Calcium 8.7 Total Bilirubin 0.5 AST 31 ALT 10 Alkaline Phosphatase 108 Total Creatine Kinase 9 L Total Protein 7.3 Albumin 2.7 L Urine Color Dark Yellow Urine Appearance Clear Urine pH 8.5 Ur Specific [place] 1.020 Urine Protein 30 (1+) H Urine Glucose (UA) Negative Urine Ketones Trace Urine Blood Negative Urine Nitrite Negative Ur Leukocyte Esterase Trace H Urine RBC 0-2 Urine WBC 0-5 Ur Squamous Epith Cells 0-2 Urine Bacteria None Seen Hyaline Casts 0-2 Urine Opiates Screen POSITIVE H Ur Buprenorphine Scrn Not Detected Ur Oxycodone Screen Positive H Urine Methadone Screen Not Detected Urine Fentanyl Screen Not Detected Ur Barbiturates Screen Not Detected Ur Phencyclidine Scrn Not Detected Ur Amphetamines Screen Not Detected U Benzodiazepines Scrn Not Detected Urine Cocaine Screen Not Detected U Marijuana (THC) Screen Not Detected Ethyl Alcohol < 10 Imaging Radiologist's Impressions: Impressions Hand/Wrist X-Ray 04/20/24 06:46 IMPRESSION: 1. Acute appearing minimally impacted, mildly displaced, minimally dorsally angulated distal radial metaphyseal fracture. 2. Tiny ulnar styloid avulsion fracture. 3. Old healed fractures of the distal radial and ulnar metadiaphyses. 4. There is mild dorsal lunate tilt. No definite carpal fractures seen. 5. Arthritic changes as detailed. Electronically signed by: Pillo Lomeli MD 04/20/2024 08:16 AM EDT RP Head CT 04/20/24 06:46 IMPRESSION: No acute intracranial abnormality. Electronically signed by: Charles Cornelius MD 04/20/2024 08:17 AM EDT RP Cervical Spine CT 04/20/24 07:53 IMPRESSION: 1. Sequela of old trauma cervical spine as discussed. No CT evidence of acute cervical spine fracture or injury. 2. Segmental consolidation in the posterior segment right upper lobe. Pneumonia suspected, although incompletely characterized on this exam. 3. Heavy atheromatous calcification of the carotid bulbs and proximal subclavian arteries. Electronically signed by: Pillo Lomeli MD 04/20/2024 08:29 AM EDT RP Chest CT 04/20/24 10:32 IMPRESSION: Multifocal pneumonia in the right upper lobe, right middle lobe, left upper lobe, and left lower lobe. There is cavitation of the left upper lobe airspace opacity, which may represent cavitary pneumonia or mass. Follow-up is recommended after appropriate treatment to document resolution. Electronically signed by: Charles Cornelius MD 04/20/2024 11:09 AM EDT RP Assessment and Plan (1) Fracture of ulnar styloid: Status: Acute (2) Distal radius fracture, right: Status: Acute (3) Multifocal pneumonia: Status: Acute (4) Physical deconditioning: Status: Acute Plan 62-year-old male with history of paroxysmal atrial fibrillation on anticoagulation, anxiety depression, multiple sclerosis, asbestosis, COPD, and history of alcohol dependence with history of multiple falls admitted for further management of multifocal cavitary pneumonia. #Community acquired multifocal pneumonia with cavitary lesion -mild leukocytosis 11.0. Tachycardic to 123, no other SIRS criteria. No sepsis/severe sepsis -CT chest consistent with multifocal pneumonia in the right upper lobe, right middle lobe, left upper lobe, left lower lobe with cavitation of the left upper lobe airspace -IV cefepime and vancomycin (initiated 04/20) -pulmonology consult. No history of homelessness or IV drug abuse per patient how would raise suspicion for TB -Legionella antigen, strep pneumo antigen, MSRA nasal swab, sputum culture pending -follow CBC, cultures # acute distal radius fracture/ulnar styloid fracture -orthopedic consult -splint applied -analgesics prn # paroxysmal atrial fibrillation -not on anticoagulation, no rate control # tachycardia -NSR, likely related to infection # MS -no acute flare, not on medication # mood disorder -not on medication # COPD -no acute exacerbation, albuterol p.r.n. # physical deconditioning/history of multiple falls -PT eval # chronic macrocytic anemia -vitamin B12 and folic acid pending # alcohol use disorder -denies recent use, ethyl alcohol level undetectable DVT prophylaxis-Lovenox Full code Patient requires inpatient stay at least 2 midnights for management of community-acquired multifocal pneumonia with cavitary lesion requiring broad-spectrum antibiotic coverage as well as expert consultation Quality Stroke Does the patient have a stroke diagnosis?: No VTE Prior VTE?: No VTE Risk Level:: Medical - moderate - high VTE Device Contraindication: Treatment Not Indicated VTE Drug Contraindication: N/A - Med Ordered
[2024-04-20] MEDS: HYDROmorphone HCl 0.5 MG/0.5 ML SYRINGE IVPUSH ×2 (15:38→20:05)
[2024-04-20] MEDS: Nicotine Polacrilex Lozenge 4 MG LOZENGE BUCCAL (15:38)
[2024-04-20] MEDS: Enoxaparin Sodium 40 MG/0.4 ML SYRINGE SUBCUT (15:52)
[2024-04-20] MEDS: cefEPime HCl/D5W 2 GM/50 ML PIGGYBACK IV ×2 (17:29→23:58)
[2024-04-20] MEDS: vancomycin HCL 1,250 MG in 0.9 % Sodium Chloride 250 ML 166.67 MG IV (17:48)
--- NOTE | 2024-04-20 17:55 | PHA.PROG ---
Admission Date/Time: April 20, 2024 13:58 Indication: RESPIRATORY Weight in k.8 kg Adjusted body weight in Kg: [place] body weight in Kg: Obesity Dosing Indication % IBW: Serum Creatinine - Last 168 Hours 04/20/24 07:23 Creatinine 0.57 Estimated CrCl and GFR - Last 168 Hours 04/20/24 07:23 Estim Creat Clear Calc 100.1 Estimated GFR > 60 Vancomycin Loading Dose: 1250 MG Current Vancomycin Dosing Regimen: 750 MG Q8H Vancomycin Monitoring using AUC goal of 400 - 600 range with trough as surrogate marker: [id number] TROUGH=18.5 Date and Time for next Vancomycin Level to be drawn: 04/21/24 @1600 Pharmacist Comments on Vancomycin Plan: Vancomycin dosing will take advantage of [employer] as a clinical decision support tool that uses Bayesian modeling to calculate individual patient's pharmacokinetic parameters and forecast the patient's drug concentration time course with the target goal AUC 24 range of 400 - 600 mg/L/hr.
[2024-04-20] MEDS: Nicotine Polacrilex 2 MG GUM 4 MG BUCCAL (20:05)
[2024-04-20 20:09] VITALS: BP 117/75; PULSE 91; RESP 16; TEMP 36.6; O2SAT 94
--- NOTE | 2024-04-20 20:37 | PC.NURSE ---
pt alert and oriented x4 speaking in full clear sentences. pt resting in stretcher, attempted ambulation trial, pt states he does not feel comfortable getting up at this time, afraid of falling. call shaffer is within reach. plan of car e ongoing
[2024-04-21] MEDS: HYDROmorphone HCl 0.5 MG/0.5 ML SYRINGE IVPUSH ×6 (00:05→21:48)
[2024-04-21] MEDS: Nicotine Polacrilex 2 MG GUM 4 MG BUCCAL ×6 (00:35→22:00)
[2024-04-21] MEDS: vancomycin HCL 750 MG in 0.9 % Sodium Chloride 250 ML 265 MG IV ×2 (03:00→11:16)
--- NOTE | 2024-04-21 03:15 | PC.NURSE ---
Per MD Castillo, 0200 vancomycin administered at 0300 due to previous dose being administered late.
[2024-04-21 04:05] VITALS: BP 123/71; PULSE 97; RESP 19; TEMP 36.8; O2SAT 93
[2024-04-21 05:12] LABS: MANUAL DIFF FLAG NO
[2024-04-21 05:14] LABS: Basophils Absolute Auto 0.1 X10*3/uL (0.0-0.2); Basophils Percent Auto 0.7 % (0-2); Eosinophils Absolute Auto 0.1 X10*3/uL (0.0-0.4); Eosinophils Percent Auto 0.5 % (0-4); Hematocrit 28.6 % (42.0-52.0); Hemoglobin 10.2 g/dl (14.0-18.0); Imm Gran Abs Auto 0.05 X10*3/uL (0.00-0.03); Imm Gran Pct Auto 0.4 % (0.0-0.4); Lymphocytes Absolute Auto 2.6 X10*3/uL (1.2-4.9); Lymphocytes Percent Auto 22.7 % (20-40); Mean Corpuscular HGB Conc 35.7 g/dl (31.0-36.0); Mean Corpuscular Hemoglobin 37.9 pg (27.0-33.0); Mean Corpuscular Volume 106.3 fL (80.0-98.0); Monocytes Absolute Auto 0.6 X10*3/uL (0.1-1.2); Monocytes Percent Auto 5.7 % (2-11); Neutrophils Absolute Auto 7.9 x10*3/uL (2.0-8.3); Platelet Count 457 X10*3/uL (160-400); Red Blood Count 2.69 X10*6/uL (4.60-5.80); Red Cell Distribution Width 13.5 % (11.0-16.0); White Blood Count 11.3 X10*3/uL (4.8-10.8)
[2024-04-21 05:36] LABS: Anion Gap 11 (12-20); Blood Urea Nitrogen 8 mg/dL (9-16); Calcium 8.4 mg/dL (8.4-10.2); Carbon Dioxide 26 mmol/L (22-29); Chloride 104 mmol/L (96-108); Creatinine Clr Calc Pharmacy 90.6; Estimated Glomerular Filt Rate > 60; Glucose Random 112 mg/dL (60-115); Potassium 4.4 mmol/L (3.3-5.1); Sodium 137 mmol/L (135-145)
[2024-04-21 06:00] VITALS: BP 123/69; PULSE 100; RESP 19; TEMP 36.9; O2SAT 91
--- NOTE | 2024-04-21 07:32 | P.CONOP_ITS ---
History of Present Illness HPI Consult date: 04/21/24 Chief complaint: CAP, cavitary lesion Narrative: Patient is a 63-year-old male admitted to the hospital for evaluation of pneumonia X-rays in the ED did also revealed minimally displaced right distal radius fracture Today, the patient reports that he feels his splint is just a little too tight, otherwise no complaints with the right wrist Denies numbness or tingling in the right upper extremity No acute events overnight No other acute complaints or concerns at this Review of Systems 2 Review of Systems: Yes all other systems are reviewed and are negative [facility] Past Medical History Medical History Rib fractures Alcohol dependence Seizure PAF (paroxysmal atrial fibrillation) Infection of prepatellar bursa Bursitis A-fib Anxiety Depression Multiple sclerosis Falls Asbestosis COPD (chronic obstructive pulmonary disease) Atrial fibrillation Social History Social History Household Members: Significant Other Household Members Other:: girlfriend Housing: Apartment Do you presently have visiting nurse or other home services: No Unable to assess alcohol history related to: Unable to respond Alcohol intake: current Alcohol intake frequency: holidays/special occasions only Alcohol type: wine Patient Tobacco Use Status: Current everyday Tobacco user Substance Use Type: Marijuana service: No Current occupational status: disabled Meds Allergies Allergy/AdvReac Type Severity Reaction Status Date / Time acetaminophen [From TYLENOL] Allergy Unknown NAUSEA Verified 04/20/24 06:24 ibuprofen [From MOTRIN] Allergy Unknown GI Verified 04/20/24 06:24 BLEEDING, stomach bleed Active Medications: Current Medications Albuterol/Ipratropium (Albuterol/Iprat 2.5/0.5mg 3 Ml Ampul.Neb) 3 ml INHALE RQ4H WHILE AWAKE PRN PRN Reason: Shortness of Breath/Wheezing Calcium Carbonate (Calcium Carbonate 750 Mg Tab.Chew) 750 mg PO Q4H PRN PRN Reason: Heartburn Enoxaparin Sodium (Enoxaparin Sodium 40 Mg/0.4 Ml Syringe) 40 mg SUBCUT Q24H [facility] Last Admin: 04/20/24 15:52 Dose: 40 mg Hydromorphone HCl (Hydromorphone Hcl 0.5 Mg/0.5 Ml Syringe) 0.5 mg IVPUSH Q4H PRN; Protocol PRN Reason: Pain, Severe (Pain Scale 7-10) Last Admin: 04/21/24 04:06 Dose: 0.5 mg Cefepime HCl (Maxipime) 2 gm in 50 mls @ 100 mls/hr IV Q8H [facility] Last Infusion: 04/21/24 00:37 Dose: Infused Vancomycin HCl 750 mg/ Sodium (Chloride) 265 mls @ 265 mls/hr IV Q8H [facility] Last Infusion: 04/21/24 04:01 Dose: Infused Magnesium Hydroxide (Milk Of Magnesia 30 Ml Oral.Susp) 30 ml PO DAILY PRN PRN Reason: Constipation Melatonin (Melatonin 3 Mg Tablet) 6 mg PO BEDTIME PRN PRN Reason: Insomnia Nicotine (Nicotine 14 Mg Patch.Td24) 14 mg TRANSDERMA DAILY [facility] Last Admin: 04/20/24 13:35 Dose: Not Given Nicotine Polacrilex (Nicotine Polacrilex 2 Mg Gum) 4 mg BUCCAL Q2H PRN PRN Reason: Nicotine Cravings Last Admin: 04/21/24 04:06 Dose: 4 mg Oxycodone HCl (Oxycodone Hcl Immed Release 5 Mg Tablet) 5 mg PO Q4H PRN PRN Reason: Pain, Moderate(Pain Scale 4-6) Pharmacy Consult (Consult Rx Vancomycin Dosing) 1 each MISCELLANE DAILY PRN PRN Reason: Consult order Sodium Chloride (0.9 % Sodium Chloride Flush 3 Ml Syringe) 3 ml IVFLUSH QSHIFT [facility] Last Admin: 04/21/24 07:30 Dose: Not Given Home Medications ?Medication ?Instructions ?Recorded ?Confirmed ?Last Taken ?Type No Known Home Meds 04/20/24 04/20/24 Unknown History Physical Exam 2 Vital Signs: Vital Signs: Last Vital Signs Temp 98.5 F 04/21/24 06:00 Pulse 100 04/21/24 06:00 Resp 19 04/21/24 06:00 BP 123/69 04/21/24 06:00 Pulse Ox 91 L 04/21/24 06:00 O2 Del Method Room Air 04/21/24 06:00 BMI result Body Mass Index 17.3 Extrem: Other: Splint on right wrist and forearm clean, dry, intact No evidence of surrounding erythema, ecchymosis No evidence of infection Patient is able to flex and extend the digits of the left foot without difficulty Compartments soft, nontender Distal sensation intact Capillary refill brisk Results Labs 04/21/24 05:03 04/21/24 05:03 Labs: Abnormal lab results 04/20/24 04/20/24 04/21/24 Range/Units 07:23 12:40 05:03 WBC 11.0 H 11.3 H (4.8-10.8) X10*3/uL RBC 2.80 L 2.69 L (4.60-5.80) X10*6/uL Hgb 10.6 L 10.2 L (14.0-18.0) g/dl Hct 29.5 L 28.6 L (42.0-52.0) % MCV 105.4 H 106.3 H (80.0-98.0) fL MCH 37.9 H 37.9 H (27.0-33.0) pg Plt Count 492 H D 457 H (160-400) X10*3/uL Immature Gran % (Auto) 0.5 H (0.0-0.4) % Abs Immat Gran (auto) 0.06 H 0.05 H (0.00-0.03) X10*3/uL Carbon Dioxide 30 H (22-29) mmol/L Anion Gap 11 L 11 L (12-20) BUN 7 L 8 L (9-16) mg/dL Total Creatine Kinase 9 L (38-174) U/L Albumin 2.7 L (3.5-5.0) g/dL Urine Protein 30 (1+) H (Neg-Trace) mg/dL Ur Leukocyte Esterase Trace H (Negative) Urine Opiates Screen POSITIVE H (Not Detect) Ur Oxycodone Screen Positive H (Not Detect) ng/mL H & H 04/20/24 04/21/24 Range/Units 07:23 05:03 Hgb 10.6 L 10.2 L (14.0-18.0) g/dl Hct 29.5 L 28.6 L (42.0-52.0) % All other labs normal. Diagnostic results Wrist/Hand x-ray: report reviewed and image reviewed Assessment and Plan (1) Fracture of ulnar styloid: Status: Acute (2) Distal radius fracture, right: Status: Acute Plan 1. Right distal radius fracture Date of injury 04/20/2024 Patient was discussed with Dr. Baires, and a collaborative treatment plan was formed: At this time, patient was informed that he will not require any operative intervention for his right distal radius fracture, as it was minimally displaced and he is not a good candidate for surgery given his current condition Patient should remain in the splint at all times while in the hospital Splint should remain clean, dry, intact 2 lb weight limit in right upper extremity Patient may follow-up with orthopedics upon discharge No further acute orthopedic intervention indicated at this time Continue with all other recommendations per Medicine Procedures Date of Service Date of Service: 04/21/24
[2024-04-21 09:19] VITALS: BP 129/75; PULSE 117; RESP 18; TEMP 37.1; O2SAT 93
[2024-04-21] MEDS: cefEPime HCl/D5W 2 GM/50 ML PIGGYBACK IV ×3 (09:22→23:15)
[2024-04-21 09:23] LABS: Folate 9.6 ng/mL (> or = 4.0); Vitamin B12 642 pg/mL (200-900)
[2024-04-21] MEDS: Nicotine 14 MG PATCH.TD24 TRANSDERMA (09:26)
[2024-04-21 09:28] VITALS: BMI 17.3
[2024-04-21 09:36] VITALS: BP 129/75; PULSE 117; O2SAT 93
--- NOTE | 2024-04-21 09:42 | P.CONPL_ITS ---
History of Present Illness History of Present Illness Consult date: 04/21/24 Chief complaint: CAP, cavitary lesion Narrative: 63-year-old gentleman, active 30+ pack-year smoker, also underlying possible history of substance abuse admitted after mechanical fall with arm fracture, incidentally noted to have pulmonary abscess with possible community-acquired pneumonia and is currently treated with broad-spectrum antibiotics. Does endorse some productive cough, however no other pulmonary-related symptoms. Review of Systems 2 Constitutional: Constitutional: Denies daytime sleepiness, Denies excessive sweating, Denies fatigue, Denies fever(s), Denies lethargy, Denies malaise, Denies night sweats, Denies snoring and Denies weight loss Eyes: Eyes: Denies blurry vision and Denies itchy eyes ENT: Denies nasal congestion, Denies post nasal drip, Denies sinus pain, Denies sinus pressure and Denies other ( Thrush) Cardiovascular: Cardiovascular: Denies chest pain, Denies pedal edema, Denies dyspnea, Denies orthopnea and Denies paroxysmal nocturnal dyspnea Respiratory: Respiratory: Reports cough, Denies hemoptysis, Reports excessive phlegm production, Denies dyspnea, Denies snoring and Denies wheezing Gastrointestinal: Gastrointestinal: Denies abdominal pain and Denies heartburn Musculoskeletal: Musculoskeletal: Denies myalgias, Denies arthralgias and Denies joint swelling Integumentary/Breasts: Skin/Breast: Denies rash Neurologic: Denies memory loss and Denies seizure-like activity Psychiatric: Psychiatric: Denies abnormal sleep pattern, Denies anxiety and Denies memory loss Endocrine: Endocrine: Denies excessive sweating, Denies fatigue and Denies heat intolerance Hematologic/Lymphatic: Hematologic/Lymphatic: Denies easy bruising Allergic/Immunologic: Allergic/Immunologic: Denies itchy eyes, Denies seasonal rhinorrhea and Denies wheezing PMFSH Past Medical History Medical History Rib fractures Alcohol dependence Seizure PAF (paroxysmal atrial fibrillation) Infection of prepatellar bursa Bursitis A-fib Anxiety Depression Multiple sclerosis Falls Asbestosis COPD (chronic obstructive pulmonary disease) Atrial fibrillation Social History Social History Household Members: None Household Members Other:: girlfriend Housing: Apartment Do you presently have visiting nurse or other home services: Yes Unable to assess alcohol history related to: Unable to respond Alcohol intake: current Alcohol intake frequency: holidays/special occasions only Alcohol type: wine Patient Tobacco Use Status: Current everyday Tobacco user Tobacco use type: Cigarette Cigarette Packs Per Day: 6 Cigarettes Per Day: 120.0 Second Hand Smoke Exposure: No Substance Use Type: Marijuana service: No Current occupational status: disabled Meds Allergies Allergy/AdvReac Type Severity Reaction Status Date / Time acetaminophen [From TYLENOL] Allergy Unknown NAUSEA Verified 04/20/24 06:24 ibuprofen [From MOTRIN] Allergy Unknown GI Verified 04/20/24 06:24 BLEEDING, stomach bleed Active Medications: Current Medications Albuterol/Ipratropium (Albuterol/Iprat 2.5/0.5mg 3 Ml Ampul.Neb) 3 ml INHALE RQ4H WHILE AWAKE PRN PRN Reason: Shortness of Breath/Wheezing Calcium Carbonate (Calcium Carbonate 750 Mg Tab.Chew) 750 mg PO Q4H PRN PRN Reason: Heartburn Enoxaparin Sodium (Enoxaparin Sodium 40 Mg/0.4 Ml Syringe) 40 mg SUBCUT Q24H [facility] Last Admin: 04/20/24 15:52 Dose: 40 mg Hydromorphone HCl (Hydromorphone Hcl 0.5 Mg/0.5 Ml Syringe) 0.5 mg IVPUSH Q4H PRN; Protocol PRN Reason: Pain, Severe (Pain Scale 7-10) Last Admin: 04/21/24 08:08 Dose: 0.5 mg Cefepime HCl (Maxipime) 2 gm in 50 mls @ 100 mls/hr IV Q8H [facility] Last Admin: 04/21/24 09:22 Dose: 100 mls/hr Vancomycin HCl 750 mg/ Sodium (Chloride) 265 mls @ 265 mls/hr IV Q8H [facility] Last Infusion: 04/21/24 04:01 Dose: Infused Magnesium Hydroxide (Milk Of Magnesia 30 Ml Oral.Susp) 30 ml PO DAILY PRN PRN Reason: Constipation Melatonin (Melatonin 3 Mg Tablet) 6 mg PO BEDTIME PRN PRN Reason: Insomnia Nicotine (Nicotine 14 Mg Patch.Td24) 14 mg TRANSDERMA DAILY [facility] Last Admin: 04/21/24 09:26 Dose: 14 mg Nicotine Polacrilex (Nicotine Polacrilex 2 Mg Gum) 4 mg BUCCAL Q2H PRN PRN Reason: Nicotine Cravings Last Admin: 04/21/24 04:06 Dose: 4 mg Oxycodone HCl (Oxycodone Hcl Immed Release 5 Mg Tablet) 5 mg PO Q4H PRN PRN Reason: Pain, Moderate(Pain Scale 4-6) Pharmacy Consult (Consult Rx Vancomycin Dosing) 1 each MISCELLANE DAILY PRN PRN Reason: Consult order Sodium Chloride (0.9 % Sodium Chloride Flush 3 Ml Syringe) 3 ml IVFLUSH QSHIFT [facility] Last Admin: 04/21/24 07:30 Dose: Not Given Home Medications ?Medication ?Instructions ?Recorded ?Confirmed ?Last Taken ?Type No Known Home Meds 04/20/24 04/20/24 Unknown History Physical Exam 2 Vital Signs: Vital Signs: Last Vital Signs Temp 98.7 F 04/21/24 09:19 Pulse 117 H 04/21/24 09:19 Resp 18 04/21/24 09:19 BP 129/75 04/21/24 09:19 Pulse Ox 93 04/21/24 09:19 O2 Del Method Room Air 04/21/24 09:19 BMI result Body Mass Index 17.3 Const: General: no acute distress and alert Nutritional Appearance: not obese Orientation/consciousness: Other orientation findings ( oriented) HEENT: Head: Yes atraumatic Eyes: General: appearance normal, both eyes and all related structures S clerae: sclerae normal EOM: EOMs intact bilaterally Neck: Neck: Yes supple Lymphatic: no lymphadenopathy noted Resp: Effort & Inspection: normal respiratory effort and no use of accessory muscles Auscultation: clear to auscultation bilaterally Cardio: Rate: regular rate Rhythm: regular rhythm Heart sounds: no gallops, no murmurs and no rubs Skin: General skin exam: other ( warm) Extrem: General: No clubbing, No cyanosis and No edema Results Laboratory Findings 04/21/24 05:03 04/21/24 05:03 Abnormal lab findings: Abnormal Labs 04/20/24 04/20/24 04/21/24 07:23 12:40 05:03 WBC 11.0 H 11.3 H RBC 2.80 L 2.69 L Hgb 10.6 L 10.2 L Hct 29.5 L 28.6 L MCV 105.4 H 106.3 H MCH 37.9 H 37.9 H Plt Count 492 H D 457 H Immature Gran % (Auto) 0.5 H Abs Immat Gran (auto) 0.06 H 0.05 H Carbon Dioxide 30 H Anion Gap 11 L 11 L BUN 7 L 8 L Total Creatine Kinase 9 L Albumin 2.7 L Urine Protein 30 (1+) H Ur Leukocyte Esterase Trace H Urine Opiates Screen POSITIVE H Ur Oxycodone Screen Positive H Microbiology: Microbiology 04/21/24 04:32 Sputum - Expectorated Gram Stain - Final Assessment and Plan (1) Pulmonary abscess: Status: Acute (2) Community acquired pneumonia: Status: Acute Plan Impression: 63-year-old gentleman with incidentally noted cavitary lesion with fluid level, likely a pulmonary abscess on background of underlying community- acquired pneumonia, with minimal respiratory symptoms. Recommendation: Agree with current broad-spectrum antibiotic regimen. Sputum cultures pending. Would suggest a total of four-week course with outpatient regimen of Augmentin 875/125 b.i.d. and further Pulmonary outpatient follow-up. Procedures Date of Service Date of Service: 04/21/24
--- NOTE | 2024-04-21 10:53 | P.PNIM_ITS ---
Subjective Subjective Date of Service: 04/21/24 Interval History: Community acquired multifocal pneumonia with cavitary lesion Review of Systems sob somewhat improving has nonproductive cough no fevers Physical Exam 2 Vital Signs: Vital Signs: Last Vital Signs Temp 98.7 F 04/21/24 09:19 Pulse 117 H 04/21/24 09:36 Resp 18 04/21/24 09:19 BP 129/75 04/21/24 09:36 Pulse Ox 93 04/21/24 09:36 O2 Del Method Room Air 04/21/24 09:19 BMI result Body Mass Index 17.3 Appearance: Alert.? Oriented X3. cvs: rrr, [id number] . res: air entry some diminshed right upper side, has few scattered rhonchii. abd: soft,nt, bs present. ext pulses present , no cyanosis . neuro: axo3 , nonfocal. Objective Data Active Medications Albuterol/Ipratropium (Albuterol/Iprat 2.5/0.5mg 3 Ml Ampul.Neb) 3 ml INHALE RQ4H WHILE AWAKE PRN PRN Reason: Shortness of Breath/Wheezing Calcium Carbonate (Calcium Carbonate 750 Mg Tab.Chew) 750 mg PO Q4H PRN PRN Reason: Heartburn Enoxaparin Sodium (Enoxaparin Sodium 40 Mg/0.4 Ml Syringe) 40 mg SUBCUT Q24H [facility] Last Admin: 04/20/24 15:52 Dose: 40 mg Documented By: ROBB Hydromorphone HCl (Hydromorphone Hcl 0.5 Mg/0.5 Ml Syringe) 0.5 mg IVPUSH Q4H PRN; Protocol PRN Reason: Pain, Severe (Pain Scale 7-10) Last Admin: 04/21/24 08:08 Dose: 0.5 mg Documented By: SAUD Cefepime HCl (Maxipime) 2 gm in 50 mls @ 100 mls/hr IV Q8H [facility] Last Infusion: 04/21/24 10:15 Dose: Infused Documented By: TERRI Vancomycin HCl 750 mg/ Sodium (Chloride) 265 mls @ 265 mls/hr IV Q8H [facility] Last Infusion: 04/21/24 04:01 Dose: Infused Documented By: JEY Magnesium Hydroxide (Milk Of Magnesia 30 Ml Oral.Susp) 30 ml PO DAILY PRN PRN Reason: Constipation Melatonin (Melatonin 3 Mg Tablet) 6 mg PO BEDTIME PRN PRN Reason: Insomnia Nicotine (Nicotine 14 Mg Patch.Td24) 14 mg TRANSDERMA DAILY [facility] Last Admin: 04/21/24 09:26 Dose: 14 mg Documented By: TERRI Nicotine Polacrilex (Nicotine Polacrilex 2 Mg Gum) 4 mg BUCCAL Q2H PRN PRN Reason: Nicotine Cravings Last Admin: 04/21/24 04:06 Dose: 4 mg Documented By: JEY Oxycodone HCl (Oxycodone Hcl Immed Release 5 Mg Tablet) 5 mg PO Q4H PRN PRN Reason: Pain, Moderate(Pain Scale 4-6) Pharmacy Consult (Consult Rx Vancomycin Dosing) 1 each MISCELLANE DAILY PRN PRN Reason: Consult order Sodium Chloride (0.9 % Sodium Chloride Flush 3 Ml Syringe) 3 ml IVFLUSH QSHIFT [facility] Last Admin: 04/21/24 07:30 Dose: Not Given Documented By: SAUD Non-Admin Reason: Patient Asleep Labs 04/21/24 05:03 04/21/24 05:03 Labs: Laboratory Results - last 24 hr 04/20/24 04/21/24 04/21/24 12:40 05:03 07:31 MCV 106.3 H MCH 37.9 H MCHC 35.7 RDW 13.5 Plt Count 457 H MPV 10.0 Immature Gran % (Auto) 0.4 Neut % (Auto) 70.0 Lymph % (Auto) 22.7 [place] % (Auto) 5.7 Eos % (Auto) 0.5 Baso % (Auto) 0.7 Lymph # (Auto) 2.6 [place] # (Auto) 0.6 Eos # (Auto) 0.1 Baso # (Auto) 0.1 Abs Immat Gran (auto) 0.05 H Absolute Neuts (auto) 7.9 Absolute Nucleated RBC 0.000 Nucleated RBC % (auto) 0.0 Anion Gap 11 L Estim Creat Clear Calc 90.6 Estimated GFR > 60 Random Glucose 112 Calcium 8.4 Vitamin B12 642 Folate 9.6 Urine Color Dark Yellow Urine Appearance Clear Urine pH 8.5 Ur Specific [place] 1.020 Urine Protein 30 (1+) H Urine Glucose (UA) Negative Urine Ketones Trace Urine Blood Negative Urine Nitrite Negative Ur Leukocyte Esterase Trace H Urine RBC 0-2 Urine WBC 0-5 Ur Squamous Epith Cells 0-2 Urine Bacteria None Seen Hyaline Casts 0-2 Urine Opiates Screen POSITIVE H Ur Buprenorphine Scrn Not Detected Ur Oxycodone Screen Positive H Urine Methadone Screen Not Detected Urine Fentanyl Screen Not Detected Ur Barbiturates Screen Not Detected Ur Phencyclidine Scrn Not Detected Ur Amphetamines Screen Not Detected U Benzodiazepines Scrn Not Detected Urine Cocaine Screen Not Detected U Marijuana (THC) Screen Not Detected Microbiology Microbiology Results: Microbiology 04/21/24 04:32 Gram Stain - Final Sputum - Expectorated Assessment and Plan (1) Community acquired pneumonia: Status: Acute Assessment and Plan: 62-year-old male with history of paroxysmal atrial fibrillation on anticoagulation, anxiety depression, multiple sclerosis, asbestosis, COPD, and history of alcohol dependence with history of multiple falls admitted for further management of multifocal cavitary pneumonia. Community acquired multifocal pneumonia with cavitary lesion. CT chest consistent with multifocal pneumonia in the right upper lobe, right middle lobe, left upper lobe, left lower lobe with cavitation of the left upper lobe airspace mild leukocytosis 11.0. Tachycardia improving No sepsis/severe sepsis plan: Legionella and strep pneumo antigen pending , MSRA nasal swab, sputum culture pending continue IV cefepime and vancomycin (initiated 04/20) pulmonology consult acute distal radius fracture/ulnar styloid fracture -orthopedic consult -splint applied -analgesics prn paroxysmal atrial fibrillation: -not on anticoagulation, no rate control MS-no acute flare, not on medication mood disorder-not on medication COPD-no acute exacerbation, albuterol p.r.n. physical deconditioning/history of multiple falls-PT eval chronic macrocytic anemia: h/h stable around 10.2 vitamin B12 and folic acid normal moniter cbc. alcohol use disorder-denies recent use, ethyl alcohol level undetectable DVT prophylaxis-Lovenox Full code ongoing need for management of community-acquired multifocal pneumonia with cavitary lesion requiring broad-spectrum antibiotic coverage as well as expert consultation Quality Stroke Does the patient have a stroke diagnosis?: No VTE Prior VTE?: No VTE Risk Level:: Medical - moderate - high VTE Device Contraindication: Treatment Not Indicated VTE Drug Contraindication: N/A - Med Ordered
[2024-04-21 11:15] LABS: MRSA Nasal PCR NEGATIVE (Negative); SA Nasal PCR NEGATIVE (Negative)
[2024-04-21] MEDS: oxyCODONE HCl Immed Release 5 MG TABLET PO ×2 (11:22→19:26)
--- NOTE | 2024-04-21 12:02 | MHC.CM.PN ---
PT LIVES ALONE HAS 3 HRS A DAY [facility] RECEOMENDS STR REFERRALS MADE
[2024-04-21 12:24] VITALS: BMI 17.3
--- NOTE | 2024-04-21 12:29 | MHC.CLN ---
RE: CONSULT PT IS MODERATELY MALNOURISHED PT WITH MILDLY DEPLETED SUBCUTANEOUS FAT AND MUSCLE MASS, BMI 17 WITH 16% NONSIGNIFICANT WT LOSS X 1.5 YEARS REGULAR DIET ENSURE MAX BID IN PLACE RECOMMEND SWITCH TO ENSURE BID TO PROVIDE 700KCALS, 40G PROTEIN MONITOR PO INTAKE CLOSELY AND ENCOURAGE SUPPLEMENTS SEE CLINICAL NUTRITION ASSESSMENT
[2024-04-21] MEDS: Enoxaparin Sodium 40 MG/0.4 ML SYRINGE SUBCUT (13:06)
[2024-04-21] MEDS: Milk of Magnesia 30 ML ORAL.SUSP PO (13:09)
[2024-04-21 14:00] VITALS: BP 118/67; PULSE 119; RESP 18; TEMP 36; O2SAT 93
[2024-04-21] MEDS: 0.9 % Sodium Chloride Flush 3 ML SYRINGE IVFLUSH (15:36)
[2024-04-21 17:24] LABS: Vancomycin Random 25.4 mcg/mL (15-20)
--- NOTE | 2024-04-21 17:42 | HE.PHANOTE ---
RE: VANCO DOSING Trough came back as 25.4 mg/L (possibly because patient has history of alcoholism??). Dose is d/c, pended new dose of 500 mg q12h, starting 04/22/24 @1800 ..depending on trough scheduled for 04/22/24 @0800.
[2024-04-21] MEDS: Lactated Ringers 1,000 ML 80 ML IVCONT (17:48)
[2024-04-21 20:56] VITALS: BP 121/79; PULSE 102; RESP 18; TEMP 36.7; O2SAT 94
--- NOTE | 2024-04-22 | ECG_ITS ---
Test Reason : nic Blood Pressure : */* mmHG Vent. Rate : 117 BPM Atrial Rate : 117 BPM P-R Int : 140 ms QRS Dur : 68 ms QT Int : 342 ms P-R-T Axes : 28 34 27 degrees QTcB Int : 477 ms Sinus tachycardia Low voltage QRS Borderline ECG When compared with ECG of 11-Mar-2023 13:48, No significant change was found Referred By: Oziel Santoyo Electronically Signed By: MIHAELA LLOYD
[2024-04-22] MEDS: Nicotine Polacrilex 2 MG GUM 4 MG BUCCAL ×8 (02:20→23:40)
[2024-04-22] MEDS: HYDROmorphone HCl 0.5 MG/0.5 ML SYRINGE IVPUSH ×6 (02:20→23:40)
[2024-04-22 03:39] VITALS: BP 128/76; PULSE 118; RESP 18; TEMP 36.8; O2SAT 96
[2024-04-22] MEDS: Lactated Ringers 1,000 ML 80 ML IVCONT ×2 (06:30→19:16)
[2024-04-22 07:27] VITALS: BP 116/83; PULSE 122; RESP 18; TEMP 36.5; O2SAT 96
[2024-04-22] MEDS: cefEPime HCl/D5W 2 GM/50 ML PIGGYBACK IV ×3 (08:31→23:40)
[2024-04-22 08:36] LABS: Creatinine Clr Calc Pharmacy 89.1; Estimated Glomerular Filt Rate > 60
[2024-04-22 08:37] LABS: Vancomycin Random 13.4 mcg/mL (15-20)
--- NOTE | 2024-04-22 09:21 | MHC.CLN ---
F/U REGULAR DIET ENSURE BID (700KCALS, 40G PROTEIN) IN PLACE TO PROMOTE NUTRITIONAL INTAKE. PATIENT IS MODERATELY MALNOURISHED. MONITOR PO INTAKE CLOSELY AND ENCOURAGE SUPPLEMENTS.
--- NOTE | 2024-04-22 10:10 | HO.PM.IMPN ---
Subjective Subjective Date of Service: 04/22/24 Interval History: right wrist pain, feels weak no sob, no withdrawal symptoms reports drinking only about once per week Physical Exam Vital Signs: Vital Signs: Last Vital Signs Temp 97.7 F 04/22/24 07:27 Pulse 122 H 04/22/24 07:27 Resp 18 04/22/24 07:27 BP 116/83 04/22/24 07:27 Pulse Ox 96 04/22/24 07:27 O2 Del Method Room Air 04/22/24 07:27 BMI result Body Mass Index 17.3 General: AO X 3, cachexic appearing, no acute distress Resp: diminished bilateral, no accessory muscles used CVS: S1,S2,RRR GI: soft, non tender, non distended Neuro: motor grossly intact, alert right wrist splint Psych: oppositional affect, appropriate insight Objective Data Active Medications Albuterol/Ipratropium (Albuterol/Iprat 2.5/0.5mg 3 Ml Ampul.Neb) 3 ml INHALE RQ4H WHILE AWAKE PRN PRN Reason: Shortness of Breath/Wheezing Calcium Carbonate (Calcium Carbonate 750 Mg Tab.Chew) 750 mg PO Q4H PRN PRN Reason: Heartburn Enoxaparin Sodium (Enoxaparin Sodium 40 Mg/0.4 Ml Syringe) 40 mg SUBCUT Q24H [facility] Last Admin: 04/21/24 13:06 Dose: 40 mg Documented By: TERRI Hydromorphone HCl (Hydromorphone Hcl 0.5 Mg/0.5 Ml Syringe) 0.5 mg IVPUSH Q4H PRN; Protocol PRN Reason: Pain, Severe (Pain Scale 7-10) Last Admin: 04/22/24 06:29 Dose: 0.5 mg Documented By: DAVID Cefepime HCl (Maxipime) 2 gm in 50 mls @ 100 mls/hr IV Q8H [facility] Last Infusion: 04/22/24 09:07 Dose: Infused Documented By: DONAL Lactated Ringer's (Lr) 1,000 mls @ 80 mls/hr IVCONT .[id number] [facility] Last Admin: 04/22/24 06:30 Dose: 80 mls/hr Documented By: DAVID Magnesium Hydroxide (Milk Of Magnesia 30 Ml Oral.Susp) 30 ml PO DAILY PRN PRN Reason: Constipation Last Admin: 04/21/24 13:09 Dose: 30 ml Documented By: TERRI Melatonin (Melatonin 3 Mg Tablet) 6 mg PO BEDTIME PRN PRN Reason: Insomnia Nicotine (Nicotine 14 Mg Patch.Td24) 14 mg TRANSDERMA DAILY [facility] Last Admin: 04/21/24 09:26 Dose: 14 mg Documented By: TERRI Nicotine Polacrilex (Nicotine Polacrilex 2 Mg Gum) 4 mg BUCCAL Q2H PRN PRN Reason: Nicotine Cravings Last Admin: 04/22/24 08:32 Dose: 4 mg Documented By: DONAL Oxycodone HCl (Oxycodone Hcl Immed Release 5 Mg Tablet) 5 mg PO Q4H PRN PRN Reason: Pain, Moderate(Pain Scale 4-6) Last Admin: 04/21/24 19:26 Dose: 5 mg Documented By: DAVID Sodium Chloride (0.9 % Sodium Chloride Flush 3 Ml Syringe) 3 ml IVFLUSH QSHIFT [facility] Last Admin: 04/22/24 07:24 Dose: Not Given Documented By: DONAL Non-Admin Reason: IV Running Labs 04/21/24 05:03 04/22/24 08:03 Labs: Laboratory Results - last 24 hr 04/20/24 04/21/24 04/22/24 16:18 15:59 08:03 Estim Creat Clear Calc 89.1 Estimated GFR > 60 Nasal Screen MRSA (PCR) NEGATIVE Nasal S. aureus Screen NEGATIVE Nasal MRSA/S.aureus Interp SEE NOTE Random Vancomycin 25.4 H* 13.4 L Microbiology Microbiology Results: Microbiology 04/21/24 04:32 Gram Stain - Final Sputum - Expectorated Sputum Culture - Preliminary Culture in progress. Assessment and Plan (1) Distal radius fracture, right: Status: Acute Plan 63M PMH pafib not on meds, MS, COPD/asbestosis, history of etoh dependence (currently reports <1 drink/week), presented with fall, found to have pulmonary abscess fall complicated by acute right distal radius and ulnar styloid fracture ortho appreciated, no surgical intervention for now, splint, outpatient follow up pneumonia with pulmonary abscess concern for aspiration with anaerobic bacteria mrsa swab negative, dc vanc continue cefepime, on discharge plan for augmentin 875mg bid to be completed may 17, 2024, and will need follow up imaging moderate protein calorie malnutrition encourage po intake COPD/asbestosis stable MS stable pafib no on meds, in sinus chronic macrocytic anemia b12, folate wnl ?underestimating ETOH intake deconditioning PT recommending STR dvt prophylaxis - lovenox full code reason for continued hospitalization:iv abx for pneumonia with abscess Quality Stroke Does the patient have a stroke diagnosis?: No VTE Prior VTE?: No VTE Risk Level:: Medical - moderate - high VTE Device Contraindication: Treatment Not Indicated VTE Drug Contraindication: N/A - Med Ordered
[2024-04-22 10:45] VITALS: PULSE 118
--- NOTE | 2024-04-22 14:14 | MHC.CM.PN ---
ARRANGEMENTS MADE FOR PT TO GO TO [facility] TOMORROW AT 1 AMB FORM ON FRONT OF CHART
[2024-04-22 15:08] VITALS: BP 140/80; PULSE 111; RESP 18; TEMP 36.7; O2SAT 96
[2024-04-22] MEDS: Enoxaparin Sodium 40 MG/0.4 ML SYRINGE SUBCUT (15:13)
[2024-04-22] MEDS: Milk of Magnesia 30 ML ORAL.SUSP PO (15:17)
--- NOTE | 2024-04-22 17:07 | HO.WOUND ---
Wound Consult: Initial 63yr old? male admitted to [facility] on 04/20/24 - See progress notes and H&P for detailed history.? Wound consult placed for Sacrum and Left Heel wound POA.? Patient agreeable to assessment and photo documentation.? Patient reports bilateral heel pain - right heel is noted for redness - dry intact tissue remains blanchable but there is concern for PI development. Foam dressing applied and floated off of surface of bed with pillows. Left Heel Etiology: ??Unstageable Pressure Injury Present on Admission Measurements: 1cm x 1cm x 0.3cm Wound Bed: adherent yellow slough Drainage / Odor: baez small amount Edges: ? callused and moist Karla wound: callused and moist ? No Induration, Fluctuance or Warmth noted Pain: painful Goals of Treatment: ? Durafiber for moisture management Sacrum Etiology: ?Redness ?MASD Present on Admission Wound Bed: intact red blanchable tissue over bony prominence Drainage / Odor: none Edges: ? irregular Karla wound: intact MASD ? No Induration, Fluctuance or Warmth noted Goals of Treatment: ? off load protect from friction and moisture Right Heel Etiology: Redness ??Present on Admission Wound Bed: intact red tender blanchable tissue Drainage / Odor: NOne Karla wound: ?intact No Induration, Fluctuance or Warmth noted Pain: pain reported Goals of Treatment: ? Foam dressing and off load pressure Recommendations: 1. Turn and Reposition every 2 hours and as needed for patient comfort.? Use pillows or wedges to support off loading positions. 2. Off Load all bony prominences with use of pillows and heel boots if needed.? Apply Preventative foams where needed. ? 3. Monitor for incontinence and moisture control, use barrier creams when needed for prevention and treatment. 4. Provide adequate and supplemental nutrition.? 5. Order low air loss mattress. 6. When applicable maintain blood glucose levels per Providers order. 7. Sacrum - Routine cleansing. Applt skin prep followed by Sacral foam dressing peel back and assess Q shift change every 3 days and PRN. 8. Left heel - Elevate heels off of bed surface with pillows. Cleanse with Ns moist gauze, pat dry. Apply barrier to wound edge cover wound bed with durafiber AG followed by gauze ABD pad and wrap. Change every other day. 9. Right Heel - Apply skin prep apply foam dressing peel back and assess Q shift and change every 5 days and PRN. Elevate heels off of bed surface with pillows. Re-consult wound care Nurse for wound deterioration or wound changes.
[2024-04-22 19:50] VITALS: BP 128/75; PULSE 118; RESP 18; TEMP 36.7; O2SAT 93
[2024-04-22 22:23] LABS: Levetiracetam Keppra <2.0 mcg/mL (6.0-46.0)
[2024-04-22 23:58] LABS: Strep Pneumo Ag urine Not Detected (Not Detected)
[2024-04-23 03:10] VITALS: BP 121/79; PULSE 102; RESP 18; TEMP 37.1; O2SAT 94
[2024-04-23 03:19] LABS: Legionella Ag Urine Not Detected (Not Detected)
[2024-04-23] MEDS: Nicotine Polacrilex 2 MG GUM 4 MG BUCCAL ×3 (04:27→09:46)
[2024-04-23] MEDS: HYDROmorphone HCl 0.5 MG/0.5 ML SYRINGE IVPUSH ×2 (04:28→09:45)
[2024-04-23 08:00] VITALS: BP 142/81; PULSE 111; RESP 16; TEMP 36.8; O2SAT 96
[2024-04-23] MEDS: oxyCODONE HCl Immed Release 5 MG TABLET PO (08:14)
[2024-04-23] MEDS: cefEPime HCl/D5W 2 GM/50 ML PIGGYBACK IV (08:16)
--- NOTE | 2024-04-23 08:53 | P.DS_ITS ---
DS: Providers Provider Date of Service: 04/23/24 Date of admission: 04/20/24 13:58 Date of discharge: 04/23/24 Primary care physician: Serafin Basurto III, MD Consults: 04/20/24 14:01 Consult to Pulmonology Routine Consulting Provider: [facility] [place] [facility] Reason for consultation: Cavitary lesion 04/20/24 14:04 Consult to Orthopedics Routine Consulting Provider: [facility] [place] [facility] Reason for consultation: acute distal radius fracture/ulnar styloid fracture 04/22/24 10:50 Consult to Wound Care Routine Reason for consultation: redness coccyx/st 2 heel DS: Diagnosis Discharge Diagnosis (1) Distal radius fracture, right: Status: Acute DS: Summary Hospital Course Hospital Course: from initial hpi: 62-year-old male with history of paroxysmal atrial fibrillation on anticoagulation, anxiety depression, multiple sclerosis, asbestosis, COPD, and history of alcohol dependence with history of multiple falls presented to the ER earlier today for evaluation of right sided facial pain and right wrist pain after sustaining a fall prior to arrival. He reports he has poor balance secondary to his MS and ambulates with a cane. Despite this has had 20+ falls in the last year. He denies any prodrome including lightheadedness, visual changes, sob, chest pressure, palpitations. Reports he put his hand out to break his fall but still struck the right side of his head on the floor. No LOC. Upon further questioning patient has also had an aggressive productive cough x2 days. No known sick contacts. No h/a, sore throat, abd pain, n/v/d. He is reporting pleuritic chest pain. No recent travel. Denies drug abuse (though UDS is positive for oxycodone which is not on the [employer]). Reports only occassional etoh use. Smokes between 1/2 and 1 PPD. No homelessness. In the ED on arrival patient tachycardic to 123, vital signs otherwise stable. Mild leukocytosis of 11.0. Renal function baseline, electrolyte levels normal except for a mild hypercapnia with CO2 30. Hepatic function within normal limits. Urinalysis with trace leukocytes and 1+ protein, negative bacteria. Urine drug screen positive for opiates/oxycodone. Ethyl alcohol level undetectable. X-ray of the right hand/wrist showed minimally impacted, mildly displaced, minimally dorsally angulated distal radial metaphyseal fracture with a tiny ulnar styloid avulsion fracture. Head CT without any acute intracranial abnormality. CT of the cervical spine negative for any acute cervical fracture injury but shows sequela of old trauma of the cervical spine. Also seen on cervical spine CT was a segmental consolidation in the posterior segment right upper lobe suspicious for pneumonia. Subsequent CT of the chest shows multifocal pneumonia in the right upper lobe, right middle lobe, left upper lobe, and left lower lobe with a cavitation of the left upper lobe airspace possibly representing cavitary pneumonia or a mass. He will be admitted for further management of multifocal pneumonia with cavitary lesion. hospital course: Patient was admitted for fall complicated by acute right distal radius and ulnar styloid fracture. Was seen by Orthopedics who recommended no surgical intervent ion for now recommended wearing splint and to follow up outpatient. Also noted to have pneumonia with pulmonary abscess concern for aspiration with anaerobic bacteria. Was initially started on vancomycin cefepime. MRSA swab was negative so vancomycin was discontinued. Was seen by Pulmonary who recommended 1 month of Augmentin 875 mg b.i.d. to be completed 05/17/[address] chest. Patient will follow up with Pulmonary as outpatient. For moderate protein calorie malnutrition p.o. intake is encouraged. For COPD/asbestosis patient remained stable. For multiple sclerosis patient is stable. For paroxysmal AFib he was not on any meds and remained in sinus rhythm. For chronic macrocytic anemia B12 and folate were within normal limits, patient states he was in remission from alcohol dependence but may be underestimating how much he drinks. For deconditioning was seen by physical therapy recommended short-term rehab however patient is not interested at this time and will be discharged home. Time Attestation Discharge Coordination Time (in mins): 32 Quality: Safe Use of Opioids Does Pt have an Active Cancer Diagnosis on the Problem List?: No Quality: Stroke Does the patient have a stroke diagnosis?: No Physical Exam Vital Signs: Vital Signs: Last Vital Signs Temp 98.3 F 04/23/24 08:00 Pulse 111 H 04/23/24 08:00 Resp 16 04/23/24 08:00 BP 142/81 H 04/23/24 08:00 Pulse Ox 96 04/23/24 08:00 O2 Del Method Room Air 04/23/24 08:00 BMI result Body Mass Index 17.3 General: AO X 3, cachexic appearing, no acute distress Resp: diminished bilateral, no accessory muscles used CVS: S1,S2,RRR GI: soft, non tender, non distended Neuro: motor grossly intact, alert right wrist splint Psych: oppositional affect, appropriate insight DS: Data Data Completed and Pending Completed studies during hospitalization [Text1]: Procedures Detoxification Services for Substance Abuse Treatment (10/30/22) Labs on day of discharge: Laboratory Results - last 24 hr 04/20/24 04/20/24 07:23 15:51 Levetiracetam <2.0 L Ur L.pneumophila Ag Not Detected Ur Strep pneumoniae Ag Not Detected Preliminary micro results at discharge 04/21/24 04:32 Sputum Culture - Preliminary Sputum - Expectorated Culture in progress. Discharge Plan Discharge Anticipated Discharge Date/Time: 04/23/24 08:27 Patient Disposition: Home Health Service Discharge Diagnosis: pna, absess, radial fracture Referrals: [facility] [Other] - 1 Week Serafin Basurto III, MD [Primary Care Provider] - 1 Week Eladio Mathis MD [Physician] - 1 Week Melani Baires MD [Physician] - 1 Week Discharge Medications: New amoxicillin-pot clavulanate 875-125 mg tablet 1 tab PO Q12H Qty: 60 0RF Discharge Orders: Discharge Order (Routine); Ordered 04/23/24 Ordered By: Oziel Santoyo Diet: Advance to usual diet Activity on Discharge: As tolerated Stand Alone Forms: Patient Portal Discharge page Print Language: Egyptian Care Plan Goals: recovery Health Concerns: abscess, radial fracture Plan of Treatment: keep splint, nwb right hand, follow up ortho 1 month augmentin, follow up repat ct chest in 1 month, follow up pulmonary Assessment: see above
--- NOTE | 2024-04-23 08:56 | W.MHC.F2F ---
Service Date Service Date: 04/23/24 Encounter Date of encounter: 04/23/24 Reasons for Services Signs and symptoms assessed: Unsteady gait Reason for care home: medication management, medication treatment and teach disease management Reason for physical therapy: home safety and mobility and therapeutic exercises Homebound: Leaving the home is medically contraindicated at this time without the asist of a device and/or another person due th the listed conditions above and below. Reason homebound: unsteady gait / fall risk Certification: Based on the above findings, I certify that this patient is confined to the home and needs intermittent care home care, physical therapy and/or speech therapy, or continues to need occupational therapy. The patient is under my care, and I have initiated the establishment of the plan of care. The patient will be followed by a physician who will periodically review the plan of care. Time Spent With Patient Time: Total time managing care of this patient today ____ minutes.
--- NOTE | 2024-04-23 09:36 | MHC.CM.PN ---
CM MET WITH PT WHO REPORTS HE IS NOT INTERESTED IN GOING TO STR HE SAYS HE WANTS GO HOME, HE SAYS HE HAS HOME HEALTH SERVICES AND A GF NEARBY THAT ASSISTS PT STATES HE WOULD PREFER TO GO VIA BLS AND WILL NOT BE ABLE TO GET HIS PRESCRIPTIONS UNTIL TOMORROW AFTER FURTHER DISCUSSION, PT IS AGREEABLE TO USING [facility] AND HAVING MEDS IN HAD AT DC PT WILL DC HOME AT 1300 HOURS VIA BLS
[2024-04-23 12:27] VITALS: BP 132/82; PULSE 98; RESP 18; TEMP 36; O2SAT 95
== END 2024-04-23 13:14 | disposition home health service (06) | DRG 178 ==
LOC: HO.ED 12:14 → HO.EDOVER 13:59 → HO.S3 04-21 07:52
PROVIDERS: Registered Nurse Emergency; Admitting Provider Physician Assistant; Emergency Provider Student in an Organized Health Care Education/Training Program; PCP Internal Medicine; Visit Provider Internal Medicine
DX: J85.1 Abscess of lung with pneumonia (principal); E44.0 Moderate protein-calorie malnutrition; S52.591A Other fractures of lower end of right radius, initial encounter for closed fracture; S52.611A Displaced fracture of right ulna styloid process, initial encounter for closed fracture; J44.0 Chronic obstructive pulmonary disease with (acute) lower respiratory infection; Z68.1 Body mass index [BMI] 19.9 or less, adult; J61 Pneumoconiosis due to asbestos and other mineral fibers; W19.XXXA Unspecified fall, initial encounter; F17.210 Nicotine dependence, cigarettes, uncomplicated; F39 Unspecified mood [affective] disorder; Z71.6 Tobacco abuse counseling; G35 Multiple sclerosis; B96.89 Other specified bacterial agents as the cause of diseases classified elsewhere; F10.21 Alcohol dependence, in remission; I48.0 Paroxysmal atrial fibrillation; D53.9 Nutritional anemia, unspecified
CPT/HCPCS: 36415; 70450; 71250; 72125; 73110; 73130; 80048; 80053; 80177; 80202; 80307; 81001; 82550; 82565; 82607; 82746; 85025; 87070; 87205; 87449; 87640; 87641; 87899; 93005; 97162; 99285; J0456; J0692; J0696; J1171; J1650; J3370; J3371; J7120

== ENCOUNTER → 2024-04-20 06:46 | Outpatient (BNV) | payer MEDICARE, MEDICAID, SELFPAY | PROVIDERS: Emergency Provider Student in an Organized Health Care Education/Training Program; PCP Internal Medicine; Visit Provider Radiology Diagnostic Radiology | DX: J18.9 Pneumonia, unspecified organism (principal); S19.9XXA Unspecified injury of neck, initial encounter; S09.90XA Unspecified injury of head, initial encounter; S52.501A Unspecified fracture of the lower end of right radius, initial encounter for closed fracture | CPT/HCPCS: 72125; 73110; 73130 ==

== ENCOUNTER 2024-04-20 13:58 | Outpatient (BNV) | payer MEDICARE, MEDICAID, SELFPAY | END 2024-04-22 08:11 | PROVIDERS: Admitting Provider Physician Assistant; Emergency Provider Student in an Organized Health Care Education/Training Program; PCP Internal Medicine; Visit Provider Internal Medicine | DX: R00.0 Tachycardia, unspecified (principal) | CPT/HCPCS: 93010 ==

== ENCOUNTER → 2024-04-20 13:58 | Outpatient (BNV) | payer MEDICARE, MEDICAID, SELFPAY | PROVIDERS: Admitting Provider Physician Assistant; Emergency Provider Student in an Organized Health Care Education/Training Program; PCP Internal Medicine; Visit Provider Physician Assistant | DX: J18.9 Pneumonia, unspecified organism (principal); S52.501A Unspecified fracture of the lower end of right radius, initial encounter for closed fracture; I48.0 Paroxysmal atrial fibrillation; R53.81 Other malaise | CPT/HCPCS: 99223; 99232; 99239; G0180 ==

== ENCOUNTER → 2024-04-20 13:58 | Outpatient (BNV) | payer MEDICARE, MEDICAID, SELFPAY | PROVIDERS: Admitting Provider Physician Assistant; Emergency Provider Student in an Organized Health Care Education/Training Program; PCP Internal Medicine; Visit Provider Internal Medicine Pulmonary Disease | DX: J85.2 Abscess of lung without pneumonia (principal); J18.9 Pneumonia, unspecified organism | CPT/HCPCS: 99222 ==

== ENCOUNTER → 2024-04-20 13:58 | Outpatient (BNV) | payer MEDICARE, MEDICAID, SELFPAY | PROVIDERS: Admitting Provider Physician Assistant; Emergency Provider Student in an Organized Health Care Education/Training Program; PCP Internal Medicine | DX: S52.611A Displaced fracture of right ulna styloid process, initial encounter for closed fracture (principal); S52.501A Unspecified fracture of the lower end of right radius, initial encounter for closed fracture | CPT/HCPCS: 99221 ==

== ENCOUNTER 2024-10-06 13:39 | Emergency (ER) | payer MEDICARE, MEDICAID, SELFPAY ==
--- NOTE | ~2024-10-06 | CT_ITS ---
CLINICAL HISTORY: Fall; Head Strike; Headache CT head without contrast Comparison: 04/20/[address] Findings: No acute intracranial hemorrhage. No midline shift or hydrocephalus. Mild-moderate volume loss is generalized and not significantly changed from comparison. Moderate white matter lesions are nonspecific and likely due to small-vessel ischemic disease. Small old left basal ganglia region lacunar infarction. No large arterial territorial infarction by CT. Mucosal thickening of the imaged paranasal sinuses are multifocal. Imaged mastoid air cells are well aerated. Vascular calcifications are redemonstrated. No acute skull fracture. Mild nasal bone deformities appear old/chronic. IMPRESSION: 1. No acute intracranial abnormality by CT. This document has been electronically signed by: Milton Ann MD on 10/06/2024 23:41:04
--- NOTE | ~2024-10-06 | CT_ITS ---
CLINICAL HISTORY: Fall; Head Strike; Neck Pain CT cervical spine without contrast Comparison: CT of the cervical spine from 04/20/2024 Findings: Lucency of the anterior-lateral cortex of the C2-base of the dens is concerning for re-injury adjacent to persisting subacute to old fracture line with accentuated impaction of the dens relative to the remainder of the C2 (imaged 87 of series 5). Additional C2 fractures appear old and unchanged. Remodeling of the C1-C2 again noted. Mild retrolisthesis of the C2 relative to C3 accentuated by fracture deformity with remodeling. Vacuum disc phenomenon is multifocal including C3-C4, C5-C6, and C6-C7. Facet arthropathy, disc osteophyte complexes, and ligament calcifications are multifocal. Spinal stenosis includes mild spinal canal stenosis at C3-C4 where there is mild retrolisthesis; and multifocal foraminal narrowing, including [id number] left at C5-C6. Soft tissue swelling and/or prominence noted of the anterior margin of the C2. Vascular calcifications are redemonstrated. Scarring and emphysematous changes of the imaged lung apices. IMPRESSION: 1. Lucency of the cortex irregularity concerning for re-injury and/or acute fracture of the anterior-lateral cortex of the C2-base of the dens. 2. Redemonstration of the chronic C2 deformities from old fracture with remodeling. This document has been electronically signed by: Milton Ann MD on 10/06/2024 23:42:41
--- NOTE | ~2024-10-06 | CT_ITS ---
CLINICAL HISTORY: Weakness; Diffuse Abdominal Tenderness CT abdomen and pelvis with contrast Comparison: None provided Findings: Mild bibasilar atelectasis and/or pneumonitis. Mild eventration of the left hemidiaphragm fat measuring 2.2 cm. Trace pericardial effusion. Vascular calcifications include imaged coronary arteries. Calcified and noncalcified plaque involving the imaged aorta and its branches in this nonvascular study. Liver surface nodularity as can be seen with cirrhosis. Low-density lesion in the right lobe of the liver measures 4 mm and nonspecific. Differential considerations include cysts and hemangioma in the absence of malignancy. This is not further characterize by [address] Mild wall thickening of the contracted gallbladder. Moderate volume loss of the pancreas. Multiple calcifications of the pancreas can be seen with chronic and/or prior pancreatitis. Main pancreatic duct measures 4 mm. This mild dilatation is nonspecific. Mass and/or mass-effect of the ampulla or pancreatic head and not excluded given the ductal dilatation. The spleen is nonenlarged. No hydronephrosis. No small bowel obstruction. Diffuse wall thickening of the large intestine is nonspecific and concerning for colitis, including sigmoid colon and including distally. Imaged appendix is retrocecal, nondilated, without definite findings of acute appendicitis. Punctate appendicolith noted distally. The prostate gland measures 4.2 cm transverse. Moderate wall thickening of the urinary bladder is nonspecific. Bilateral pelvis deformities including pubic rami fractures appear old/chronic. Low bone mineralization suggested. Remodeling proximal left femur fracture with instrumentation hardware partially imaged. Low bone mineralization suggested. Mild-moderate vertebral height losses appear old/chronic including thoracolumbar junction, L4, and L5 with lumbarized S1 for the purposes of this dictation only. Nondisplaced sacral alar fractures appear old/chronic. IMPRESSION: 1. Diffuse wall thickening of the large intestine concerning for colitis. 2. No small bowel obstruction. 3. Abnormal appearance of the pancreas. Please consider nonemergent ERCP or additional diagnostics given pancreatic duct dilatation. Mass not excluded of the head of the pancreas by CT given this is ductal dilatation. This document has been electronically signed by: Milton Ann MD on 10/06/2024 23:03:49
--- NOTE | ~2024-10-06 | CT_ITS ---
CLINICAL HISTORY: Fall; Head Strike; Nasal Tenderness Swelling CT maxillofacial without contrast Comparison: Head CT from 10/06/2024 Findings: Bilateral comminuted nasal bone fractures appear old/chronic. No acute displaced orbital wall fracture. No acute displaced fracture of the mandible. 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 Metal and lucencies associated with multiple remaining imaged teeth. Please refer to separate report for C2 known fracture with concern for small focus of the re-injury and/or acuity of the anterior cortex margin. torus mandibularis. Soft tissue hypertrophy of the left-sided terminates. Mild mucosal thickening of the imaged paranasal sinuses. Imaged mastoid air cells are well aerated. IMPRESSION: Bilateral nasal bone fractures appear old/chronic. This document has been electronically signed by: Milton Ann MD on 10/06/2024 23:48:42
[2024-10-06 13:54] VITALS: BP 108/72; BP 117/78; PULSE 118; PULSE 119; RESP 18; TEMP 36.5; O2SAT 97; O2SAT 98; BMI 17.9
--- NOTE | 2024-10-06 13:54 | ECG_ITS ---
Test Reason : TACHY Blood Pressure : */* mmHG Vent. Rate : 113 BPM Atrial Rate : 113 BPM P-R Int : 150 ms QRS Dur : 70 ms QT Int : 354 ms P-R-T Axes : 62 5 50 degrees QTcB Int : 485 ms Sinus tachycardia Low voltage QRS Borderline ECG When compared with ECG of 22-Apr-2024 08:11, No significant change was found Referred By: Generic ED Physician Electronically Signed By: MIHAELA LLOYD
--- OUTSIDE RECORDS SUMMARY | 2024-10-06 14:56 | XMS_ITS ---
Author Name [facility] Organization Unknown Care Team Organization Name Specialty Phone Email Start Date End Da te [facility] MICHELLE GURU Primary Care 12/19/2021 4
--- OUTSIDE RECORDS SUMMARY | 2024-10-06 14:57 | XMS_ITS | Clinical Summary ---
Author Organization [facility] Address [address] [place] [address] Care Team Providers Care Ledge Man Name Role Phone Serafin Basurto MD Primary Care Provider [phone] Allergies Active Allergy Reactions Criticality Noted Date Comments Ibuprofen 02/20/2013 Stomach bleed Nsaids (Non-Steroidal Anti-Inflammatory Drug) GI intolerance 07/19/2014 Medications nicotine polacrilex (NICORETTE) 4 mg gum CHEW BY MOUTH 1 TO 2 PIECES EVERY [address] MAXIMUM AMOUNT OF 24 PIECES A DAY [...] Problem Noted Date Diagnosed Date Chronic obstructive pulmonar y disease ([facility] V24, [facility] V28) 02/03/2024 Subclinical hypothyroidism 08/15/2017 Lacunar infarction ([facility]/HCC V24, CMS/HCC V28) Overview (02/03/2024): Old lacunar infarcts noted on head CT 10/2016 at [facility] Atrial fibrillation (CMS/HCC V24, CMS/HCC V28) 0 05/03/2013 Depression 07/10/2012 Foot drop 07/10/2012 Benign neoplasm of colon 02/06/2011 Overview (02/03/2024): 02/06/2011, 5 mm polyp proximal descending colon: Tubular adenoma. Next colonoscopy in 5 years. Pleural plaque without asbestos 12/20/2010 Pleuritic chest pain 11/28/2010 Peripheral neuropathy 10/14/2008 Lumbago 10/14/2008 Degenerative arthritis of lumbar spine 9 CTS (carpal tunnel syndrome) 04/15/2008 Overview (02/03/2024): bilateral Encounters Date Type Department Care Team Description 08/12/2024 Telephone Adult [address] [address] Serafin Basurto MD from Last 3 Months Immunizations Name Administration Dates Next Due Pneumococcal polysaccharide 23 valent (Pneumovax 23) 2yo and older 06/10/2008 Surgical History Surgery Date Site/Laterality Comments HEMORRHOID SURGERY PROCEDURE: DESTRUCTION OF HEMORRHOIDS ESOPHAGOGASTRODUODENOSCOPY 01/12/2011 PROCEDURE: CT ESOPHAGOGASTRODUODENOSCOPY TRANSORAL DIAGNOSTIC; COMMENT: normal at [facility] for melena COLONOSCOPY W/ POLYPECTOMY 02/06/2011 PROCEDURE: CT COLSC FLX W/RMVL OF TUMOR POLYP LESION SNARE TQ; COMMENT: 5 mm polyp proximal descending colon: Tubular adenoma. Next colonoscopy in 5 years. HERNIA REPAIR PROCEDURE: HISTORICAL HERNIA REPAIR/ING; COMMENT: bilateral repair Medical History Medical History Date Comments CTS (carpal tunnel syndrome) DX: CTS (carpal tunnel syndrome) Benign neoplasm of colon 02/06/2011 DX:[place] neoplasm of colon Depression 07/10/2012 DX:Depression Atrial fibrillation (CMS/HCC V24, CMS/HCC V28) 05/03/2013 DX:Atrial fibrillation (HCC) Peripheral neuropathy 10/14/2008 DX:Periphe ral neuropathy Family History Medical History Relation Name Comments Colon cancer Father [place] Hypertension Mother Relation Name Status Comments Father [...] 2 - PCV) 06/10/2009 06/10/2008 RSV Immunization Adult Patie nts (1 - Risk 60-74 years 1-dose series) 2018 Abdominal Aortic Aneurysm (A AA) Screen 01/13/2022 Colorectal Cancer Screening: Colonoscopy 01/13/2022 Social Influencers of Health Screening 01/13/2022 COVID-19 Vaccine (1 - 2023-2 5 season) 2023 Falls Risk Assessment 10/17/2023 Depression Screening 02/12/2024 Cholesterol Screening (Lipid Panel) 04/21/2024 04/22/2019 Influenza Vaccine (#1) 2024 Hepatitis C Screening Completed 06/28/2016 HIB Vaccines [...] age to complete this topic Meningococcal B Vaccine Aged Out No l onger eligible based on patient's age to complete [...] l Result * Hepatitis C Screening (06/28/2016) Hepatitis C Screening abstracted us Historical Provider HEALTH MAINTENANCE Final Result from Last 3 Months or Most Recently Relevant to Health Maintenance Care Teams Ledge Man Relationship Specialty Start Date End Date Serafin Basurto MD PCP - General 03/23/08
[2024-10-06 15:18] LABS: Hematocrit 33.0 % (42.0-52.0); Hemoglobin 11.6 g/dl (14.0-18.0); Imm Gran Abs Auto 0.01 X10*3/uL (0.00-0.03); Imm Gran Pct Auto 0.2 % (0.0-0.4); Lymphocytes Absolute Auto 2.3 X10*3/uL (1.2-4.9); Mean Corpuscular HGB Conc 35.2 g/dl (31.0-36.0); Mean Corpuscular Hemoglobin 38.9 pg (27.0-33.0); NRBC Abs Auto 0.000 X10*3/uL (0.0-0.012); NRBC Pct Auto 0.0 /100WBC (0.0-0.2); Platelet Count 233 X10*3/uL (160-400); Red Blood Count 2.98 X10*6/uL (4.60-5.80); White Blood Count 5.4 X10*3/uL (4.8-10.8)
[2024-10-06 15:34] LABS: Anion Gap 16 (12-20); Blood Urea Nitrogen 4 mg/dL (9-16); Calcium 8.3 mg/dL (8.4-10.2); Carbon Dioxide 19 mmol/L (22-29); Chloride 106 mmol/L (96-108); Creatinine Clr Calc Pharmacy 107.3; Estimated Glomerular Filt Rate > 60; Potassium 3.7 mmol/L (3.3-5.1); Sodium 137 mmol/L (135-145)
[2024-10-06 15:45] LABS: MANUAL DIFF FLAG SCAN; Mean Corpuscular Volume 110.7 fL (80.0-98.0)
--- NOTE | 2024-10-06 17:46 | PC.NURSE ---
Pt remains asleep at this time. Awaits ED provider. Reg diet ordered Spoke to Jennifer from [facility] who states pt has been living in deplorable conditions at home including hoarding and odorous. Lives in 1 room apartment filled with cans, paper and other items. (Of note) Pt unable to read and write. Also ? eviction on 10/10
[2024-10-06 18:00] VITALS: BP 111/76; PULSE 114; RESP 18; O2SAT 97
--- NOTE | 2024-10-06 20:57 | ED_ITS ---
HPI - General Adult General Chief complaint: General Medical Stated complaint: FTT PER EMS Time Seen by Provider: 10/06/24 20:54 Source: patient and EMS Mode of arrival: EMS Limitations: no limitations History of Present Illness ED Provider: Pillo OTTO HPI narrative: The patient is a 63-year-old male with a history of atrial fibrillation, MS, COPD, and high fall risk presenting to the ED for evaluation of failure to thrive. Patient reports he has difficulty ambulating or standing, uses a wheelchair of the majority of his time at home, the patient reports he currently has a home manager client service between 09:00 and 12 noon, but otherwise lives alone without other home services, receives meals on wheels which he states he is unable to eat in the evening due to inability to access the microwave. The patient reports approximately 2 weeks ago he suffered a mechanical fall but refused to be seen in the hospital, reports he is having neck pain and nasal pain since the fall. The patient's home health aide reportedly notified police today with concerns for inability to care for himself in the home, police and case supervisor responded to the home and advised the patient he needed to be evaluated in the hospital. The patient denies other acute somatic complaint. Related Data Previous Rx's ?Medication ?Instructions ?Recorded nicotine (polacrilex) 2 mg gum 4 mg buccal Q2H PRN John otine 04/23/24 Cravings #30 ea Allergies Allergy/AdvReac Type Severity Reaction Status Date / Time acetaminophen (From TYLENOL) Allergy Unknown NAUSEA Verified 10/06/24 14:00 ibuprofen (From MOTRIN) Allergy Unknown GI Verified 10/06/24 14:00 BLEEDING, stomach bleed Review of Systems 2 Review of Systems: Yes all other systems are reviewed and are negative [facility] Past Medical History Medical History Rib fractures Alcohol dependence Seizure PAF (paroxysmal atrial fibrillation) Infection of prepatellar bursa Bursitis A-fib Anxiety Depression Multiple sclerosis Falls Asbestosis COPD (chronic obstructive pulmonary disease) Atrial fibrillation Social History Social History Household Members: None Household Members Other:: girlfriend Housing: Apartment Do you presently have visiting nurse or other home services: Yes Unable to assess alcohol history related to: Unable to respond Alcohol intake: current Alcohol intake frequency: holidays/special occasions only Alcohol type: wine Patient Tobacco Use Status: Current everyday Tobacco user Tobacco use type: Cigarette Cigarette Packs Per Day: 6 Cigarettes Per Day: 120.0 Smoked in Last 30 Days: Yes Second Hand Smoke Exposure: No Use of substances other than those prescribed or required for medical reasons: No Substance Use Type: Marijuana Advance Directives: No Advance Directives Information Provided: Yes service: No Current occupational status: disabled Physical Exam ED Vital Signs: Vital Signs - 24 hr 10/07/24 11:04 10/07/24 12:00 10/07/24 14:51 Temperature 98.4 F 98.4 F Pulse Rate 67 108 H 110 H Respiratory Rate 18 20 Blood Pressure 121/82 144/90 H 143/90 H Pulse Oximetry 98 99 95 Oxygen Delivery Method Room Air Room Air Oxygen Flow Rate 10/07/24 17:50 10/07/24 19:10 10/07/24 22:00 Temperature 98.2 F 97.9 F Pulse Rate 121 H 112 H 88 Respiratory Rate 20 17 20 Blood Pressure 116/90 H 124/81 Pulse Oximetry 99 Oxygen Delivery Method Room Air Room Air Oxygen Flow Rate 98 10/08/24 05:13 Temperature 97.4 F Pulse Rate 128 H Respiratory Rate 20 Blood Pressure 110/77 Pulse Oximetry 96 Oxygen Delivery Method Room Air Oxygen Flow Rate BMI result Body Mass Index 17.9 CONSTITUTIONAL: The patient appears markedly cachectic, mildly unkempt, but otherwise non-toxic, and in no acute distress. Vital signs as documented. HEAD: There is healing ecchymosis noted to the left forehead, head is otherwise atraumatic, normocephalic. EYES: EOMs grossly intact, pupils equal, conjunctiva clear, no exudate. ENT: There is swelling and healing ecchymosis noted to the bridge of the nose with tenderness to palpation, nares patent, no discharge, no septal hematoma. Airway patent, no audible stridor, visible mucosa is pink and moist without noted lesions. NECK: Trachea is midline, no obvious masses or gross abnormalities. There is tenderness diffusely through the cervical midline. CHEST: Symmetric movement, normal appearance. LUNGS: LS present and CTAB, no w/r/r. Non-labored work of breathing. CARDIAC: Regular Rhythm, S1/S2 appreciated, no murmurs, rubs or gallops. ABDOMEN: Abdomen is tender with voluntary guarding throughout, negative rebound, no palpable masses or organomegaly. : Deferred. EXTREMITIES: Normal tone, moves all extremities spontaneously without reported pain. No obvious acute injury or deformity noted. NEURO: Alert and oriented x3, CN II-XII appear grossly intact. Cerebellar Functioning grossly intact. No obvious sensory or motor deficits. Speech clear and appropriate. PSYCH: normal affect, appropriate eye contact, fluid speech, with appropriate response to questioning. No reported suicidality or homicidality. SKIN: Warm, dry, color appropriate, normal turgor. No rashes noted. Course Course Course Narrative: 10/07/2024 0800 Jennifer Romo PA-C ----> Observation continues. Patient expressed he was having pain and requested oxycodone and a nicotine supplment. PRN Oxy ordered. Nicotine supplement ordered. Observation continues. 10/08/2024 1043 Jennifer Romo PA-C ---- > Observation care revealed the the patient does not meet medical necessity for hospitalization. Final disposition discussed with the [facility] of [facility]. Patient completed observation care at 1043 on 10/08/2024, total time spent in observation care was 1 day, 17 hours, and 29 minutes. Medications Administered Generic Name Dose Route Start Last Admin Trade Name Freq PRN Reason Stop Dose Admin Nicotine Polacrilex 4 mg 10/07/24 10:22 10/08/24 10:02 Nicotine Polacrilex 2 Mg Gum BUCCAL 4 mg Q2H PRN Administration Nicotine Cravings Oxycodone HCl 5 mg 10/07/24 10:23 10/08/24 07:29 Oxycodone Hcl Immed Release 5 Mg Tablet PO 5 mg Q6H PRN Administration Pain, Moderate(Pain Scale 4-6) Discontinued Medications Generic Name Dose Route Start Last Admin Trade Name Freq PRN Reason Stop Dose Admin Sodium Chloride 1,000 mls @ 999 mls/hr 10/06/24 21:15 10/06/24 23:16 Ns IV 10/06/24 22:15 Infused .Q1H1M OLAF Infusion Iohexol 85 ml 10/06/24 21:43 10/06/24 21:45 Iohexol 350 Mg/Ml 100 Ml Infus..Btl IV 08/26/25 21:44 85 ml ONCE ONE Administration Medical Decision Making Medical Decision Making [facility] Narrative: 9:20 PM 10/06/2024 (Faye OTTO): The patient is a 63-year-old male with a history of MS, AFib, and COPD presenting to the ED for evaluation of worsening deconditioning and inability to care for himself over the past 2-3 weeks. Patient was sent to the ED today after home health aide notified police and case supervisor that the patient was declining rapidly and appeared unable to care for himself in the home despite having a home health aide from 09:00 to 12 noon daily. The patient reports suffering a fall 2 weeks ago with pain in the nose and neck, exam reveals healing ecchymosis and tenderness of these areas, no associated crepitus. The patient appears markedly cachectic, abdomen is tender throughout with voluntary guarding but without reported rebound. The patient's laboratory evaluation is mostly reassuring, no leukocytosis, significant anemia (improved compared to previous visit), electrolyte abnormality, or MEHNAZ. The patient's physical deconditioning, decreased p.o. intake, and recent fall will be further evaluated with LFTs, lipase, magnesium, CT of the head, face, and neck, as well as a CT of the tender abdomen. If remaining workup is nondiagnostic we will hold the patient for case management consultation tomorrow. 11:58 PM 10/06/2024 (Faye OTTO): The patient's CT head shows no acute intracranial pathology, CT face shows old/chronic fractures of the nasal bones. Patient's CT abdomen shows diffuse colonic wall thickening concerning for colitis, as well as abnormal appearance of the pancreas for the recommendation for nonemergent ERCP to evaluate pancreatic duct dilatation as a mass of the head of the pancreas is not excluded. The patient's CT cervical imaging shows concern for a new lucency noted adjacent to a previous C2 fracture, concerning for re-injury and/or acute fracture of the anterior lateral cortex of the C2 base of the dens. Patient has been placed in an [place] collar. We will consult [facility] to ensure there is no indication for transfer seeing as this injury is likely 2 weeks old. Pending consultation with [facility] trauma we will consider case management hold versus admission for failure to thrive in the setting of abnormal abdominal CT and subacute C2 fracture. 1:35 AM 10/07/2024 (Faye OTTO): Patient's case and CT findings were discussed with [facility] who recommended consulting Neurosurgery. Awaiting callback from transfer center/neurosurgery at this time. 2:19 AM 10/07/2024 (Faye OTTO): Patient's case was discussed with [facility] Neurology PA Francy Jay who agrees patient does not require emergent transfer or neurosurgical intervention at this time. Patient will be followed up by [facility] Neurosurgery in their outpatient clinic. We will upload patient's comparison CT cervical spine imaging from April 20 for [facility] to reference/access. At this time the patient's abnormal appearance of the pancreas does not appear to require emergent evaluation, colitis does not appear infectious as the patient is not experiencing diarrhea, hematochezia, melena, or vomiting, and patient does not require emergent intervention regarding his CT fracture, given the lack of any electrolyte abnormalities, MEHNAZ, significant anemia, or leukocytosis, patient is more appropriate for case management/PT consultation rather than admission. We will place the patient under observation status and await case management and PT consultation. Admission/Observation Consideration of admission/observation: Escalation of care including admission/observation considered Lab Data MDM Lab Attestation statement: I reviewed the patient's lab results. 10/06/24 15:01 10/06/24 15:01 Labs: Lab Results 10/06/24 10/06/24 10/06/24 Range/Units 15:01 22:02 22:09 WBC 5.4 (4.8-10.8) X10*3/uL RBC 2.98 L (4.60-5.80) X10*6/uL Hgb 11.6 L (14.0-18.0) g/dl Hct 33.0 L (42.0-52.0) % MCV 110.7 H (80.0-98.0) fL MCH 38.9 H (27.0-33.0) pg MCHC 35.2 (31.0-36.0) g/dl RDW 13.2 (11.0-16.0) % Plt Count 233 D (160-400) X10*3/uL MPV 10.6 (9.4-12.4) fL Immature Gran % (Auto) 0.2 (0.0-0.4) % Neut % (Auto) 49.1 (45-73) % Lymph % (Auto) 43.1 H (20-40) % [place] % (Auto) 5.8 (2-11) % Eos % (Auto) 0.9 (0-4) % Baso % (Auto) 0.9 (0-2) % Lymph # (Auto) 2.3 (1.2-4.9) X10*3/uL [place] # (Auto) 0.3 (0.1-1.2) X10*3/uL Eos # (Auto) 0.1 (0.0-0.4) X10*3/uL Baso # (Auto) 0.1 (0.0-0.2) X10*3/uL Abs Immat Gran (auto) 0.01 (0.00-0.03) X10*3/uL Absolute Neuts (auto) 2.6 (2.0-8.3) x10*3/uL Absolute Nucleated RBC 0.000 (0.0-0.012) X10*3/uL Nucleated RBC % (auto) 0.0 (0.0-0.2) /100WBC Smear Tech's Comments VERIFIED Sodium 137 (135-145) mmol/L Potassium 3.7 (3.3-5.1) mmol/L Chloride 106 (96-108) mmol/L Carbon Dioxide 19 L (22-29) mmol/L Anion Gap 16 (12-20) BUN 4 L (9-16) mg/dL Creatinine 0.55 (0.5-1.4) mg/dL Estim Creat Clear Calc 107.3 Estimated GFR > 60 Random Glucose 103 (60-115) mg/dL Calcium 8.3 L (8.4-10.2) mg/dL Magnesium 1.7 (1.6-2.6) mg/dL Total Bilirubin 0.7 (0.0-1.0) mg/dL Direct Bilirubin 0.4 (0.0-0.5) mg/dL AST 96 H (5-37) U/L ALT 43 H (0-40) U/L Alkaline Phosphatase 121 H (39-117) U/L Troponin I High Sens < 2.7 (<3.5-35.0) ng/L Total Protein 5.9 L (6.5-8.0) g/dL Albumin 2.9 L (3.5-5.0) g/dL Lipase 74 (8-78) U/L Urine Color Yellow Urine Appearance Clear Urine pH 6.5 (5.0-9.0) Ur Specific [place] 1.015 (1.005-1.025) Urine Protein Negative (Neg-Trace) mg/dL Urine Glucose (UA) Negative (Negative) mg/dL Urine Ketones Trace (Negative) mg/dL Urine Blood Small (1+) H (Negative) Urine Nitrite Negative (Negative) Ur Leukocyte Esterase Negative (Negative) Urine RBC 3-5 H (0-2) /HPF Urine WBC 0-5 (0-5) /HPF Ur Squamous Epith Cells 0-2 (0-2) /HPF Urine Bacteria None Seen (None Seen) Hyaline Casts 0-2 (0-2) /LPF Influenza Type A (PCR) (Negative) Influenza Type B (PCR) (Negative) RSV RNA Qual (PCR) (Negative) SARS-CoV-2 RNA (RT-PCR) (Negative) 10/07/24 Range/Units 10:14 WBC (4.8-10.8) X10*3/uL RBC (4.60-5.80) X10*6/uL Hgb (14.0-18.0) g/dl Hct (42.0-52.0) % MCV (80.0-98.0) fL MCH (27.0-33.0) pg MCHC (31.0-36.0) g/dl RDW (11.0-16.0) % Plt Count (160-400) X10*3/uL MPV (9.4-12.4) fL Immature Gran % (Auto) (0.0-0.4) % Neut % (Auto) (45-73) % Lymph % (Auto) (20-40) % [place] % (Auto) (2-11) % Eos % (Auto) (0-4) % Baso % (Auto) (0-2) % Lymph # (Auto) (1.2-4.9) X10*3/uL [place] # (Auto) (0.1-1.2) X10*3/uL Eos # (Auto) (0.0-0.4) X10*3/uL Baso # (Auto) (0.0-0.2) X10*3/uL Abs Immat Gran (auto) (0.00-0.03) X10*3/uL Absolute Neuts (auto) (2.0-8.3) x10*3/uL Absolute Nucleated RBC (0.0-0.012) X10*3/uL Nucleated RBC % (auto) (0.0-0.2) /100WBC Smear Tech's Comments Sodium (135-145) mmol/L Potassium (3.3-5.1) mmol/L Chloride (96-108) mmol/L Carbon Dioxide (22-29) mmol/L Anion Gap (12-20) BUN (9-16) mg/dL Creatinine (0.5-1.4) mg/dL Estim Creat Clear Calc Estimated GFR Random Glucose (60-115) mg/dL Calcium (8.4-10.2) mg/dL Magnesium (1.6-2.6) mg/dL Total Bilirubin (0.0-1.0) mg/dL Direct Bilirubin (0.0-0.5) mg/dL AST (5-37) U/L ALT (0-40) U/L Alkaline Phosphatase (39-117) U/L Troponin I High Sens (<3.5-35.0) ng/L Total Protein (6.5-8.0) g/dL Albumin (3.5-5.0) g/dL Lipase (8-78) U/L Urine Color Urine Appearance Urine pH (5.0-9.0) Ur Specific [place] (1.005-1.025) Urine Protein (Neg-Trace) mg/dL Urine Glucose (UA) (Negative) mg/dL Urine Ketones (Negative) mg/dL Urine Blood (Negative) Urine Nitrite (Negative) Ur Leukocyte Esterase (Negative) Urine RBC (0-2) /HPF Urine WBC (0-5) /HPF Ur Squamous Epith Cells (0-2) /HPF Urine Bacteria (None Seen) Hyaline Casts (0-2) /LPF Influenza Type A (PCR) NEGATIVE (Negative) Influenza Type B (PCR) NEGATIVE (Negative) RSV RNA Qual (PCR) NEGATIVE (Negative) SARS-CoV-2 RNA (RT-PCR) NEGATIVE (Negative) Independent Interpretation I performed an independent interpretation of an: EKG (EKG shows sinus tachycardia with a rate of 113, no evidence of acute ischemia, no ST elevation, no ectopy. QTC 485. Compared to previous on 04/22/2024 there are no acute rate or morphology changes.) Radiology Impression Discussion of test interpretation with radiology: I have reviewed the radiologist's reading. Radiologist Impression: CT head without contrast Comparison: 04/20/[address] Findings: No acute intracranial hemorrhage. No midline shift or hydrocephalus. Mild-moderate volume loss is generalized and not significantly changed from comparison. Moderate white matter lesions are nonspecific and likely due to small-vessel ischemic disease. Small old left basal ganglia region lacunar infarction. No large arterial territorial infarction by CT. Mucosal thickening of the imaged paranasal sinuses are multifocal. Imaged mastoid air cells are well aerated. Vascular calcifications are redemonstrated. No acute skull fracture. Mild nasal bone deformities appear old/chronic. IMPRESSION: 1. No acute intracranial abnormality by CT. This document has been electronically signed by: Milton Ann MD on 10/06/2024 23:41:04 CT maxillofacial without contrast Comparison: Head CT from 10/06/2024 Findings: Bilateral comminuted nasal bone fractures appear old/chronic. No acute displaced orbital wall fracture. No acute displaced fracture of the mandible. 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 Metal and lucencies associated with multiple remaining imaged teeth. Please refer to separate report for C2 known fracture with concern for small focus of the re-injury and/or acuity of the anterior cortex margin. torus mandibularis. Soft tissue hypertrophy of the left-sided terminates. Mild mucosal thickening of the imaged paranasal sinuses. Imaged mastoid air cells are well aerated. IMPRESSION: Bilateral nasal bone fractures appear old/chronic. This document has been electronically signed by: Milton Ann MD on 10/06/2024 23:48:42 CT abdomen and pelvis with contrast Comparison: None provided Findings: Mild bibasilar atelectasis and/or pneumonitis. Mild eventration of the left hemidiaphragm fat measuring 2.2 cm. Trace pericardial effusion. Vascular calcifications include imaged coronary arteries. Calcified and noncalcified plaque involving the imaged aorta and its branches in this nonvascular study. Liver surface nodularity as can be seen with cirrhosis. Low-density lesion in the right lobe of the liver measures 4 mm and nonspecific. Differential considerations include cysts and hemangioma in the absence of malignancy. This is not further characterize by [address] Mild wall thickening of the contracted gallbladder. Moderate volume loss of the pancreas. Multiple calcifications of the pancreas can be seen with chronic and/or prior pancreatitis. Main pancreatic duct measures 4 mm. This mild dilatation is nonspecific. Mass and/or mass-effect of the ampulla or pancreatic head and not excluded given the ductal dilatation. The spleen is nonenlarged. No hydronephrosis. No small bowel obstruction. Diffuse wall thickening of the large intestine is nonspecific and concerning for colitis, including sigmoid colon and including distally. Imaged appendix is retrocecal, nondilated, without definite findings of acute appendicitis. Punctate appendicolith noted distally. The prostate gland measures 4.2 cm transverse. Moderate wall thickening of the urinary bladder is nonspecific. Bilateral pelvis deformities including pubic rami fractures appear old/chronic. Low bone mineralization suggested. Remodeling proximal left femur fracture with instrumentation hardware partially imaged. Low bone mineralization suggested. Mild-moderate vertebral height losses appear old/chronic including thoracolumbar junction, L4, and L5 with lumbarized S1 for the purposes of this dictation only. Nondisplaced sacral alar fractures appear old/chronic. IMPRESSION: 1. Diffuse wall thickening of the large intestine concerning for colitis. 2. No small bowel obstruction. 3. Abnormal appearance of the pancreas. Please consider nonemergent ERCP or additional diagnostics given pancreatic duct dilatation. Mass not excluded of the head of the pancreas by CT given this is ductal dilatation. This document has been electronically signed by: Milton Ann MD on 10/06/2024 23:03:49 CT cervical spine without contrast Comparison: CT of the cervical spine from 04/20/2024 Findings: Lucency of the anterior-lateral cortex of the C2-base of the dens is concerning for re-injury adjacent to persisting subacute to old fracture line with accentuated impaction of the dens relative to the remainder of the C2 (imaged 87 of series 5). Additional C2 fractures appear old and unchanged. Remodeling of the C1-C2 again noted. Mild retrolisthesis of the C2 relative to C3 accentuated by fracture deformity with remodeling. Vacuum disc phenomenon is multifocal including C3-C4, C5-C6, and C6-C7. Facet arthropathy, disc osteophyte complexes, and ligament calcifications are multifocal. Spinal stenosis includes mild spinal canal stenosis at C3-C4 where there is mild retrolisthesis; and multifocal foraminal narrowing, including [id number] left at C5-C6. Soft tissue swelling and/or prominence noted of the anterior margin of the C2. Vascular calcifications are redemonstrated. Scarring and emphysematous changes of the imaged lung apices. IMPRESSION: 1. Lucency of the cortex irregularity concerning for re-injury and/or acute fracture of the anterior-lateral cortex of the C2-base of the dens. 2. Redemonstration of the chronic C2 deformities from old fracture with remodeling. This document has been electronically signed by: Milton Ann MD on 10/06/2024 23:42:41 Independent Historian Clinical information obtained from an independent historian. History obtained from or confirmed by: EMS External Record Review External record reviewed: Outpatient record Discharge Plan Discharge Clinical Impression: Weakness Patient Disposition: Xfer [facility] Instructions: Weakness (ED) Prescriptions: No Action nicotine (polacrilex) 2 mg Gum 4 mg buccal Q2H PRN (Reason: Nicotine Cravings) Qty: 30 0RF Referrals: [facility] [Outside] - 10 days Print Language: Citizen [place]
[2024-10-06] MEDS: iohexoL 350 MG/ML 100 ML INFUS..BTL 85 ML IV (21:45)
[2024-10-06 22:21] LABS: Appearance Urine Clear; Glucose Urine UA Negative (Negative); PH 6.5 (5.0-9.0); Specific Gravity - Urine 1.015 (1.005-1.025); UMIC TRIGGER UACC YES
[2024-10-06 22:32] LABS: Alanine Aminotransferase 43 U/L (0-40); Albumin Level 2.9 g/dL (3.5-5.0); Alkaline Phosphatase 121 U/L (39-117); Aspartate Amino Transferase 96 U/L (5-37); Lipase 74 U/L (8-78); Magnesium 1.7 mg/dL (1.6-2.6); Total Protein 5.9 g/dL (6.5-8.0)
[2024-10-06 22:41] LABS: Troponin-I High Sensitivity < 2.7 ng/L (<3.5-35.0)
[2024-10-06 23:21] VITALS: BP 135/76; PULSE 117; RESP 16; TEMP 37.2; O2SAT 93
[2024-10-07] VITALS (8 sets, daily range): BP systolic 116–144; BP diastolic 73–90; PULSE 67–121; RESP 16–20; TEMP 36.6–36.9; O2SAT 95–99
[2024-10-07] MEDS: oxyCODONE HCl Immed Release 5 MG TABLET PO ×2 (10:31→17:55)
[2024-10-07 11:10] LABS: Resp Syncy Virus RNA Qual PCR NEGATIVE (Negative); SARS COV2 PCR INHOUSE NEGATIVE (Negative)
--- NOTE | 2024-10-07 11:51 | MHC.CM.ED ---
Addendum entered by Violet Mcginnis 10/07/24 12:24: [facility] does not have a male bed available. Referral broadcasted within 15 miles of patient's home to all facilities that are [facility]. Original Note: Received case management consult overnight. Patient came to the ER due to weakness and falls. Work up indicated subacute C2 fx. Physical therapy eval completed. Short term rehab is recommended. Met with patient in regards to discharge planning. Patient lives alone, denies uses any mobility devices and has a [employer] through [facility]. PCP verified. HCP verified to be on file. Patient states he has been to [facility] in the past and is requesting referral there. Referral will be made via [facility]. Continue to monitor for d/c needs.
--- NOTE | 2024-10-07 14:50 | PHA.MEDREC ---
Addendum entered by Cate Tamayo RPh 10/07/24 15:00: MED REC REVIEWED BY SUMI. Original Note: Pharmacy Consult ? Medication Reconciliation Pharmacy has completed the medication reconciliation. Patient states he is not taking any medications at home. he states he uses Nicotine 2 mg Gum if needed.
--- NOTE | 2024-10-07 18:04 | MHC.CM.ED ---
[facility] offered a bed, patient accepts. Facility aware.
--- NOTE | 2024-10-07 20:58 | PC.NURSE ---
Assumed care of pt at 2038. Pt noted to be in spine immobilization with good positioning. VSS PT demanding urinal from Patricia SANCHEZ multiple times despite Patricia and MARLEN providing care to other pts at the time. PT was given urinal however it is noted the PT has not used the urinal since being given it. Additionally, Pt became upset regarding the quality of the tv screen. Patricia attempted to troubleshoot issue and offered to call someone who may be able to help. Pt responding to Patricia harshly and rudely. TW asked PT to please remain respectful as we are all trying our best and cannot adjust the screen picture. PT's HCP was on speaker phone at the time of this interaction and stated that to t/w i think you're being too sensitive and asked for T/w information to file a complaint. Notified charge regarding interaction.
[2024-10-08] MEDS: oxyCODONE HCl Immed Release 5 MG TABLET PO ×3 (00:27→13:51)
[2024-10-08 05:13] VITALS: BP 110/77; PULSE 128; RESP 20; TEMP 36.3; O2SAT 96
--- NOTE | 2024-10-08 09:10 | MHC.CM.ED ---
Addendum entered by Violet Mcginnis 10/08/24 10:33: Received notification from Carina at [facility] that screening will be available this afternoon. PVR made aware. Rosy LEUNG booked for 2pm. [facility] with chart. Patient, Dafne LUGO and Jennifer OTTO aware. Original Note: Patient remains in ER overflow. MDS and Level [address] [facility] and [facility]. Continue to monitor for d/c needs.
[2024-10-08 14:08] VITALS: BP 110/77; PULSE 128; RESP 20; TEMP 36.3; O2SAT 96
== END 2024-10-08 14:00 ==
PROVIDERS: Physician Assistant; Physician Assistant Medical; Emergency Provider Emergency Medicine; PCP Internal Medicine
DX: R53.1 Weakness (principal); R62.7 Adult failure to thrive; G35 Multiple sclerosis; J44.9 Chronic obstructive pulmonary disease, unspecified; M54.2 Cervicalgia; J34.89 Other specified disorders of nose and nasal sinuses; I48.0 Paroxysmal atrial fibrillation; F10.20 Alcohol dependence, uncomplicated; F41.9 Anxiety disorder, unspecified; F32.A Depression, unspecified; F17.210 Nicotine dependence, cigarettes, uncomplicated; F12.90 Cannabis use, unspecified, uncomplicated; Z68.1 Body mass index [BMI] 19.9 or less, adult; Z91.81 History of falling
CPT/HCPCS: 36415; 70450; 70486; 72125; 74177; 80048; 80076; 81001; 81003; 83690; 83735; 84484; 85025; 87637; 93005; 97162; 99285; Q9967

== ENCOUNTER → 2024-10-06 13:54 | Outpatient (BNV) | payer MEDICARE, MEDICAID, SELFPAY | PROVIDERS: Emergency Provider Emergency Medicine; PCP Internal Medicine; Visit Provider Internal Medicine | DX: R00.0 Tachycardia, unspecified (principal) | CPT/HCPCS: 93010 ==

== ENCOUNTER → 2024-10-06 21:09 | Outpatient (BNV) | payer MEDICARE, MEDICAID, SELFPAY | PROVIDERS: Emergency Provider Emergency Medicine; PCP Internal Medicine; Visit Provider Radiology Neuroradiology | DX: K63.89 Other specified diseases of intestine (principal); M54.2 Cervicalgia; J34.89 Other specified disorders of nose and nasal sinuses; S09.90XA Unspecified injury of head, initial encounter; R51.9 Headache, unspecified; W19.XXXA Unspecified fall, initial encounter | CPT/HCPCS: 70450; 70486; 72125; 74177 ==

== ENCOUNTER → 2025-02-08 12:07 | Outpatient (BNV) | payer MEDICARE, MEDICAID, SELFPAY | PROVIDERS: Emergency Provider Emergency Medicine; PCP Internal Medicine; Visit Provider Hospitalist | DX: R53.81 Other malaise (principal) | CPT/HCPCS: 99233 ==

== ENCOUNTER → 2025-02-08 15:21 | Outpatient (BNV) | payer MEDICARE, MEDICAID, SELFPAY | PROVIDERS: Admitting Provider Hospitalist; Emergency Provider Emergency Medicine; PCP Internal Medicine; Visit Provider Internal Medicine | DX: R62.7 Adult failure to thrive (principal); R10.9 Unspecified abdominal pain; F10.90 Alcohol use, unspecified, uncomplicated; F17.200 Nicotine dependence, unspecified, uncomplicated; W19.XXXA Unspecified fall, initial encounter; D64.9 Anemia, unspecified; K31.7 Polyp of stomach and duodenum; K20.90 Esophagitis, unspecified without bleeding; K29.70 Gastritis, unspecified, without bleeding; K29.80 Duodenitis without bleeding | CPT/HCPCS: 43239; 99223 ==